=== PATIENT | female | born 1990 | race Caucasian/White ===

== ENCOUNTER 2019-01-20 08:59 | Emergency (ER) | payer BC, SELFPAY ==
[2019-01-20 09:00] VITALS: BP 143/84; PULSE 90; RESP 18; TEMP 37; O2SAT 96; BMI 44.9
--- NOTE | 2019-01-20 09:17 | ED.DCSUM_ITS ---
- ER Visit Summary Date of Service: 01/20/19 Chief Complaint: Viral respiratory symptoms that started 2 days ago History of Present Illness: The patient is a 28 F who presents with viral-like symptoms started 2 days ago. She reports subjective fever and sweats. She reports sore throat postnasal drainage. She has a cough which is nonproductive. She states she does not feel well. 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 Patient denies any medical problems. She does report mild head discomfort. She denies any ear pain or decreased hearing. Patient denies GI symptoms or urologic symptoms. Please read written note for complete detail Physical Examination: Vital signs are remarkable for blood pressure 143/84. She is afebrile. She is not tachycardic tachypnic. Furthermore, she is not hypoxic. BMI is 44.9. HEENT exam is marked for nasal congestion. Posterior pharynx unremarkable with no erythema, uvula is midline. There is no exudate. There is no dysphonia or dysphasia. Trach is midline. There is no stridor. Heart is regular without murmur, gallop or rub. S1 and S2 are normal. Lungs are clear to auscultation with good movement of air bilaterally. There is no skin lesions. Neuro exam is nonfocal. Test Results: None were obtained Emergency Department Course and Treatment: Patient was informed she has a viral infection. Since her symptoms started 2 days ago she was not tested for influenza. She was informed based on the CDC's recommendation [employer] infectious disease treatment is not indicated past 2 days. Furthermore patient has no congenital anomalies or significant medical problems. Patient was informed if this is influenza since she is exposed her illness will last another 4-7 days. If this is not influenza her illness will last an additional 7-10 days. Treatment Plan: Symptomatic. Patient appeared frustrated. She was asked if anything else can be done. Her comment was I feel bad. Patient was informed it is not uncommon with a viral upper restaurant infection to feel ill sore etc. I reiterated since this is a viral infection and antibiotics are not indicated. Disposition: Discharged home Impression: Acute viral upper respiratory infection This note was generated with Coreworx[employer] software. It may contain incorrect words, spelling, and punctuation that were not noted in review of the chart prior to signing ED Disposition - Plan for ED Patient: Disposition: Home or Assisted Living Instructions: ED Viral Syndrome Additional Instructions: You may feel ill for additional 7-10 days. If you develop a productive cough with blood streaks or is brown in color return to the emergency department; you may feel worse over the next 24-48 hours before you feel better.
== END 2019-01-20 09:36 | disposition home or self-care (01) ==
PROVIDERS: Emergency Provider Emergency Medicine
DX: J06.9 Acute upper respiratory infection, unspecified (principal); E66.9 Obesity, unspecified; Z68.41 Body mass index [BMI] 40.0-44.9, adult
CPT/HCPCS: 99282

== ENCOUNTER 2021-10-07 11:31 | Emergency (ER) | payer OTHER, SELFPAY ==
[2021-10-07 11:32] VITALS: BP 167/92; PULSE 104; RESP 18; TEMP 36.2; O2SAT 99; BMI 48.0
--- NOTE | 2021-10-07 12:45 | RAD_ITS ---
STUDY: X-RAY CHEST REASON FOR EXAM: Female, 31 years old. cough TECHNIQUE: Single frontal view of the chest. COMPARISON: None. FINDINGS: The lungs are clear and expanded. There is no demonstrated pleural abnormality. Normal size heart. Normal mediastinum and radha. Normal visualized pulmonary arteries. Normal visualized aortic arch and descending thoracic aorta. Normal visualized thoracic spine. Normal visualized ribs, clavicles, and shoulders. There is no demonstrated abnormality of the visualized soft tissue structures of the upper abdomen. RAD/Chest 1 View (Portable) IMPRESSION: Normal x-ray examination of the chest. Electronically Signed: Scotty Birmingham MD at 16:23 EST , Service support ,
--- NOTE | 2021-10-07 12:46 | EDS_ITS ---
HPI HPI - URI History of Present Illness Chief Complaint: Cough Narrative Narrative: Patient presents with URI type symptoms for the last 5 days. She states she went to the urgent care on Sunday and was tested for Covid and was negative. She complains of sore throat, cough, mild shortness of breath, and body aches. She states on Sunday she was told to take Claritin and this is most likely a common cold. Her throat hurts more when she swallows. She has had subj ective fever, stating that she usually runs 97 but was as high as 99 degrees previously. She returned to urgent care yesterday and was prescribed cough medication. She states that the worst symptoms are the sore throat and the cough. She denies any exacerbating or alleviating factors. Past medical history includes anxiety and PCOS for which she takes Metformin. ROS ROS ED ROS Narrative Constitutional: No fever, no chills. HEENT: Positive sore throat. No neck pain. No loss of vision. No rhinorrhea. Cardiovascular: No chest pain. No palpitations. No pedal edema. Respiratory: Positive cough, mild shortness of breath. Abdominal: No abdominal pain. No nausea. No vomiting. Genitourinary: No dysuria. No hematuria. Musculoskeletal: Diffuse myalgias. No arthralgias. Neurologic: No headaches. No dizziness. No lightheadedness. Skin: No rash. No change in color. Psychiatric: No depression. No anxiety. [facility] Medical History (Updated 10/07/21 @ 14:40 by Jose Armando Rascon MD) PCOS (polycystic ovarian syndrome) Home Medications albuterol sulfate [Ventolin HFA] 1 - 2 puff INHALATION Q4H PRN PRN #1 ea 10/07/21 [Rx Last Taken Unknown] fluoxetine 10 mg PO DAILY 10/07/21 [History Last Taken Unknown] metformin 500 mg PO DAILY 10/07/21 [History Last Taken Unknown] Allergy/AdvReac Type Severity Reaction Status Date / Time amoxicillin Allergy Hives Verified 10/07/21 11:32 Penicillins Allergy Hives Verified 10/07/21 11:32 Surgical History (Updated 10/07/21 @ 13:07 by Romain Correa) [place] teeth removed Social History Smoking Status: Never smoker EXAM Physical Exam Narrative Exam Narrative: Afebrile. Vital signs noted. HEENT: Normocephalic. Atraumatic. PERRL, EOMI. Neck soft and supple. No point tenderness or step off. Airway patent. No meningismus. Cardiovascular: Regular rate and rhythm with intermittent tachycardia. No mur murs, rubs, or gallops appreciated. Respiratory: No tachypnea. Lungs clear to auscultation bilaterally. Gastrointestinal: Abdomen soft, nontender, with normoactive bowel sounds. No rebound or guarding. Neurological: Awake. Alert. Nonfocal, nonlateralizing. Skin: No rash. Normal color. No pallor. Musculoskeletal: No pedal edema. Full range of motion extremities. Const Vital Signs: 10/07/21 11:32 10/07/21 13:06 Temperature 97.1 F L Temperature Source Temporal Pulse Rate 104 H Respiratory Rate 18 Respiratory Effort Normal Respiratory Depth Normal Respiratory Pattern Normal Blood Pressure 167/92 H Blood Pressure Mean 117 Pulse Ox 99 Oxygen Delivery Method Room Air Room Air MDM MDM MDM Narrative Medical decision making narrative: Patient will be swabbed for influenza and for strep throat, although she has no exudate. I will also obtain a chest x-ray. Her pulse ox is 99% on room air without evidence of hypoxia. Chest x-ray was read as negative. Her Covid swab, influenza swab, and strep swabs were all negative. At this point in time, she will be symptomatic. She will be given a prescription for an albuterol inhaler and a note to be off work for the next 2 days. She will continue her medications that she has already received and add other [id number] remedies. I feel she be discharged safely home with follow-up. Return instructions were reviewed. Disposition is discharged home in stable condition. Lab Data Attestation: I reviewed the patient's lab results. Radiography Diagnostic Testing: Clinical Impression(s) from Imaging Studies Chest X-Ray 10/07/21 12:45 IMPRESSION: Normal x-ray examination of the chest. Electronically Signed: Scotty Birmingham MD at 16:23 EST , Service support , Discharge Plan Triage Chief Complaint: Cough ED Provider: Jose Armando Rascon Dx/Rx/DC Orders Clinical Impression: URI (upper respiratory infection), Bronchitis Instructions: ED Bronchitis with Wheezing (Adult), ED URI, Viral, No Abx (Adult) Prescriptions: New albuterol sulfate [Ventolin HFA] 90 mcg/actuation HFA aerosol inhaler 1 - 2 puff inhalation Q4H PRN PRN (Reason: Wheezing) Qty: 1 RF: 0 No Action fluoxetine 10 mg capsule 10 mg PO DAILY RF: 0 metformin 500 mg tablet extended release 24 hr 500 mg PO DAILY RF: 0 Stand Alone Forms: ED Work / School Excuse Primary Care Provider: Edwin Adamson NP Referrals: Edwin Adamson NP, ANDROID PROGRAMMER-C [Primary Care Provider] - 10/11/21 Disposition Disposition: Home, Self Care Discharge Date/Time: 10/07/21 14:53
[2021-10-07 13:06] VITALS: O2SAT 97
== END 2021-10-07 14:53 | disposition home or self-care (01) ==
PROVIDERS: Emergency Provider Emergency Medicine; PCP Nurse Practitioner Primary Care
DX: J40 Bronchitis, not specified as acute or chronic (principal); E28.2 Polycystic ovarian syndrome; F41.9 Anxiety disorder, unspecified; Z79.84 Long term (current) use of oral hypoglycemic drugs; Z79.899 Other long term (current) drug therapy
CPT/HCPCS: 71045; 87426; 87804; 87880; 99282

== ENCOUNTER 2022-03-23 10:20 | Outpatient (RCR) | payer OTHER, SELFPAY | END 2022-04-04 23:59 | LOC: NS 10:20 | PROVIDERS: PCP Nurse Practitioner Primary Care; Referring Provider Nurse Practitioner; Visit Provider Nurse Practitioner | DX: Z71.3 Dietary counseling and surveillance (principal); E66.01 Morbid (severe) obesity due to excess calories; Z68.42 Body mass index [BMI] 45.0-49.9, adult | CPT/HCPCS: 97802 ==

== ENCOUNTER 2023-03-04 14:07 | Emergency (ER) | payer OTHER, SELFPAY ==
[2023-03-04 14:09] VITALS: BP 179/110; PULSE 92; RESP 22; TEMP 36.1; O2SAT 98; BMI 50.5
--- NOTE | 2023-03-04 14:21 | EX.ED.VIS.EY ---
HPI <QUAN Arias - Last Filed: 03/04/23 14:36> History of Present Illness Chief Complaint: Eye Problem Narrative Narrative: Patient is 32-year-old female with history of PCOS who presents to the emergency department for swelling to the left eye as well as redness. Patient states 3 days ago she noticed her left eye getting more red. The lower lid became more swollen, she woke up with crusty eyes. Patient states has tried warm compress, cold compress and still having pain. She did go to express care who referred her to the emergency department. Patient denies any vision change, patient denies any known injury. Patient does have some drainage from the eye. She denies any pain with movement of the eye. Patient does not wear contacts, she does wear glasses PFSH <QUAN Arias - Last Filed: 03/04/23 14:36> PFS Medical History (Updated 03/04/23 @ 14:39 by Rebecca Galvez) GERD (gastroesophageal reflux disease) PCOS (polycystic ovarian syndrome) Home Medications albuterol sulfate 90 mcg/actuation aerosol inhaler (Ventolin HFA) 1 - 2 puff inhalation Q4H PRN PRN Wheezing #1 ea 10/07/21 [Rx Last Taken Unknown] fluoxetine 10 mg capsule 10 mg PO DAILY 10/07/21 [History Last Taken Unknown] metformin 500 mg tablet,extended release 24 hr 500 mg PO DAILY 10/07/21 [History Last Taken Unknown] gentamicin 0.3 % eye drops 2 drp LEFT EYE Q4H #5 mL 03/04/23 [Rx Last Taken Unknown] Allergy/AdvReac Type Severity Reaction Status Date / Time amoxicillin Allergy Hives Verified 10/07/21 11:32 ceftriaxone [From Rocephin] Allergy Hives Verified 03/04/23 14:11 Penicillins Allergy Hives Verified 10/07/21 11:32 Family History Mother GERD (gastroesophageal reflux disease) Bernal esophagus Hypertension Blood clotting disorder Grandfather Diabetes Surgical History (Updated 03/04/23 @ 14:39 by Rebecca Galvez) H/O esophagogastroduodenoscopy [place] teeth removed Social History housing: house Smoking Status: Never smoker ROS <QUAN Arias - Last Filed: 03/04/23 14:36> ROS ED ROS Narrative Constitutional: Negative for fever, chills, weight loss, weakness Eyes: Negative for vision loss, vision change, double vision. Left eye redness, pain, swelling, drainage ENT: Negative for any sore throat, ear pain, congestion Cardiovascular: Negative for any chest pain, tightness, palpitations Respiratory: Negative for any cough, sputum production, hemoptysis, dyspnea, dyspnea on exertion, orthopnea Gastrointestinal: Negative for any abdominal pain, nausea, vomiting, diarrhea, constipation, blood in stool, blood in vomit : Negative for any urinary frequency, dysuria, retention, blood in urine Muscle skeletal: Negative for any muscle joint pain, stiffness, myalgias, arthralgias, neck pain, back pain Neurological: Negative for any headache, syncope, numbness or tingling, dizziness Skin: Negative for any rashes, lumps, itching, abrasions, lacerations Psychiatric: Negative for any depression, anxiety, stress, suicidal ideation, homicidal ideation Hematologic: Negative for any easy bruising, excessive bruising, easy bleeding Allergies: Negative for any eczema, hives, rash EXAM <QUAN Arias - Last Filed: 03/04/23 14:36> Physical Exam Narrative Exam Narrative: Vital signs reviewed. HEET: Head normocephalic atraumatic, TMs clear bilaterally. Posterior pharynx is clear, moist mucous membranes. Nares clear bilaterally. Pupils are equal round reactive to light. Patient does have some injection to the lower conjunctiva, small amount of drainage. Patient does have some subconjunctival hemorrhage to the left lateral eye. Negative for any vision loss. Negative for any pain with EOMs. Patient does have some edema, erythema to the left lower eyelid. Physical examination is consistent with conjunctivitis, possible stye. Neck: Supple with no lymphadenopathy or tenderness. No signs of meningismus, negative jolt sign. Cardiac: Regular rate and rhythm no murmurs gallops or rubs, equal peripheral pulses bilaterally. Respiratory: Lungs clear to auscultation bilaterally. No chest tenderness. Abdomen: Soft, nontender, nondistended. No abdominal bruit or pulsatile masses. No hepatosplenomegaly Extremities: No peripheral edema, no signs of gross trauma or deformity. Active full range of motion of all extremities. Neuro: Cranial nerves II through XII intact, no focal neurological deficits. Skin: Clean dry and intact with no rash, purpura, petechiae, vesicles or pustules. Backs/flank: No CVA tenderness, no midline spinal tenderness, no deformity. Psych: Normal mood and affect. No SI, HI or acute psychosis. Const Vital Signs: 03/04/23 14:09 Temperature 96.9 F L Temperature Source Temporal Pulse Rate 92 Respiratory Rate 22 H Blood Pressure 179/110 H Blood Pressure Mean 133 Pulse Ox 98 Oxygen Delivery Method Room Air [facility] <QUAN Arias - Last Filed: 03/04/23 14:36> [facility] Treatment and Re-Evaluation Narrative: Patient appears well, patient appears nontoxic, vital signs are stable. Patient presents to the emergency department with 3 days of left eye pain, redness, swelling. Patient's physical examination consistent with a conjunctivitis. Patient's differential includes viral conjunctivitis, early stye, early orbital cellulitis however patient has no surrounding cellulitis, no fever, chills. Patient is no pain with EOMs. Patient did see an urgent care who gave her clindamycin orally for cellulitis. Patient does have an appointment with an eye doctor tomorrow morning at 8:45 AM. I will add gentamicin eyedrops the patient will take 2 drops 4 times a day. Patient will continue her follow-up with ophthalmology. She is instructed to return for worsening pain, vision loss, fever chills nausea vomiting. All questions answered. Patient stable for discharge <Dr. Bryson Peterson MD - Last Filed: 03/04/23 14:41> [facility] Narrative Medical decision making narrative: I have personally performed a face to face assessment of the patient and have reviewed the DEEPA Note. I performed a substantive portion of the visit including all aspects of the following. My ding findings include: History is 32-year-old female wears glasses but no contacts or prior eye surgery. 3-day history of redness to the lateral aspect of her left eye with mild swelling to the left lower lid. No trauma. No injury. States she does have some discharge and crusting in the morning. No significant visual change. No prior history. No exposure to pinkeye. Exam is [well-appearing 32-year-old female. Vital signs stable afebrile. HEENT exam pupils round reactive light extra motions are intact. There is no proptosis. No pain with extraocular motions. Right eye is unremarkable. Left eye there is conjunctivitis. With redness in the lateral aspect of the left sclera. Able to open and close both upper and lower lids without difficulty. The left lower lid laterally is mildly swollen. There is no obvious stye at this time. The eye itself there is no abrasion or foreign body. There is no ulceration. Everting both the upper and lower lids there is mild swelling in the left lower lid. There is no periorbital cellulitis or preauricular lymphadenopathy. Posterior pharynx and left ear are unremarkable. Neck nontender. No lymphadenopathy. Lungs clear. Heart regular rhythm. Otherwise exam unremarkable.] Medical Decision Making [32-year-old female wears glasses but not contacts nor has she had any eye trauma or surgery. This is either a conjunctivitis which could be either viral or bacterial. It could be early stye formation or even soft tissue infection. She was seen in urgent care today. He started on clindamycin due to her allergies to both Keflex and penicillin. We will add eyedrops. And she has appointment to see a [facility] eye physician tomorrow morning.] Other additions or changes: [None] Discharge Plan Triage Chief Complaint: Eye Problem ED Midlevel Provider: Juan Alberto Colindres ED Provider: Bryson Peterson Dx/Rx/DC Orders Clinical Impression: Conjunctivitis Instructions: ED Conjunctivitis, Nonspecific Prescriptions: New gentamicin 0.3 % drops 2 drp LEFT EYE Q4H Qty: 5 0RF No Action fluoxetine 10 mg capsule 10 mg PO DAILY metformin 500 mg tablet extended release 24 hr 500 mg PO DAILY albuterol sulfate [Ventolin HFA] 90 mcg/actuation HFA aerosol inhaler 1 - 2 puff inhalation Q4H PRN PRN (Reason: Wheezing) Qty: 1 0RF Primary Care Provider: Edwin Adamson NP Referrals: Edwin Adamson NP, PUPPET MASTER-C [Primary Care Provider] - Activity Restrictions/Additional Instructions: Please follow-up with the mechanical field engineer tomorrow at 8:45 AM. Start eyedrops today, as well as the clindamycin Disposition Disposition: Home, Self Care
[2023-03-04 14:43] VITALS: RESP 16
== END 2023-03-04 14:44 | disposition home or self-care (01) ==
LOC: ED 14:41
PROVIDERS: Emergency Provider Emergency Medicine; PCP Nurse Practitioner; Visit Provider Emergency Medicine
DX: H10.9 Unspecified conjunctivitis (principal)
CPT/HCPCS: 99282

== ENCOUNTER 2024-11-17 15:06 | Emergency (ER) | payer OTHER, SELFPAY ==
[2024-11-17 15:07] VITALS: BP 116/89; PULSE 93; RESP 20; TEMP 36; O2SAT 97; BMI 47.3
[2024-11-17 15:47] LABS: Absolute Lymphocyte Count 2.95 X10^3/uL (0.83-4.51); Absolute Neutrophil Count 8.6 X10^3/uL (2.0-7.7); Basophil# 0.06 X10^3/uL; Basophil% 0.5 % (0-1); Eosinophil# 0.29 X10^3/uL; Eosinophils% 2.3 % (0-5); Hematocrit 44.9 % (37-47); Hemoglobin 14.9 g/dL (12.0-15.0); Lymphocyte # 2.95 X10^3/ul (0.83-4.51); Lymphocyte % 23.3 % (19-41); Mean Corp Hgb Conc 33.2 g/dL (32-36); Mean Corpuscular Hgb 30.3 pg (27.0-32.0); Mean Corpuscular Volume 91.4 fL (81-99); Mean Platelet Vol. 11.4 fl (6.2-12.0); Monocyte# 0.73 X10^3/uL; Monocyte% 5.8 % (0-10); NRBC Flagged by Analyzer 0 % (0-5); Neutrophil # 8.62 X10^3/uL (2.7-7.7); Neutrophil % 67.9 % (47-70); Platelet Count 326 K/mm3 (150-450); RBC Distribution Width CV 12.5 % (11.6-14.6); RBC Distribution Width SD 41.8 fl (35.1-43.9); Red Blood Count 4.91 M/mm3 (4.2-5.4); White Blood Count 12.7 K/mm3 (4.4-11.0)
[2024-11-17 16:09] LABS: ALB/GLOB Ratio 0.9 RATIO (0.9-2.4); AST(SGOT) 7 U/L (15-37); Alanine Aminotransfer ALT/SGPT 25 U/L (13-56); Albumin, Serum 3.6 g/dL (3.2-5.0); Alkaline Phosphatase 107 U/L (45-117); Anion Gap 5 (5-15); BUN 14 mg/dL (7-18); BUN/Creat Ratio 14.2 RATIO (10-20); Calcium,Total 9.2 mg/dL (8.5-10.1); Chloride 108 mmol/L (98-107); Creatinine, Serum 0.98 mg/dL (0.55-1.02); EST Glomerular Filtration Rate 69 mL/min (>60); Est Glom Filt Rate - Afr Amer 84 mL/min (>60); Estimated Creatinine Clearance 91.85 ml/min; Globulin 3.9 g/dL (2.2-4.2); Glucose 95 mg/dL (74-106); Potassium 4.3 mmol/L (3.5-5.1); Protein, Total 7.5 g/dL (6.4-8.2); Sodium Level 138 mmol/L (136-145)
[2024-11-17 16:11] LABS: Internal QC Validated? YES +Cl - CLEAR BKGD; Pregnancy, Serum, hCG Quali. NEGATIVE Negative
[2024-11-17] MEDS: Mag Hydrox/Al Hydrox/Simeth 30 ML UDC PO (16:22)
[2024-11-17] MEDS: Ondansetron 4 MG/2 ML Vial IV (16:22)
[2024-11-17] MEDS: Famotidine 200 MG/20 ML MDV 20 MG in 0.9% Normal Saline (Pres. free 8 ML 300 MG IV (16:22)
[2024-11-17] MEDS: Lidocaine 2% Viscous15 ML UDC 15 ML PO (16:22)
[2024-11-17 16:40] LABS: Mucous, Urine 0 SEEN /hpf (<or=2+)
[2024-11-17 16:48] LABS: Lipase 53 U/L (13-75)
[2024-11-17 17:06] LABS: Color, Urine Yellow (Yellow); Glucose, Dipstick Normal (Normal); Ketone-Dipstick Negative (Negative); Leukocyte Esterase-Dipstick Negative /ul (Negative); Nitrite-Dipstick Negative (Negative); Occult Blood-Urine 250 /ul (Negative); Protein-Dipstick 15 mg/dl (Negative); Specific Gravity, Urine 1.015 (1.002-1.030); Urine Bilirubin Dipstick Negative (Negative); Urine Clarity Clear (Clear); Urine Urobilinogen Normal (Normal)
[2024-11-17 17:07] VITALS: BP 123/95; PULSE 71; RESP 16; O2SAT 99
[2024-11-17 17:13] LABS: Squamous Epithelial Cells - UA 5-10 SEEN /hpf (5-10); White Blood Cells 0-5 SEEN /hpf (0-5)
[2024-11-17 17:14] LABS: Bacteria 2+ /hpf (None Seen); Red Blood Cells-Urine 0-5 SEEN /hpf (0-5)
[2024-11-17 17:17] VITALS: BP 123/95; PULSE 71; RESP 16; TEMP 36.9; O2SAT 99
--- NOTE | 2024-12-02 00:56 | EDS_ITS ---
HPI HPI - GI History of Present Illness Chief Complaint: Abd Pain Narrative Narrative: Delayed note patient seen on 11/17/2024. Epigastric abdominal pain after eating. Nausea without vomiting. No diarrhea. Denies any black or bloody stools. PFSH PFSH Medical History GERD (gastroesophageal reflux disease) PCOS (polycystic ovarian syndrome) Home Medications ?Medication ?Instructions ?Recorded ?Last Taken ?Type albuterol sulfate 90 mcg/actuation 1 - 2 puff inhalation Q4H PRN PRN 10/07/21 Unknown Rx aerosol inhaler (Ventolin HFA) Wheezing #1 ea fluoxetine 10 mg capsule 10 mg PO DAILY 10/07/21 Unknown History metformin 500 mg tablet,extended 500 mg PO DAILY 10/07/21 Unknown History release 24 hr gentamicin 0.3 % eye drops 2 drp LEFT EYE Q4H #5 mL 03/04/23 Unknown Rx ondansetron 4 mg disintegrating 4 mg PO Q8H PRN PRN Nausea #10 tabs 11/17/24 Unknown Rx tablet Allergy/AdvReac Type Severity Reaction Status Date / Time amoxicillin Allergy Hives Verified 11/17/24 15:08 ceftriaxone (From Rocephin) Allergy Hives Verified 11/17/24 15:08 Penicillins Allergy Hives Verified 11/17/24 15:08 Family History Mother GERD (gastroesophageal reflux disease) Bernal esophagus Hypertension Blood clotting disorder Grandfather Diabetes Surgical History H/O esophagogastroduodenoscopy [place] teeth removed Social History housing: house Smoking Status: Never smoker ROS ROS ED Constitutional Constitutional ED: Denies chills, fever(s) or sweats ENT ENT ED: Denies sore throat Cardiovascular Cardiovascular: Denies chest pain, leg edema, palpitations or racing heartbeat Respiratory/Chest Respiratory/Chest: Denies cough, dyspnea or dyspnea on exertion Gastrointestinal Gastrointestinal: Reports abdominal pain and nausea; Denies diarrhea or vomiting Genitourinary Genitourinary ED: Denies dysuria, hematuria or urinary frequency Musculoskeletal Musculoskeletal: Denies back pain, extremity pain or neck pain Integumentary Denies rash or wounds Neurologic Neurologic: Denies headache(s), paresthesias or weakness EXAM Physical Exam Const Positive well nourished and well developed General Appearance ED: well developed and NAD HEENT Reports moist mucous membranes normocephalic and atraumatic Eyes General Eye ED: Yes normal appearance of both eyes Neck full ROM Chest Wall Chest: Negative for tenderness Resp normal respiratory effort and normal air movement Effort and Inspection: symmetric chest movement; Negative for respiratory distress Cardio regular rate, regular rhythm and no murmurs Peripheral Pulses: pulses 2+ throughout GI normal to inspection, nondistended, normoactive bowel sounds GI Narrative: Mild epigastric tenderness. Negative Seals's or McBurney's tenderness. Palpation: Negative for guarding or rebound tenderness present Extremity normal to inspection General Extremety ED: Negative for edema or tenderness General Extremity: Negative for edema Neuro oriented x3 and no sensory deficits noted Sensorium / Orientation: awake and alert Skin no rashes or lesions noted and no wounds MDM MDM MDM Narrative Medical decision making narrative: Interventions / MDM: Differential diagnosis: Gastritis Diagnosis considered but do not suspect: No clinical cholecystitis My EKG interpretation: N/A Imaging independently reviewed and interpreted by myself: N/A External documents reviewed: N/A Test considered but not ordered:N/A ED course: Patient epigastric pain Hours prior to arrival after eating. Negative Seals sign. Abdominal labs ordered, Zofran, Pepcid and GI cocktail ordered. Reevaluation symptoms improving. Prescription for symptom control. Discussed monitoring for symptoms worsening with meals such as dairy foods, fatty food, greasy foods which could be signs of early gallbladder disease. Outpatient follow-up. All questions were answered. Re-evaluation: stable Disposition discussed with patient/family/significant other: Patient Case discussed with consulting clinician: N/A This note was generated with [employer] ([employer]) dictation software. It may contain incorrect words, spelling, and punctuation that were not noted in checking the note before signing. Discharge Plan Triage Chief Complaint: Abd Pain ED Provider: Yash Marquez Dx/Rx/DC Orders Clinical Impression: Gastritis, Nausea Instructions: ED Gastritis (Adult) Prescriptions: New ondansetron 4 mg tablet,disintegrating 4 mg PO Q8H PRN PRN (Reason: Nausea) Qty: 10 0RF No Action fluoxetine 10 mg capsule 10 mg PO DAILY metformin 500 mg tablet extended release 24 hr 500 mg PO DAILY albuterol sulfate [Ventolin HFA] 90 mcg/actuation HFA aerosol inhaler 1 - 2 puff inhalation Q4H PRN PRN (Reason: Wheezing) Qty: 1 0RF gentamicin 0.3 % drops 2 drp LEFT EYE Q4H Qty: 5 0RF Stand Alone Forms: ED Work / School Excuse Primary Care Provider: MICHELLE ARREOLA Referrals: MICHELLE ARREOLA, BREAK OUT WORKER-C [Primary Care Provider] - 1-2 Weeks Activity Restrictions/Additional Instructions: Abdominal labs are normal. Need to take her omeprazole daily. Use Zofran as needed. Monitor for any worsening symptoms specially with fatty foods greasy foods or dairy foods to let your doctor know about this. May need further wo rkup with your doctor. Print Language: Ukrainian Disposition Disposition: Home, Self Care Discharge Date/Time: 11/17/24 17:17
== END 2024-11-17 17:17 | disposition home or self-care (01) ==
PROVIDERS: Emergency Medicine; Emergency Provider Emergency Medicine; PCP Nurse Practitioner; Visit Provider Emergency Medicine
DX: K29.70 Gastritis, unspecified, without bleeding (principal)
CPT/HCPCS: 80053; 81001; 83690; 84703; 85025; 96374; 99282; A4216; J2405

== ENCOUNTER 2025-08-06 07:35 | Emergency (ER) | payer OTHER, SELFPAY ==
[2025-08-06 07:36] VITALS: BP 141/80; PULSE 77; RESP 14; TEMP 36.4; O2SAT 99; BMI 48.7
--- NOTE | 2025-08-06 07:53 | CT_ITS ---
PROCEDURE: ABDOMEN/PELVIS WITHOUT CONT 08/06/2025 REASON FOR EXAM: KIDNEY STONE TECHNIQUE: Procedure Code: CTABDPEL Modality: CT Procedure: ABDOMEN/PELVIS WITHOUT CONT Noncontrast technique limits evaluation of the abdominal and pelvic viscera. Coronal and Sagittal reconstruction series were provided. One or more dose reduction techniques were used (e.g., Automated exposure control, adjustment of the mA and/or kV according to patient size, use of iterative reconstruction technique). RADIATION DOSE SUMMARY: CTDlvol: 23.8 mGy DLP: 1200 mGycm COMPARISON: None FINDINGS: Lung bases: Clear Liver: Unremarkable. Gallbladder: Unremarkable. Spleen: Normal morphology and attenuation. Pancreas: Unremarkable. Adrenals: Unremarkable. Kidneys: There is a 4 mm nonobstructing renal stone in the inferior pole of the right kidney. There is a 2 mm nonobstructing renal stone in the inferior pole of the left kidney. No hydronephrosis or hydroureter demonstrated bilaterally. Bladder: Urinary bladder is partially filled unremarkable. Reproductive Organs: There is an anteverted uterus with IUD in place. Bilateral ovaries appears within normal limits. Bowel: Small and large bowels are within normal limits. Appendix: Visualized unremarkable. Lymph nodes: Few shotty retroperitoneal lymph nodes present. Vasculature: Unremarkable. Peritoneum / Retroperitoneum: Bones: Mild degenerative changes present. Otherwise no suspicious lesions identified. CT/Abdomen/Pelvis without Cont IMPRESSION: Bilateral nonobstructing renal stones as detailed above. No obstructive uropat hy. There is an IUD in place unremarkable. The appendix is visualized unremarkable. Reading Location: [place] [id number]
--- NOTE | 2025-08-06 07:54 | EX.ED.DYSGE1 ---
HPI History of Present Illness Chief Complaint: Flank Pain Informant: patient Onset/Context/Timing Onset: Today Narrative Narrative: Patient is a 34-year-old female with history of GERD and PCOS presenting with sudden onset of right lower back pain. She states it woke her from sleep around 7 AM. Denies any radiation. States it fluctuates in intensity. Has associated nausea and vomiting. Denies any recent urinary symptoms. Notes she just got off her menstrual cycle is not concern for . Denies any fevers. States this feels like her prior kidney stones. Denies associate abdominal pain. [place] any numbness or tingling of his legs. States she has had kidney stones in the past but she is passing on her own is never required any intervention. No other complaints or concerns reported at this time. Did not take anything prior to arrival secondary to her vomiting. Prior similar symptoms: Yes (With kidney stones) [facility] Medical History GERD (gastroesophageal reflux disease) PCOS (polycystic ovarian syndrome) Home Medications ?Medication ?Instructions ?Recorded ?Last Taken ?Type albuterol sulfate 90 mcg/actuation 1 - 2 puff inhalation Q4H PRN PRN 10/07/21 Unknown Rx aerosol inhaler (Ventolin HFA) Wheezing #1 ea fluoxetine 10 mg capsule 10 mg PO DAILY 10/07/21 Unknown History metformin 500 mg tablet,extended 500 mg PO DAILY 10/07/21 Unknown History release 24 hr gentamicin 0.3 % eye drops 2 drp LEFT EYE Q4H #5 mL 03/04/23 Unknown Rx ondansetron 4 mg disintegrating 4 mg PO Q8H PRN PRN Nausea #10 tabs 11/17/24 Unknown Rx tablet nitrofurantoin 100 mg PO Q12H 5 days #10 caps 08/06/25 Unknown Rx monohydrate/macrocrystals 100 mg capsule (Macrobid) Allergy/AdvReac Type Severity Reaction Status Date / Time amoxicillin Allergy Hives Verified 08/06/25 07:38 ceftriaxone (From Rocephin) Allergy Hives Verified 08/06/25 07:38 Penicillins Allergy Hives Verified 08/06/25 07:38 Family History Mother GERD (gastroesophageal reflux disease) Bernal esophagus Hypertension Blood clotting disorder Grandfather Diabetes Surgical History H/O esophagogastroduodenoscopy [place] teeth removed Social History housing: house Smoking Status: Never smoker ROS ROS ED Constitutional Constitutional ED: Denies chills or fever(s) Gastrointestinal Gastrointestinal: Reports nausea and vomiting; Denies abdominal pain, constipation or diarrhea Musculoskeletal Musculoskeletal: Reports back pain Integumentary Denies rash Neurologic Neurologic: Denies paresthesias or weakness Hematologic/Lymphatic Hematologic/Lymphatic: Denies easy bleeding or easy bruising EXAM Physical Exam Const Vital Signs: 08/06/25 07:36 08/06/25 09:39 08/06/25 09:39 Temperature 97.5 F L 98.1 F 98.1 F Temperature Source Temporal Oral Oral Pulse Rate 77 64 64 Respiratory Rate 14 14 14 Blood Pressure 141/80 H 126/89 H 126/89 H Blood Pressure Mean 100 101 101 Pulse Ox 99 99 99 Oxygen Delivery Method Room Air Room Air Room Air Positive well nourished and well developed General Appearance ED: well developed and NAD HEENT Reports moist mucous membranes Neck supple Chest Wall inspection of chest normal and palpation of chest normal Resp normal respiratory effort and clear to auscultation bilaterally Cardio regular rate and regular rhythm GI normal to inspection, nondistended, normoactive bowel sounds and non-tender Palpation: soft; Negative for guarding Back/Spine no CVA tenderness Back/Spine Narrative: Tenderness to the right lower lumbar back, not significantly reproducible with direct palpation. No associated spasm or skin changes appreciated. Thoracic Spine / Upper Back: Negative for thoracic spinal tenderness Lumbar Spine / Lower Back: Negative for lumbar spinal tenderness Neuro oriented x3 Sensorium / Orientation: alert Motor Exam: Negative for general weakness Psych mental status grossly normal Skin no rashes or lesions noted and no wounds MDM MDM MDM Narrative Medical decision making narrative: Patient evaluated sudden onset of right lower back pain. Differential includes is not limited to renal colic, urinary tract infection and muscular pain. Patient given IV Toradol, Zofran and fluids in the emergency room. Will obtain CBC, BMP, urinalysis, urine and CT abdomen pelvis for further evaluation. Patient feeling improved in the emergency room. Workup largely normal. She has normal CBC and unremarkable BMP. Bicarb is mildly low at 18.7 which could be suggestive of some dehydration. Was given IV fluids in the ER. Urinalysis shows 100 leukocyte esterase, 25-50 red blood cells with some contamination 2+ bacteria. Will send off for culture. States she finished her menstrual cycle a week ago so lower suspicion for menstrual contamination with the microscopic hematuria. CT does not show any acute process and specifically does not show any obstructive uropathy. She does have bilateral nonobstructing renal stones. Discussed with patient that either she already passed the kidney stone or this is possibly UTI versus muscle skeletal pain. Will start her on Macrobid empirically while culture is pending. She is comfortable with this. Discussed that she should continue to alternate ibuprofen and Tylenol for pain but return if she has worsening or progression of her symptoms. She verbalized agreement understand this. Encouraged follow-up with her family doctor. Discharged home in stable condition Lab Data Attestation: I reviewed the patient's lab results. Labs: Laboratory Results - last 24 hr 08/06/25 08/06/25 07:44 07:55 WBC 8.7 RBC 4.54 Hgb 13.6 Hct 41.1 MCV 90.5 MCH 30.0 MCHC 33.1 RDW Std Deviation 43.0 RDW Coeff of Jevon 13.1 Plt Count 261 MPV 12.3 H Immature Gran % (Auto) 0.300 Neut % (Auto) 66.5 Lymph % (Auto) 23.4 [place] % (Auto) 5.5 Eos % (Auto) 3.6 Baso % (Auto) 0.7 Absolute Neuts (auto) 5.8 Absolute Lymphs (auto) 2.04 Nucleated RBC % 0 Sodium 138 Potassium 3.8 Chloride 109 H Carbon Dioxide 18.7 L Anion Gap 11 BUN 15 Creatinine 0.88 Estim Creat Clear Calc 104.19 Est GFR (MDRD) Non-Af 89 BUN/Creatinine Ratio 16.5 Glucose 108 H Calcium 9.0 Urine Color Yellow Urine Clarity Sl. Cloudy Urine pH 5.0 Ur Specific [place] 1.025 Urine Protein 100 H Urine Glucose (UA) Normal Urine Ketones Negative Urine Occult Blood 250 H Urine Nitrite Negative Urine Bilirubin Negative Urine Urobilinogen Normal Ur Leukocyte Esterase 100 H Urine RBC 25-50 SEEN Urine WBC 0-5 SEEN Ur Squamous Epith Cells 5-10 SEEN Urine Bacteria 2+ Urine Mucus 0 SEEN Urine Test Negative Radiography Diagnostic Testing: Clinical Impression(s) from Imaging Studies Abdomen/Pelvis CT 08/06/25 07:53 IMPRESSION: Bilateral nonobstructing renal stones as detailed above. No obstructive uropathy. There is an IUD in place unremarkable. The appendix is visualized unremarkable. Reading Location: [place] [id number] Discharge Plan Triage Chief Complaint: Flank Pain ED Provider: Marina Coulter Dx/Rx/DC Orders Clinical Impression: Low back pain, Hematuria Instructions: ED Flank Pain with Uncertain Cause, ED Hematuria Prescriptions: New nitrofurantoin monohyd/m-cryst [Macrobid] 100 mg capsule 100 mg PO Q12H 5 Days Qty: 10 0RF Rx Instructions: must administer with a meal/food No Action fluoxetine 10 mg capsule 10 mg PO DAILY metformin 500 mg tablet extended release 24 hr 500 mg PO DAILY albuterol sulfate [Ventolin HFA] 90 mcg/actuation HFA aerosol inhaler 1 - 2 puff inhalation Q4H PRN PRN (Reason: Wheezing) Qty: 1 0RF gentamicin 0.3 % drops 2 drp LEFT EYE Q4H Qty: 5 0RF ondansetron 4 mg tablet,disintegrating 4 mg PO Q8H PRN PRN (Reason: Nausea) Qty: 10 0RF Primary Care Provider: MICHELLE ARREOLA Referrals: Ileana Nelson MD [Med Staff - Active Staff, Urology] MICHELLE ARREOLA NP-C [Primary Care Provider, Internal Medicine] Activity Restrictions/Additional Instructions: You have small kidney stones is both of the kidneys however they are not actively moving or showing signs of passing/causing pain. You do not have signs of any active kidney stone at this time. Your urine did show some blood and I am not sure if you recently passed a kidney stone or you could have a UTI. We will start you on antibiotics in case this is an early UTI. Please take the entire course. Urine culture was sent you will be contacted if you need different antibiotics. You have been given information to follow-up with urology given your history of kidney stones and CT findings today. Otherwise you may follow-up with your primary care provider. Continue to alternate ibuprofen and Tylenol as needed for pain Print Language: Croatian Disposition Disposition: Home, Self Care
[2025-08-06 08:04] LABS: Mucous, Urine 0 SEEN /hpf (<or=2+)
[2025-08-06] MEDS: 0.9% Normal Saline (1000mL) 1,000 ML 250 ML IV (08:07)
[2025-08-06 08:08] LABS: Hematocrit 41.1 % (37-47); Hemoglobin 13.6 g/dL (12.0-15.0); Immature Granulocytes Count 0.030 X10^3/uL (0.0-0.0); Mean Corp Hgb Conc 33.1 g/dL (32-36); Mean Corpuscular Volume 90.5 fL (81-99); Mean Platelet Vol. 12.3 fl (6.2-12.0); NRBC Flagged by Analyzer 0 % (0-5); Platelet Count 261 K/mm3 (150-450); RBC Distribution Width CV 13.1 % (11.6-14.6); RBC Distribution Width SD 43.0 fl (35.1-43.9); Red Blood Count 4.54 M/mm3 (4.2-5.4); White Blood Count 8.7 K/mm3 (4.4-11.0)
[2025-08-06 08:14] LABS: Color, Urine Yellow (Yellow); Glucose, Dipstick Normal (Normal); Ketone-Dipstick Negative (Negative); Leukocyte Esterase-Dipstick 100 /ul (Negative); Nitrite-Dipstick Negative (Negative); Occult Blood-Urine 250 /ul (Negative); Protein-Dipstick 100 mg/dl (Negative); Specific Gravity, Urine 1.025 (1.002-1.030); Urine Bilirubin Dipstick Negative (Negative)
[2025-08-06 08:22] LABS: Squamous Epithelial Cells - UA 5-10 SEEN /hpf (5-10)
[2025-08-06 08:25] LABS: Red Blood Cells-Urine 25-50 SEEN /hpf (0-5)
[2025-08-06 08:26] LABS: Internal QC Validated? YES +Cl - CLEAR BKGD; Pregnancy, Urine Negative Negative; Record Kit Lot#,Urine Preg 980607
[2025-08-06 08:27] LABS: Anion Gap 11 (5-15); BUN 15 mg/dL (4-19); BUN/Creat Ratio 16.5 RATIO (10-20); Calcium,Total 9.0 mg/dL (7.6-11.0); Carbon Dioxide 18.7 mmol/L (21.0-32.0); Chloride 109 mmol/L (98-108); Estimated Creatinine Clearance 104.19 ml/min (50-250); Glucose 108 mg/dL (70-99); Potassium 3.8 mmol/L (3.3-5.1)
[2025-08-06 09:39] VITALS: BP 126/89; PULSE 64; RESP 14; TEMP 36.7; O2SAT 99
[2025-08-06 10:00] VITALS: BP 120/77; PULSE 60; PULSE 64; RESP 14; TEMP 36.7; O2SAT 99
== END 2025-08-06 10:25 | disposition home or self-care (01) ==
PROVIDERS: Emergency Provider Emergency Medicine; PCP Nurse Practitioner; Visit Provider Emergency Medicine
DX: M54.50 Low back pain, unspecified (principal); R31.9 Hematuria, unspecified
CPT/HCPCS: 74176; 80048; 81001; 81025; 85025; 87086; 87088; 96361; 96374; 96375; 99284; A4216; J2405

== ENCOUNTER 2025-08-07 18:51 | Emergency (ER) | payer OTHER, SELFPAY ==
[2025-08-07 18:52] VITALS: BP 126/73; PULSE 57; RESP 18; TEMP 37; O2SAT 98; BMI 48.1
--- NOTE | 2025-08-07 20:51 | EDS_ITS ---
HPI HPI - GI History of Present Illness Chief Complaint: Flank Pain Informant: patient Abdominal Pain/Flank Pain Onset: Today and Yesterday Context: Gradual Onset Timing: Continuous Quality: Aching Location: Right Flank and - (Right lower lateral back. No radiation to the legs. No weakness or numbness.) Current Severity: Moderate Maximum Severity: Moderate Worsened by: Nothing Relieved by: Nothing Nausea/Vomiting/Emesis GI Symptom: Positive for Nausea and Vomiting Onset: Today Severity: Mild Diarrhea/Melena/Hematochezia GI Symptom: Negative for Diarrhea, Melena or Hematochezia Associated Symptoms Associated Symptoms: Negative for Dysuria, Frequency, Hematuria or Urgency Narrative Narrative: 34-year-old female history of kidney stones right flank pain since yesterday. Was seen emergency department yesterday the CAT scan that was unremarkable and urine it was questionable for UTI so was started on Macrobid. Today says she does have more pain in the lower EXTR now than by iliac crest. Denies abdominal pain. Denies fever or chills. Does not change with movement. No recent trauma. Prior similar symptoms: No Recent Illness/Hospitalization: No PFSH PFSH Medical History GERD (gastroesophageal reflux disease) PCOS (polycystic ovarian syndrome) Home Medications ?Medication ?Instructions ?Recorded ?Last Taken ?Type nitrofurantoin 100 mg PO Q12H 5 days #10 ca ps 08/06/25 Unknown Rx monohydrate/macrocrystals 100 mg capsule (Macrobid) aripiprazole 5 mg tablet 5 mg PO QHS 08/07/25 Unknown History fluoxetine 40 mg capsule 40 mg PO DAILY 08/07/25 Unkn own History hydrocodone-acetaminophen 5-325mg 1 tab PO Q4H PRN PRN Pain 3 days 08/07/25 Unknown Rx 5mg-325mg #8 tabs topiramate 100 mg tablet 100 mg PO BID 08/07/25 Unkno wn History Allergy/AdvReac Type Severity Reaction Status Date / Time amoxicillin Allergy Hives Verified 08/07/25 18:52 ceftriaxone (From Rocephin) Allergy Hives Verified 08/07/25 18:52 Penicillins Allergy Hives Verified 08/07/25 18:52 Family History Mother GERD (gastroesophageal reflux disease) Bernal esophagus Hypertension Blood clotting disorder Grandfather Diabetes Surgical History H/O esophagogastroduodenoscopy [place] teeth removed Social History housing: house Smoking Status: Never smoker ROS ROS ED ROS Narrative Flank pain. Nausea vomiting. Constitutional Constitutional ED: Denies chills or fever(s) ENT ENT ED: Denies ear pain Cardiovascular Cardiovascular: Denies chest pain Respiratory/Chest Respiratory/Chest: Denies cough or dyspnea Gastrointestinal Gastrointestinal: Reports nausea and vomiting; Denies abdominal pain, constipation, diarrhea or melena Genitourinary Genitourinary ED: Denies dysuria or hematuria Musculoskeletal Musculoskeletal: Reports back pain; Denies arthralgias Integumentary Denies abscess Neurologic Neurologic: Denies headache(s) Psychiatric Psychiatric: Denies anxiety Endocrine Endocrinology: Denies polydipsia Hematologic/Lymphatic Hematologic/Lymphatic: Denies easy bleeding, easy bruising or lymphadenopathy Allergic/Immunologic Allergic/Immunologic ED: Denies mouth swelling, tongue swelling or urticaria EXAM Physical Exam Narrative Exam Narrative: -year-old female sitting upright in bed vital signs stable afebrile. No acute distress. H EENT exam pupils round react light. Moist membranes. Neck nontender JVD. Back there is no reproducible pain on her right CVA or lower back currently she has a pain is more by her right iliac crest. There is no SI joint tenderness. There is negative straight leg raise. Left-sided back completely nontender. There is no bruising or ecchymosis no rash or shingles. No signs of trauma. Lungs clear. Heart regular rhythm no murmur. Abdomen soft nontender nondistended normal bowel sounds without peritoneal signs. Nontender. Moving all 4 extremities. Negative straight leg raise. Normal strength and sensation bilaterally. Normal range of motion. Nontender no edema. Neurologically she is awake alert. Answering questions following commands. Const Vital Signs: 08/07/25 18:52 Temperature 98.6 F Temperature Source Oral Pulse Rate 57 L Respiratory Rate 18 Blood Pressure 126/73 H Blood Pressure Mean 90 Pulse Ox 98 Oxygen Delivery Method Room Air Positive well nourished and well developed; Negative for cachectic, contractures or unkempt General Appearance ED: well developed; Negative for unkempt, cachectic, contractures or pallor Nutritional Appearance: Negative for cachectic HEENT Reports moist mucous membranes normocephalic and atraumatic Eyes PERRL and EOMs intact bilaterally Neck no lymphadenopathy, supple and no JVD Resp normal respiratory effort and clear to auscultation bilaterally Cardio regular rate, regular rhythm, S1 normal heart sound, S2 normal heart sound and no murmurs GI non-tender, non-distended and no masses Auscultation: normoactive bowel sounds Palpation: soft; Negative for tender, guarding, rigid, mass, pulsatile mass or rebound tenderness present Back/Spine no CVA tenderness General Back: Negative for CVA tenderness Cervical Spine: Negative for cervical spine tenderness Thoracic Spine / Upper Back: Negative for thoracic spinal tenderness Lumbar Spine / Lower Back: Negative for lumbar spinal tenderness Extremity full ROM General Extremety ED: Negative for edema or tenderness General Extremity: Negative for edema Neuro CN's II-XII intact bilaterally, moves all extremities and no sensory deficits noted Sensorium / Orientation: alert, oriented to person, oriented to place and oriented to time; Negative for orientation impaired or confused Motor Exam: strength 5/5 throughout Psych mental status grossly normal and thought process normal Appearance: Negative for unkempt Skin no wounds General Skin Exam: Negative for jaundice or pallor Lesions: no lesions Rashes: no rashes MDM MDM MDM Narrative Medical decision making narrative: 34-year-old female right flank pain. I did basically negative workup yesterday send for possible UTI. There is no signs of stone on CAT scan or other acute abnormality. She is already on Macrobid. I offered her to either repeat the workup and explained her I do not know if it would show any additional diagnostic value. She would prefer that I just give her some for the pain. In show follow-up if not improving or return if worse. Should be given IM injection of morphine and a prescription for 8 Macy at home. Otherwise Motrin and Tylenol. History & Record Review Discussion w/independent historian: Patient Additional record(s) reviewed:: Prior inpatient record, Prior outpatient record, Prior ED visit and Prior labs Discharge Plan Triage Chief Complaint: Flank Pain ED Provider: Bryson Peterson Dx/Rx/DC Orders Clinical Impression: Acute flank pain Instructions: ED Flank Pain with Uncertain Cause Prescriptions: New hydrocodone-acetaminophen 5-325 mg tablet 1 tab PO Q4H PRN PRN (Reason: Pain) 3 Days Qty: 8 0RF No Action nitrofurantoin monohyd/m-cryst [Macrobid] 100 mg capsule 100 mg PO Q12H 5 Days Qty: 10 0RF Rx Instructions: must administer with a meal/food fluoxetine 40 mg capsule 40 mg PO DAILY topiramate 100 mg tablet 100 mg PO BID aripiprazole 5 mg tablet 5 mg PO QHS Primary Care Provider: MICHELLE ARREOLA Referrals: MICHELLE ARREOLA [employer]PERATOR-C [Primary Care Provider, Internal Medicine] - 3-5 Days if not improving Activity Restrictions/Additional Instructions: Motrin and Tylenol for pain. Macy for more severe pain. Follow-up with your primary care provider if not improving. Return to emergency department feeling worse. Your CAT scan and labs yesterday were basically unremarkable other than possibly an early urinary tract infection that is why the other doctor put you on antibiotic. Print Language: Hebrew Disposition Disposition: Home, Self Care
[2025-08-07 20:52] VITALS: BP 133/77; PULSE 60; RESP 16; O2SAT 98
--- OUTSIDE RECORDS SUMMARY | 2025-08-07 21:03 | XMS RPT_ITS | CCD ---
Author Organization [facility] Care Team Providers Care Soft Sugar Cutter Name Role Phone Candelaria Morrison Unavailable Unavailable MARIA ELENA STILES Attending Unavailable MARIA ELENA STILES Attending Unavailable BOYD POTTER Attending Unavailable WILDER PROCTOR Admitting Unavailable WILDER PROCTOR Attending Unavailable WILDER PROCTOR Primary Care Unavailable EVGENY PROCTOR MD Consulting Unavailable EVGENY PROCTOR MD Referring Unavailable PROVIDER, UNKNOWN Consulting Unavailable PROVIDER, UNKNOWN Consulting Unavailable PROVIDER, UNKNOWN Consulting Unavailable Pascale Clark MD Primary Care Provider Pascale Clark MD Primary Care Provider Pascale Clark MD Primary Care Provider Older STAPLER MACHINE.TELEPHONE INFORMATION CLERK, Jenny Primary Care Provider OLDER, JENNY Referring Unavailable OLDER, JENNY Primary Care Unavailable Older STAPLER MACHINE.TELEPHONE INFORMATION CLERK, Jenny Primary Care Provider Pascale Clark MD Primary Care Provider OLDER, JENNY Primary Care Unavailable Katheryn An Attending Unavail able LeYash Attending Unavailable OLDER, JENNY Primary Care Unavailable DULCE BARNEY Attending Unavailable OLDER, JENNY Referring Unavailable OLDER, JENNY Primary Care Unavailable OLDER, JENNY Attending Unavailable SELF Referring Unavailable OLDER, JENNY Primary Care Unavailable DULCE BARNEY Referring Unavailable OLDER, JENNY Primary Care Unavailable FIDE VÁSQUEZ Attending Unavailable OLDER, JENNY Primary Care Unavailable NEYEROST POLLY KATHERYN Referring Unavail able OLDER, JENNY Primary Care Unavailable NEEMILIET POLLY KATHERYN Attending Unavail able OLDER, JENNY Primary Care Unavailable NEJENN MATIAS KATHERYN Attending Unavail able OLDER, JENNY Primary Care Unavailable LORENA SERRANO Attending Unavailable NEYCHARLES NELSONRE Referring Unavail able OLDER, JENNY Primary Care Unavailable OLDER, JENNY Attending Unavailable OLDER, JENNY Primary Care Unavailable OLDER, JENNY Referring Unavailable OLDER, JENNY Primary Care Unavailable OLDER, JENNY Attending Unavailable OLDER, JENNY Primary Care Unavailable OLDER, JENNY Referring Unavailable OLDER, JENNY Primary Care Unavailable Allergies Allergy Classification Reported Allergen(s) Allergy Type Date of Onset Reaction(s) Facility (3 sources) Amoxicillin; Translations: [AMOXICILLIN] Drug Allergy [address] [facility] Repository (1 source) Amoxicillin Drug Allergy [facility] Repository (1 source) Penicillin Drug Allergy [facility] Repository (20 sources) Amoxicillin Drug Allergy 6 [facility] (20 sources) cefTRIAXone; Translations: [CEFTRIAXONE] Drug Allergy 2 [facility] Work Phone: (8 sources) Penicillins; Translations: [PENICILLINS] Drug Allergy 9 [facility] Work Phone: (20 sources) Penicillins Drug Allergy 9 [facility] Work Phone: (1 source) Penicillins Allergy to substance 1 [facility] (1 source) Amoxicillin Drug Allergy 5 [facility] Repository (1 source) cefTRIAXone Drug Allergy 5 [facility] Repository (1 source) Penicillins Drug allergy (disorder) 5 [facility] Repository (13 sources) Penicillins Drug Allergy 9 [facility] Work Phone: Medications Current Medications Medication Drug Class(es) Dates Sig (Normalized) Sig (Original) ARIPiprazole 2 mg oral tablet (20 sources) Atypical Antipsychotic take 5 mg by mouth once daily ARIPiprazole (ABILIFY) 2 mg tablet Take 5 mg by mouth once daily. Prescribed by Dr. Wally Nayak psych Active take 1 tablet by mouth once ejwell y ARIPiprazole (ABILIFY) 2 mg tablet Take 2 mg by mouth once daily. Prescribed by Dr. Wally Nayak psych 0 Active Comment on above: Take 2 mg by mouth o nce daily. Prescribed by Dr. Wally Nayak psych doxycycline hyclate 100 mg oral tablet (1 source) Tetracycline-class Drug Start: 3 End: 3 take 1 tablet by mouth twice daily doxycycline (VIBRA-TABS) 100 mg tablet Take 1 tablet by mouth twice daily for 10 days. 20 tablet 0 12/28/2022 01/07/2023 Active Comment on above: [facility] 10 [facility]. FLUoxetine 40 mg oral capsule (20 sources) Serotonin Reuptake Inhibitor Start: 5 End: 5 take 1 capsule by mouth once daily FLUoxetine (PROZAC) 40 mg capsule Take 1 capsule by mouth once daily. 90 capsule 3 07/03/2025 Active Start: 04-17-2025 End: 05-29-2025 FLUoxetine (PROZAC) 20 mg ca psule Take 1 tablet daily for 2 weeks then 2 tablets daily for 2 weeks. 42 capsule 04/17/2025 05/29/2025 Discontinued Start: 03-20-2025 End: 04-17-2025 FLUoxetine (PROZAC) 10 mg ca psule Take 1 tablet daily for 2 weeks then 2 tablets daily for 2 weeks. 45 capsule 03/20/2025 04/17/2025 Discontinued Start: 02-22-2022 End: 03-20-2025 take 1 capsule by mouth once daily FLUoxetine (PROZAC) 40 mg capsule Take 1 capsule by mouth once daily. 90 capsule 1 06/25/2024 03/20/2025 Discontinued Start: 01-25-2022 End: 08-18-2022 take 1 capsule by mouth once daily FLUoxetine (PROZAC) 20 mg capsule Indications: Anxiety and depression Take 1 capsule by mouth once daily. 30 capsule 5 01/25/2022 08/18/2022 Discontinued Start: 05-23-2021 End: 01-25-2022 take 10 mg by mouth once daily Fluoxetine Active 10 MG PO DAILY October 07, 2021 1:00am Comment on above: Take 1 capsule by mo [facility] once daily. Take 1 capsule by mo [facility] once daily levonorgestrel 0.061138 mg/hr intrauterine system (20 sources) Progestin, Progestin-containing Intrauterine Device Start: 2020 End: 2026 levonorgestrel (MIRENA) 20 mcg/24 hours (6 yrs) 52 mg IUD 1 Each by INTRAUTERINE route as directed. 1 Each 04/25/2021 04/24/2027 Active Comment on above: 1 Each by INTRAUTERI NE route as directed. methylPREDNISolone (1 source) Corticosteroid Start: 2022 End: 2022 methylPREDNISolone (MEDROL, TRAVIS,) 4 mg Dose-Pack Follow dosing instructions, take with food. 21 tablet 0 06/26/2023 07/02/2023 Active Comment on above: Follow dosing instru ctions, take with food. phentermine hydrochloride 37.5 mg oral tablet (20 sources) Sympathomimetic Amine Anorectic Start: 2023 End: 2023 take 1 tablet by mouth once daily Phentermine HCl 37.5 mg tablet Indications: Class 3 severe obesity with body mass index (BMI) of 45.0 to 49.9 in adult, unspecified obesity type, unspecified whether serious comorbidity present (HCC) Take 1 tablet by mouth once daily for 30 days. Patient should start on August 24, 2024. 30 tablet 08/24/2024 07/25/2024 Discontinued Start: 2024 End: 11-18-2024 take 45-49.9 tablets by mouth once daily Phentermine HCl 37.5 mg tablet Indications: Class 3 severe obesity with body mass index (BMI) of 45.0 to 49.9 in adult, unspecified obesity type, unspecified whether serious comorbidity present (HCC) Take 1 tablet by mouth once daily for 90 days. 90 tablet 2024 09/30/2024 Discontinued Start: 08-08-2024 End: 07-25-2024 Phentermine HCl 37.5 mg tabl et Indications: Class 3 severe obesity with body mass index (BMI) of 45.0 to 49.9 in adult, unspecified obesity type, unspecified whether serious comorbidity present (HCC) Take 1 tablet by mouth once daily for 90 days. Patient should start on August 08, 2024. 90 tablet 08/08/2024 07/25/2024 Discontinued Start: 06-25-2024 End: 09-23-2024 take 45-49.9 tablets by mouth once daily Phentermine HCl 37.5 mg tablet Indications: Class 3 severe obesity with body mass index (BMI) of 45.0 to 49.9 in adult, unspecified obesity type, unspecified whether serious comorbidity present (HCC) Take 1 tablet by mouth once daily for 30 days. 30 tablet 07/09/2024 07/25/2024 Discontinued Start: 03-28-2024 End: 06-23-2024 take 1 tablet by mouth once daily Phentermine HCl 37.5 mg tablet Indications: Class 3 severe obesity with body mass index (BMI) of 45.0 to 49.9 in adult, unspecified obesity type, unspecified whether serious comorbidity present (HCC) Take 1 tablet by mouth once daily for 30 days. Do not start before May 24, 2024. 30 tablet 0 05/24/2024 06/13/2024 Discontinued SUMAtriptan 50 mg oral tablet (20 sources) Serotonin-1b and Serotonin-1d Receptor Agonist Start: 10-15-2023 End: 03-20-2025 SUMAtriptan (IMITREX) 50 mg tablet Take one tablet by mouth at the onset of the headache. If no improvement in 2 hours take one more tablet. No more than 2 tablets in 24 hours 6 tablet 1 03/20/2025 Active Start: 06-26-2023 SUMAtriptan (I MITREX) 50 mg tablet Take one tablet by mouth at the onset of the headache. If no improvement in 2 hours take one more tablet. No more than 2 tablets in 24 hours 6 tablet 0 06/26/2023 Active Comment on above: Take one tablet by m out at the onset of the headache. If no improvement in 2 hours take one more tablet. No more than 2 tablets in 24 hours topiramate 100 mg oral tablet (20 sources) Start: take 1 tablet by mouth twice daily topiramate (TOPAMAX) 100 mg tablet Indications: Migraine without aura and without status migrainosus, not intractable Take 1 tablet by mouth two times a day. 07/03/2025 Active Start: 06-10-2025 End: 07-03-2025 take 1 tablet by mouth twice daily topiramate (TOPAMAX) 25 mg tablet Take 1 tablet by mouth two times a day. 60 tablet 2 06/10/2025 07/03/2025 Discontinued Start: 04-17-2025 take 1 tablet by joaquina th twice daily topiramate (TOPAMAX) 25 mg tablet Take 1 tablet by mouth two times a day. 60 tablet 2 04/17/2025 Active Start: 03-20-2025 End: 06-18-2025 take 1 tablet by mouth once daily at bedtime topiramate (TOPAMAX) 25 mg tablet Take 1 tablet by mouth daily at bedtime. 30 tablet 03/20/2025 04/17/2025 Discontinued Start: 06-24-2024 End: 03-20-2025 take 1 tablet by mouth once daily at bedtime topiramate (TOPAMAX) 50 mg tablet Take 1 tablet by mouth daily at bedtime. 90 tablet 06/24/2024 03/20/2025 Discontinued Completed/Discontinued Medications Medication Drug Class(es) Dates Sig (Normalized) Sig (Original) [id number] 200 actuat albuterol 0.09 mg/actuat metered dose inhaler (8 sources) beta2-Adrenergic Agonist Start: 12-27-2022 End: 06-26-2023 take 2 puff(s) by inhalation every four hours as needed for wheezing albuterol HFA (VENTOLIN HFA) 90 mcg/actuation inhaler Indications: Shortness of breath on exertion , Feeling of chest tightness Inhale 2 Puffs as instructed every 4 hours as needed for wheezing/shortness of breath. 1 Each 12/27/2022 06/26/2023 Discontinued (Course of therapy completed) Start: 10-07-2021 take 1 puff(s) by in halation every four hours as needed Albuterol Sulfate (Ventolin Hfa) 90 mcg/actuation HFA aerosol inhaler Active 1 - 2 PUFF INHALATION EVERY 4 HOURS NEEDED October 07, 2021 1:00am Comment on above: Inhale 2 Puffs as in structed every 4 hours as needed for wheezing/shortness of breath. benzonatate 100 mg oral capsule (7 sources) Non-narcotic Antitussive Start: 023 End: 023 take 1 capsule by mouth every eight hours as needed benzonatate (TESSALON PERLES) 100 mg capsule Take 1 capsule by mouth three times daily as needed for cough. 15 capsule 12/27/2022 06/26/2023 Discontinued (Course of therapy completed) Comment on above: Take 1 capsule by mo uth three times daily as needed for cough. cholecalciferol 1.25 mg oral capsule (20 sources) Vitamin D Start: 024 End: 025 take 1 capsule by mouth every week cholecalciferol, Vitamin D3, (VITAMIN D3) 1,250 mcg (50,000 unit) cap capsule Take 1 capsule by mouth one time a week. 4 capsule 2 06/23/2024 03/20/2025 Discontinued Start: 02-22-2022 End: 11-17-2022 take 1 capsule by mouth once daily Cholecalciferol, Vitamin D3, 125 mcg (5,000 unit) cap Take 1 capsule by mouth once daily. 30 capsule 5 02/22/2022 11/17/2022 Discontinued Start: 04-28-2021 End: 03-14-2024 take 1 capsule by mouth every week cholecalciferol, Vitamin D3, (VITAMIN D3) 1,250 mcg (50,000 unit) cap capsule Indications: Vitamin D deficiency Take 1 capsule by mouth one time a week. 12 capsule 1 11/01/2022 03/08/2023 Discontinued (Course of therapy completed) Comment on above: Take 1 capsule by mo uth one time a week. Take 1 capsule by mo uth once daily. clindamycin 300 mg oral capsule (3 sources) Lincosamide Antibacterial Start: 03-04-20 23 End: 06-26-20 23 take 1 capsule by mouth four times daily clindamycin (CLEOCIN) 300 mg capsule Take 1 capsule by mouth four times daily. 40 capsule 0 03/04/2023 06/26/2023 Discontinued (Course of therapy completed) Comment on above: Take 1 capsule by mo uth four times daily. 0.5 ml dulaglutide 3 mg/ml auto-injector (10 sources) GLP-1 Receptor Agonist Start: 11-06-19 End: 03-20-20 dulaglutide (TRULICITY) 1.5 mg/0.5 mL pen injector Indications: Elevated fasting glucose , Insulin resistance , PCOS (polycystic ovarian syndrome) Inject 1.5 mg subcutaneously one time a week for 28 days. Patient should start on November 06, 2024. 2 mL 11/06/2024 03/20/2025 Discontinued Start: 10-09-2024 End: 03-20-2025 inject 0.75 mg by subcutaneous injection every week dulaglutide (TRULICITY) 0.75 mg/0.5 mL pen injector Indications: Elevated fasting glucose , Insulin resistance , PCOS (polycystic ovarian syndrome) Inject 0.75 mg subcutaneously one time a week. 2 mL 10/09/2024 03/20/2025 Discontinued famotidine 20 mg oral tablet (20 sources) Histamine-2 Receptor Antagonist Start: 11-03-2022 End: 03-20-2025 take 1 tablet by mouth every twenty-four hours as needed for gastroesophageal reflux disease and gastroesophageal reflux disease famotidine (PEPCID) 20 mg tablet Indications: Gastroesophageal reflux disease, unspecified whether esophagitis present take 1 tablet by mouth at bedtime as needed 30 tablet 07/30/2023 03/20/2025 Discontinued Comment on above: Take 1 tablet by mouth at bedtime as nee ded. take 1 tablet by joaquina th at bedtime as needed gentamicin 3 mg/ml ophthalmic solution (3 sources) Start: 03-04-2023 End: 06-26-2023 take 2 drop(s) into the eye(s) every four hours gentamicin (GENTAK) 0.3 % ophthalmic solution INSTILL 2 DROPS INTO LEFT EYE EVERY 4 HOURS 0 03/04/2023 06/26/2023 Discontinued (Course of therapy completed) Start: 03-04-2023 Gentamicin Act titus 2 DRP LEFT EYE Q4H 5 March 04, 2023 12:00am Comment on above: INSTILL 2 DROPS INTO LEFT EYE EVERY 4 HOURS hydrOXYzine hydrochloride 25 mg oral tablet (20 sources) Antihistamine Start: 03-22-2022 End: 06-26-2023 hydrOXYzine HCl (ATARAX) 25 mg tablet Take 1-2 tablets before bed for insomnia 30 tablet 1 03/22/2022 06/26/2023 Discontinued (Course of therapy completed) End: 03-20-2025 take 1 tablet by mouth every eight hours as needed hydrOXYzine HCl (ATARAX) 10 mg tablet Take 10 mg by mouth three times daily as needed for anxiety. Prescribed by Epialexandrea Nayak psych 03/20/2025 Discontinued Comment on above: Take 1-2 tablets bef ore bed for insomnia Take 10 mg by mouth three times daily as needed for anxiety. Prescribed by Epie Ajebe psych ketoconazole 20 mg/ml topical cream (20 sources) Azole Antifungal Start: 2 End: ketoconazole (NIZORAL) 2 % cream Indications: Tinea pedis of both feet Apply to affected area once daily. 60 g 2 03/08/2022 03/14/2024 Discontinued Comment on above: Apply to affected ar ea once daily. meclizine hydrochloride 12.5 mg oral tablet (20 sources) Antiemetic Start: 2 End: 4 take 1 tablet by mouth every six hours as needed meclizine (ANTIVERT) 12.5 mg tab Take 1 tablet by mouth every 6 hours as needed (dizziness). 30 tablet 08/18/2022 03/14/2024 Discontinued Comment on above: Take 1 tablet by joaquina th every 6 hours as needed (dizziness). 24 hr metFORMIN hydrochloride 500 mg extended release oral tablet (20 sources) Biguanide Start: 4 End: 5 take 2 tablets by mouth once daily at dinner metFORMIN ER (GLUCOPHAGE XR) 500 mg 24 hr tablet Indications: PCOS (polycystic ovarian syndrome) , Insulin resistance Take 2 tablets by mouth daily with dinner. 180 tablet 09/17/2024 03/20/2025 Discontinued Start: 04-28-2021 End: 03-28-2024 take 2 tablets by mouth once daily at dinner metFORMIN ER (GLUCOPHAGE XR) 500 mg 24 hr tablet Take 2 tablets by mouth daily with dinner. 60 tablet 5 11/01/2022 03/28/2024 Discontinued Comment on above: Take 1 tablet by joaquina th daily with breakfast. Take 1 tablet by joaquina th once daily with breakfast Take 2 tablets by mo ut daily with dinner. omeprazole 20 mg delayed release oral capsule (20 sources) Proton Pump Inhibitor Start: 022 End: 025 take 1 capsule by mouth once daily 30 minutes before breakfast omeprazole (PRILOSEC) 20 mg capsule TAKE 1 CAPSULE BY MOUTH ONCE DAILY 30 MIN BEFORE BREAKFAST 90 capsule 1 01/22/2024 03/20/2025 Discontinued Comment on above: Take 1 capsule by mo uth daily before breakfast. 1/2 hr before meal. TAKE 1 CAPSULE BY MO UTH ONCE DAILY 30 MIN BEFORE BREAKFAST spironolactone 50 mg oral tablet (20 sources) Aldosterone Antagonist Start: 024 End: 025 take 1 tablet by mouth once daily spironolactone (ALDACTONE) 50 mg tablet Take 1 tablet by mouth once daily. 90 tablet 3 03/14/2024 03/20/2025 Discontinued Start: 03-22-2022 End: 03-14-2024 take 1 tablet by mouth twice daily spironolactone (ALDACTONE) 25 mg tablet Take 1 tablet by mouth two times a day. 60 tablet 5 10/31/2023 03/14/2024 Discontinued Comment on above: Take 1 tablet by joaquina th twice daily. Take 1 tablet by joaquina th two times a day. tirzepatide (MOUNJARO) 2.5 mg/0.5 mL pen injector (5 sources) Start: 09-17-20 End: 09-30-20 inject 2.5 mg by subcutaneous injection every week tirzepatide (MOUNJARO) 2.5 mg/0.5 mL pen injector Indications: PCOS (polycystic ovarian syndrome) , Elevated fasting glucose , Insulin resistance Inject 2.5 mg subcutaneously one time a week. 2 mL 09/17/2024 09/30/2024 Discontinued Start: 09-17-2024 End: 10-17-2024 inject 2.5 mg by subcutaneous injection every week tirzepatide (MOUNJARO) 2.5 mg/0.5 mL pen injector Indications: PCOS (polycystic ovarian syndrome) , Elevated fasting glucose , Insulin resistance Inject 2.5 mg subcutaneously one time a week. 2 mL 09/17/2024 10/17/2024 Active tirzepatide, weight loss (ZEPBOUND) 2.5 mg/0.5 mL pen injector (6 sources) Start: 06-20-2024 End: 07-25-2024 tirzepatide, weight loss (ZEPBOUND) 2.5 mg/0.5 mL pen injector Indications: Class 3 severe obesity without serious comorbidity with body mass index (BMI) of 45.0 to 49.9 in adult, unspecified obesity type (HCC) Inject 2.5 mg subcutaneously one time a week. 2 mL 06/20/2024 07/25/2024 Discontinued Start: 06-20-2024 End: 07-20-2024 tirzepatide, weight loss (ZE PBOUND) 2.5 mg/0.5 mL pen injector Indications: Class 3 severe obesity without serious comorbidity with body mass index (BMI) of 45.0 to 49.9 in adult, unspecified obesity type (HCC) Inject 2.5 mg subcutaneously one time a week. 2 mL 06/20/2024 07/20/2024 Active Start: 06-20-2024 End: 07-20-2024 tirzepatide, weight loss (ZE PBOUND) 2.5 mg/0.5 mL pen injector Indications: Class 3 severe obesity without serious comorbidity with body mass index (BMI) of 45.0 to 49.9 in adult, unspecified obesity type (HCC) Inject 2.5 mg subcutaneously one time a week. 2 mL 0 06/20/2024 07/20/2024 Active Problems Active Problems Problem Classification Problem Date Documented Da te Episodic/Chronic Abdominal pain (2 sources) Tenderness of epigastrium; Translations: [Epigastric abdominal tenderness] Onset: 5 Episodic Anxiety disorders (20 sources) Mixed anxiety and depressive disorder; Translations: [Anxiety disorder, unspecified] Onset: 2 Chronic Cardiac dysrhythmias (1 source) Palpitations; Translations: [Palpitations] 08-02-2023 Episodic Chronic obstructive pulmonary disease and bronchiectasis (1 source) Bronchitis; Translations: [Bronchitis, not specified as acute or chronic] 10-15-2021 Episodic Conditions associated with dizziness or vertigo (2 sources) Dizziness; Translations: [Dizziness and giddiness] Episodic Disorders of lipid metabolism (20 sources) Hypercholesterolemia; Translations: [Pure hypercholesterolemia, unspecified] Onset: 4 06-20-2024 Chronic Esophageal disorders (6 sources) Gastroesophageal reflux disease without esophagitis; Translations: [Gastro-esophageal reflux disease without esophagitis] Chronic Fever of unknown origin (1 source) Fever; Translations: [Fever, unspecified] Episodic Headache; including migraine (5 sources) Menstrual migraine; Translations: [Menstrual migraine, not intractable, without status migrainosus] Onset: 5 06-24-2024 Chronic Headache; including migraine (2 sources) Headache; Translations: [Headaches] 06-26-2023 Episodic Inflammation; infection of eye (except that caused by tuberculosis or sexually transmitteddisease) (2 sources) Conjunctivitis; Translations: [Unspecified conjunctivitis] 03-04-2023 Episodic Malaise and fatigue (4 sources) Fatigue; Translations: [Other fatigue] Episodic Miscellaneous mental health disorders (1 source) Chronic insomnia; Translations: [Psychophysiologic insomnia] 09-30-2024 Chronic Mood disorders (1 source) Mood disorders; Translations: [Anxiety and depression] Onset: 2 Nonspecific chest pain (10 sources) Tight chest; Translations: [Other chest pain] Onset: 3 Episodic Nutritional deficiencies (6 sources) Vitamin D deficiency; Translations: [Vitamin D deficiency, unspecified] Onset: 4 Chronic Other circulatory disease (4 sources) Elevated blood-pressure reading without diagnosis of hypertension; Translations: [Elevated blood-pressure reading, without diagnosis of hypertension] 06-20-2024 Episodic Other endocrine disorders (20 sources) Polycystic ovary syndrome; Translations: [Polycystic ovarian syndrome] Onset: 2 Chronic Other endocrine disorders (20 sources) Hyperinsulinism; Translations: [Other hypoglycemia] Onset: 4 06-20-2024 Chronic Other endocrine disorders (1 source) Polycystic ovarian syndrome; Translations: [PCOS (polycystic ovarian syndrome)] Onset: 2 Chronic Other eye disorders (1 source) Red eye; Translations: [Other specified disorders of eye and adnexa] Episodic Other gastrointestinal disorders (1 source) Diarrhea; Translations: [Diarrhea, unspecified] Episodic Other gastrointestinal disorders (3 sources) Dysphagia; Translations: [Dysphagia, unspecified] Episodic Other hereditary and degenerative nervous system conditions (20 sources) Restless legs; Translations: [Restless legs syndrome] Onset: 4 09-30-2024 Chronic Other injuries and conditions due to external causes (1 source) Motion sickness; Translations: [Motion sickness, initial encounter] Episodic Other lower respiratory disease (7 sources) Dyspnea on exertion; Translations: [Shortness of breath] Episodic Other lower respiratory disease (1 source) Cough; Translations: [Acute cough] Episodic Other lower respiratory disease (2 sources) Other forms of dyspnea; Translations: [Dyspnea on exertion] Onset: 3 Episodic Other lower respiratory disease (1 source) Snoring; Translations: [Snoring] 09-30-2024 Episodic Other nutritional; endocrine; and metabolic disorders (2 sources) Body mass index 40+ - severely obese; Translations: [Morbid (severe) obesity due to excess calories] Chronic Other nutritional; endocrine; and metabolic disorders (20 sources) Severe obesity; Translations: [Morbid (severe) obesity due to excess calories] Onset: 2 01-02-2022 Chronic Other nutritional; endocrine; and metabolic disorders (20 sources) Insulin resistance; Translations: [Insulin resistance] Onset: 4 03-14-2024 Chronic Other nutritional; endocrine; and metabolic disorders (2 sources) Morbid (severe) obesity due to excess calories; Translations: [Morbid (severe) obesity due to excess calories] Onset: 2 Chronic Other nutritional; endocrine; and metabolic disorders (1 source) Morbid obesity; Translations: [Morbid (severe) obesity due to excess calories] 05-22-2025 Chronic Other nutritional; endocrine; and metabolic disorders (3 sources) Body mass index (BMI) 45.0-49.9, adult; Translations: [Class 3 severe obesity with body mass index (BMI) of 45.0 to 49.9 in adult, unspecified obesity type, unspecified whether serious comorbidity present (HCC)] Onset: 2 Chronic Other nutritional; endocrine; and metabolic disorders (1 source) H/O: hypothyroidism; Translations: [Personal history of other endocrine, nutritional and metabolic disease] 03-20-2025 Episodic Other screening for suspected conditions (not mental disorders or infectious disease) (9 sources) Increased testosterone level; Translations: [Other specified abnormal findings of blood chemistry] Episodic Other skin disorders (2 sources) Hirsutism; Translations: [Hirsutism] Episodic Other upper respiratory infections (1 source) Upper respiratory infection; Translations: [Acute upper respiratory infection, unspecified] 10-15-2021 Episodic Residual codes; unclassified (1 source) Unrefreshed by sleep; Translations: [Other sleep disorders] 09-30-2024 Chronic Residual codes; unclassified (1 source) Daytime somnolence; Translations: [Other hypersomnia] 09-30-2024 Chronic Residual codes; unclassified (1 source) Insomnia; Translations: [Insomnia, unspecified] Episodic Residual codes; unclassified (1 source) Family history of Benjamin esophagus; Translations: [Family history of other diseases of the digestive system] Episodic Residual codes; unclassified (1 source) Family history of celiac disease; Translations: [Family history of other diseases of the digestive system] Episodic Residual codes; unclassified (2 sources) FH: under 60 years; Translations: [Family history of sudden cardiac ] 08-02-2023 Episodic Residual codes; unclassified (2 sources) Family history of sudden cardiac ; Translations: [Family history of due to heart problem at 50 years of age or younger] Onset: Episodic Residual codes; unclassified (1 source) Frequent night waking; Translations: [Insomnia, unspecified] 09-30-2024 Episodic Residual codes; unclassified (2 sources) Family history of sudden cardiac ; Translations: [Family history of sudden cardiac ] 04-17-2025 Episodic Thyroid disorders (20 sources) Acquired hypothyroidism; Translations: [Hypothyroidism, unspecified] Onset: 6 01-02-2022 Chronic Unclassified (2 sources) Finding of region of thorax 04-17-2025 Unclassified (1 source) Class 3 severe obesity with body mass index (BMI) of 45.0 to 49.9 in adult, unspecified obesity type, unspecified whether serious comorbidity present (HCC); Translations: [Class 3 severe obesity with body mass index (BMI) of 45.0 to 49.9 in adult, unspecified obesity type, unspecified whether serious comorbidity present (HCC)] Onset: 5 Unclassified (1 source) Class 3 severe obesity with body mass index (BMI) of 45.0 to 49.9 in adult, unspecified obesity type, unspecified whether serious comorbidity present; Translations: [Class 3 severe obesity with body mass index (BMI) of 45.0 to 49.9 in adult, unspecified obesity type, unspecified whether serious comorbidity present] Onset: 5 Unclassified (1 source) Class 3 severe obesity without serious comorbidity with body mass index (BMI) of 45.0 to 49.9 in adult, unspecified obesity type (HCC); Translations: [Class 3 severe obesity without serious comorbidity with body mass index (BMI) of 45.0 to 49.9 in adult, unspecified obesity type (HCC)] Onset: 2 Unclassified (1 source) Insulin resistance; Translations: [Insulin resistance] Onset: 4 Past or Other Problems Problem Classification Problem Date Documented Date Episodic/Chronic Diabetes mellitus without complication (20 sources) Hyperglycemia; Translations: [Impaired fasting glucose] Onset: 06-20-2024 06-20-2024 Episodic Immunizations and screening for infectious disease (7 sources) Patient encounter status; Translations: [Encounter for screening for human papillomavirus (HPV)] Onset: 03-20-2025 Episodic Open wounds of extremities (20 sources) Cat bite - wound; Translations: [Open bite of unspecified finger without damage to nail, initial encounter] Onset: 01-02-2022 01-02-2022 Episodic Other circulatory disease (1 source) Elevated blood-pressure reading, without diagnosis of hypertension; Translations: [Elevated blood pressure reading without diagnosis of hypertension] Onset: 07-25-2024 Episodic Other nutritional; endocrine; and metabolic disorders (1 source) Personal history of other endocrine, nutritional and metabolic disease; Translations: [History of hypothyroidism] Onset: 03-20-2025 Episodic Skin and subcutaneous tissue infections (20 sources) Cellulitis of finger of left hand; Translations: [Cellulitis of left finger] Onset: 01-02-2022 01-02-2022 Episodic Results Test Name Value Interpretation Reference Range Facility [facility] 07-03-2025 CNOV Office Visit (INTMWS ) NICHOLE PITTMAN ([id number]) 1990 F Date Time Provider Department 07/03/25 10:40 AM JENNY CAN During your visit today, we recorded the following information about you: Pulse Respiration Blood pressure Weight 78/minute 16/minute 118/82 112.5 kg Jenny Can APRN.CNP 07/03/2025 12:47 PM Signed CC: Patient presents with: Recheck: 6 week follow up HPI Nichole Pittman is a 34 year old female who presents today for follow up. Recording using 1-800-DOCTORS software for draft documentation of the visit was discussed with the patient/authorized medical center representative; all questions welcomed and answered. Patient/authorized medical center representative agreed to proceed Anxiety and Depression: - Well-controlled on fluoxetine 40 mg daily. - No changes in Nichole's appetite or sleep. - Nichole denies suicidal or homicidal ideation. Migraines without aura: - Nichole is taking topiramate 25 mg BID; reports taking 50 mg QHS due to work schedule. - Migraines occur approximately once a month, often associated with menstruation. - Nichole occasionally misses work due to migraines. - Using sumatriptan, sometimes requires two doses for relief. - Associated symptoms include photophobia and nausea. - Nichole denies side effects from topiramate, such as confusion, weakness, numbness, word-finding difficulties, or extreme fatigue. - denies confusion, weakness, numbness, chest pressure, change in dyspnea on exertion she is seeing pulmonology and cardiology for, or edema. Obesity: - Previous use of phentermine with significant weight loss. - Current weight management includes topiramate. - No regular exercise currently. REVIEW OF SYSTEMS See HPI PAST MEDICAL HISTORY Diagnosis Date Anxiety and depression Anxiety state COVID-19 09/2020 Depression Hypothyroidism Resolved Insulin resistance 06/20/2024 Migraines PAST SURGICAL HISTORY Procedure Laterality Date EGD BIOPSY SING OR MULT 11/23/2022 variable ge jx; longitudinal furrows distal esophagus INSERTION OF IUD 04/25/2021 UNSPECIFIED ORAL SURGERY PROCEDURE, BY REPORT wisdom teeth ALLERGIES Penicillins, Amoxicillin, and Ceftriaxone MEDICATIONS FLUoxetine (PROZAC) 40 mg capsule Take 1 capsule by mouth once daily. topiramate (TOPAMAX) 100 mg tablet Take 1 tablet by mouth two times a day. SUMAtriptan (IMITREX) 50 mg tablet Take one tablet by mouth at the onset of the headache. If no improvement in 2 hours take one more tablet. No more than 2 tablets in 24 hours ARIPiprazole (ABILIFY) 2 mg tablet Take 5 mg by mouth once daily. Prescribed by Dr. Wally Nayak psych levonorgestrel (MIRENA) 20 mcg/24 hours (6 yrs) 52 mg IUD 1 Each by INTRAUTERINE route as directed. FAMILY HISTORY Problem Relation Age of Onset Barretts Esophagus Mother Hypertension Mother Fibromyalgia Mother other (Barrets Esphogus) Mother Clotting Disorder Mother other (diverticulitis) Mother Diabetes Mother Heart Father 45 of heart attack Hypertension Brother other (borderline diabetes) Brother Cataract Maternal Grandmother Celiac Disease Maternal Grandmother Glaucoma Maternal Grandfather Diabetes Maternal Grandfather other (Gout) Maternal Grandfather COPD Paternal Grandmother Heart disease Paternal Grandfather cardiac bypass Colon Polyps Paternal great-grandmother Glaucoma Maternal great-grandmother Colon Polyps Maternal great-grandmother Colon Cancer No Family History SOCIAL HISTORY[1] PHYSICAL EXAM BP 118/82 Pulse 78 Resp 16 Wt 112.5 kg (248 lb) LMP (LMP Unknown) SpO2 97% BMI 47.75 kg/m? General Appearance: well appearing, in no acute distress, alert Behavior: good eye contact Speech: normal and fluent and coherent Mood: happy Affect: appropriate Perceptions: none Thought process: goal directed Thought Content: normal Intelligence level: normal Insight: good Judgment: good Lungs: Lungs clear to auscultation. No wheezing, rhonchi, rales. Heart: RRR without murmur, gallop, or rubs. No ectopy Health maintenance reviewed with patient: HPV Vaccine(1 - 3-dose SCDM series) Never done Influenza Vaccine(1) due on 07/06/2025 Annual PCP Team Chronic Disease Visit due on 07/03/2026 Cervical Cancer Screening due on 08/18/2027 DTaP,Tdap,Td Vaccine(4 - Td or Tdap) due on 12/31/2031 Hepatitis B Vaccine Completed Hepatitis C Screening Discontinued HIV Screening Discontinued DATA REVIEWED: No new labs Assessment/Plan 1. Migraine without aura and without status migrainosus, not intractable (G43.009) - Migraines occurring approximately once per month, often associated with menstruation; symptoms include photophobia and nausea. - Migraines have improved in frequency and severity with current regimen. - Continue sumatriptan as needed. - Increase topiramate from 50 mg nightly (2 x 25 mg) to 75 mg nightly (3 x 25 mg) (more content not included)... Normal [facility] METHACHOLINE CHALLENGEon FEF25% POST (L/S) 6.48 L/S [facility] FEF25% PRE (L/S) 6.[facility] PUQ55-00% LLN (L/S) 2.00 L[facility]S [facility] WYN45-63% POST (L/S) 3.14 L[facility]S [facility] BTS52-13% PRE (L/S) 3.17 L/S [facility] HRZ88-88% PREDICTED (L/S) 3.16 L/S [facility] QUU27-33% SUPPLEMENTAL (L/S) 2.63 L/S [facility] FEF75% LLN (L/S) 0.64 L/S [facility] d [facility] FEF75% POST (L/S) 1.21 L/S [facility] FEF75% PRE (L/S0 1.22 L/S [facility] d [facility] FEF75% PREDICTED (L/S) 1.27 L/S [facility] FEF75% ULN (L/S) 2.28 L/S [facility] FET POST (S) 5.06 S [facility] FET PRE (S) 5.13 S [facility] FET SUPPLEMENTAL (S) 3.59 S [facility] FEV1 LLN (L) 1.98 L [facility] FEV1 PRE (L) 2.45 L [facility] FEV1 PREDICTED (L) 2.59 L [facility] FEV1 SUPPLEMENTAL (L) 2.32 L [facility] FEV1 ULN (L) 3.17 L [facility] FEV1/FVC LLN (%) 75 % [facility] FEV1/FVC POST (%) 85 % [facility] FEV1/FVC PRE (%) 86 % [facility] FEV1/FVC PREDICTED (%) 86 % [facility] FEV1/FVC SUPPLEMENTAL (%) 89 % [facility] FEV1_POST (L) 2.42 L [facility] FVC LLN (L) 2.33 L [facility] FVC POST (L) 2.83 L [facility] FVC PRE (L) 2.86 L [facility] FVC PREDICTED (L) 3.03 L [facility] FVC SUPPLEMENTAL (L) 2.62 L [facility] FVC ULN (L) 3.74 L [facility] PEF LLN (L/S) 4.95 L/S [facility] PEF POST (L/S) 6.65 L/S [facility] PEF PRE (L/S) 6.28 L/S [facility] PEF SUPPLEMENTAL (L/S) 6.45 L/S [facility] PEF ULN (L/S) 8.00 L/S [facility] [address] [place] [address] Test Date: 2025-07-03 Pat Name: NICHOLE PITTMAN Department: Room: 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 Pt withheld medications appropriately. Medications and Allergies were reviewed for possible drug interactions per policy. No contraindications or sensitivities were noted Pre-test blood pressure was 121/ 86. Spirometry during the challenge test met ATS/ERS acceptability and repeatability standards. Pt c/o the following respiratory symptoms of feeling chest tightness after 1mg methacholine was delivered. Pt observed to have increased chest tightness during testing. Any methacholine solutions that were not delivered in this challenge were discarded. 4 puffs albuterol (360 mcg) delivered by MDI via valved holding chamber, HRpre= 84/min, HRpost= 90/min. Methacholine challenge performed per 2017 ERS Technical Standards. RESULTS : [MO78_VVF2>16mg/mL]. //AND/ LC IMPRESSION: Spirometry is normal. Negative bronchodilator response. Electronically Signed On 07-03-2025 16:23:27 EDT by Samir Guzmán MD ID: [id number] Name: NICHOLE PITTMAN Race: White Ht: 60.43 in Wt: 251.40 lbs Age: 34 Gender: Female : 1990 Dx: Chest pain, other Smoking Hx: Non-smoker Doctor: DULCE BARNEY Test Date: 07/03/2025 Site: [facility] Anderson: Ericka Cortez PRE-BRONCH POST-BRONCH [place] LLN Pred ULN %Pred ZScore [place] %Pred %Chg ZScore SPIROMETRY FVC 2.86 2.33 3.03 3.74 94 -0.40 2.83 93 0 -0.46 FEV1 2.45 1.98 2.59 3.17 94 -0.40 2.42 93 0 -0.48 FEV1/FVC 0.86 0.75 0.86 0.94 100 0.01 0.85 99 0 -0.04 FEFMax 6.28 4.95 6.48 8.00 96 -0.21 6.65 102 17 0.18 FEF50 3.98 2.07 3.68 5.29 108 0.31 4.13 112 0 0.47 FIF50 3.64 3.41 0 FEF50/FIF50 1.09 90-100 1.21 1 FIVC 2.77 2.75 -1 FJR67-37 3.17 2.00 3.16 4.54 100 0.01 3.14 99 -3 -0.03 ExpiredTime 5.13 5.06 0 TimeToFEFMax 0.09 0.10 -1 TRISH 0.08 0.10 28 VolExtrap% 3 4 27 Comments: Methacholine challenge performed. Pt withheld medications appropriately. Medications and Allergies were reviewed for possible drug interactions per policy. No contraindications or sensitivities were noted Pre-test blood pressure was 121/ 86. Spirometry during the challenge test met ATS/ERS acceptability and repeatability standards. Pt c/o the following respiratory symptoms of feeling chest tightness after 1mg methacholine was delivered. Pt observed to have increased chest tightness during testing. Any methacholine solutions that were not delivered in this challenge were discarded. 4 puffs albuterol (360 mcg) delivered by MDI via valved holding chamber, HRpre= 84/min, HRpost= 90/min. Methacholine challenge performed per 2017 ERS Technical Standards. RESULTS : [GB51_MRJ9>16mg/mL]. 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 Pt withheld medications appropriately. Medications and Allergies were reviewed for possible drug interactions per policy. No contraindications or sensitivities were noted Pre-test blood pressure was 121/ 86. Spirometry during the challenge test met ATS/ERS acceptability and repeatability standards. Pt c/o the following respiratory symptoms of feeling chest tightness after 1mg methacholine was delivered. Pt observed to have increased chest tightness during testing. Any methacholine solutions that were not delivered in this challenge were discarded. 4 puffs albuterol (360 mcg) delivered by MDI via valved holding chamber, HRpre= 84/min, HRpost= 90/min. Methacholine challenge performed per 2017 ERS Technical Standards. RESULTS : [HK42_YSD0>16mg/mL]. //AND/ LC IMPRESSION: Site: WO ID: [id number] Name: NICHOLE PITTMAN Visit Date: 07/03/2025 Doctor: Renewable Energy Engineer: Ericka Cortez Age: 34 Date of : 1990 Gender: Female Race: White Height: 60.43 in Weight: 251.40 lbs BSA: 2.068 Diagnosis: Chest pain, other Dyspnea: Cough: Wheeze: Tobacco Use: None Medications: Comments: Methacholine challenge performed. Pt withheld medications appropriately. Medications and Allergies were reviewed for possible drug interactions per policy. No contraindications or sensitivities were noted Pre-test blood pressure was 121/ 86. Spirometry during the challenge test met ATS/ERS acceptability and repeatability standards. Pt c/o the following respiratory symptoms of feeling chest tightness after 1mg methacholine was delivered. Pt observed to have increased chest tightness during testing. Any methacholine solutions that were not delivered in this challenge were discarded. 4 puffs albuterol (360 mcg) delivered by MDI via valved holding chamber, HRpre= 84/min, HRpost= 90/min. Methacholine challenge performed per 2017 ERS Technical Standards. RESULTS : [CG25_GQS9>16mg/mL]. //AND/ LC Review Status: Not Reviewed Pre Challenge Post Pred LLN ULN Actual %Pred Actual %Chng Actual %Chng SPIROMETRY FVC (L) 3.03 2.33 3.74 2.86 94 2.62 -7 2.83 0 FEV1 (L) 2.59 1.98 3.17 2.45 94 2.32 -4 2.42 0 FEV1/FVC 0.86 0.75 0.94 0.86 100 0.89 2 0.85 0 FEF25 (L/sec) 6.16 6.38 15 6.48 17 FEF50 (L/sec) 3.68 2.07 5.29 3.98 108 3.29 -19 4.13 0 FEF75 (L/sec) 1.27 0.64 2.28 1.22 95 0.93 -29 1.21 -7 DPH79-08 (L/sec) 3.16 2.00 4.54 3.17 100 2.63 -19 3.14 -3 FEF Max (L/sec) 6.48 4.95 8.00 6.28 96 6.45 14 6.65 17 FIVC (L) 2.77 2.75 -1 FIF50 (L/sec) 3.64 3.41 0 FIF Max (L/sec) 4.23 3.43 0 Time (sec) 5.13 3.59 -29 5.06 0 TRISH (L) 0.08 0.09 12 0.10 28 Time To FEF Max (sec) 0.09 0.09 -8 0.10 -1 FVC_PRE (L) : 2.86 L FVC_POST (L) : 2.83 L FVC_PRED (L) : 3.03 L FVC_LLN (L) : 2.33 L FVC_ULN (L) : 3.74 L FEV1_PRE (L) : 2.45 L FEV1_POST (L) : 2.42 L FEV1_PRED (L) : 2.59 L FEV1_LLN (L) : 1.98 L FEV1_ULN (L) : 3.17 L FEV1/FVC_PRE (%) : 86 % FEV1/FVC_POST (%) : 85 % FEV1/FVC_PRED (%) : 86 % FEV1/FVC_LLN (%) : 75 % CEG09_EVS (L/S) : 6.16 L/S YRM53_DAZC (L/S) : 6.48 L/S TOI82_GWY (L/S) : 1.22 L/S KBW56_MITS (L/S) : 1.21 L/S YFV55_JMQC (L/S) : 1.27 L/S FCO06_TFB (L/S) : 0.64 L/S UKD53_GSR (L/S) : 2.28 L/S KEA54-14%_PRE (L/S) : 3.17 L/S QMN24-10%_POST (L/S) : 3.14 L/S ZFM78-91%_PRED (L/S) : 3.16 L/S FFD10-24%_LLN (L/S) : 2.00 L/S PEF_PRE (L/S) : 6.28 L/S PEF_POST (L/S) : 6.65 L/S PEFMAX_LLN (L/S) : 4.95 L/S PEFMAX_ULN (L/S) : 8.00 L/S FET_PRE (S) : 5.13 S FET_POST (S) : 5.06 S FVC_SUPPLEMENTAL (L) : 2.62 L FEV1_SUPPLEMENTAL (L) : 2.32 L FEV1/FVC_SUPPLEMENTAL (%) : 89 % YRW03-93%_SUPPLEMENTAL (L/S) : 2.63 L/S PEF_SUPPLEMENTAL (L/S) : 6.45 L/S FET_SUPPLEMENTAL (S) : 3.59 S Normal [facility] CNOVon 05-22-2025 CNOV Office Visit (PULMWS ) NICHOLE PITTMAN ([id number]) 1990 F Date Time Provider Department 05/22/25 11:00 AM DULCE BARNEY PULMSHAMIKA During your visit today, we recorded the following information about you: Pulse Respiration Blood pressure Weight 77/minute 16/minute 124/84 110.7 kg Height 1.535 m Dulce Barney MD 05/22/2025 12:39 PM [facility] . Respiratory [place] Note Patient name: Nichole Pittman PCP: Jenny Can APRN.TELEPHONE INFORMATION CLERK Referring Physician: Same Consultation requested by Jenny Can for an opinion regarding COOLEY. My final recommendations will be communicated back to the requesting physician by way of shared Medical record or letter to requesting physician via US mail. Recording using 1-800-DOCTORS software for draft documentation of the visit was discussed with the patient/authorized medical center representative; all questions welcomed and answered. Patient/authorized medical center representative agreed to proceed CC: Chest tightness/COOLEY HPI: Nichole Pittman 34 year old female never smoker with PMH significant for morbid obesity, history of COVID infection in 2019, hypothyroidism, anxiety and depression being seen for evaluation of dyspnea on exertion. Nichole reports experiencing chest tightness and dyspnea during exertion, specifically when walking uphill. The chest tightness is localized to the anterior chest and is described as severe, resembling the sensation of a myocardial infarction. These symptoms have occurred twice: once while hiking in [place] and once while walking uphill at a campsite. During both episodes, she had to stop due to the severity of the symptoms. The chest tightness was accompanied by tachycardia and resolved quickly with rest, but recurred with resumption of activity. She denies any wheezing or chest congestion during these episodes. She has had COOLEY for several years, in fact, she has had previous cardiac evaluation that was negative. Her current dyspnea is different than her baseline. She has noted occasional dyspnea when exposed to hay at work. She denies significant cough but states she produces a significant amount of mucus, particularly after eating, and experiences some allergy symptoms, mainily in the winter. She denies any known history of asthma. No GERD symptoms. DATA: PFT: Spirometry is normal Imaging / Diagnostic Studies: CXR 12/2022: Chest x-ray reviewed and is unremarkable Echo 2022: CONCLUSIONS: - Technically difficult exam due to body habitus. - Exam indication: Shortness of Breath - The left ventricle is normal in size. Left ventricular systolic function is normal. EF = 58 ? 5% (2D biplane) Normal left ventricular diastolic function. - The right ventricle is normal in size. Right ventricular systolic function is normal. - There are no significant valvular abnormalities. - The patient has not had a prior CC echocardiographic exam for comparison. Exercise stress ECG: Normal PAST MEDICAL HISTORY Diagnosis Date Anxiety and depression Anxiety state COVID-19 09/2020 Depression Hypothyroidism Resolved Insulin resistance 06/20/2024 Migraines ALLERGIES Allergen Reactions Penicillins Hives Amoxicillin Hives Ceftriaxone Hives topiramate (TOPAMAX) 25 mg tablet Take 1 tablet by mouth two times a day. FLUoxetine (PROZAC) 20 mg capsule Take 1 tablet daily for 2 weeks then 2 tablets daily for 2 weeks. SUMAtriptan (IMITREX) 50 mg tablet Take one tablet by mouth at the onset of the headache. If no improvement in 2 hours take one more tablet. No more than 2 tablets in 24 hours ARIPiprazole (ABILIFY) 2 mg tablet Take 5 mg by mouth once daily. Prescribed by Dr. Wally Nayak psych levonorgestrel (MIRENA) 20 mcg/24 hours (6 yrs) 52 mg IUD 1 Each by INTRAUTERINE route as directed. Social History Tobacco Use Smoking status: Never Smokeless tobacco: Never Tobacco comments: pt states that father smoked inside when he was living Vaping Use Vaping status: Never Used Substance Use Topics Alcohol use: Yes Comment: Occasionally Drug use: Never Pets: Dogs Chickens FAMILY HISTORY Problem Relation Age of Onset Barretts Esophagus Mother Hypertension Mother Fibromyalgia Mother other (Barrets Esphogus) Mother Clotting Disorder Mother other (diverticulitis) Mother Diabetes Mother Heart Father 45 of heart attack Hypertension Brother other (borderline diabetes) Brother Cataract Maternal Grandmother Celiac Disease Maternal Grandmother Glaucoma Maternal Grandfather Diabetes Maternal Grandfather other (Gout) Maternal Grandfather COPD Paternal Grandmother Heart disease Paternal Grandfather cardiac bypass Colon Polyps Paternal great-grandmother Glaucoma Maternal great-grandmother Colon Polyps Maternal great-grandmother Colon Cancer No F (more content not included)... Normal [facility] SPIROMETRY WITH DILATOR IF O BSTRUCTEDon 05-22-2025 FEF25% PRE (L/S) 6.13 L/S [facility] HIJ18-33% LLN (L/S) 2.01 L/S [facility] EUK95-66% PRE (L/S) 3.33 L/S [facility] GCC78-00% PREDICTED (L/S) 3.17 L/S [facility] FEF75% LLN (L/S) 0.64 L/S [facility] FEF75% PRE (L/S0 1.37 L/S [facility] FEF75% PREDICTED (L/S) 1.27 L/S [facility] FEF75% ULN (L/S) 2.28 L/S [facility] FET PRE (S) 5.81 S [facility] FEV1 LLN (L) 1.98 L [facility] FEV1 PRE (L) 2.53 L [facility] FEV1 PREDICTED (L) 2.59 L [facility] FEV1 ULN (L) 3.17 L [facility] FEV1/FVC LLN (%) 75 % [facility] FEV1/FVC PRE (%) 87 % [facility] FEV1/FVC PREDICTED (%) 86 % [facility] FVC LLN (L) 2.33 L [facility] FVC PRE (L) 2.92 L [facility] FVC PREDICTED (L) 3.03 L [facility] FVC ULN (L) 3.74 L [facility] PEF LLN (L/S) 4.95 L/S [facility] PEF PRE (L/S) 6.2 L/S [facility] PEF ULN (L/S) 8 L/S [facility] [address] [place] [address] Test Date: 2025-05-22 Pat Name: NICHOLE PITTMAN Department: Room: 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 No contraindications or sensitivities were noted. Meds taken: No inhaled respiratory medications taken before testing. Current ATS/ERS acceptability and repeatability standards for spirometry met. Start of test and EOFE criteria met. IMPRESSION: Spirometry is normal. Electronically Signed On 05-22-2025 13:26:35 EDT by Dulce Barney MD ID: [id number] Name: NICHOLE PITTMAN Race: White Ht: 60.43 in Wt: 244.00 lbs Age: 34 Gender: Female : 1990 Dx: Other forms of dyspnea Smoking Hx: Non-smoker Doctor: DULCE BARNEY Test Date: 05/22/2025 Site: Tech: Jeaneth Cates PRE-BRONCH POST-BRONCH [place] LLN Pred ULN %Pred ZScore [place] %Pred %Chg ZScore SPIROMETRY FVC 2.92 2.33 3.03 3.74 96 -0.25 FEV1 2.53 1.98 2.59 3.17 97 -0.18 FEV1/FVC 0.87 0.75 0.86 0.94 101 0.17 FEFMax 6.20 4.95 6.48 8.00 95 -0.30 FEF50 4.23 2.07 3.68 5.29 114 0.56 FIF50 3.60 FEF50/FIF50 1.18 90-100 FIVC 2.90 MFJ80-61 3.33 2.01 3.17 4.54 105 0.21 ExpiredTime 5.81 TimeToFEFMax 0.10 TRISH 0.10 VolExtrap% 3 Comments: Medications and Allergies were reviewed for possible drug interactions per policy. No contraindications or sensitivities were noted. Meds taken: No inhaled respiratory medications taken before testing. Current ATS/ERS acceptability and repeatability standards for spirometry met. Start of test and EOFE criteria met. 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 No contraindications or sensitivities were noted. Meds taken: No inhaled respiratory medications taken before testing. Current ATS/ERS acceptability and repeatability standards for spirometry met. Start of test and EOFE criteria met. IMPRESSION: Spirometry is normal. Electronically Signed On 05-22-2025 13:26:35 EDT by Dulce Barney MD ID: [id number] Name: NICHOLE PITTMAN Race: White Ht: 60.43 in Wt: 244.00 lbs Age: 34 Gender: Female : 1990 Dx: Other forms of dyspnea Smoking Hx: Non-smoker Doctor: DULCE BARNEY Test Date: 05/22/2025 Site: Tech: Jeaneth Cates PRE-BRONCH POST-BRONCH [place] LLN Pred ULN %Pred ZScore [place] %Pred %Chg ZScore SPIROMETRY FVC 2.92 2.33 3.03 3.74 96 -0.25 FEV1 2.53 1.98 2.59 3.17 97 -0.18 FEV1/FVC 0.87 0.75 0.86 0.94 101 0.17 FEFMax 6.20 4.95 6.48 8.00 95 -0.30 FEF50 4.23 2.07 3.68 5.29 114 0.56 FIF50 3.60 FEF50/FIF50 1.18 90-100 FIVC 2.90 PTH88-64 3.33 2.01 3.17 4.54 105 0.21 ExpiredTime 5.81 TimeToFEFMax 0.10 TRISH 0.10 VolExtrap% 3 Comments: Medications and Allergies were reviewed for possible drug interactions per policy. No contraindications or sensitivities were noted. Meds taken: No inhaled respiratory medications taken before testing. Current ATS/ERS acceptability and repeatability standards for spirometry met. Start of test and EOFE criteria met. FVC_PRE (L) : 2.92 L FVC_PRED (L) : 3.03 L FVC_LLN (L) : 2.33 L FVC_ULN (L) : 3.74 L FEV1_PRE (L) : 2.53 L FEV1_PRED (L) : 2.59 L FEV1_LLN (L) : 1.98 L FEV1_ULN (L) : 3.17 L FEV1/FVC_PRE (%) : 87 % FEV1/FVC_PRED (%) : 86 % FEV1/FVC_LLN (%) : 75 % MJH51_RAE (L/S) : 6.13 L/S IMR01_RAC (L/S) : 1.37 L/S BAH30_OEXR (L/S) : 1.27 L/S JCD35_KHG (L/S) : 0.64 L/S JWR56_RYO (L/S) : 2.28 L/S CEK27-24%_PRE (L/S) : 3.33 L/S UOA96-34%_PRED (L/S) : 3.17 L/S ONT28-03%_LLN (L/S) : 2.01 L/S PEF_PRE (L/S) : 6.20 L/S PEFMAX_LLN (L/S) : 4.95 L/S PEFMAX_ULN (L/S) : 8.00 L/S FET_PRE (S) : 5.81 S Normal [facility] CNOVon 04-17-2025 CNOV Office Visit (INTMWS ) NICHOLE PITTMAN ([id number]) 1990 F Date Time Provider Department 04/17/25 9:00 AM JENNY CAN During your visit today, we recorded the following information about you: Pulse Respiration Blood pressure Weight 86/minute 16/minute 120/72 111.6 kg Jenny Can APRN.[facility] 04/17/2025 10:46 AM Signed CC: Patient presents with: Recheck: 4 week follow up HPI Nichole Pittman is a 34 year old female who presents today for follow up on medications. Recording using 1-800-DOCTORS software for draft documentation of the visit was discussed with the patient/authorized medical center representative; all questions welcomed and answered. Patient/authorized medical center representative agreed to proceed Migraines: - Started Topiramate 4 weeks ago; taking once daily at 20:00. - Noted significant improvement; only one mild migraine since starting medication. - Required only one Imitrex for relief, compared to two previously. Did have to miss work for this as imitrex makes her very sleepy - Previously experienced migraines monthly, coinciding with menstruation. - Denies new side effects from Topiramate; has pre-existing carpal tunnel syndrome. Exertional Dyspnea and Chest Pain: - Recent episodes of chest pain and dyspnea during uphill walking. - Describes pain as chest squeezing with associated tachycardia and elevated blood pressure. - Symptoms resolve with rest; no issues with flat terrain walking - episode was so severe though she did not continue with the hike - Last stress test was 1.5 years ago, reported as normal. But did stop due to SOB - Denies cough, wheezing, or significant dyspnea during episodes. - History of asthma as a child. - Family history of cardiac issues; father of a myocardial infarction at age 45. Anxiety and Depression: - Currently taking Prozac 20 mg daily. - Reports improvement in anxiety and depression symptoms. - Sleeping well; denies alcohol or drug use. - No suicidal or homicidal ideations. Weight Loss: - Lost 6 lbs recently; attributes weight loss to drinking water and using sugar-free flavored water enhancers. - Denies intentional dietary restrictions; focuses on cooking at home and avoiding junk food. - Consumes a diet rich in vegetables, ground beef, and chicken; occasionally eats out. - Engages in outdoor activities; reports increased energy levels. REVIEW OF SYSTEMS See HPI PAST MEDICAL HISTORY Diagnosis Date Anxiety state COVID-19 09/2020 Depression Hypothyroidism Resolved Insulin resistance 06/20/2024 PAST SURGICAL HISTORY Procedure Laterality Date EGD BIOPSY SING OR MULT 11/23/2022 variable ge jx; longitudinal furrows distal esophagus INSERTION OF IUD 04/25/2021 UNSPECIFIED ORAL SURGERY PROCEDURE, BY REPORT wisdom teeth ALLERGIES Penicillins, Amoxicillin, and Ceftriaxone MEDICATIONS topiramate (TOPAMAX) 25 mg tablet Take 1 tablet by mouth two times a day. FLUoxetine (PROZAC) 20 mg capsule Take 1 tablet daily for 2 weeks then 2 tablets daily for 2 weeks. SUMAtriptan (IMITREX) 50 mg tablet Take one tablet by mouth at the onset of the headache. If no improvement in 2 hours take one more tablet. No more than 2 tablets in 24 hours ARIPiprazole (ABILIFY) 2 mg tablet Take 5 mg by mouth once daily. Prescribed by Dr. Wally Nayak psych levonorgestrel (MIRENA) 20 mcg/24 hours (6 yrs) 52 mg IUD 1 Each by INTRAUTERINE route as directed. FAMILY HISTORY Problem Relation Age of Onset Barretts Esophagus Mother Hypertension Mother Fibromyalgia Mother other (Barrets Esphogus) Mother Clotting Disorder Mother other (diverticulitis) Mother Diabetes Mother Heart Father 45 of heart attack Hypertension Brother other (borderline diabetes) Brother Cataract Maternal Grandmother Celiac Disease Maternal Grandmother Glaucoma Maternal Grandfather Diabetes Maternal Grandfather other (Gout) Maternal Grandfather COPD Paternal Grandmother Heart disease Paternal Grandfather cardiac bypass Colon Polyps Paternal great-grandmother Glaucoma Maternal great-grandmother Colon Polyps Maternal great-grandmother Colon Cancer No Family History Social History Tobacco Use Smoking status: Never Smokeless tobacco: Never Tobacco comments: pt states that father smoked inside when he was living Vaping Use Vaping status: Never Used Substance Use Topics Alcohol use: Yes Comment: Occasionally Drug use: Never PHYSICAL EXAM BP 120/72 Pulse 86 Resp 16 Wt 111.6 kg (246 lb) LMP (LMP Unknown) SpO2 98% BMI 48.04 kg/m? Appearance: well dressed well groomed, cooperative, and pleasant Behavior: good eye contact Speech: normal and fluent and coherent Mood: happy Affect: appropriate Perceptions: none Thought process: goal directed Thought Content: normal Intelligence level: normal Insight: good Judgment: good Lung (more content not included)... Normal [facility] ECG COMPLETEon 04-17-2025 ECG COMPLETE Ventricular Rate : 6 7 BPM Atrial Rate : 67 BPM P-R Interval : 130 ms QRS Duration : 92 ms Q-T Interval : 414 ms QTC Calculation(Bazett) : 437 ms Calculated P [place] : 14 degrees Calculated R [place] : 27 degrees Calculated T [place] : 28 degrees NORMAL SINUS RHYTHM WITH SINUS ARRHYTHMIA NONSPECIFIC T WAVE ABNORMALITY ABNORMAL ECG Confirmed by MD ROSAS QARAB ([id number]) on 04/20/2025 10:58:02 AM NAME : NICHOLE PITTMAN PID : [id number] : 1990 Gender : Female Race : ORD : [id number] Procedure Date : Apr 17 2025 09:36:30 Edit Date : Apr 20 2025 10:58:06 Diagnosis: NORMAL SINUS RHYTHM WITH SINUS ARRHYTHMIA NONSPECIFIC T WAVE ABNORMALITY ABNORMAL ECG Confirmed by MD ROSAS QARAB ([id number]) on 04/20/2025 10:58:02 AM Test Reason : R06.09 Dyspnea on exertion Location : 185 : [facility] Overread By : MD ROSAS QARAB Edited By : MD ROSAS QARAB Referred By : , Acquired by : [id number], Normal [facility] C. trachomatis+N. gonorrhoea e DNA AVRIL+probe Ql (Unsp spec)on 03-20-2025 C. trachomatis rRNA AVRIL+probe Ql (Unsp spec) Not detected Normal Not detected [facility] Comment on above: Order Comment: Speci men Type: SWABOrdering Facility: [facility] Address: [address] [place] [address] Performed By: #### T RVAMP, 30038-8 ####[facility] LABCLIA [id number] [address] [facility] N. gonorrhoeae rRNA AVRIL+probe Ql (Unsp spec) Not detected Normal Not detected [facility] Comment on above: Order Comment: Speci men Type: SWABOrdering Facility: [facility] Address: [address] [place] [address] Performed By: #### T RVAMP, 17735-7 ####[facility] LABCLIA [id number] [address] [place] CBC panel Auto (Bld)on 03-20 Erythrocyte distribution width (RBC) [Ratio] 12.9 % 11.5 - 15.0 % [facility] Hematocrit (Bld) [Volume fraction] 43.4 % 36.0 - 46.0 % [facility] Hemoglobin (Bld) [Mass/Vol] 14.3 g/dL 11.5 - 15.5 g/dL [facility] Interpretation and review of laboratory results Abnormal [facility] MCH (RBC) [Entitic mass] 30 pg 26.0 - 34.0 pg [facility] MCHC (RBC) [Mass/Vol] 32.9 g/dL 30.5 - 36.0 g/dL [facility] MCV (RBC) [Entitic vol] 91 fL 80.0 - 100.0 fL [facility] Nucleated RBC (Bld) [#/Vol] NINF [facility] Platelet mean volume (Bld) [Entitic vol] 12.4 fL 9.0 - 12.7 fL [facility] Platelets (Bld) [#/Vol] 303 10*3/uL [facility] RBC (Bld) [#/Vol] 4.77 10*6/uL 3.90 - 5.2 0 m/uL [facility] WBC (Bld) [#/Vol] 11.21 10*3/uL [facility] Erythrocyte distribution width (RBC) [Ratio] 12.9 % Normal 11.5-15.0 [facility] Comment on above: Order Comment: Speci men Type: BLOOD SPECIMENOrdering Facility: [facility] Address: [address] [place] [address] Performed By: #### 5 8410-2 ####[facility] LABIA [id number] [place] [address] [place] Hematocrit (Bld) [Volume fraction] 43.4 % Normal 36.0-46.0 [facility] Comment on above: Order Comment: Speci men Type: BLOOD SPECIMENOrdering Facility: [facility] Address: [address] [place] [address] Performed By: #### 5 8410-2 ####[facility] LABIA [id number] [place] [address] [place] Hemoglobin (Bld) [Mass/Vol] 14.3 g/dL Normal 11.5-15.5 [facility] Comment on above: Order Comment: Speci men Type: BLOOD SPECIMENOrdering Facility: [facility] Address: [address] [place] [address] Performed By: #### 5 8410-2 ####[facility] LABIA [id number] [place] [address] [place] MCH (RBC) [Entitic mass] 30.0 pg Normal 26.0-34.0 [facility] Comment on above: Order Comment: Speci men Type: BLOOD SPECIMENOrdering Facility: [facility] Address: [address] [place] [address] Performed By: #### 5 8410-2 ####[facility] LABIA [id number] [place] [address] [place] MCHC (RBC) [Mass/Vol] 32.9 g/dL Normal 30.5-36.0 [facility] Comment on above: Order Comment: Speci men Type: BLOOD SPECIMENOrdering Facility: [facility] Address: [address] [place] [address] Performed By: #### 5 8410-2 ####[facility] LABCLIA [id number] [place] [address] [place] MCV (RBC) [Entitic vol] 91.0 fL Normal 80.0-100.0 [facility] Comment on above: Order Comment: Speci men Type: BLOOD SPECIMENOrdering Facility: [facility] Address: [address] [place] [address] Performed By: #### 5 8410-2 ####[facility] LABIA [id number] [address] [place] Nucleated RBC (Bld) [#/Vol] 10*3/uL Normal <0.01 [facility] Comment on above: Order Comment: Speci men Type: BLOOD SPECIMENOrdering Facility: [facility] Address: [address] [place] [address] Performed By: #### 5 8410-2 ####[facility] LABIA [id number] [address] [place] Platelet mean volume (Bld) [Entitic vol] 12.4 fL Normal 9.0-12.7 [facility] Comment on above: Order Comment: Speci men Type: BLOOD SPECIMENOrdering Facility: [facility] Address: [address] [place] [address] Performed By: #### 5 8410-2 ####[facility] LABCLIA [id number] [place] [address] [place] Platelets (Bld) [#/Vol] 303 10*3/uL Normal 150-400 [facility] Comment on above: Order Comment: Speci men Type: BLOOD SPECIMENOrdering Facility: [facility] Address: [address] [place] [address] Performed By: #### 5 8410-2 ####[facility] LABIA [id number] [place] [address] [place] RBC (Bld) [#/Vol] 4.77 10*6/uL Normal 3.90-5.20 [facility] Comment on above: Order Comment: Speci men Type: BLOOD SPECIMENOrdering Facility: [facility] Address: [address] [place] [address] Performed By: #### 5 8410-2 ####[facility] LABIA [id number] [place] [address] [place] WBC (Bld) [#/Vol] 11.21 10*3/uL High 3.70-11.00 [facility] Comment on above: Order Comment: Speci men Type: BLOOD SPECIMENOrdering Facility: [facility] Address: [address] [place] [address] Performed By: #### 5 8410-2 ####[facility] LABIA [id number] [place] [address] [place] CNOVon 03-20-2025 CNOV Office Visit (OBGYWM ) NICHOLE PITTMAN ([id number]) 1990 F Date Time Provider Department 03/20/25 1:00 PM FIDE VÁSQUEZ OBRITAWBraydon During your visit today, we recorded the following information about you: Blood pressure Weight Height 128/86 114.3 kg 1.524 m Fide Vásquez APRN.TELEPHONE INFORMATION CLERK 03/20/2025 1:24 PM Signed Patient declined position clerk. Nichole is a 34 year old who presents for an annual gynecologic exam with complaints, spotting. . Would like to change the IUD out next yr, will need Ativan prior to the procedure Menses: spotting monthly for 3 days. Contraception: IUD Mirena exp 2028 HPV vaccine: No Last Pap: 08/24/2022 normal HPV: 08/23/2022 negative History of abnormal pap: No Last mammogram: never Sexually active: Yes Patient concerns for STD exposure: No. 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 Menstrual Tracking History Flowsheet Row Office Visit from 03/20/2025 in OB/Gynecology Period Cycle (Days) 30 Period Duration (Days) 3 Menstrual Flow Light PAST MEDICAL HISTORY Diagnosis Date Anxiety state COVID-19 09/2020 Depression Hypothyroidism Resolved Insulin resistance 06/20/2024 PAST SURGICAL HISTORY Procedure Laterality Date EGD BIOPSY SING OR MULT 11/23/2022 variable ge jx; longitudinal furrows distal esophagus INSERTION OF IUD 04/25/2021 UNSPECIFIED ORAL SURGERY PROCEDURE, BY REPORT wisdom teeth FAMILY HISTORY Problem Relation Age of Onset Barretts Esophagus Mother Hypertension Mother Fibromyalgia Mother other (Barrets Esphogus) Mother Clotting Disorder Mother other (diverticulitis) Mother Diabetes Mother Heart Father 45 of heart attack Hypertension Brother other (borderline diabetes) Brother Cataract Maternal Grandmother Celiac Disease Maternal Grandmother Glaucoma Maternal Grandfather Diabetes Maternal Grandfather other (Gout) Maternal Grandfather COPD Paternal Grandmother Heart disease Paternal Grandfather cardiac bypass Colon Polyps Paternal great-grandmother Glaucoma Maternal great-grandmother Colon Polyps Maternal great-grandmother Colon Cancer No Family History SOCIAL HISTORY Social History Tobacco Use Smoking status: Never Smokeless tobacco: Never Tobacco comments: pt states that father smoked inside when he was living Vaping Use Vaping status: Never Used Substance Use Topics Alcohol use: Yes Comment: Occasionally Drug use: Never REVIEW OF SYSTEMS Abdomen: No abdominal pain, nausea, vomiting, diarrhea, or constipation. No bloating, early satiety, indigestion, or increased flatulence. Bladder: No dysuria, gross hematuria, urinary frequency, urinary urgency, or incontinence. Breast: No breast lumps, nipple d/c, overlying skin changes, redness or skin retraction. Allergies and current medication updated:Yes SENSITIVE EXAM: The sensitive examination was discussed with the Patient or Patient's Authorized Chief Deputy. As applicable, any other physician, advance practice provider, medical student, or other health professional student that will be observing or involved in the sensitive examination for educational or training purposes was discussed with the Patient or Authorized Chief Deputy. The Patient or Authorized Chief Deputy has agreed to proceed with the sensitive examination. (Sensitive examination includes inspection and/or palpation of the breasts, pelvis, prostate and anorectal regions). EXAM: BP 128/86 Ht 5' 0 (1.52m) Wt 252 lb (114.3kg) BMI 49.22 kg/(m2). GENERAL: pleasant, female in no apparent distress HEENT: Normocephalic, atraumatic, mucus membranes moist, and no lesions DERMATOLOGY: Normal, without lesions, non-icteric, and non-hirsute BREAST: soft, non-tender, symmetric, no dominant mass, normal nipple-areolar complex, no lymphadenopathy, and no nipple discharge CHEST: Normal inspiratory effort ABDOMEN: soft, non-tender, and no masses PELVIC: external genitalia normal, normal Bartholin's glands, urethra, Long's glands, no vulvar lesions, no cervical lesions, good vaginal support, physiologic discharge present, normal appearing perineal body and perianal region, IUD strings NOT visible BIMANUAL: uterus normal size, shape and consistency, no adnexal masses, and non-tender RECTOVAGINAL: deferred. NEURO: alert and oriented x3,exam grossly non-focal EXTREMITIES: normal ASSESSMENT/PLAN: 1) Health maintenance: Pap/HPV up to date. Mammogram starting age 40. Nutrition, exercise and routine health maintenance exams reviewed. Calcium/Vitamin D supplementation information provided. Colon cancer screening: start at (more content not included)... Normal [facility] CNOV Office Visit (INTMWS ) NICHOLE PITTMAN ([id number]) 1990 F Date Time Provider Department 03/20/25 9:20 AM JENNY CAN During your visit today, we recorded the following information about you: Pulse Respiration Blood pressure Weight 84/minute 16/minute 134/92 113.4 kg Jenny Can APRN.[facility] 03/20/2025 12:37 PM Signed CC: Patient presents with: Recheck: Follow up medication HPI Nichole Pittman is a 34 year old female who presents today for follow up. Needs refills of her medications and wants to discuss weight management. Recording using 1-800-DOCTORS software for draft documentation of the visit was discussed with the patient/authorized medical center representative; all questions welcomed and answered. Patient/authorized medical center representative agreed to proceed Weight Management: - Previously on phentermine and topiramate as ordered by weight management but this was discontinued months ago due to not meeting 5% weight loss goal. - Lost weight from 265 lbs to 220 lbs while on phentermine; reports feeling good and having more energy. - Gained weight back after discontinuing phentermine. - Diet includes zero sugar due to partner's diabetes; avoids fast food and drinks flavored water. - Has a gym membership but rarely exercises due to work schedule. - History of borderline low thyroid function; last thyroid check a year ago was normal. Anxiety and Depression: - History of anxiety and depression, previously well-controlled with fluoxetine 40 mg daily. - Has not taken fluoxetine for a few months due to difficulty obtaining a refill. - Reports increased anxiety and depression, with work being really, really, really stressful. - Poor sleep, getting only 8 hours total over the past few days due to work demands. - Uses sleep and anxiety marijuana gummies occasionally. - Denies thoughts of self-harm or harm to others. - Has family and friends for support. - Currently taking Abilify 5 mg daily as ordered by psychiatry Migraines: - History of migraines, with increased frequency and severity recently. - Has not taken topiramate for a couple of weeks; reports fewer migraines when on topiramate. - Experiences migraines about once a month, often around menstrual cycle. - Symptoms include light sensitivity, sound sensitivity, nausea, and dizziness. - Uses Imitrex for migraine relief; sometimes requires a second dose. - Denies confusion, weakness, numbness, or visual changes before migraines. - Has Mirena IUD in place. REVIEW OF SYSTEMS General: no fevers, no chills, no night sweats, no recurrent infections, no change in appetite, no change in energy, and no significant changes in weight Respiratory: no cough, no wheezing, no shortness of breath, no hemoptysis Cardiovascular: no chest pain, no chest pressure, no palpitations, and no swelling GI: No nausea, vomiting, or diarrhea Endocrine: no polyuria, no polyphagia, and no polydipsia Neurologic: No weakness, numbness, memory loss, syncope. PAST MEDICAL HISTORY Diagnosis Date Anxiety state COVID-19 09/2020 Depression Hypothyroidism Resolved Insulin resistance 06/20/2024 PAST SURGICAL HISTORY Procedure Laterality Date EGD BIOPSY SING OR MULT 11/23/2022 variable ge jx; longitudinal furrows distal esophagus INSERTION OF IUD 04/25/2021 UNSPECIFIED ORAL SURGERY PROCEDURE, BY REPORT wisdom teeth ALLERGIES Penicillins, Amoxicillin, and Ceftriaxone MEDICATIONS FLUoxetine (PROZAC) 10 mg capsule Take 1 tablet daily for 2 weeks then 2 tablets daily for 2 weeks. topiramate (TOPAMAX) 25 mg tablet Take 1 tablet by mouth daily at bedtime. SUMAtriptan (IMITREX) 50 mg tablet Take one tablet by mouth at the onset of the headache. If no improvement in 2 hours take one more tablet. No more than 2 tablets in 24 hours ARIPiprazole (ABILIFY) 2 mg tablet Take 5 mg by mouth once daily. Prescribed by Dr. Wally Nayak psych levonorgestrel (MIRENA) 20 mcg/24 hours (6 yrs) 52 mg IUD 1 Each by INTRAUTERINE route as directed. FAMILY HISTORY Problem Relation Age of Onset Heart Father 45 of heart attack Barretts Esophagus Mother Hypertension Mother Fibromyalgia Mother other (Barrets Esphogus) Mother Clotting Disorder Mother other (diverticulitis) Mother Hypertension Brother other (borderline diabetes) Brother Cataract Maternal Grandmother Celiac Disease Maternal Grandmother Glaucoma Maternal Grandfather Diabetes Maternal Grandfather other (Gout) Maternal Grandfather COPD Paternal Grandmother Heart disease Paternal Grandfather cardiac bypass Colon Polyps Paternal great-grandmother Glaucoma Maternal great-grandmother Colon Polyps Maternal great-grandmother Colon Cancer No Family History Social History Tobacco Use Smoking status: Never Smokeless tobacco: Never Tobacco comments: pt states that father smoked inside when he was living (more content not included)... Normal [facility] Comprehensive metabolic 2000 panelon 03-20-2025 Albumin [Mass/Vol] 4.3 g/dL Normal 3.9-4.9 [facility] Comment on above: Order Comment: Speci men Type: BLOOD SPECIMENOrdering Facility: [facility] Address: [address] [place] [address] Performed By: #### 2 4331-1, 3015-3, 61788-8 ####[facility] LABCLIA [id number] [place] [address] [place] ALP [Catalytic activity/Vol] 93 U/L Normal 34-123 [facility] Comment on above: Order Comment: Speci men Type: BLOOD SPECIMENOrdering Facility: [facility] Address: [address] [place] [address] Performed By: #### 2 4331-1, 3015-3, 37200-5 ####[facility] LABCLIA [id number] [place] [address] [place] ALT [Catalytic activity/Vol] 21 U/L Normal 7-38 [facility] Comment on above: Order Comment: Speci men Type: BLOOD SPECIMENOrdering Facility: [facility] Address: [address] [place] [address] Performed By: #### 2 4331-1, 3015-3, 50050-8 ####[facility] LABCLIA [id number] [address] [address] [place] Anion gap [Moles/Vol] 11 mmol/L Normal 8-15 [facility] Comment on above: Order Comment: Speci men Type: BLOOD SPECIMENOrdering Facility: [facility] Address: [address] [place] [address] Performed By: #### 2 4331-1, 3015-3, 73122-5 ####[facility] LABCLIA [id number] [address] [place] [address] [place] AST [Catalytic activity/Vol] 22 U/L Normal 13-35 [facility] Comment on above: Order Comment: Speci men Type: BLOOD SPECIMENOrdering Facility: [facility] Address: [address] [place], [place] [address] Performed By: #### 2 4331-1, 3015-3, ####[facility] LABCLIA [id number] [address] [place] [address] [place] Bilirubin [Mass/Vol] 0.2 mg/dL Normal 0.2-1.3 [facility] Comment on above: Order Comment: Speci men Type: BLOOD SPECIMENOrdering Facility: [facility] Address: [address] [place] [address] Performed By: #### 2 4331-1, 3, ####[facility] LABIA [id number] [address] [place] [address] [place] Calcium [Mass/Vol] 9.5 mg/dL Normal 8.5-10.2 [facility] Comment on above: Order Comment: Speci men Type: BLOOD SPECIMENOrdering Facility: [facility] Address: [address] [place], [place] [address] Performed By: #### 2 4331-1, 3, ####[facility] LABCLIA [id number] [address] [place] [address] [place] Chloride [Moles/Vol] 105 mmol/L Normal 98-107 [facility] Comment on above: Order Comment: Speci men Type: BLOOD SPECIMENOrdering Facility: [facility] Address: [address] [place], [place] [address] Performed By: #### 2 4331-1, 3015-3, ####[facility] LABCLIA [id number] [address] [place] [address] [place] CO2 [Moles/Vol] 23 mmol/L Normal 22-30 [facility] Comment on above: Order Comment: Speci men Type: BLOOD SPECIMENOrdering Facility: [facility] Address: [address] [place] [address] Performed By: #### 2 4331-1, 6-3, ####[facility] LABCLIA [id number] [place] [address] [place] Creatinine [Mass/Vol] 0.82 mg/dL Normal 0.58-0.96 [facility] Comment on above: Order Comment: Speci men Type: BLOOD SPECIMENOrdering Facility: [facility] Address: [address] [place] [address] Performed By: #### 2 4331-1, 3015-3, ####[facility] LABIA [id number] [place] [address] [place] Creatinine and Glomerular filtration rate.predicted panel (S/P/Bld) 97 mL/min/1.73m??? Normal >=60 [facility] Comment on above: Order Comment: Emil lenz Type: BLOOD SPECIMENOrdering Facility: [facility] Address: [address] [place] [address] Result Comment: Radha mated Glomerular Filtration Rate (eGFR) is calculated using the 2020 CKD-EPI creatinine equation. This equation utilizes serum creatinine, sex, and age as parameters. The creatinine assay has traceable calibration to isotope dilution-mass spectrometry. Refer to KDIGO guidelines for clinical interpretation. In patients with unstable renal function, e.g. those with acute kidney injury, the eGFR may not accurately reflect actual GFR. Performed By: #### 2 4331-1, 3, ####[facility] LABCLIA [id number] [address] [address] [place] Glucose [Mass/Vol] 88 mg/dL Normal 74-99 [facility] Comment on above: Order Comment: Speci men Type: BLOOD SPECIMENOrdering Facility: [facility] Address: [address] [place], [place] [address] Result Comment: The [place] Diabetes Association (ADA) provides guidance for cutoff values for fasting glucose and random glucose. The ADA defines fasting as no caloric intake for at least 8 hours. Fasting plasma glucose results between 100 to 125 mg/dL indicate increased risk for diabetes (prediabetes). Fasting plasma glucose results greater than or equal to 126 mg/dL meet the criteria for diagnosis of diabetes. In the absence of unequivocal hyperglycemia, results should be confirmed by repeat testing. In a patient with classic symptoms of hyperglycemia or hyperglycemic crisis, random plasma glucose results greater than or equal to 200 mg/dL meet the criteria for diagnosis of diabetes. Reference: Standards of Medical Care in Diabetes 2016, [place] Diabetes Association. Diabetes Care. 2016.39(Suppl 1). Performed By: #### 2 4331-1, 3015-3, ####[facility] LABCLIA [id number] [address] [address] [place] Potassium [Moles/Vol] 4.3 mmol/L Normal 3.7-5.1 [facility] Comment on above: Order Comment: Speci men Type: BLOOD SPECIMENOrdering Facility: [facility] Address: [address] [place], [place] [address] Performed By: #### 2 4331-1, 3, ####[facility] LABIA [id number] [address] [address] [place] Protein [Mass/Vol] 6.9 g/dL Normal 6.3-8.0 [facility] Comment on above: Order Comment: Speci men Type: BLOOD SPECIMENOrdering Facility: [facility] Address: [address] [place], [place] [address] Performed By: #### 2 4331-1, 3, ####[facility] LABCLIA [id number] [address] [address] [place] Sodium [Moles/Vol] 139 mmol/L Normal 136-144 [facility] Comment on above: Order Comment: Speci men Type: BLOOD SPECIMENOrdering Facility: [facility] Address: [address] [place] [address] Performed By: #### 2 4331-1, 3, ####[facility] LABCLIA [id number] [address] [address] [place] Urea nitrogen [Mass/Vol] 11 mg/dL Normal 7-21 [facility] Comment on above: Order Comment: Speci men Type: BLOOD SPECIMENOrdering Facility: [facility] Address: [address] [place], [place] [address] Performed By: #### 2 4331-1, 3, ####[facility] LABCLIA [id number] [address] [address] [place] Lipid 1996 panelon 5 Cholesterol [Mass/Vol] 194 mg/dL Normal <200 [facility] Comment on above: Order Comment: Speci men Type: BLOOD SPECIMENOrdering Facility: [facility] Address: [address] [place], [place] [address] Result Comment: <200 mg/dL, Desirable 200-239 mg/dL, Borderline high >239 mg/dL, High Performed By: #### 2 4331-1, 3, ####[facility] LABCLIA [id number] [address] [address] [place] Cholesterol in HDL [Mass/Vol] 51 mg/dL Normal >39 [facility] Comment on above: Order Comment: Speci men Type: BLOOD SPECIMENOrdering Facility: [facility] Address: [address] [place] [id number] Result Comment: 40-5 9 mg/dL, Acceptable >59 mg/dL, High: Negative risk factor for coronary heart disease <40 mg/dL, Low: Positive risk factor for coronary heart disease Performed By: #### 2 4331-1, 3015-3, ####[facility] LABCLIA [id number] [address] [address] [place] Cholesterol in LDL [Mass/Vol] 117 mg/dL High <100 [facility] Comment on above: Order Comment: Speci men Type: BLOOD SPECIMENOrdering Facility: [facility] Address: [address] [place] [address] Result Comment: <100 mg/dL, Optimal 100-129 mg/dL, Near optimal/above optimal 130-159 mg/dL, Borderline high 160-189 mg/dL, High >189 mg/dL, Very high Secondary prevention optimal LDL Cholesterol levels are recommended to be <70 mg/dL LDL cholesterol is calculated using the Middleton-NIH equation. Performed By: #### 2 4331-1, 3015-3, 18217-6 ####[facility] [id number] [place] [address] [place] Cholesterol in LDL/Cholesterol in HDL [Mass ratio] 2.29 {ratio} Normal <2.54 [facility] Comment on above: Order Comment: Speci men Type: BLOOD SPECIMENOrdering Facility: [facility] Address: [address] [place] [address] Result Comment: [place] lantigua: 1. National Cholesterol Education Program ATP III Guideline At-A-Glance Quick Desk Reference: National Heart, Lung, and Blood [place]. National Institutes of Health. 2001: NIH Publication No. 01-3305. 2. An International Atherosclerosis Society position paper: global recommendations for the management of dyslipidemia: executive summary, Atherosclerosis. 2014: 232(2):410-413. Performed By: #### 2 4331-1, 3015-3, 30448-9 ####[facility] [id number] [place] [address] [place] Cholesterol in VLDL [Mass/Vol] 25 mg/dL Normal <30 [facility] Comment on above: Order Comment: Katiei men Type: BLOOD SPECIMENOrdering Facility: [facility] Address: [address] [place] [address] Performed By: #### 2 4331-1, 3016-01, ####[facility] LABCLIA [id number] [facility] [address] [place] [address] [place] Cholesterol non HDL [Mass/Vol] 143 mg/dL High <130 [facility] Comment on above: Order Comment: Speci men Type: BLOOD SPECIMENOrdering Facility: [facility] Address: [address] [place] [place] [phone] Result Comment: <130 mg/dL, Optimal 130-159 mg/dL, Near optimal/above optimal 160-189 mg/dL, Borderline high 190-219 mg/dL, High >219 mg/dL, Very high Secondary prevention optimal non HDL Cholesterol levels are recommended to be <100 mg/dL Performed By: #### 2 4331-1, 3016-01, ####[facility] LABCLIA [id number] [address] [address] [place] Cholesterol.total /Cholesterol in HDL [Mass ratio] 3.80 {ratio} Normal <5.10 [facility] Comment on above: Order Comment: Speci men Type: BLOOD SPECIMENOrdering Facility: [facility] Address: [address] [place] [id number] Performed By: #### 2 4331-1, 3016-01, ####[facility] LABCLIA [id number] [address] [address] [place] FASTING TIME 15 hrs Normal [facility] Comment on above: Order Comment: Speci men Type: BLOOD SPECIMENOrdering Facility: [facility] Address: [address] [place] [address] Performed By: #### 2 4331-1, 3016-01, ####[facility] LABCLIA [id number] [address] [address] [place] Triglyceride [Mass/Vol] 149 mg/dL Normal <150 [facility] Comment on above: Order Comment: Speci men Type: BLOOD SPECIMENOrdering Facility: [facility] Address: [address] [place] [address] Result Comment: <150 mg/dL, Normal 150-199 mg/dL, Borderline high 200-499 mg/dL, High >499 mg/dL, Very high Performed By: #### 2 4331-1, 3016-3, 78621-5 ####[facility] LABCLIA [id number] [place] [address] [place] TRICHOMONAS VAGINALIS NAATon 03-20-2025 T. vaginalis DNA AVRIL+probe Ql (Unsp spec) Not detected Normal Not detected [facility] Comment on above: Order Comment: Speci men Type: SWABOrdering Facility: [facility] Address: [address] [place] [address] Performed By: #### T RVAMP, 41591-6 ####[facility] LABCLIA [id number] [place] [address] [place] TSH SerPl-aCncon 03-20-2025 TSH Qn 2.320 m[IU]/L Normal 0.270-4.200 [facility] Comment on above: Order Comment: Speci men Type: BLOOD SPECIMENOrdering Facility: [facility] Address: [address] [place] [address] Result Comment: If t he patient is , TSH reference range varies by gestational period: First Trimester (weeks 9-12): 0.180-2.990 mIU/L Second Trimester: 0.110-3.980 mIU/L Third Trimester: 0.480-4.710 mIU/L Brent Strauss et al. A Practical Approach for the Verifications and Determination of Site- and Trimester-Specific Reference Intervals for Thyroid Function tests in . Thyroid, 2019:29:3:412-420. Israel E, et al. 2017 Guidelines of the [place] Thyroid Association for the Diagnosis and Management of Thyroid Disease during and the . Thyroid, 2017:27:3:315-389. Performed By: #### 2 4331-1, 6-3, 61835-0 ####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 Epigastric abdominal pain after eating. Nausea without vomiting. No diarrhea. Denies any black or bloody stools. PFSH PFSH Medical History GERD (gastroesophageal reflux disease) PCOS (polycystic ovarian syndrome) Home Medications ???Medication ???Instructions ???Recorded ???Last Taken ???Type albuterol sulfate 90 mcg/actuation 1 - 2 puff inhalation Q4H PRN PRN 10/07/21 Unknown Rx aerosol inhaler (Ventolin HFA) Wheezing #1 ea fluoxetine 10 mg capsule 10 mg PO DAILY 10/07/21 Unknown History metformin 500 mg tablet,extended 500 mg PO DAILY 10/07/21 Unknown History release 24 hr gentamicin 0.3 % eye drops 2 drp LEFT EYE Q4H #5 mL 03/04/23 Unknown Rx ondansetron 4 mg disintegrating 4 mg PO Q8H PRN PRN Nausea #10 tabs 11/17/24 Unknown Rx tablet Allergy/AdvReac Type Severity Reaction Status Date / Time amoxicillin Allergy Hives Verified 11/17/24 15:08 ceftriaxone (From Rocephin) Allergy Hives Verified 11/17/24 15:08 Penicillins Allergy Hives Verified 11/17/24 15:08 Family History Mother GERD (gastroesophageal reflux disease) Benjamin esophagus Hypertension Blood clotting disorder Grandfather Diabetes Surgical History H/O esophagogastroduodenoscopy [place] teeth removed Social History housing: house Smoking Status: Never smoker ROS ROS ED Constitutional Constitutional ED: Denies chills, fever(s) or sweats ENT ENT ED: Denies sore throat Cardiovascular Cardiovascular: Denies chest pain, leg edema, palpitations or racing heartbeat Respiratory/Chest Respiratory/Chest: Denies cough, dyspnea or dyspnea on exertion Gastrointestinal Gastrointestinal: Reports abdominal pain and nausea; Denies diarrhea or vomiting Genitourinary Genitourinary ED: Denies dysuria, hematuria or urinary frequency Musculoskeletal Musculoskeletal: Denies back pain, extremity pain or neck pain Integumentary Denies rash or wounds Neurologic Neurologic: Denies headache(s), paresthesias or weakness EXAM Physical Exam Const Positive well nourished and well developed General Appearance ED: well developed and NAD HEENT Reports moist mucous membranes normocephalic and atraumatic Eyes General Eye ED: Yes normal appearance of both eyes Neck full ROM Chest Wall Chest: Negative for tenderness Resp normal respiratory effort and normal air movement Effort and Inspection: symmetric chest movement; Negative for respiratory distress Cardio regular rate, regular rhythm and no murmurs Peripheral Pulses: pulses 2+ throughout GI normal to inspection, nondistended, normoactive bowel sounds GI Narrative: Mild epigastric tenderness. Negative Seals's or McBurney's tenderness. Palpation: Negative for guarding or rebound tenderness present Extremity normal to inspection General Extremety ED: Negative for edema or tenderness General Extremity: Negative for edema Neuro oriented x3 and no sensory deficits noted Sensorium / Orientation: awake and alert Skin no rashes or lesions noted and no wounds MDM MDM MDM Narrative Medical decision making narrative: Interventions / MDM: Differential diagnosis: Gastritis Diagnosis considered but do not suspect: No clinical cholecystitis My EKG interpretation: N/A Imaging independently reviewed and interpreted by myself: N/A External documents reviewed: N/A Test considered but not ordered:N/A ED course: Patient epigastric pain Hours prior to arrival after eating. Negative Seals sign. Abdominal labs ordered, Zofran, Pepcid and GI cocktail ordered. Reevaluation symptoms improving. Prescription for symptom control. Discussed monitoring for symptoms worsening with meals such as dairy foods, fatty food, greasy foods which could be signs of early gallbladder disease. Outpatient follow-up. All questions were answered. Re-evaluation: stable Disposition discussed with patient/family/significant other: Patient Case discussed with consulting clinician: N/A This note was generated with [employer] dictation software. It may contain incorrect words, spelling, and punctuation that were not noted in checking the note before signing. Discharge Plan Triage Chief Complaint: Abd Pain ED Provider: Rica (more content not included)... Normal [facility] CBC W/Diff, Automatedon 11-05 Absolute Lymph 2.95 X10 3/uL Normal 0.83-4.51 [facility] Comment on above: Performed By: #### L 500.4050, L100.0100, L700.6800 #### [facility] [address] [place], [address] Absolute Neut 8.6 X10 3/uL High 2.0-7.7 [facility] Comment on above: Performed By: #### L 500.4050, L100.0100, L700.6800 #### [facility] [address] [place], [address] Basophils/100 WBC (Bld) 0.5 % Normal 0-1 [facility] Comment on above: Performed By: #### L 500.4050, L100.0100, L700.6800 #### [facility] [address] [place], [address] Eosinophils/100 WBC (Bld) 2.3 % Normal 0-5 [facility] Comment on above: Performed By: #### L 500.4050, L100.0100, L700.6800 #### [facility] [address] [place], [address] Erythrocyte distribution width (RBC) [Ratio] 12.5 % Normal 11.6-14.6 [facility] Comment on above: Performed By: #### L 500.4050, L100.0100, L700.6800 #### [facility] [address] [place], [address] Hematocrit (Bld) [Volume fraction] 44.9 % Normal 37-47 [facility] Comment on above: Performed By: #### L 500.4050, L100.0100, L700.6800 #### [facility] [address] [place], [address] Hemoglobin (Bld) [Mass/Vol] 14.9 g/dL Normal 12.0-15.0 [facility] Comment on above: Performed By: #### L 500.4050, L100.0100, L700.6800 #### [facility] [address] [place], [address] IG% 0.200 Normal 0.0-0.9 [facility] Comment on above: Result Comment: IG% - Immature Granulocytes (promyelocytes, myelocytes and metamyelocytes) > 1% indicates that a LEFT SHIFT is Present. Performed By: #### L 500.4050, L100.0100, L700.6800 #### [facility] [address] [place], [address] Lymphocytes/100 WBC (Bld) 23.3 % Normal 19-41 [facility] Comment on above: Performed By: #### L 500.4050, L100.0100, L700.6800 #### [facility] [address] [place], [address] MCH (RBC) [Entitic mass] 30.3 pg Normal 27.0-32.0 [facility] Comment on above: Performed By: #### L 500.4050, L100.0100, L700.6800 #### [facility] [address] [place], [address] MCHC (RBC) [Mass/Vol] 33.2 g/dL Normal 32-36 [facility] Comment on above: Performed By: #### L 500.4050, L100.0100, L700.6800 #### [facility] [address] [place], [address] MCV (RBC) [Entitic vol] 91.4 fL Normal 81-99 [facility] Comment on above: Performed By: #### L 500.4050, L100.0100, L700.6800 #### [facility] [address] [place], [address] Monocytes/100 WBC (Bld) 5.8 % Normal 0-10 [facility] Comment on above: Performed By: #### L 500.4050, L100.0100, L700.6800 #### [facility] [address] [place], [address] Neutrophils/100 WBC (Bld) 67.9 % Normal 47-70 [facility] Comment on above: Performed By: #### L 500.4050, L100.0100, L700.6800 #### [facility] [address] [place], [address] Nucleated RBC (Bld) [#/Vol] 0 10*3/uL Normal 0-5 [facility] Comment on above: Performed By: #### L 500.4050, L100.0100, L700.6800 #### [facility] [address] [place], [address] Platelet mean volume (Bld) [Entitic vol] 11.4 fL Normal 6.2-12.0 [facility] Comment on above: Performed By: #### L 500.4050, L100.0100, L700.6800 #### [facility] [address] [place], [address] Platelets (Bld) [#/Vol] 326 10*3/uL Normal 150-450 [facility] Comment on above: Performed By: #### L 500.4050, L100.0100, L700.6800 #### [facility] [address] [place], [address] RBC (Bld) [#/Vol] 4.91 10*6/uL Normal 4.2-5.4 [facility] Comment on above: Performed By: #### L 500.4050, L100.0100, L700.6800 #### [facility] [address] [place], [address] RDW SD 41.8 fl Normal 35.1-43.9 [facility] Comment on above: Performed By: #### L 500.4050, L100.0100, L700.6800 #### [facility] [address] [place], [address] WBC (Bld) [#/Vol] 12.7 10*3/uL High 4.4-11.0 [facility] Comment on above: Performed By: #### L 500.4050, L100.0100, L700.6800 #### [facility] [address] [place], [address] Comprehensive Metabolic Prof paon 11-17-2024 Albumin [Mass/Vol] 3.6 g/dL Normal 3.2-5.0 [facility] Comment on above: Performed By: #### L 500.4050, L100.0100, L700.6800 #### [facility] [address] [place], [address] Albumin/Globulin [Mass ratio] 0.9 {ratio} Normal 0.9-2.4 [facility] Comment on above: Performed By: #### L 500.4050, L100.0100, L700.6800 #### [facility] [address] [place], [address] ALK P 107 U/L Normal 45-117 [facility] Comment on above: Performed By: #### L 500.4050, L100.0100, L700.6800 #### [facility] [address] [place], [address] ALT [Catalytic activity/Vol] 25 U/L Normal 13-56 [facility] Comment on above: Performed By: #### L 500.4050, L100.0100, L700.6800 #### [facility] [address] [place] [place], [address] AST [Catalytic activity/Vol] 7 U/L Low 15-37 [facility] Comment on above: Performed By: #### L 500.4050, L100.0100, L700.6800 #### [facility] [address] [place], [address] Bilirubin [Mass/Vol] 0.30 mg/dL Normal 0.20-1.00 [facility] Comment on above: Result Comment: For patients on eltrombopag therapy, use of Dimension [place] TBIL is not recommended. Performed By: #### L 500.4050, L100.0100, L700.6800 #### [facility] [address] [place], [address] BUN/CRE 14.2 RATIO Normal 10-20 [facility] Comment on above: Performed By: #### L 500.4050, L100.0100, L700.6800 #### [facility] [address] [place], [address] CA,Total 9.2 mg/dL Normal 8.5-10.1 [facility] Comment on above: Performed By: #### L 500.4050, L100.0100, L700.6800 #### [facility] [address] [place], [address] Chloride [Moles/Vol] 108 mmol/L High 98-107 [facility] Comment on above: Performed By: #### L 500.4050, L100.0100, L700.6800 #### [facility] [address] [place], [address] CO2 [Moles/Vol] 25.0 mmol/L Normal 21.0-32.0 [facility] Comment on above: Performed By: #### L 500.4050, L100.0100, L700.6800 #### [facility] [address] [place], [address] Creatinine [Mass/Vol] 0.98 mg/dL Normal 0.55-1.02 [facility] Comment on above: Result Comment: The validity of the calculated GFR GFRAA in patients over 70 years has not been determined. Clinical correlation is essential. Performed By: #### L 500.4050, L100.0100, L700.6800 #### [facility] [address] [place], [address] ECRCL 91.85 ml/min Normal [facility] Comment on above: Performed By: #### L 500.4050, L100.0100, L700.6800 #### [facility] [address] [place], [address] EST GFR - AA 84 mL/min Normal >60 [facility] Comment on above: Result Comment: Afri can [place] GFR Calc Performed By: #### L 500.4050, L100.0100, L700.6800 #### [facility] [address] [place], [address] GAP 5 Normal 5-15 [facility] Comment on above: Performed By: #### L 500.4050, L100.0100, L700.6800 #### [facility] [address] [place], [address] GFR/1.73 sq M.predicted among non-blacks MDRD (S/P/Bld) [Vol rate/Area] 69 mL/min/{1.73_m2} Normal >60 [facility] Comment on above: Result Comment: Non- GFR Calc Performed By: #### L 500.4050, L100.0100, L700.6800 #### [facility] [address] [place], [address] Globulin (S) [Mass/Vol] 3.9 g/dL Normal 2.2-4.2 [facility] Comment on above: Performed By: #### L 500.4050, L100.0100, L700.6800 #### [facility] [address] [place], [address] Glucose [Mass/Vol] 95 mg/dL Normal 74-106 [facility] Comment on above: Performed By: #### L 500.4050, L100.0100, L700.6800 #### [facility] [address] [place], [address] Potassium [Moles/Vol] 4.3 mmol/L Normal 3.5-5.1 [facility] Comment on above: Performed By: #### L 500.4050, L100.0100, L700.6800 #### [facility] [address] [place], [address] Sodium [Moles/Vol] 138 mmol/L Normal 136-145 [facility] Comment on above: Performed By: #### L 500.4050, L100.0100, L700.6800 #### [facility] [address] [place], [address] T PROT 7.5 g/dL Normal 6.4-8.2 [facility] Comment on above: Performed By: #### L 500.4050, L100.0100, L700.6800 #### [facility] [address] [place], [address] Urea nitrogen [Mass/Vol] 14 mg/dL Normal 7-18 [facility] Comment on above: Performed By: #### L 500.4050, L100.0100, L700.6800 #### [facility] [address] [place], [address] Lipaseon 11-17-2024 Lipase [Catalytic activity/Vol] 53 U/L Normal 13-75 [facility] Comment on above: Result Comment: Nohemi campbell note: LIPASE revised reference range effective 23. New Lipase methodology. Expected to produce lower values than the previous assay method. NEW Reference Range: 13 - 75 U/L Performed By: #### L 501.2450 #### [facility] [address] [place], [address] ,Serum,hCG Quali.on 11-17-2024 HCG, SERUM QUAL Negative Normal [facility] Comment on above: Performed By: #### L 500.4050, L100.0100, L700.6800 #### [facility] [address] [place], [address] Urinalysis, Completeon 11-17 BACTERIA 2+ /hpf Normal None Seen [facility] Comment on above: Order Comment: CLEAN CATCH Performed By: #### L 400.0001 #### [facility] [address] [place], [address] RBC 0-5 SEEN Normal 0-5 [facility] Comment on above: Order Comment: CLEAN CATCH Performed By: #### L 400.0001 #### [facility] [address] [place], [address] EPI,SQUAMOUS 5-10 SEEN Normal 5-10 [facility] Comment on above: Order Comment: CLEAN CATCH Performed By: #### L 400.0001 #### [facility] [address] [place], [address] WBC 0-5 SEEN Normal 0-5 [facility] Comment on above: Order Comment: CLEAN CATCH Performed By: #### L 400.0001 #### [facility] [address] [place], [address] Mucus Ql (Urine sed) 0 SEEN Normal [facility] Comment on above: Order Comment: CLEAN CATCH Performed By: #### L 400.0001 #### [facility] [address] [place], [address] CNPNon 09-19-2024 CNPN Telephone (OBGYWM) NICHOLE PITTMAN ([id number]) 1990 F Date Time Provider Department 09/19/24 KATHERYN YU OBGYWM During your visit today, we recorded the following information about you: Billy Butler MA 09/19/2024 11:35 AM Signed Received PA request for Zi. Submitted and will wait for further response from patients insurance. DEANNE Alfred Deidre, MD 09/19/2024 4:20 PM Signed noted Yesenia Baca LPN 09/26/2024 5:54 PM Signed Per cover my meds website prior authorization has to be submitted at [email or web address] Nurse attempted to submit a prior authorization and received message There may be a request on file for the drug you have submitted, please call customer service at for further instructions Billy Butler MA 10/03/2024 11:35 AM Signed PA has been faxed to the number provided on the PA form that was sent to us. Billy Butler MA Allergies As of Date: 09/19/2024 Noted Allergy Reaction PENICILLINS 07/04/2019 4 - Hives AMOXICILLIN 07/05/2016 4 - Hives CEFTRIAXONE 01/02/2022 4 - Hives Date Reviewed: 09/17/2024 Reviewed by: Lorna Meza MA - Fully Assessed Reason for Visit: Insurance Authorization [[id number]] Prescriptions as of 10/03/2024 - metFORMIN ER (GLUCOPHAGE XR) 500 mg 24 hr tablet Take 2 tablets by mouth daily with dinner. - FLUoxetine (PROZAC) 40 mg capsule Take 1 capsule by mouth once daily. - topiramate (TOPAMAX) 50 mg tablet Take 1 tablet by mouth daily at bedtime. - cholecalciferol, Vitamin D3, (VITAMIN D3) 1,250 mcg (50,000 unit) cap capsule Take 1 capsule by mouth one time a week. - spironolactone (ALDACTONE) 50 mg tablet Take 1 tablet by mouth once daily. - omeprazole (PRILOSEC) 20 mg capsule TAKE 1 CAPSULE BY MOUTH ONCE DAILY 30 MIN BEFORE BREAKFAST - SUMAtriptan (IMITREX) 50 mg tablet Take one tablet by mouth at the onset of the headache. If no improvement in 2 hours take one more tablet. No more than 2 tablets in 24 hours - ARIPiprazole (ABILIFY) 2 mg tablet Take 5 mg by mouth once daily. Prescribed by Dr. Wally Nayak psych - hydrOXYzine HCl (ATARAX) 10 mg tablet Take 10 mg by mouth three times daily as needed for anxiety. Prescribed by Wally Nayak psych - famotidine (PEPCID) 20 mg tablet take 1 tablet by mouth at bedtime as needed - levonorgestrel (MIRENA) 20 mcg/24 hours (6 yrs) 52 mg IUD 1 Each by INTRAUTERINE route as directed. Problem List As Of Date 09/19/2024 Noted Resolved Acquired hypothyroidism [E03.9] 07/05/2016 Anxiety and depression [F41.9, F32.A] 01/02/2022 Cat bite of finger [S61.259A, W55.01XA] 01/02/2022 Cellulitis of finger of left hand [L03.012] 01/02/2022 Class 3 severe obesity without serious comorbid*01/02/2022 PCOS (polycystic ovarian syndrome) [E28.2] 01/02/2022 Hyperinsulinemia [E16.1] 06/20/2024 Hypercholesteremia [E78.00] 06/20/2024 Elevated fasting glucose [R73.01] 06/20/2024 Insulin resistance [E88.819] 06/20/2024 Encounter Status:Closed by BILLY BUTLER on 10/03/24 [facility] 09-18-2024 CNPN Telephone (AGGENS4) NICHOLE PITTMAN ([id number]) 1990 F Date Time Provider Department 09/18/24 YODIT PUGH4 During your visit today, we recorded the following information about you: Maxwell Espinoza 09/18/2024 10:15 AM Signed LVM for pt to call back and schedule first [facility] appt with Dr. Pugh Sent [facility] seminar Allergies As of Date: 09/18/2024 Noted Allergy Reaction PENICILLINS 07/04/2019 4 - Hives AMOXICILLIN 07/05/2016 4 - Hives CEFTRIAXONE 01/02/2022 4 - Hives Date Reviewed: 09/17/2024 Reviewed by: Lorna Meza MA - Fully Assessed Reason for Visit: Appointment [[id number]] Cmt: New [facility] Prescriptions as of 09/18/2024 - tirzepatide (MOUNJARO) 2.5 mg/0.5 mL pen injector Inject 2.5 mg subcutaneously one time a week. - metFORMIN ER (GLUCOPHAGE XR) 500 mg 24 hr tablet Take 2 tablets by mouth daily with dinner. - Phentermine HCl 37.5 mg tablet Take 1 tablet by mouth once daily for 90 days. - FLUoxetine (PROZAC) 40 mg capsule Take 1 capsule by mouth once daily. - topiramate (TOPAMAX) 50 mg tablet Take 1 tablet by mouth daily at bedtime. - cholecalciferol, Vitamin D3, (VITAMIN D3) 1,250 mcg (50,000 unit) cap capsule Take 1 capsule by mouth one time a week. - spironolactone (ALDACTONE) 50 mg tablet Take 1 tablet by mouth once daily. - omeprazole (PRILOSEC) 20 mg capsule TAKE 1 CAPSULE BY MOUTH ONCE DAILY 30 MIN BEFORE BREAKFAST - SUMAtriptan (IMITREX) 50 mg tablet Take one tablet by mouth at the onset of the headache. If no improvement in 2 hours take one more tablet. No more than 2 tablets in 24 hours - ARIPiprazole (ABILIFY) 2 mg tablet Take 5 mg by mouth once daily. Prescribed by Dr. Wally Nayak psych - hydrOXYzine HCl (ATARAX) 10 mg tablet Take 10 mg by mouth three times daily as needed for anxiety. Prescribed by Wally Nayak psych - famotidine (PEPCID) 20 mg tablet take 1 tablet by mouth at bedtime as needed - levonorgestrel (MIRENA) 20 mcg/24 hours (6 yrs) 52 mg IUD 1 Each by INTRAUTERINE route as directed. Problem List As Of Date 09/18/2024 Noted Resolved Acquired hypothyroidism [E03.9] 07/05/2016 Anxiety and depression [F41.9, F32.A] 01/02/2022 Cat bite of finger [S61.259A, W55.01XA] 01/02/2022 Cellulitis of finger of left hand [L03.012] 01/02/2022 Class 3 severe obesity without serious comorbid*01/02/2022 PCOS (polycystic ovarian syndrome) [E28.2] 01/02/2022 Hyperinsulinemia [E16.1] 06/20/2024 Hypercholesteremia [E78.00] 06/20/2024 Elevated fasting glucose [R73.01] 06/20/2024 Insulin resistance [E88.819] 06/20/2024 Encounter Status:Closed by MAXWELL ESPINOZA on 09/18/24 [facility] 09-17-2024 CNOV Office Visit (OBGYWM ) NICHOLE [id number]) 1990 F Date Time Provider Department 09/17/24 2:00 PM KATHERYN YU During your visit today, we recorded the following information about you: Pulse Blood pressure Weight 97/minute 124/72 104.8 kg Katheryn Yu MD 09/17/2024 3:27 PM Signed Some documentation from previous visit of 07/25/2024 was copied and pasted, documentation has been reviewed and edited as necessary for today's visit. Patient Summary: Nichole is a 33 year old Female who presents for follow-up evaluation of obesity/weight management to treat and prevent related co-morbidities. In our previous visits we have discussed lifestyle intervention including a nutrition recommendations and physical activity optimization. Her last office visit was 2 months ago. Assessment/plan from last visit: -continue low carb, high protein, whole foods - follow up with sleep medicine as schedule, consult order placed- sleep study was completed and shows - continue Vit D supplement - discussed changing timing of pills- to 8am everyday for both- as it will impact her sleep. Discussed if not sleeping will want to change to diethylpropion and rationale for that (pt concerned to have to remember to take 3 pills per day) - continue metformin/topiramate and phentermine. - discussed how to titrate up metformin, reviewed SE of metformin can be reduced with better nutrition - importance of tracking reviewed Interval History PT specifies the following items as new or significant updates since the last appointment: - taking phentermine at 5 am now and topiramate 5 am - which helps her sleep better. Falling asleep faster. Has more energy during the day and at work. - struggling with nutrition. Not a lot of money to shop- makes eating healthy difficult. - eating pizza and eating out. Gets tired of chicken - feels that her mind is getting in the way of her succeeding. - feels the medication is working bc she doesn't eat as much. - still can only take one pill of metformin before she has diarrhea. - not able to get all protein in - can't drink shake in morning - it makes her sick. Weight loss since last vist: ++3 lb total weight lost 5 lb Adjusted ideal body weight: 70.1 kg (154 lb 9.4 oz) - Last Wt 09/17/2024: 231 lb 07/25/2024: 228 lb Starting weight 06/13/24 : 107.5 kg (237 lb) 5% weight loss = 225 lbs, 10% weight loss = 213 lbs Anti-obesity medications: Phentermine and Topiramate. 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- 1x2 week - then falls asleep until noon B - does not eat S - 10am 1/2 banana if she works out L - 2 sloppy Pleies (sugar free) , sometimes pineapple, grapes, apples, banana, berries S - D - PB and jelly wrap from pulp , pasta (portion is down since starting phentermine), chicken, beef tacos, corn , peas, carrots, green beans, cooked peppers and onions, cooked tomatoes S - sugar free ice cake and ice cream on occasion Before starting phentermine- snacking all the time - chips, pretzels, soda, pasta Fluids: at least one soda per day caffeine free diet soda, occasional regular soda- at peak was drinking 3-4 sodas per day. Currently getting 40oz water trying for 80oz. Juice- 1-2 per week one glass- 12 oz. , margaritas 1-2/mo, smoothie from pulp on occasion Bedtime - Quality of diet: 24hr recall suggests unhealthy diet. Characterization of diet:Unstructured, unhealthy snacking, excessive cravings, evening snacking, increased consumption of sugar sweetened beverages, and skip meals. 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 Normal [facility] CNPNon 08-12-2024 CNPN Telephone (OBGYWM) ZAINNICHOLE CAMARENA ([id number]) 1990 F Date Time Provider Department 08/12/24 KATHERYN YU During your visit today, we recorded the following information about you: Antonette Galindo RN 08/12/2024 10:57 AM Signed Received fax from [facility] Nutrition that patient was scheduled for 08/04/24 and no showed that appointment. They have not heard back from her to reschedule yet. She is scheduled with Kaci though here on 09/01/24. Next weight mgmt appointment is 09/17/24. Antonette Galindo RN Allergies As of Date: 08/12/2024 Noted Allergy Reaction PENICILLINS 07/04/2019 4 - Hives AMOXICILLIN 07/05/2016 4 - Hives CEFTRIAXONE 01/02/2022 4 - Hives Date Reviewed: 07/25/2024 Reviewed by: Lorna Meza MA - Fully Assessed Reason for Visit: Nutrition Appointment [Other] Prescriptions as of 08/12/2024 - FLUoxetine (PROZAC) 40 mg capsule Take 1 capsule by mouth once daily. - metFORMIN ER (GLUCOPHAGE XR) 500 mg 24 hr tablet Take 2 tablets by mouth daily with dinner. - topiramate (TOPAMAX) 50 mg tablet Take 1 tablet by mouth daily at bedtime. - cholecalciferol, Vitamin D3, (VITAMIN D3) 1,250 mcg (50,000 unit) cap capsule Take 1 capsule by mouth one time a week. - spironolactone (ALDACTONE) 50 mg tablet Take 1 tablet by mouth once daily. - omeprazole (PRILOSEC) 20 mg capsule TAKE 1 CAPSULE BY MOUTH ONCE DAILY 30 MIN BEFORE BREAKFAST - SUMAtriptan (IMITREX) 50 mg tablet Take one tablet by mouth at the onset of the headache. If no improvement in 2 hours take one more tablet. No more than 2 tablets in 24 hours - ARIPiprazole (ABILIFY) 2 mg tablet Take 5 mg by mouth once daily. Prescribed by Dr. Wally Nayak psych - hydrOXYzine HCl (ATARAX) 10 mg tablet Take 10 mg by mouth three times daily as needed for anxiety. Prescribed by Wally Nayak psych - famotidine (PEPCID) 20 mg tablet take 1 tablet by mouth at bedtime as needed - levonorgestrel (MIRENA) 20 mcg/24 hours (6 yrs) 52 mg IUD 1 Each by INTRAUTERINE route as directed. Problem List As Of Date 08/12/2024 Noted Resolved Acquired hypothyroidism [E03.9] 07/05/2016 Anxiety and depression [F41.9, F32.A] 01/02/2022 Cat bite of finger [S61.259A, W55.01XA] 01/02/2022 Cellulitis of finger of left hand [L03.012] 01/02/2022 Class 3 severe obesity without serious comorbid*01/02/2022 PCOS (polycystic ovarian syndrome) [E28.2] 01/02/2022 Hyperinsulinemia [E16.1] 06/20/2024 Hypercholesteremia [E78.00] 06/20/2024 Elevated fasting glucose [R73.01] 06/20/2024 Insulin resistance [E88.819] 06/20/2024 Encounter Status:Closed by ANTONETTE GALINDO on 08/12/24 [facility] CNOVon 07-25-2024 CNOV Office Visit (OBGYWM ) NICHOLE PITTMAN ([id number]) 1990 F Date Time Provider Department 07/25/24 2:00 PM KATHERYN YU OBGYWM During your visit today, we recorded the following information about you: Pulse Blood pressure Weight 66/minute 114/62 103.4 kg Katheryn Yu MD 07/25/2024 4:19 PM Addendum Nutrition Reminders: NO NAKED CARBS!! Protein >= Carbs for each meal (if you are going to eat 50g carbs for lunch you should eat 50g protein or more). If you do not eat your carbs for lunch you do not get to save them for dinner- you use them or lose them. Balance your Protein between meals. Unless told otherwise your Minimum protein each day is 30grams per meal but don?t be afraid to eat more. Focus on WHOLE FOODS if you can as your Gut Microbiome will benefit and you will feel more satisfied - the only caviot to this is protein shakes if needed. Water intake should be a minimum of 64oz per day- but more is better (to an extent) unless you have a medical condition that requires you to keep it to a minimum. Nothing is off limits- this is not about restricting yourself- this about learning what your body can have and still respond well to and learning how to balance food and still feel good. Track your food, weigh your food, measure your portion sizes as most people underestimate their food by approximately 40%. You should be tracking your Carbohydrates and Protein daily. It?s ok if you had a bad day- write it down and move on! Weigh yourself daily or at least 5 times per week, it will help to keep you accountable. If you are hungry- think about your stress level, your sleep (did you get 7.5-9hrs?) and your protein consumption- if you did not meet your goals then those could be contributing to your hunger. During weight loss phase it is ok to use two protein shakes per day and eating one meal along with it - studies have shown you will lose more weight and keep it off. Take a multivitamin daily Sit less Move more- Exercise including resistance training is very important for your health and if you are not getting routine exercise right now there will come a point when it will become an important piece of this process. High Protein Snack Ideas 1. Jerky 2. [place] mix without dried fruit 3. Blessing roll-ups 4. [place] yogurt 5. Veggies and yogurt dip 6. Tuna 7. Hard-boiled eggs 8. Peanut butter with celery 9. Cheese slices/ Cheese Stick 10. Handful of almonds, peanuts or walnuts 11. Cottage Cheese 12. Beef sticks 13. Protein bars 14. Canned [place] 15. Pumpkin seeds 16. Nut butter 17. Protein shakes 18. Avocado and chicken salad 19. Egg muffins 20. Leftover protein or lunch meat 21. 1/2 c blended cottage cheese with 1 Tbsp sugar-free dry cheesecake pudding mix 12g protein 10 carb 22. Pudding - 1 30 gm protein shake with 1/2 pkg sugar-free pudding 4 svgs - 7.8 gm protein, 5 carb each svg 23. SF Sunkist or Root Beer with 1-2 Tablespoons heavy whipping cream 24. Mini frozen dessert bites - layer protein yogurt, skinny syrup and crushed nuts and freeze Meal replacements: Meal Replacements Plant-based protein bars Meal replacements. One option that works for some people is to use meal replacements, as in the DiRECT and Look AHEAD trials.The available options in Look AHEAD included shakes, bars, and meals from a variety of companies ([employer], [employer], [employer], and [employer]). The calorie content was 150 to 220 calories, depending on the product. People who used meal replacements 12 times a week instead of preparing their own meals lost about 11% of their weight in the first year, whereas those who used just two per week lost about 6% of their weight. Keep in mind, though, that people in the trial who used meal replacements also tended to consume a healthier diet over all; they were more likely to have met their goals for dietary fat, fruits and vegetables, and dairy foods, and to have cut back on sweets, than those who didn?t use meal replacements. Similarly, in the DiRECT trial, participants consumed special nutritionally complete shakes and soups (the Counterweight-Plus program) for the first 12 weeks.If you opt for meal-replacement drinks, bars, or frozen entrees, here are some criteria to look for: calories, 150 to 300 fat, 3 to 10 grams protein, > 20 grams sugar < 5 g Meal replacements are typically fortified with vitamins and minerals and contain some fiber. Because they are calorie controlled, the amount of added sugars is usually minimal. If you want to try this approach to boost weight loss, ask your dietitian or another member of your health care team how to incorporate the replacements into your meal planning and discuss whether you might need to reduce your doses of diabetes medications to prevent hypoglycemia (low blood sugar) (more content not included)... Normal [facility] POLYSOMNOGRAM (PSG)/HOME SLE EP APNEA TEST (HSAT)on 07-14-2024 POLYSOMNOGRAM (PSG)/HOME SLEEP APNEA TEST (HSAT) [facility] at [address], [address], [place] [address] ; Home Sleep Apnea Test (HSAT) Study Report Name: NICHOLE PITTMAN Date of Study: 07/14/2024 [facility]#: [id number] Age: 33 (: 1990) ESS: N/A Neck Circ. (cm): N/A Height (cm): 152.4 Weight (kg): 107.0 BMI: 46.1 Referring Provider: KATHERYN MATIAS Mailcode: Sleep history: The patient is a 33 year old female with a history of daytime sleepiness and fatigue. The patient is here for assessment of obstructive sleep apnea. The patient does not endorse a habitual sleep position. Pertinent medical history: Anxiety, Class III obesity, Depression, Hypothyroidism Medications: Prozac, Atarax, Glucophage XR, Prilosec SG unattended Type III, minimum of 4 parameters (99470) Procedure: This study was performed using a Type III ambulatory PSG device and was unattended. The patient was instructed on proper use of the device by a registered soil technologist. The monitored parameters included heart rate, oxygen saturation, continuous airflow with thermistor and nasal pressure transducer, snoring via nasal pressure transducer, chest and abdominal effort, and body position. CHRIS definition: Respiratory event index (CHRIS), calculated as respiratory events x 60 / TRT (total recording time in minutes). Note: the apnea hypopnea index has been replaced by the respiratory event index for home sleep apnea test. Since the home sleep apnea test does not measure sleep, the CHRIS is most accurate index of respiratory events. The CHRIS is a surrogate of the AHI per the AASM Manual for Scoring of Sleep and Associated Events version 3. Apnea definition: The peak signal excursions drop by >90% of pre-event baseline using an oronasal thermal sensor (diagnostic study), PAP device flow (titration study) or an alternative apnea sensor (diagnostic study). The duration of the >90% drop in signal excursion is >=10 seconds. Hypopnea definition: The peak signal excursions drop by >= 30% of pre-event baseline using nasal pressure (diagnostic study), PAP device flow (titration study) or an alternative hypopnea sensor (diagnostic study). The duration of the >= 30% drop in signal excursion is >=10 seconds. There is a greater than or equal to 4% oxygen desaturation from pre-event baseline. RESPIRATORY DATA: The study started at 21:39:11 and ended at 05:08:14 and the total recording time was 449 minutes. By convention, sleep is assumed for the whole recording. Snoring was noted. There was a total of 9 respiratory events. Of these events, the total number of apneas was 0 (0 obstructive, 0 mixed, and 0 central (0.0%)) and 9 hypopneas. The central apnea index (TADEO) was 0.0. The respiratory event index (CHRIS) was 1.2 events per hour of study time. The mean oxygen saturation during the study was 96.0%, with a minimum oxygen saturation of 92.0%. Time CHRIS/AHI Supine 196.5 min 2.7 Off-Supine 252.5 min 0.0 Total 449.0 min 1.2 ECG DATA: The average heart rate was 85 bpm with a range of 69 bpm to 113 bpm. ICSD DIAGNOSIS: Primary Snoring [R06.83] Sleep Disorder, Unspecified [G47.9] IMPRESSION/RECOMMENDATIONS: 1. This study neither confirms nor refutes a diagnosis of obstructive sleep apnea as HSAT does not measure certain types of respiratory events that can only be measured on an in-laboratory polysomnogram 2. Recommend an in-laboratory polysomnogram if sleep apnea remains highly suspected. INTERPRETING PHYSICIAN: Sheila Patel MD. PHYSICIAN I attest that I have performed epoch by epoch review of the entire raw data and find this study to be technically adequate. Report Digitally Signed By: SHEILA PATEL MD (07/21/2024 8:12:16 AM) Normal [facility] 25-hydroxyvitamin D3 [Mass/V ol]on 03-14-2024 Interpretation and review of laboratory results Abnormal [facility] The reference range interval was based on an analysis of samples from healthy adults and may not pertain to children from 0-18 years old. [facility] CBC panel Auto (Bld)on 03-14 Erythrocyte distribution width (RBC) [Ratio] 12.8 % 11.5 - 15.0 % [facility] Hematocrit (Bld) [Volume fraction] 40.8 % 36.0 - 46.0 % [facility] Hemoglobin (Bld) [Mass/Vol] 13.8 g/dL 11.5 - 15.5 g/dL [facility] Interpretation and review of laboratory results Abnormal [facility] MCH (RBC) [Entitic mass] 29.9 pg 26.0 - 34.0 pg [facility] MCHC (RBC) [Mass/Vol] 33.8 g/dL 30.5 - 36.0 g/dL [facility] MCV (RBC) [Entitic vol] 88.5 fL 80.0 - 100.0 fL [facility] Nucleated RBC (Bld) [#/Vol] NINF [facility] Platelet mean volume (Bld) [Entitic vol] 11.6 fL 9.0 - 12.7 fL [facility] Platelets (Bld) [#/Vol] 299 10*3/uL [facility] RBC (Bld) [#/Vol] 4.61 10*6/uL 3.90 - 5.2 0 m/uL [facility] WBC (Bld) [#/Vol] 11.03 10*3/uL [facility] Comprehensive metabolic 2000 panelOrdered By: Louann Blakely on 03-14-2024 Albumin [Mass/Vol] 4.2 g/dL 3.9 - 4.9 g/dL [facility] ALP [Catalytic activity/Vol] 111 U/L 34 - 123 U/L [facility] ALT [Catalytic activity/Vol] 24 U/L 7 - 38 U/L [facility] Anion gap [Moles/Vol] 9 mmol/L 9 - 18 mmol/L [facility] AST [Catalytic activity/Vol] 18 U/L 13 - 35 U/L [facility] Bilirubin [Mass/Vol] 0.3 mg/dL 0.2 - 1.3 mg/dL [facility] Calcium [Mass/Vol] 9.7 mg/dL 8.5 - 10.2 mg/dL [facility] Chloride [Moles/Vol] 105 mmol/L 97 - 105 mmol/L [facility] CO2 [Moles/Vol] 26 mmol/L 22 - 30 mmol/L [facility] Creatinine [Mass/Vol] 0.80 mg/dL 0.58 - 0.96 mg/dL [facility] GFR/1.73 sq M.predicted among non-blacks MDRD (S/P/Bld) [Vol rate/Area] 101 mL/min/{1.73_m2} - PINF [facility] Comment on above: Estimated Glomerular Filtration Rate (eGFR) is calculated using the 2020 CKD-EPI creatinine equation. This equation utilizes serum creatinine, sex, and age as parameters. The creatinine assay has traceable calibration to isotope dilution-mass spectrometry. Refer to KDIGO guidelines for clinical interpretation. In patients with unstable renal function, e.g. those with acute kidney injury, the eGFR may not accurately reflect actual GFR. Glucose [Mass/Vol] 90 mg/dL 74 - 99 mg/dL [facility] Comment on above: The [place] Diabete s Association (ADA) provides guidance for cutoff values for fasting glucose and random glucose. The ADA defines fasting as no caloric intake for at least 8 hours. Fasting plasma glucose results between 100 to 125 mg/dL indicate increased risk for diabetes (prediabetes). Fasting plasma glucose results greater than or equal to 126 mg/dL meet the criteria for diagnosis of diabetes. In the absence of unequivocal hyperglycemia, results should be confirmed by repeat testing. In a patient with classic symptoms of hyperglycemia or hyperglycemic crisis, random plasma glucose results greater than or equal to 200 mg/dL meet the criteria for diagnosis of diabetes. Reference: Standards of Medical Care in Diabetes 2016, [place] Diabetes Association. Diabetes Care. 2016.39(Suppl 1). Interpretation and review of laboratory results Abnormal [facility] Potassium [Moles/Vol] 3.6 mmol/L Low 3.7 - 5.1 mmol/L [facility] Protein [Mass/Vol] 7.2 g/dL 6.3 - 8.0 g/dL [facility] Sodium [Moles/Vol] 140 mmol/L 136 - 144 mmol/L [facility] Urea nitrogen [Mass/Vol] 12 mg/dL 7 - 21 mg/dL [facility] HbA1c (Bld)on 03-14-2024 Average glucose Estimated from glycated hemoglobin (Bld) [Mass/Vol] 105 mg/dL [facility] Comment on above: eAG: (Estimated aver age glucose) is a calculated value from HgbA1c and is medical center representative of the average blood glucose level in the last 2-3 month period. HbA1c (Bld) [Mass fraction] 5.3 % 4.3 - 5.6 % [facility] Comment on above: [place] Diabetes As sociation guidelines indicate that patients with HgbA1c in the range 5.7-6.4% are at increased risk for development of diabetes, and intervention by lifestyle modification may be beneficial. HgbA1c greater or equal to 6.5% is considered diagnostic of diabetes. [facility] Lipid 1996 panelon 4 Cholesterol [Mass/Vol] 191 mg/dL NINF - 200 mg/dL [facility] Comment on above: <200 mg/dL, Desirabl e 200-239 mg/dL, Borderline high >239 mg/dL, High Cholesterol in HDL [Mass/Vol] 48 mg/dL 39 - PINF mg/dL [facility] Comment on above: 40-59 mg/dL, Accepta ble >59 mg/dL, High: Negative risk factor for coronary heart disease <40 mg/dL, Low: Positive risk factor for coronary heart disease Cholesterol in LDL [Mass/Vol] 121 mg/dL High NINF - 100 mg/dL [facility] Comment on above: <100 mg/dL, Optimal 100-129 mg/dL, Near optimal/above optimal 130-159 mg/dL, Borderline high 160-189 mg/dL, High >189 mg/dL, Very high Secondary prevention optimal LDL Cholesterol levels are recommended to be < 70 mg/dL Cholesterol in LDL/Cholesterol in HDL [Mass ratio] 2.52 {ratio} NINF - 2.54 [facility] Comment on above: Reference: 1. National Cholesterol Education Program ATP III Guideline At-A-Glance Quick Desk Reference: National Heart, Lung, and Blood [place]. National Institutes of Health. 2001: NIH Publication No. 01-3305. 2. An International Atherosclerosis Society position paper: global recommendations for the management of dyslipidemia: executive summary, Atherosclerosis. 2014: 232(2):410-413. Cholesterol in VLDL [Mass/Vol] 22 mg/dL NINF - 30 mg/dL [facility] Cholesterol non HDL [Mass/Vol] 143 mg/dL High NINF - 130 mg/dL [facility] Comment on above: <130 mg/dL, Optimal 130-159 mg/dL, Near optimal/above optimal 160-189 mg/dL, Borderline high 190-219 mg/dL, High >219 mg/dL, Very high Secondary prevention optimal non HDL Cholesterol levels are recommended to be <100 mg/dL Cholesterol.total /Cholesterol in HDL [Mass ratio] 3.98 {ratio} NINF - 5.10 [facility] Fasting Time 12 hrs [facility] Interpretation and review of laboratory results Abnormal [facility] Triglyceride [Mass/Vol] 109 mg/dL NINF - 150 mg/dL [facility] Comment on above: <150 mg/dL, Normal 150-199 mg/dL, Borderline high 200-499 mg/dL, High >499 mg/dL, Very high [facility] VITAMIN D 25 HYDROXYon 03-14 25-hydroxyvitamin D3 [Mass/Vol] 19.7 ng/mL Low 31.0 - 80.0 ng/mL [facility] Comment on above: Classification of 25 [place] Vitamin D status: Deficiency/Insufficiency: < or = 30 ng/ml. Sufficiency/Optimal Levels: 31-80 ng/mL Toxicity: > 100 ng/mL. Test performed by chemiluminescent immunoassay. EXERCISE STRESS ECG (WITHOUT IMAGING)on 08-29-2023 EXERCISE STRESS ECG (WITHOUT IMAGING) Stress Travel Journalist Report: Exercise Stress ECG (without Imaging) [facility] Date of service: 08/29/2023 1:28:00 PM Supervising physician: Jose D Schroeder MD PATIENT: Name: MS. NICHOLE PITTMAN Age: 33 years Gender: F The supervising physician was in the department and immediately available. Final Stress ECG Report: Exercise Stress ECG (without Imaging) [facility] Date of service: 08/29/2023 1:28:00 PM Ordering physician: JENNY Ambrizfield service specialist: Stefani Carson Lending Consultant: Didi Villafana Interpreting physician: Jose D Schroeder MD Patient name: MS. NICHOLE PITTMAN Age: 33 years Gender: F Indication: Dyspnea on exertion Stress ECG Conclusion: Conclusion: Normal Stress ECG Summary: The patient's resting heart rate was 75 bpm and blood pressure was 120/75 mmHg. The patient exercised according to the Reese protocol. The estimated end-exercise MET level achieved using the FRIEND equation was 6.5, which is within the 10th to 25th percentile for age and sex. The estimated end-exercise MET level achieved using the previous ACSM equation was 7.6. The test was terminated due to shortness of breath and the total exercise time was 6 minutes and 30 seconds. Other symptoms during the test included SOB and leg fatigue. The maximum heart rate was 169 bpm, which is 90% of the predicted heart rate for age. This is an adequate heart rate response. Peak blood pressure was 198/96 mmHg. The double product achieved was [address]. Medications: Last Used ATARAX PROZAC IMITREX METFORMIN ANTIVERT ALDACTONE Resting ECG: Normal Sinus Rhythm Symptoms at rest: No symptoms Exercise Protocol: Reese Stress Exercise Table: +-----+ +--------+- ---------+---+---+---+----+-- --+ Stage Speed (MPH) Grade(%) Time (min) HR SYS TAMMY RPE METS +-----+ +--------+- ---------+---+---+---+----+-- --+ 1 1.7 10.0 3.0 131 184 92 13.0 4.2 +-----+ +--------+- ---------+---+---+---+----+-- --+ 2 2.5 12.0 6.0 157 190 96 15.0 6.1 +-----+ +--------+- ---------+---+---+---+----+-- --+ +-----+ +---------+ +---+---+---+----+- ---+ Speed (MPH) Grade (%) Time (min) HR SYS TAMMY RPE METS +-----+ +---------+ +---+---+---+----+- ---+ Final 3.4 14.0 6.50 169 198 96 17.0 6.5 +-----+ +---------+ +---+---+---+----+- ---+ Recovery Table: +------+ +---+---+-- -+ Stage Time (min) HR SYS TAMMY +------+ +---+---+-- -+ 1 1.0 148 200 100 +------+ +---+---+-- -+ 2 2.0 126 178 90 +------+ +---+---+-- -+ 3 3.0 114 162 82 +------+ +---+---+-- -+ 4 5.0 108 128 78 +------+ +---+---+-- -+ Stress Observations: Resting HR: 75 bpm Peak HR: 169 bpm (90% MPHR) Resting BP: 120 / 75 mmHg Peak BP: 198 / 96 mmHg Total Exercise Time: 6 minutes 30 seconds METS achieved: 6.5 Chronotropic response index (CRI): 0.83 Heart rate recovery (HRR): 21 bpm Rate Pressure Product (RPP): 60895 Chris Treadmill Score: 6.5 Stress Exercise Observations: Reason for test termination: shortness of breath, Symptoms during test: Other symptoms during the test included SOB and leg fatigue, Heart rate response: Adequate heart rate response, Normal CRI (>0.8 Not on B Brannon) and Normal HRR (>12 or >[address]/EC), Blood pressure response: Normal BP response, ST segment and T wave changes: No ST changes, Chris Treadmill Score: Normal Chris Treadmill Score (>=5) and Arrhythmias: Unifocal PVCs and PACs IMPORTANT NOTE REGARDING ESTIMATED MET VALUES: Effective 08/22/2020, the reference equation for determining estimated MET values for [facility] stress tests changed. Comparison of test results before and after that date may show a change in estimated MET values for peak/max exercise despite a test duration that is similar in length. The validity of the new FRIEND equation for exercise METS is endorsed by the [place] Heart Association. Josue P, Chauncey LA, David R, Logan J, Hernandez J. New Generalized Equation for Predicting Maximal Oxygen Uptake (from the Fitness Registry and the Importance of Exercise National Database). The [place] Journal of Cardiology. 2017;120(4):688-692). Final CC [employer] Image : [id number] [email or web address] See Link below for Image Normal [facility] CNPN Telephone (CDLBME) NICHOLE PITTMAN ([id number]) 1990 F Date Time Provider Department 08/28/23 DIDI VILLAFANA CDLBME During your visit today, we recorded the following information about you: Didi Villafana RN 08/28/2023 2:42 PM Signed Left message regarding reminder for stress test tomorrow and given instructions. Allergies As of Date: 08/28/2023 Noted Allergy Reaction PENICILLINS 07/04/2019 4 - Hives AMOXICILLIN 07/05/2016 4 - Hives CEFTRIAXONE 01/02/2022 4 - Hives Date Reviewed: 08/02/2023 Reviewed by: Mariya Tavares - Fully Assessed Reason for Visit: Reminder Call [[id number]] Prescriptions as of 08/28/2023 - ARIPiprazole (ABILIFY) 2 mg tablet Take 2 mg by mouth once daily. Prescribed by Dr. Wally Nayak psych - hydrOXYzine HCl (ATARAX) 10 mg tablet Take 10 mg by mouth three times daily as needed for anxiety. Prescribed by Wally Nayak psych - FLUoxetine (PROZAC) 40 mg capsule Take 1 capsule by mouth once daily. - omeprazole (PRILOSEC) 20 mg capsule Take 1 capsule by mouth daily before breakfast. 1/2 hr before meal. - famotidine (PEPCID) 20 mg tablet take 1 tablet by mouth at bedtime as needed - SUMAtriptan (IMITREX) 50 mg tablet Take one tablet by mouth at the onset of the headache. If no improvement in 2 hours take one more tablet. No more than 2 tablets in 24 hours - metFORMIN ER (GLUCOPHAGE XR) 500 mg 24 hr tablet Take 2 tablets by mouth daily with dinner. - meclizine (ANTIVERT) 12.5 mg tab Take 1 tablet by mouth every 6 hours as needed (dizziness). - spironolactone (ALDACTONE) 25 mg tablet Take 1 tablet by mouth twice daily. - ketoconazole (NIZORAL) 2 % cream Apply to affected area once daily. - cholecalciferol, Vitamin D3, (VITAMIN D3) 1,250 mcg (50,000 unit) cap capsule Take 1 capsule by mouth one time a week. - levonorgestrel (MIRENA) 20 mcg/24 hours (6 yrs) 52 mg IUD 1 Each by INTRAUTERINE route as directed. Problem List As Of Date 08/28/2023 Noted Resolved Acquired hypothyroidism [E03.9] 07/05/2016 Anxiety and depression [F41.9, F32.A] 01/02/2022 Cat bite of finger [S61.259A, W55.01XA] 01/02/2022 Cellulitis of finger of left hand [L03.012] 01/02/2022 Class 3 severe obesity without serious comorbid*01/02/2022 PCOS (polycystic ovarian syndrome) [E28.2] 01/02/2022 Encounter Status:Closed by DIDI VILLAFANA on 08/28/23 [facility] 08-21-2023 [facility] Telephone (CDLBME) NICHOLE PITTMAN ([id number]) 1990 F Date Time Provider Department 08/21/23 TOMMYDIDI EDGEE During your visit today, we recorded the following information about you: Didi Villafana RN 08/21/2023 12:36 PM Signed Left message regarding reminder for stress test tomorrow and given instructions. Allergies As of Date: 08/21/2023 Noted Allergy Reaction PENICILLINS 07/04/2019 4 - Hives AMOXICILLIN 07/05/2016 4 - Hives CEFTRIAXONE 01/02/2022 4 - Hives Date Reviewed: 08/02/2023 Reviewed by: Mariya Tavares - Fully Assessed Reason for Visit: Reminder Call [[id number]] Prescriptions as of 08/21/2023 - ARIPiprazole (ABILIFY) 2 mg tablet Take 2 mg by mouth once daily. Prescribed by Dr. Wally Nayak psych - hydrOXYzine HCl (ATARAX) 10 mg tablet Take 10 mg by mouth three times daily as needed for anxiety. Prescribed by Wally Nayak psych - FLUoxetine (PROZAC) 40 mg capsule Take 1 capsule by mouth once daily. - omeprazole (PRILOSEC) 20 mg capsule Take 1 capsule by mouth daily before breakfast. 1/2 hr before meal. - famotidine (PEPCID) 20 mg tablet take 1 tablet by mouth at bedtime as needed - SUMAtriptan (IMITREX) 50 mg tablet Take one tablet by mouth at the onset of the headache. If no improvement in 2 hours take one more tablet. No more than 2 tablets in 24 hours - metFORMIN ER (GLUCOPHAGE XR) 500 mg 24 hr tablet Take 2 tablets by mouth daily with dinner. - meclizine (ANTIVERT) 12.5 mg tab Take 1 tablet by mouth every 6 hours as needed (dizziness). - spironolactone (ALDACTONE) 25 mg tablet Take 1 tablet by mouth twice daily. - ketoconazole (NIZORAL) 2 % cream Apply to affected area once daily. - cholecalciferol, Vitamin D3, (VITAMIN D3) 1,250 mcg (50,000 unit) cap capsule Take 1 capsule by mouth one time a week. - levonorgestrel (MIRENA) 20 mcg/24 hours (6 yrs) 52 mg IUD 1 Each by INTRAUTERINE route as directed. Problem List As Of Date 08/21/2023 Noted Resolved Acquired hypothyroidism [E03.9] 07/05/2016 Anxiety and depression [F41.9, F32.A] 01/02/2022 Cat bite of finger [S61.259A, W55.01XA] 01/02/2022 Cellulitis of finger of left hand [L03.012] 01/02/2022 Class 3 severe obesity without serious comorbid*01/02/2022 PCOS (polycystic ovarian syndrome) [E28.2] 01/02/2022 Encounter Status:Closed by DIDI VILLAFANA on 08/21/23 [facility] CBC W Auto Differential pane l (Bld)on 08-02-2023 Basophils (Bld) [#/Vol] 0.08 10*3/uL <0.11 k/uL [facility] Basophils/100 WBC (Bld) 0.7 % [facility] Differential cell count method Nom (Bld) Auto [facility] Eosinophils (Bld) [#/Vol] 0.13 10*3/uL <0.46 k/uL [facility] Eosinophils/100 WBC (Bld) 1.1 % [facility] Erythrocyte distribution width (RBC) [Ratio] 12.8 % 11.5 - 15.0 % [facility] Hematocrit (Bld) [Volume fraction] 48.6 % High 36.0 - 46.0 % [facility] Hemoglobin (Bld) [Mass/Vol] 15.4 g/dL 11.5 - 15.5 g/dL [facility] Immature granulocytes (Bld) [#/Vol] 0.05 10*3/uL <0.10 k/uL [facility] Immature granulocytes/100 WBC (Bld) 0.4 % [facility] Lymphocytes (Bld) [#/Vol] 3.03 10*3/uL 1.00 - 4.00 k/uL [facility] Lymphocytes/100 WBC (Bld) 25.9 % [facility] MCH (RBC) [Entitic mass] 29.6 pg 26.0 - 34.0 pg [facility] MCHC (RBC) [Mass/Vol] 31.7 g/dL 30.5 - 36.0 g/dL [facility] MCV (RBC) [Entitic vol] 93.5 fL 80.0 - 100.0 fL [facility] Monocytes (Bld) [#/Vol] 0.66 10*3/uL <0.87 k/uL [facility] Monocytes/100 WBC (Bld) 5.6 % [facility] Neutrophils (Bld) [#/Vol] 7.77 10*3/uL High 1.45 - 7.50 k/uL [facility] Neutrophils/100 WBC (Bld) 66.3 % [facility] Nucleated RBC (Bld) [#/Vol] <0.01 k/uL [facility] Nucleated RBC/100 WBC (Bld) [Ratio] 0.0 /100 WBC [facility] Platelet mean volume (Bld) [Entitic vol] 12.1 fL 9.0 - 12.7 fL [facility] Platelets (Bld) [#/Vol] 349 10*3/uL 150 - 400 k/uL [facility] RBC (Bld) [#/Vol] 5.20 10*6/uL 3.90 - 5.2 0 m/uL [facility] WBC (Bld) [#/Vol] 11.72 10*3/uL High 3.70 - 11 .00 k/uL [facility] XR CHEST 2V FRONTAL/LATon [facility] XR Chest PA and Lateralon IMPRESSION: No acute radiographic abnormality. [employer] Player: PSCB Transcribe Date/Time: Dec 27 2022 3:28P Dictated by : NORA ARZOLA MD This examination was interpreted and the report reviewed and electronically signed by: NORA ARZOLA MD on Dec 27 2022 3:28PM [facility] DIVISION OF RADIOLOGY * * *Final Report* * * DATE OF EXAM: Dec 27 2022 2:55PM WOX [id number] - XR CHEST 2V FRONTAL/LAT / PROCEDURE REASON: multiple diagnoses * * * * Physician Interpretation * * * * EXAMINATION: CHEST RADIOGRAPH (2 VIEW FRONTAL & LATERAL) CLINICAL HISTORY: Shortness of breath on exertion Other fatigue MQ: [id number] EXAM DATE/TIME: 12/27/2022 2:55 PM COMPARISON: No relevant prior studies available. RESULT: Lines, tubes, and devices: None. Lungs and pleura: Slightly small lung volume. No consolidation. No lung mass. No pleural effusion. No pneumothorax. Cardiomediastinal silhouette: Normal cardiomediastinal silhouette. Bones and soft tissues: Unremarkable. DIVISION OF RADIOLOGY Provider, [facility] - 12/27/2022 * * *Final Report* * * DATE OF EXAM: Dec 27 2022 2:55PM WOX [id number] - XR CHEST 2V FRONTAL/LAT / PROCEDURE REASON: multiple diagnoses * * * * Physician Interpretation * * * * EXAMINATION: CHEST RADIOGRAPH (2 VIEW FRONTAL & LATERAL) CLINICAL HISTORY: Shortness of breath on exertion Other fatigue MQ: [id number] EXAM DATE/TIME: 12/27/2022 2:55 PM COMPARISON: No relevant prior studies available. RESULT: Lines, tubes, and devices: None. Lungs and pleura: Slightly small lung volume. No consolidation. No lung mass. No pleural effusion. No pneumothorax. Cardiomediastinal silhouette: Normal cardiomediastinal silhouette. Bones and soft tissues: Unremarkable. IMPRESSION IMPRESSION: No acute radiographic abnormality. [employer] Player: PSCElizabeth Transcribe Date/Time: Dec 27 2022 3:28P Dictated by : NORA ARZOLA MD This examination was interpreted and the report reviewed and electronically signed by: NORA ARZOLA MD on Dec 27 2022 3:28PM EST [facility] Radiology Study observation (narrative) [facility] XR Chest PA and LateralOrder ed By: Ccf Provider on 12-27-2022 [facility] EGD DIAGNOSTICon 11-23-2022 [facility] CBC W Auto Differential pane l (Bld)on 11-03-2022 Basophils (Bld) [#/Vol] 0.06 10*3/uL <0.11 k/uL [facility] Basophils/100 WBC (Bld) 0.5 % [facility] Differential cell count method Nom (Bld) Auto [facility] Eosinophils (Bld) [#/Vol] 0.21 10*3/uL <0.46 k/uL [facility] Eosinophils/100 WBC (Bld) 1.9 % [facility] Erythrocyte distribution width (RBC) [Ratio] 12.8 % 11.5 - 15.0 % [facility] Hematocrit (Bld) [Volume fraction] 43.0 % 36.0 - 46.0 % [facility] Hemoglobin (Bld) [Mass/Vol] 14.2 g/dL 11.5 - 15.5 g/dL [facility] Immature granulocytes (Bld) [#/Vol] 0.04 10*3/uL <0.10 k/uL [facility] Immature granulocytes/100 WBC (Bld) 0.4 % [facility] Lymphocytes (Bld) [#/Vol] 2.74 10*3/uL 1.00 - 4.00 k/uL [facility] Lymphocytes/100 WBC (Bld) 24.9 % [facility] MCH (RBC) [Entitic mass] 29.3 pg 26.0 - 34.0 pg [facility] MCHC (RBC) [Mass/Vol] 33.0 g/dL 30.5 - 36.0 g/dL [facility] MCV (RBC) [Entitic vol] 88.7 fL 80.0 - 100.0 fL [facility] Monocytes (Bld) [#/Vol] 0.65 10*3/uL <0.87 k/uL [facility] Monocytes/100 WBC (Bld) 5.9 % [facility] Neutrophils (Bld) [#/Vol] 7.30 10*3/uL 1.45 - 7.50 k/uL [facility] Neutrophils/100 WBC (Bld) 66.4 % [facility] Nucleated RBC (Bld) [#/Vol] <0.01 k/uL [facility] Nucleated RBC/100 WBC (Bld) [Ratio] 0.0 /100 WBC [facility] Platelet mean volume (Bld) [Entitic vol] 11.8 fL 9.0 - 12.7 fL [facility] Platelets (Bld) [#/Vol] 331 10*3/uL 150 - 400 k/uL [facility] RBC (Bld) [#/Vol] 4.85 10*6/uL 3.90 - 5.2 0 m/uL [facility] WBC (Bld) [#/Vol] 11.00 10*3/uL 3.70 - 11 .00 k/uL [facility] Comprehensive metabolic 2000 panelon 11-03-2022 Albumin [Mass/Vol] 4.3 g/dL 3.9 - 4.9 g/dL [facility] ALP [Catalytic activity/Vol] 107 U/L 34 - 123 U/L [facility] ALT [Catalytic activity/Vol] 35 U/L 7 - 38 U/L [facility] Anion gap [Moles/Vol] 12 mmol/L 9 - 18 mmol/L [facility] AST [Catalytic activity/Vol] 26 U/L 13 - 35 U/L [facility] Bilirubin [Mass/Vol] 0.3 mg/dL 0.2 - 1.3 mg/dL [facility] Calcium [Mass/Vol] 9.7 mg/dL 8.5 - 10.2 mg/dL [facility] Chloride [Moles/Vol] 103 mmol/L 97 - 105 mmol/L [facility] CO2 [Moles/Vol] 21 mmol/L Low 22 - 30 mmol/L [facility] Creatinine [Mass/Vol] 0.77 mg/dL 0.58 - 0.96 mg/dL [facility] Estimated Glomerular Filtration Rate 106 mL/min/1.73m >=60 mL/min/1.73m [facility] Glucose [Mass/Vol] 82 mg/dL 74 - 99 mg/dL [facility] Potassium [Moles/Vol] 4.2 mmol/L 3.7 - 5.1 mmol/L [facility] Protein [Mass/Vol] 7.0 g/dL 6.3 - 8.0 g/dL [facility] Sodium [Moles/Vol] 136 mmol/L 136 - 144 mmol/L [facility] Urea nitrogen [Mass/Vol] 12 mg/dL 7 - 21 mg/dL [facility] HbA1c (Bld)on 11-03-2022 Average glucose Estimated from glycated hemoglobin (Bld) [Mass/Vol] 108 mg/dL [facility] HbA1c (Bld) [Mass fraction] 5.4 % 4.3 - 5.6 % [facility] INSULIN ASSAY BLOODon 2021 Insulin Qn 26.4 u[IU]/mL High 3.0 - 25.0 mU/L [facility] EMERGENCY REPORTon 9 EMERGENCY REPORT [facility] EMERGENCY ROOM REPORT NAME ACCOUNT SEX AGE ADMIT DISCHARGE PT MED. RECORD# NUMBER DATE DATE TYPE [place] [id number] F 28 02/25/19 02/25/19 3 [id number] ROOM: ER DATE OF : 1990 DICTATING PHYSICIAN: Wilder Proctor CHIEF COMPLAINT: Cough and shortness of breath. HISTORY OF PRESENT ILLNESS: The patient states that she began with a cough several days ago and has become increasingly short of breath particularly with activity. Cough is mostly nonproductive. She has not had any fever or chills No nausea or vomiting. PAST MEDICAL HISTORY: Past medical history is not significant for known asthma, though she has had inhalers that she has used in the past. PAST SURGICAL HISTORY: No previous surgeries. MEDICATIONS: She is on control pills. No other medications. ALLERGIES: She is allergic to penicillin. SOCIAL HISTORY: She lives at home. She does not smoke or drink alcohol. PHYSICAL EXAMINATION: This is a 28-year-old heavy built female alert, appropriate, does not appear toxic or in acute distress. Her skin is pink, warm, and dry. HEENT: All within normal limits. Neck is supple. She has diminished breath sounds bilaterally with some slight expiratory fine wheezes. No tachypnea. Cardiac exam is regular rhythm without any ectopy, murmurs, gallops, or rubs. Abdomen is soft and nontender. Good peripheral pulses. Brisk capillary refill. Vital signs: Temperature 98, pulse 100, respirations 16, blood pressure 137/93. DIAGNOSTIC DATA: She had an EKG on arrival, which showed sinus rhythm without any acute ST or T changes, basically normal EKG. EMERGENCY DEPARTMENT COURSE AND TREATMENT: She was given a DuoNeb aerosol, which did improve breath sounds somewhat. She continued to have some mild wheezes. Saturations remained 99 to 100. DIAGNOSIS: Reactive airway disease. PLAN/DISPOSITION: She was given a prescription for Zithromax, albuterol inhaler, and a several day course of prednisone. She is to follow up with her family physician in 2 to Page 1 of 2 [place] Emergency Room Report 4 days if no better. Dictated By: Wilder Proctor MD 02/25/19 11:26 JOB #: [id number] Transcribed By: gina 02/25/19 17:24 Electronically signed by: DAMIEN Proctor M.D. 03/06/19 05:41 Page 2 of 2 [place] Emergency Room Report Normal [facility] Vital Signs Date Time Vital Sign Value Performing Clinician Facility 07-03-2025 10:42-0400 Body mass index (BMI) [Ratio] 47.75 kg/m2 Jenny Can STAPLER MACHINE.AMBER Work Phone: [facility] 07-03-2025 10:42-0400 Body weight 112.49 kg Jenny Older STAPLER MACHINE.TELEPHONE INFORMATION CLERK Work Phone: [facility] 07-03-2025 10:42-0400 Diastolic blood pressure 82 mm[Hg] Jenny Older STAPLER MACHINE.TELEPHONE INFORMATION CLERK Work Phone: [facility] 07-03-2025 10:42-0400 Heart rate 78 /min Jenny Older STAPLER MACHINE.TELEPHONE INFORMATION CLERK Work Phone: [facility] 07-03-2025 10:42-0400 Respiratory rate 16 /min Jenny Older STAPLER MACHINE.TELEPHONE INFORMATION CLERK Work Phone: [facility] 07-03-2025 10:42-0400 SaO2% (BldA) [Mass fraction] 97 % Jenny Older STAPLER MACHINE.TELEPHONE INFORMATION CLERK Work Phone: [facility] 07-03-2025 10:42-0400 Systolic blood pressure 118 mm[Hg] Jenny Older STAPLER MACHINE.TELEPHONE INFORMATION CLERK Work Phone: [facility] 05-22-2025 10:12-0400 Body height 153.5 cm Dulce Barney MD Work Phone: [facility] 05-22-2025 10:12-0400 Body mass index (BMI) [Ratio] 46.98 kg/m2 Dulce Barney MD Work Phone: [facility] 05-22-2025 10:12-0400 Body weight 110.68 kg Dulce Barney MD Work Phone: [facility] 05-22-2025 10:12-0400 Diastolic blood pressure 84 mm[Hg] Dulce Barney MD Work Phone: [facility] 05-22-2025 10:12-0400 Heart rate 77 /min Dulce Barney MD Work Phone: [facility] 05-22-2025 10:12-0400 Respiratory rate 16 /min Dulce Barney MD Work Phone: [facility] 05-22-2025 10:12-0400 SaO2% (BldA) [Mass fraction] 99 % Dulce Barney MD Work Phone: [facility] 05-22-2025 10:12-0400 Systolic blood pressure 124 mm[Hg] Dulce Barney MD Work Phone: [facility] 05-22-2025 09:26-0400 Body height 153.5 cm Pulm Wstr Work Phone: [facility] 05-22-2025 09:26-0400 Body mass index (BMI) [Ratio] 46.97 kg/m2 Pulm Wstr Work Phone: [facility] 05-22-2025 09:26-0400 Body weight 110.68 kg Pulm Wstr Work Phone: [facility] 05-22-2025 09:26-0400 Heart rate 77 /min Pulm Wstr Work Phone: [facility] 05-22-2025 09:26-0400 Respiratory rate 16 /min Pulm Wstr Work Phone: [facility] 05-22-2025 09:26-0400 SaO2% (BldA) [Mass fraction] 99 % Pulm Wstr Work Phone: [facility] 04-17-2025 08:59-0400 Body mass index (BMI) [Ratio] 48.04 kg/m2 Jenny Older STAPLER MACHINE.TELEPHONE INFORMATION CLERK Work Phone: [facility] 04-17-2025 08:59-0400 Body weight 111.58 kg Jenny Older STAPLER MACHINE.TELEPHONE INFORMATION CLERK Work Phone: [facility] 04-17-2025 08:59-0400 Diastolic blood pressure 72 mm[Hg] Jenny Older STAPLER MACHINE.TELEPHONE INFORMATION CLERK Work Phone: [facility] 04-17-2025 08:59-0400 Heart rate 86 /min Jenny Older STAPLER MACHINE.TELEPHONE INFORMATION CLERK Work Phone: [facility] 04-17-2025 08:59-0400 Respiratory rate 16 /min Jenny Older STAPLER MACHINE.TELEPHONE INFORMATION CLERK Work Phone: [facility] 04-17-2025 08:59-0400 SaO2% (BldA) [Mass fraction] 98 % Jenny Older STAPLER MACHINE.TELEPHONE INFORMATION CLERK Work Phone: [facility] 04-17-2025 08:59-0400 Systolic blood pressure 120 mm[Hg] Jenny Older STAPLER MACHINE.TELEPHONE INFORMATION CLERK Work Phone: [facility] 03-20-2025 13:00-0400 Body height 152.4 cm Fide Mike STAPLER MACHINE.TELEPHONE INFORMATION CLERK Work Phone: [facility] 03-20-2025 13:00-0400 Body mass index (BMI) [Ratio] 49.22 kg/m2 [facility] STAPLER MACHINE.TELEPHONE INFORMATION CLERK Work Phone: [facility] 03-20-2025 13:00-0400 Body weight 114.31 kg [facility] STAPLER MACHINE.TELEPHONE INFORMATION CLERK Work Phone: [facility] 03-20-2025 13:00-0400 Diastolic blood pressure 86 mm[Hg] Fide Mike STAPLER MACHINE.TELEPHONE INFORMATION CLERK Work Phone: [facility] 03-20-2025 13:00-0400 Systolic blood pressure 128 mm[Hg] [facility] STAPLER MACHINE.TELEPHONE INFORMATION CLERK Work Phone: [facility] 03-20-2025 09:17-0400 Body mass index (BMI) [Ratio] 48.82 kg/m2 Jenny Older STAPLER MACHINE.TELEPHONE INFORMATION CLERK Work Phone: [facility] 03-20-2025 09:17-0400 Body weight 113.4 kg Jenny Older STAPLER MACHINE.TELEPHONE INFORMATION CLERK Work Phone: [facility] 03-20-2025 09:17-0400 Diastolic blood pressure 92 mm[Hg] Jenny Older STAPLER MACHINE.TELEPHONE INFORMATION CLERK Work Phone: [facility] 03-20-2025 09:17-0400 Heart rate 84 /min Jenny Older STAPLER MACHINE.TELEPHONE INFORMATION CLERK Work Phone: [facility] 03-20-2025 09:17-0400 Respiratory rate 16 /min Jenny Older STAPLER MACHINE.TELEPHONE INFORMATION CLERK Work Phone: [facility] 03-20-2025 09:17-0400 SaO2% (BldA) [Mass fraction] 98 % Jenny Older STAPLER MACHINE.TELEPHONE INFORMATION CLERK Work Phone: [facility] 03-20-2025 09:17-0400 Systolic blood pressure 134 mm[Hg] Jenny Older STAPLER MACHINE.TELEPHONE INFORMATION CLERK Work Phone: [facility] 09-17-2024 13:58-0500 Body mass index (BMI) [Ratio] 45.11 kg/m2 Katheryn Matias MD Work Phone: [facility] 09-17-2024 13:58-0500 Body weight 104.78 kg Katheryn Matias MD Work Phone: [facility] 09-17-2024 13:58-0500 Diastolic blood pressure 72 mm[Hg] Katheryn Matias MD Work Phone: [facility] 09-17-2024 13:58-0500 Heart rate 97 /min Katheryn Matias MD Work Phone: [facility] 09-17-2024 13:58-0500 SaO2% (BldA) [Mass fraction] 98 % Katheryncr Matias MD Work Phone: [facility] 09-17-2024 13:58-0500 Systolic blood pressure 124 mm[Hg] Katheryn Matias MD Work Phone: [facility] 07-25-2024 13:48-0400 Body mass index (BMI) [Ratio] 44.53 kg/m2 Katheryn Matias MD Work Phone: [facility] 07-25-2024 13:48-0400 Body weight 103.42 kg Katheryn Matias MD Work Phone: [facility] 07-25-2024 13:48-0400 Diastolic blood pressure 62 mm[Hg] Katheryn Matias MD Work Phone: [facility] 07-25-2024 13:48-0400 Heart rate 66 /min Katheryn Matias MD Work Phone: [facility] 07-25-2024 13:48-0400 SaO2% (BldA) [Mass fraction] 98 % Katheryn Matias MD Work Phone: [facility] 07-25-2024 13:48-0400 Systolic blood pressure 114 mm[Hg] Katheryn Matias MD Work Phone: [facility] 06-20-2024 10:06-0400 Body height 152.4 cm Katheryn Matias MD Work Phone: [facility] 06-20-2024 10:06-0400 Body mass index (BMI) [Ratio] 46.09 kg/m2 Katheryn Matias MD Work Phone: [facility] 06-20-2024 10:06-0400 Body weight 107.05 kg Katheryn Matias MD Work Phone: [facility] 06-20-2024 10:06-0400 Diastolic blood pressure 80 mm[Hg] Katheryn Matias MD Work Phone: [facility] 06-20-2024 10:06-0400 Heart rate 92 /min Katheryncr Matias MD Work Phone: [facility] 06-20-2024 10:06-0400 SaO2% (BldA) [Mass fraction] 98 % Katheryncr Matias MD Work Phone: [facility] 06-20-2024 10:06-0400 Systolic blood pressure 136 mm[Hg] Katheryn Matias MD Work Phone: [facility] 06-13-2024 12:50-0400 Body mass index (BMI) [Ratio] 46.29 kg/m2 Jenny Can APRN.CNP Work Phone: [facility] 06-13-2024 12:50-0400 Body weight 107.5 kg Jenny Older STAPLER MACHINE.TELEPHONE INFORMATION CLERK Work Phone: [facility] 06-13-2024 12:50-0400 Diastolic blood pressure 78 mm[Hg] Jenny Older STAPLER MACHINE.TELEPHONE INFORMATION CLERK Work Phone: [facility] 06-13-2024 12:50-0400 Heart rate 78 /min Jenny Older STAPLER MACHINE.TELEPHONE INFORMATION CLERK Work Phone: [facility] 06-13-2024 12:50-0400 Respiratory rate 16 /min Jenny Older STAPLER MACHINE.TELEPHONE INFORMATION CLERK Work Phone: [facility] 06-13-2024 12:50-0400 SaO2% (BldA) [Mass fraction] 97 % Jenny Older STAPLER MACHINE.TELEPHONE INFORMATION CLERK Work Phone: [facility] 06-13-2024 12:50-0400 Systolic blood pressure 112 mm[Hg] Jenny Older STAPLER MACHINE.TELEPHONE INFORMATION CLERK Work Phone: [facility] 05-22-2024 10:51-0400 Body mass index (BMI) [Ratio] 47.07 kg/m2 Jenny Older STAPLER MACHINE.TELEPHONE INFORMATION CLERK Work Phone: [facility] 05-22-2024 10:51-0400 Body weight 109.32 kg Jenny Older STAPLER MACHINE.TELEPHONE INFORMATION CLERK Work Phone: [facility] 05-22-2024 10:51-0400 Diastolic blood pressure 80 mm[Hg] Jenny Older STAPLER MACHINE.TELEPHONE INFORMATION CLERK Work Phone: [facility] 05-22-2024 10:51-0400 Heart rate 84 /min Jenny Older STAPLER MACHINE.TELEPHONE INFORMATION CLERK Work Phone: [facility] 05-22-2024 10:51-0400 Respiratory rate 16 /min Jenny Older STAPLER MACHINE.TELEPHONE INFORMATION CLERK Work Phone: [facility] 05-22-2024 10:51-0400 SaO2% (BldA) [Mass fraction] 97 % Jenny Older STAPLER MACHINE.TELEPHONE INFORMATION CLERK Work Phone: [facility] 05-22-2024 10:51-0400 Systolic blood pressure 128 mm[Hg] Jenny Older STAPLER MACHINE.TELEPHONE INFORMATION CLERK Work Phone: [facility] 04-25-2024 10:52-0400 Body mass index (BMI) [Ratio] 47.85 kg/m2 Jenny Older STAPLER MACHINE.TELEPHONE INFORMATION CLERK Work Phone: [facility] 04-25-2024 10:52-0400 Body weight 111.13 kg Jenny Older STAPLER MACHINE.TELEPHONE INFORMATION CLERK Work Phone: [facility] 04-25-2024 10:52-0400 Diastolic blood pressure 70 mm[Hg] Jenny Older STAPLER MACHINE.TELEPHONE INFORMATION CLERK Work Phone: [facility] 04-25-2024 10:52-0400 Heart rate 94 /min Jenny Older STAPLER MACHINE.TELEPHONE INFORMATION CLERK Work Phone: [facility] 04-25-2024 10:52-0400 Respiratory rate 16 /min Jenny Older STAPLER MACHINE.TELEPHONE INFORMATION CLERK Work Phone: [facility] 04-25-2024 10:52-0400 SaO2% (BldA) [Mass fraction] 100 % Jenny Older STAPLER MACHINE.TELEPHONE INFORMATION CLERK Work Phone: [facility] 04-25-2024 10:52-0400 Systolic blood pressure 128 mm[Hg] Jenny Older STAPLER MACHINE.TELEPHONE INFORMATION CLERK Work Phone: [facility] 03-28-2024 09:12-0400 Diastolic blood pressure 88 mm[Hg] Jenny Older STAPLER MACHINE.TELEPHONE INFORMATION CLERK Work Phone: [facility] Comment on above: BP [facility] 03-28-2024 09:12-0400 Systolic blood pressure 126 mm[Hg] Jenny Older STAPLER MACHINE.TELEPHONE INFORMATION CLERK Work Phone: [facility] Comment on above: BP [facility] 03-28-2024 08:35-0400 Body mass index (BMI) [Ratio] 48.82 kg/m2 Jenny Older STAPLER MACHINE.TELEPHONE INFORMATION CLERK Work Phone: [facility] 03-28-2024 08:35-0400 Body weight 113.4 kg Jenny Older STAPLER MACHINE.TELEPHONE INFORMATION CLERK Work Phone: [facility] 03-28-2024 08:35-0400 Heart rate 51 /min Jenny Older STAPLER MACHINE.TELEPHONE INFORMATION CLERK Work Phone: [facility] 03-28-2024 08:35-0400 SaO2% (BldA) [Mass fraction] 100 % Jenny Older STAPLER MACHINE.TELEPHONE INFORMATION CLERK Work Phone: [facility] 03-14-2024 11:05-0400 Body height 152.4 cm [facility] STAPLER MACHINE.TELEPHONE INFORMATION CLERK Work Phone: [facility] 03-14-2024 11:05-0400 Body mass index (BMI) [Ratio] 47.85 kg/m2 [facility] STAPLER MACHINE.TELEPHONE INFORMATION CLERK Work Phone: [facility] 03-14-2024 11:05-0400 Body weight 111.13 kg [facility] STAPLER MACHINE.TELEPHONE INFORMATION CLERK Work Phone: [facility] 03-14-2024 11:05-0400 Diastolic blood pressure 76 mm[Hg] [facility] STAPLER MACHINE.TELEPHONE INFORMATION CLERK Work Phone: [facility] 03-14-2024 11:05-0400 Systolic blood pressure 128 mm[Hg] [facility] STAPLER MACHINE.TELEPHONE INFORMATION CLERK Work Phone: [facility] 08-02-2023 14:24-0400 Body weight 117.21 kg Jenny Older STAPLER MACHINE.TELEPHONE INFORMATION CLERK Work Phone: [facility] 08-02-2023 14:24-0400 Diastolic blood pressure 86 mm[Hg] Jenny Older STAPLER MACHINE.TELEPHONE INFORMATION CLERK Work Phone: [facility] 08-02-2023 14:24-0400 Heart rate 107 /min Jenny Older STAPLER MACHINE.TELEPHONE INFORMATION CLERK Work Phone: [facility] 08-02-2023 14:24-0400 SaO2% (BldA) [Mass fraction] 98 % Jenny Older STAPLER MACHINE.TELEPHONE INFORMATION CLERK Work Phone: [facility] 08-02-2023 14:24-0400 Systolic blood pressure 134 mm[Hg] Jenny Older STAPLER MACHINE.TELEPHONE INFORMATION CLERK Work Phone: [facility] 06-26-2023 10:14-0400 Body weight 118.84 kg Darlene Older STAPLER MACHINE.TELEPHONE INFORMATION CLERK Work Phone: [facility] 06-26-2023 10:14-0400 Diastolic blood pressure 84 mm[Hg] Darlene Older STAPLER MACHINE.TELEPHONE INFORMATION CLERK Work Phone: [facility] 06-26-2023 10:14-0400 Heart rate 72 /min Darlene Older STAPLER MACHINE.TELEPHONE INFORMATION CLERK Work Phone: [facility] 06-26-2023 10:14-0400 Respiratory rate 16 /min Darlene Older STAPLER MACHINE.TELEPHONE INFORMATION CLERK Work Phone: [facility] 06-26-2023 10:14-0400 SaO2% (BldA) [Mass fraction] 100 % Darlene Older STAPLER MACHINE.TELEPHONE INFORMATION CLERK Work Phone: [facility] 06-26-2023 10:14-0400 Systolic blood pressure 126 mm[Hg] Darlene Older STAPLER MACHINE.TELEPHONE INFORMATION CLERK Work Phone: [facility] 03-04-2023 14:43-0400 Respiratory rate 16 /min [facility] 03-04-2023 14:09-0400 Body height 152.4 cm [facility] [place] 03-04-2023 14:09-0400 Body mass index (BMI) [Ratio] 50.5 kg/m2 [facility] 03-04-2023 14:09-0400 Body temperature 96.9 [degF] [facility] 03-04-2023 14:09-0400 Body weight 117.34 kg [facility] 03-04-2023 14:09-0400 Diastolic blood pressure 110 mm[Hg] [facility] 03-04-2023 14:09-0400 Heart rate 92 /min [facility] 03-04-2023 14:09-0400 SaO2% (BldA) [Mass fraction] 98 % [facility] 03-04-2023 14:09-0400 Systolic blood pressure 179 mm[Hg] [facility] 03-04-2023 13:36-0400 Body temperature 97.7 [degF] Danelle Xavier STAPLER MACHINE.TELEPHONE INFORMATION CLERK Work Phone: [facility] 03-04-2023 13:36-0400 Body weight 116.76 kg Danelle Callow STAPLER MACHINE.TELEPHONE INFORMATION CLERK Work Phone: [facility] 03-04-2023 13:36-0400 Diastolic blood pressure 82 mm[Hg] Danelle Callow STAPLER MACHINE.TELEPHONE INFORMATION CLERK Work Phone: [facility] 03-04-2023 13:36-0400 Heart rate 98 /min Danelle Callow STAPLER MACHINE.TELEPHONE INFORMATION CLERK Work Phone: [facility] 03-04-2023 13:36-0400 Respiratory rate 20 /min Danelle Callow STAPLER MACHINE.TELEPHONE INFORMATION CLERK Work Phone: [facility] 03-04-2023 13:36-0400 SaO2% (BldA) [Mass fraction] 98 % Danelle Callow STAPLER MACHINE.TELEPHONE INFORMATION CLERK Work Phone: [facility] 03-04-2023 13:36-0400 Systolic blood pressure 122 mm[Hg] Danelle Callow STAPLER MACHINE.TELEPHONE INFORMATION CLERK Work Phone: [facility] 11-23-2022 11:39-0500 Diastolic blood pressure 97 mm[Hg] Rui Driver MD Work Phone: [facility] 11-23-2022 11:39-0500 Heart rate 80 /min Rui Driver MD Work Phone: [facility] 11-23-2022 11:39-0500 Respiratory rate 17 /min Rui Driver MD Work Phone: [facility] 11-23-2022 11:39-0500 SaO2% (BldA) [Mass fraction] 96 % Rui Driver MD Work Phone: [facility] 11-23-2022 11:39-0500 Systolic blood pressure 151 mm[Hg] Rui Driver MD Work Phone: [facility] 11-23-2022 11:13-0500 Body temperature 97.9 [degF] Rui Driver MD Work Phone: [facility] 11-17-2022 15:31-0500 Body height 152.4 cm Timur Campos MD Work Phone: [facility] 11-17-2022 15:31-0500 Body weight 116.16 kg Timur Campos MD Work Phone: [facility] 11-17-2022 15:31-0500 Diastolic blood pressure 68 mm[Hg] Timur Campos MD Work Phone: [facility] 11-17-2022 15:31-0500 Heart rate 77 /min Timur Campos MD Work Phone: [facility] 11-17-2022 15:31-0500 Systolic blood pressure 110 mm[Hg] Timur Campos MD Work Phone: [facility] 11-03-2022 09:18-0500 Body weight 116.57 kg Jenny Older STAPLER MACHINE.TELEPHONE INFORMATION CLERK Work Phone: [facility] 11-03-2022 09:18-0500 Diastolic blood pressure 78 mm[Hg] Jenny Older STAPLER MACHINE.TELEPHONE INFORMATION CLERK Work Phone: [facility] 11-03-2022 09:18-0500 Heart rate 78 /min Jenny Older STAPLER MACHINE.TELEPHONE INFORMATION CLERK Work Phone: [facility] 11-03-2022 09:18-0500 Respiratory rate 16 /min Jenny Older STAPLER MACHINE.TELEPHONE INFORMATION CLERK Work Phone: [facility] 11-03-2022 09:18-0500 SaO2% (BldA) [Mass fraction] 98 % Jenny Older STAPLER MACHINE.TELEPHONE INFORMATION CLERK Work Phone: [facility] 11-03-2022 09:18-0500 Systolic blood pressure 122 mm[Hg] Jenny Older STAPLER MACHINE.TELEPHONE INFORMATION CLERK Work Phone: [facility] 11-01-2022 08:05-0500 Body weight 114.31 kg Manpreet Garsia DO Work Phone: [facility] 08-18-2022 10:54-0400 Body weight 115.67 kg Jenny Older STAPLER MACHINE.TELEPHONE INFORMATION CLERK Work Phone: [facility] 08-18-2022 10:54-0400 Diastolic blood pressure 76 mm[Hg] Jenny Older STAPLER MACHINE.TELEPHONE INFORMATION CLERK Work Phone: [facility] 08-18-2022 10:54-0400 Heart rate 70 /min Jenny Older STAPLER MACHINE.TELEPHONE INFORMATION CLERK Work Phone: [facility] 08-18-2022 10:54-0400 Respiratory rate 18 /min Jenny Older STAPLER MACHINE.TELEPHONE INFORMATION CLERK Work Phone: [facility] 08-18-2022 10:54-0400 Systolic blood pressure 120 mm[Hg] Jenny Older STAPLER MACHINE.TELEPHONE INFORMATION CLERK Work Phone: [facility] 08-18-2022 09:28-0400 Body height 154 cm [facility] STAPLER MACHINE.TELEPHONE INFORMATION CLERK Work Phone: [facility] 08-18-2022 09:28-0400 Body weight 115.21 kg [facility] STAPLER MACHINE.TELEPHONE INFORMATION CLERK Work Phone: [facility] 08-18-2022 09:28-0400 Diastolic blood pressure 80 mm[Hg] [facility] STAPLER MACHINE.TELEPHONE INFORMATION CLERK Work Phone: [facility] 08-18-2022 09:28-0400 Systolic blood pressure 118 mm[Hg] [facility] STAPLER MACHINE.TELEPHONE INFORMATION CLERK Work Phone: [facility] 03-22-2022 10:59-0400 Body weight 112.95 kg Jenny Older STAPLER MACHINE.TELEPHONE INFORMATION CLERK Work Phone: [facility] 03-22-2022 10:59-0400 Diastolic blood pressure 74 mm[Hg] Jenny Older STAPLER MACHINE.TELEPHONE INFORMATION CLERK Work Phone: [facility] 03-22-2022 10:59-0400 Heart rate 60 /min Jenny Older STAPLER MACHINE.TELEPHONE INFORMATION CLERK Work Phone: [facility] 03-22-2022 10:59-0400 Respiratory rate 16 /min Jenny Older STAPLER MACHINE.TELEPHONE INFORMATION CLERK Work Phone: [facility] 05-18-2022 10:59-0400 Systolic blood pressure 122 mm[Hg] Jenny Older STAPLER MACHINE.TELEPHONE INFORMATION CLERK Work Phone: [facility] 02-22-2022 10:04-0400 Body weight 113.85 kg Jenny Older STAPLER MACHINE.TELEPHONE INFORMATION CLERK Work Phone: [facility] 02-22-2022 10:04-0400 Diastolic blood pressure 82 mm[Hg] Jenny Older STAPLER MACHINE.TELEPHONE INFORMATION CLERK Work Phone: [facility] 02-22-2022 10:04-0400 Heart rate 68 /min Jenny Older STAPLER MACHINE.TELEPHONE INFORMATION CLERK Work Phone: [facility] 02-22-2022 10:04-0400 Respiratory rate 16 /min Jenny Older STAPLER MACHINE.TELEPHONE INFORMATION CLERK Work Phone: [facility] 02-22-2022 10:04-0400 Systolic blood pressure 118 mm[Hg] Jenny Older STAPLER MACHINE.TELEPHONE INFORMATION CLERK Work Phone: [facility] 01-25-2022 18:22-0400 Body weight 112.95 kg Jenny Older STAPLER MACHINE.TELEPHONE INFORMATION CLERK Work Phone: [facility] 01-25-2022 18:22-0400 Diastolic blood pressure 78 mm[Hg] Jenny Older STAPLER MACHINE.TELEPHONE INFORMATION CLERK Work Phone: [facility] 01-25-2022 18:22-0400 Heart rate 72 /min Jenny Older STAPLER MACHINE.TELEPHONE INFORMATION CLERK Work Phone: [facility] 01-25-2022 18:22-0400 Respiratory rate 16 /min Jenny Older STAPLER MACHINE.TELEPHONE INFORMATION CLERK Work Phone: [facility] 01-25-2022 18:22-0400 Systolic blood pressure 120 mm[Hg] Jenny Older STAPLER MACHINE.TELEPHONE INFORMATION CLERK Work Phone: [facility] Encounters Encounter Date Encounter Type Care Provider Facility Start: 07-03-2025 End: 07-03-2025 Patient encounter procedure [facility] Work Phone: [facility] Start: 07-03-2025 End: 07-03-2025 Office outpatient visit 25 minutes Jenny Older STAPLER MACHINE.TELEPHONE INFORMATION CLERK Work Phone: [facility] [place] Comment on above: Migraine without aur a and without status migrainosus, not intractable (Primary Dx); Anxiety and depression; Class 3 severe obesity with body mass index (BMI) of 45.0 to 49.9 in adult, unspecified obesity type, unspecified whether serious comorbidity present (HCC) Start: 07-03-2025 End: 07-03-2025 [facility] Work Phone: [facility] Comment on above: Spirometry Start: 07-01-2025 End: 07-01-2025 ambulatory Jeaneth Petush RPFT [facility] Comment on above: Methacholine test Start: 07-01-2025 End: 07-01-2025 E-mail encounter from caregiver Jeaneth Cates [facility] Start: 06-01-2025 End: 06-01-2025 ambulatory [facility] Work Phone: [facility] Comment on above: Methacholine [place] ge test Start: 06-01-2025 End: 06-01-2025 E-mail encounter from caregiver [facility] Work Phone[facility] Start: 06-01-2025 End: 06-01-2025 Patient encounter procedure Dulce Barney MD Work Phone: Pulmonary Medicine Comment on above: Challenge test appoi ntment Start: 05-29-2025 End: 06-04-2025 Refill Jenny Can APRN.CNP Work Phone: Internal Medicine [place] Comment on above: Refill Request Start: 05-22-2025 End: 05-22-2025 Patient encounter procedure [facility] Work Phone: [facility] Comment on above: Chest tightness (Leonarda danna Dx); Morbid obesity (HCC) Start: 05-22-2025 End: 05-22-2025 ambulatory [facility] Work Phone: [facility] Comment on above: Spirometry Start: 04-17-2025 End: 04-17-2025 Office outpatient visit 25 minutes Jenny Can APRN.CNP Work Phone: [facility] [place] Comment on above: Dyspnea on exertion (Primary Dx); Chest heaviness; Family history of sudden cardiac ; Migraine without aura and without status migrainosus, not intractable; Anxiety and depression; Class 3 severe obesity with body mass index (BMI) of 45.0 to 49.9 in adult, unspecified obesity type, unspecified whether serious comorbidity present (HCC) Start: 04-17-2025 End: 04-17-2025 ambulatory [facility] Facility:[facility] Start: 03-23-2025 End: 05-23-2025 Follow-up encounter Jenny Can APRN.CNP Work Phone: [facility] Start: 03-20-2025 End: 03-20-2025 Patient encounter status Fide Vásquez APRN.AMBER Work Phone: [facility] Start: 03-20-2025 End: 03-20-2025 ambulatory [facility] Facility:[facility] Start: 03-20-2025 Encounter for gynecological examination (general) (routine) without abnormal findings [facility] Start: 03-20-2025 End: 03-20-2025 ambulatory [facility] Facility:[facility] Start: 03-20-2025 End: 03-20-2025 Office outpatient visit 25 minutes Jenny Can APRN.CNP Work Phone: [facility] Comment on above: Anxiety and depressi on (Primary Dx); Class 3 severe obesity with body mass index (BMI) of 45.0 to 49.9 in adult, unspecified obesity type, unspecified whether serious comorbidity present; History of hypothyroidism; Migraine without aura and without status migrainosus, not intractable; Annual physical exam Start: 03-20-2025 End: 03-20-2025 [facility] Facility:[facility] Start: 03-20-2025 End: 03-20-2025 Patient encounter procedure Jenny Can STAPLER MACHINEREJI Work Phone: [facility] Comment on above: Encounter for gyneco logical examination (general) (routine) without abnormal findings (Primary Dx); Screen for STD (sexually transmitted disease) Start: 01-02-2025 End: 01-02-2025 Refill Katheryn Matias MD Work Phone: OB/Gynecology Comment on above: Refill Request Start: 12-18-2024 End: 12-18-2024 Refill Katheryn Matias MD Work Phone: OB/Gynecology Comment on above: Refill Request Start: 11-17-2024 End: 11-17-2024 Emergency department patient visit Yash Facility:[facility] Start: 11-01-2024 End: 11-03-2024 Refill Katheryn Matias MD Work Phone: OB/Gynecology Comment on above: Refill Request Start: 09-30-2024 End: 09-30-2024 ambulatory Lorena Serrano APRN.CNP Work Phone: Neurology Comment on above: Non-restorative slee p (Primary Dx); Snoring; RLS (restless legs syndrome); Chronic insomnia; Morning headache; Frequent nocturnal awakening; Class 3 severe obesity without serious comorbidity with body mass index (BMI) of 45.0 to 49.9 in adult, unspecified obesity type (HCC); Excessive daytime sleepiness Start: 09-30-2024 End: 09-30-2024 Telemedicine consultation with patient Lorena Zach ANNTELEPHONE INFORMATION CLERK Work Phone: Neurology Start: 09-26-2024 End: 10-09-2024 ambulatory Katheryn Matias MD Work Phone: OB/Gynecology Comment on above: Injectable medicatio n Start: 09-19-2024 End: 10-03-2024 Telephone encounter Katheryn Matias MD Work Phone: OB/Gynecology Comment on above: Insurance Authorizat ion Start: 09-18-2024 End: 09-18-2024 Telephone encounter Yodit Pugh MD Work Phone: [facility] Comment on above: Appointment (New bar i) Start: 09-17-2024 End: 09-17-2024 ambulatory KATHERYN MATIAS Facility:[facility] Start: 09-17-2024 End: 09-17-2024 Patient encounter procedure Katheryn Matias MD Work Phone: OB/Gynecology Comment on above: PCOS (polycystic ova андрей syndrome) (Primary Dx); Hypercholesteremia; Elevated fasting glucose; Elevated blood pressure reading without diagnosis of hypertension; Insulin resistance; Vitamin D deficiency; Class 3 severe obesity without serious comorbidity with body mass index (BMI) of 45.0 to 49.9 in adult, unspecified obesity type (HCC) Start: 08-19-2024 End: 2024 Get Medical Advice Katheryn Matias MD Work Phone: OB/Gynecology Comment on above: Medication refill Start: 08-12-2024 End: 08-12-2024 Telephone encounter Katheryn Matias MD Work Phone: OB/Gynecology Comment on above: Nutrition Appointmen t Start: 08-04-2024 ambulatory JENNY CAN Facility:[facility] Start: 07-25-2024 End: 07-25-2024 ambulatory KATHERYN MATIAS Facility:[facility] Start: 07-25-2024 End: 07-25-2024 Patient encounter procedure Katheryn Matias MD Work Phone: OB/Gynecology Comment on above: PCOS (polycystic ova андрей syndrome) (Primary Dx); Hypercholesteremia; Elevated fasting glucose; Elevated blood pressure reading without diagnosis of hypertension; Insulin resistance; Vitamin D deficiency; Class 3 severe obesity without serious comorbidity with body mass index (BMI) of 45.0 to 49.9 in adult, unspecified obesity type (HCC); Class 3 severe obesity with body mass index (BMI) of 45.0 to 49.9 in adult, unspecified obesity type, unspecified whether serious comorbidity present (HCC) Start: 07-11-2024 End: 07-11-2024 ambulatory KATHERYN MATIAS Facility:[facility] Start: 07-08-2024 End: 07-09-2024 Refill Jenny Older STAPLER MACHINE.TELEPHONE INFORMATION CLERK Work Phone: [facility] [place] Comment on above: Refill Request Start: 06-24-2024 End: 06-25-2024 Refill Jenny Older STAPLER MACHINE.TELEPHONE INFORMATION CLERK Work Phone: [facility] [place] Comment on above: Refill Request Insurance Authorizat ion Start: 06-20-2024 End: 06-23-2024 ambulatory Katheryn Matias MD Work Phone: OB/Gynecology Comment on above: appt Start: 06-20-2024 End: 06-23-2024 E-mail encounter from caregiver Katheryn Matias MD Work Phone: OB/Gynecology Start: 06-20-2024 End: 06-20-2024 Patient encounter procedure Katheryn Matias MD Work Phone: OB/Gynecology Comment on above: PCOS (polycystic ova андрей syndrome) (Primary Dx); Hypercholesteremia; Elevated fasting glucose; Elevated blood pressure reading without diagnosis of hypertension; Insulin resistance; Vitamin D deficiency; Class 3 severe obesity without serious comorbidity with body mass index (BMI) of 45.0 to 49.9 in adult, unspecified obesity type (HCC) Start: 06-13-2024 End: 06-13-2024 Patient encounter procedure Jenny Older STAPLER MACHINE.TELEPHONE INFORMATION CLERK Work Phone: [facility] [place] Comment on above: Class 3 severe obesi ty with body mass index (BMI) of 45.0 to 49.9 in adult, unspecified obesity type, unspecified whether serious comorbidity present (HCC) (Primary Dx); Weight loss counseling, encounter for Start: 05-22-2024 End: 05-22-2024 Patient encounter procedure Jenny Older STAPLER MACHINE.AMBER Work Phone: [facility] [place] Comment on above: Anxiety and depressi on (Primary Dx); Class 3 severe obesity with body mass index (BMI) of 45.0 to 49.9 in adult, unspecified obesity type, unspecified whether serious comorbidity present (HCC); Weight loss counseling, encounter for Start: 04-25-2024 End: 04-25-2024 Patient encounter procedure Jenny Can APRN.CNP Work Phone: [facility] [place] Comment on above: Class 3 severe obesi ty with body mass index (BMI) of 45.0 to 49.9 in adult, unspecified obesity type, unspecified whether serious comorbidity present (HCC) (Primary Dx); Weight loss counseling, encounter for; Anxiety and depression Start: 03-28-2024 End: 03-28-2024 Patient encounter procedure Jenny Can APRN.CNP Work Phone: [facility] [place] Comment on above: Anxiety and depressi on (Primary Dx); Gastroesophageal reflux disease without esophagitis; Class 3 severe obesity with body mass index (BMI) of 45.0 to 49.9 in adult, unspecified obesity type, unspecified whether serious comorbidity present (HCC); Weight loss counseling, encounter for Start: 03-14-2024 Telephone encounter Jenny Can APRN.CNP Work Phone: [facility] Medicine [place] Comment on above: Orders Start: 03-14-2024 End: 03-14-2024 Patient encounter procedure Fide Vásquez APRN.CNP Work Phone: OB/Gynecology Comment on above: Encounter for gyneco logical examination (general) (routine) without abnormal findings (Primary Dx); Screening cholesterol level; Screening for deficiency anemia; Screening for diabetes mellitus; Screening for metabolic disorder; Screening for thyroid disorder; Encounter for vitamin deficiency screening Start: 03-14-2024 End: 03-14-2024 Patient encounter status Fide Vásquez APRN.CNP Work Phone: [facility] Start: 01-20-2024 Refill Jenny Can APRN, .CNP Work Phone: [facility] [place] Comment on above: Refill Request Start: 08-29-2023 ambulatory JENNY CAN Facility:[facility] Start: 08-29-2023 End: 08-29-2023 Subsequent hospital visit by physician [facility] Work Phone: Cardiology Lab Comment on above: Sensation of chest p ressure [R07.89] Start: 08-28-2023 Telephone encounter Didi Bazan RN Cardiology Lab Comment on above: Reminder Call Start: 08-22-2023 End: 08-22-2023 Subsequent hospital visit by physician [facility] Work Phone: Cardiology Lab Start: 08-21-2023 Telephone encounter Didi Bazan RN Cardiology Lab Comment on above: Reminder Call Start: 08-02-2023 End: 08-02-2023 Patient encounter procedure Jenny Older STAPLER MACHINE.TELEPHONE INFORMATION CLERK Work Phone: Internal Medicine [place] Comment on above: Sensation of chest p ressure (Primary Dx); Dyspnea on exertion; Family history of due to heart problem at 50 years of age or younger; Palpitation; Other fatigue; Anxiety and depression; Gastroesophageal reflux disease without esophagitis Start: 08-02-2023 ambulatory Jenny Older STAPLER MACHINE .TELEPHONE INFORMATION CLERK Work Phone: Internal Medicine [place] Comment on above: Ada form Start: 07-30-2023 ambulatory Jenny Older STAPLER MACHINE .TELEPHONE INFORMATION CLERK Work Phone: Internal Medicine [place] Comment on above: Ada form for work Start: 07-30-2023 Refill Jenny Older STAPLER MACHINE .TELEPHONE INFORMATION CLERK Work Phone: Internal Medicine [place] Comment on above: Refill Request Start: 07-03-2023 ambulatory Pascale Locke Work Phone: Internal Medicine [facility] [place] Start: 06-26-2023 End: 06-26-2023 Patient encounter procedure Darlene Can STAPLER MACHINE.TELEPHONE INFORMATION CLERK Work Phone: Internal Medicine [place] Comment on above: Headaches (Primary D x); Vertigo Start: 03-08-2023 End: 03-08-2023 Patient encounter procedure Palak Falk OD Work Phone: Ophthalmology Comment on above: Preseptal cellulitis of left lower eyelid (Primary Dx); Squamous blepharitis of upper and lower eyelids of both eyes Start: 03-04-2023 End: 03-04-2023 Emergency department patient visit [facility] Start: 03-04-2023 End: 03-04-2023 Patient encounter procedure Danelle Xavier STAPLER MACHINE.TELEPHONE INFORMATION CLERK Work Phone: [facility] Comment on above: Eye redness (Primary Dx) Start: 01-16-2023 ambulatory Pascale Locke Work Phone: [facility] [place] Start: 12-28-2022 Telephone encounter Jenny Can APRN.TELEPHONE INFORMATION CLERK Work Phone: Internal Medicine [place] Comment on above: Results Start: 12-27-2022 End: 12-27-2022 Subsequent hospital visit by physician Xr [facility] [place] Work Phone: Radiology Comment on above: Shortness of breath on exertion [R06.02] Start: 12-27-2022 End: 12-27-2022 ambulatory Jenny Can APRN.TELEPHONE INFORMATION CLERK Work Phone: Internal Medicine [place] Comment on above: Shortness of breath on exertion (Primary Dx); Other fatigue; Acute cough; Feeling of chest tightness; Fever, unspecified fever cause Start: 12-27-2022 End: 12-27-2022 Telemedicine consultation with patient Jenny Can APRN.TELEPHONE INFORMATION CLERK Work Phone: [facility] Start: 11-30-2022 Orders Only Rui Driver MD Work Phone: [facility] Gastroenterology [facility] Comment on above: Family history of ce liac disease (Primary Dx) Start: 11-28-2022 Refill Jenny Can APRN .TELEPHONE INFORMATION CLERK Work Phone: Internal Medicine [place] Comment on above: Refill Request Start: 11-23-2022 End: 11-23-2022 Subsequent hospital visit by physician Rui Driver MD Work Phone: [facility] Comment on above: Dysphagia, unspecifi ed type [R13.10] Start: 11-17-2022 End: 11-17-2022 Patient encounter procedure Timur Campos MD Work Phone: Gastroenterology Comment on above: Family history of Ba rrett's esophagus (Primary Dx); Gastroesophageal reflux disease, unspecified whether esophagitis present; Dysphagia, unspecified type; Class 3 severe obesity due to excess calories with serious comorbidity and body mass index (BMI) of 50.0 to 59.9 in adult (HCC) Start: 11-17-2022 Telephone encounter Timur morton MD Work Phone: Gastroenterology Comment on above: Schedule EGD Start: 11-16-2022 ambulatory Jenny Can APRN .TELEPHONE INFORMATION CLERK Work Phone: [facility] [place] Comment on above: Medication side effe cts Start: 11-16-2022 Telephone encounter Timur morton MD Work Phone: Gastroenterology Comment on above: prescreening Start: 11-08-2022 ambulatory Manpreet Montiel n DO Work Phone: General Surgery Comment on above: Question regarding I NSULIN ASSAY BLOOD Start: 11-06-2022 ambulatory Jenny Can APRN .TELEPHONE INFORMATION CLERK Work Phone: [facility] [place] Comment on above: Bloodwork Results Start: 11-03-2022 End: 11-03-2022 Patient encounter procedure Jenny Can APRN.TELEPHONE INFORMATION CLERK Work Phone: Internal Medicine [place] Comment on above: Gastroesophageal ref lux disease, unspecified whether esophagitis present (Primary Dx); Dysphagia, unspecified type; Epigastric abdominal tenderness without rebound tenderness Start: 11-01-2022 End: 11-01-2022 ambulatory Manpreet Garsia DO Work Phone: General Surgery Comment on above: Class 3 severe obesi ty with body mass index (BMI) of 45.0 to 49.9 in adult, unspecified obesity type, unspecified whether serious comorbidity present (HCC) (Primary Dx); PCOS (polycystic ovarian syndrome); Vitamin D deficiency Start: 11-01-2022 End: 11-01-2022 Telemedicine consultation with patient Manpreet Garsia DO Work Phone: [facility] Start: 08-23-2022 Refill Jenny Can APRN .TELEPHONE INFORMATION CLERK Work Phone: Internal Medicine [place] Comment on above: Refill Request Start: 08-18-2022 End: 08-18-2022 Patient encounter procedure Fide Vásquez APRN.TELEPHONE INFORMATION CLERK Work Phone: OB/Gynecology Comment on above: Encounter for gyneco logical examination (general) (routine) without abnormal findings (Primary Dx); Screening for malignant neoplasm of cervix; Encounter for screening for human papillomavirus (HPV); Class 3 severe obesity with body mass index (BMI) of 45.0 to 49.9 in adult, unspecified obesity type, unspecified whether serious comorbidity present (HCC) Dizziness (Primary D x); Motion sickness, initial encounter Start: 08-18-2022 End: 08-18-2022 Patient encounter status Fide Vásquez STAPLER MACHINE.AMBER Work Phone: OB/Gynecology Start: 08-14-2022 Refill Jenny Can APRN .TELEPHONE INFORMATION CLERK Work Phone: Internal Medicine [place] Comment on above: Refill Request Start: 03-22-2022 End: 03-22-2022 Patient encounter procedure Jenny Can APRN.AMBER Work Phone: Internal Medicine [place] Comment on above: Anxiety and depressi on (Primary Dx); Insomnia, unspecified type; Gastroesophageal reflux disease without esophagitis; Hirsutism Start: 02-28-2022 Chart abstracting Robbin LIM Work Phone: Psychology Comment on above: Consult ([facility] Pt Out reach F/U) Start: 02-22-2022 End: 02-22-2022 Patient encounter procedure Jenny Can APRN.AMBER Work Phone: Internal Medicine [place] Comment on above: Anxiety and depressi on (Primary Dx); Morbid obesity with BMI of 45.0-49.9, adult ([facility]) Start: 01-27-2022 ambulatory Jenny Can APRN .TELEPHONE INFORMATION CLERK Work Phone: Internal Medicine [place] Comment on above: Question regarding V ITAMIN D 25 HYDROXY Start: 01-25-2022 End: 01-25-2022 Patient encounter procedure Jenny Can APRN.TELEPHONE INFORMATION CLERK Work Phone: Internal Medicine [place] Comment on above: Anxiety and depressi on (Primary Dx); Fatigue, unspecified type; Morbid obesity with BMI of 45.0-49.9, adult (HCC); PCOS (polycystic ovarian syndrome); Elevated testosterone level in female; Hirsutism; Diarrhea, unspecified type; Vitamin D deficiency; Lipid screening Start: 02-25-2019 End: 02-25-2019 Emergency department patient visit [facility] Start: 01-20-2019 Patient encounter procedure BOYD POTTER [facility] Start: 12-19-2018 End: 12-19-2018 Patient encounter procedure MARIA ELENA STILES [facility] Start: 09-23-2018 End: 09-23-2018 Patient encounter procedure MARIA ELENA STILES [facility] Start: 11-23-2010 Patient encounter procedure Candelaria Morrison Facility:[facility] Procedures Date Procedure Procedure Detail Performing Clinician Start: 07-03-2025 Inhlj brncl challenge tstg w/histam/methachol Dulce Barney MD Work Phone: Start: 05-22-2025 Brncdilat rspse spmtry pre&post-brncdilat admn Dulce Barney MD Work Phone: Start: 04-17-2025 Ecg routine ecg w/least 12 lds i&r only Jenny Older STAPLER MACHINE.TELEPHONE INFORMATION CLERK Work Phone: Start: 08-29-2023 Cv strs tst xers&/or rx cont ecg trcg only Jenny Older STAPLER MACHINE.TELEPHONE INFORMATION CLERK Work Phone: Start: 12-27-2022 Radiologic exam chest 2 views Jenny Older STAPLER MACHINE.TELEPHONE INFORMATION CLERK Work Phone: Start: 11-23-2022 Esophagogastroduodenoscopy transoral diagnostic Timur Campos MD Work Phone: Plan of Treatment Date Care Activity Detail Author Start: 12-31-2031 Urine microalbumin profile [facility] Start: 08-18-2027 HPV TESTING HPV TESTING [facility] Start: 08-18-2027 PAP TESTING PAP TESTING [facility] Start: 08-18-2027 Screening for malignant neoplasm of cervix [facility] Start: 07-03-2026 Annual PCP Team Chronic Disease Visit [facility] [place] Start: 04-17-2026 Annual PCP Team Chronic Disease Visit Annual PCP Team Chronic Disease Visit [facility] [place] Start: 03-23-2026 End: 03-23-2026 Patient encounter procedure 03/23/2026 1:30 PM EDT Office Visit OB/Gynecology [address] [place] [address] Fide Vásquez APRN.TELEPHONE INFORMATION CLERK [address] [facility] [place] [address] Annual OB/Gynecology Comment on above: Annual Start: 03-20-2026 Annual PCP Team Chronic Disease Visit Annual PCP Team Chronic Disease Visit [facility] [place] Start: 10-09-2025 End: 10-09-2025 Patient encounter procedure 10/09/2025 1:00 PM EST Office Visit [facility] [place] [address] [place] [address] Jenny Can APRN.TELEPHONE INFORMATION CLERK [address] [place] [address] 3 month follow up [facility] [place] Comment on above: 3 month follow up Start: 08-26-2025 End: 08-26-2025 Patient encounter procedure 08/26/2025 8:20 AM EDT Office Visit Cardiology [address] [place] [address] Patricio Qiu MD [address] [place], [place] [id number] Dyspnea on exertion [R06.09] Cardiology Comment on above: Dyspnea on exertion [R06.09] Start: 07-06-2025 Influenza vaccination [facility] Start: 07-03-2025 End: 07-03-2025 ambulatory 07/03/2025 1:00 PM EDT Procedure [facility] [address] [place] [address] [facility], Pulm Lab [facility] [address] [place] [address] Chest tightness [R07.89] [facility] Comment on above: Chest tightness [R07.89] Start: 07-03-2025 End: 07-03-2025 Patient encounter procedure 07/03/2025 10:40 AM EDT Office Visit Internal Medicine [place] [address] [facility] [address] Jenny Can APRN.TELEPHONE INFORMATION CLERK [address] [facility] [address] 6 wk follow up [facility] [place] Comment on above: 6 wk follow up Start: 06-13-2025 Annual PCP Team Chronic Disease Visit Annual PCP Team Chronic Disease Visit [facility] [place] Start: 06-12-2025 End: 06-12-2025 Patient encounter procedure 06/12/2025 9:40 AM EDT Office Visit Internal [facility] [place] [address] [facility] [address] Jenny Can APRN.TELEPHONE INFORMATION CLERK [address] [facility] [address] 6 wk follow up Internal Medicine [place] Comment on above: 6 wk follow up Start: 06-05-2025 End: 06-05-2025 ambulatory 06/05/2025 1:00 PM EDT Procedure [facility] [address] [facility] [address] [facility], Pulm Lab [facility] [address] [facility] [place] [address] Chest tightness [R07.89] [facility] Comment on above: Chest tightness [R07.89] Start: 05-29-2025 End: 05-29-2025 Patient encounter procedure 05/29/2025 9:20 AM EDT Office Visit Internal Medicine [place] [address] [facility] [address] Jenny Can APRN.TELEPHONE INFORMATION CLERK [address] [facility] [address] 6 wk follow up Internal [facility] [place] Comment on above: 6 wk follow up Start: 05-22-2025 Annual PCP Team Chronic Disease Visit Annual PCP Team Chronic Disease Visit [facility] [place] Start: 05-22-2025 End: 05-22-2025 Patient encounter procedure 05/22/2025 11:00 AM EDT Office Visit Pulmonary Medicine [address] [place] [address] Dulce Barney MD [address] [place] [address] Dyspnea on exertion [R06.09] Pulmonary Medicine Comment on above: Dyspnea on exertion [R06.09] Start: 05-22-2025 End: 05-22-2025 ambulatory 05/22/2025 9:30 AM EDT Procedure [facility] [address] [place] [address] W[facility], Pulm Lab [facility] [address] [place] [address] Dyspnea on exertion [R06.09] [facility] Comment on above: Dyspnea on exertion [R06.09] Start: 04-25-2025 Annual PCP Team Chronic Disease Visit Annual PCP Team Chronic Disease Visit [facility] [place] Start: 04-17-2025 End: 04-17-2025 Patient encounter procedure 04/17/2025 1:40 PM EDT Office Visit Internal Medicine [place] [address] [place] [address] Jenny Can APRN.TELEPHONE INFORMATION CLERK [address] [place] [address] 4 week follow up [facility] [place] Comment on above: 4 week follow up Start: 03-28-2025 Annual PCP Team Chronic Disease Visit Annual PCP Team Chronic Disease Visit [facility] [place] Start: 03-20-2025 End: 06-19-2025 Comprehensive metabolic 2000 panel - Serum or Plasma [facility] Work Phone: Comment on above: Expected: 03/20/2025, Expires: Start: 03-20-2025 End: 06-19-2025 Lipid 1996 panel - Serum or Plasma [facility] [place] Comment on above: Expected: 03/20/2025, Expires: Start: 03-20-2025 End: 08-15-2025 Thyrotropin [Units/volume] in Serum or Plasma [facility] [place] Comment on above: Expected: 03/20/2025, Expires: Start: 03-20-2025 End: 03-20-2025 Patient encounter procedure 03/20/2025 1:00 PM EDT Office Visit OB/Gynecology [address] [place] [address] Fide Vásquez APRN.TELEPHONE INFORMATION CLERK [address] [place] [address] annual OB/Gynecology Comment on above: annual Start: 01-07-2025 End: 01-07-2025 Patient encounter procedure 01/07/2025 3:30 PM EST Office Visit OB/Gynecology [address] [place] [address] Katheryn Yu MD [address] [place] [address] weight management follow up OB/Gynecology Comment on above: weight management follow up Start: 11-21-2024 End: 11-21-2024 Patient encounter procedure 11/21/2024 9:50 AM EST Office Visit OB/Gynecology [address] [place] [address] Katheryn Yu MD [address] [place] [address] (Fax) weight management follow up OB/Gynecology Comment on above: weight management follow up Start: 11-07-2024 Annual PCP Team Chronic Disease Visit Annual PCP Team Chronic Disease Visit [facility] [place] Start: 10-31-2024 Covid-19 Vaccine ( season) Covid-19 Vaccine ( season) [facility] [place] Comment on above: Postponed from 07/06/2023 (Declined at t his time) Start: 10-13-2024 End: 10-13-2024 Nutrition therapy 10/13/2024 1:00 PM EST Education Nutrition Therapy [address] [place] [address] [facility] [address] Eat better and find budget friendly diet Nutrition Therapy Comment on above: Eat better and find budget friendly diet Start: 09-30-2024 End: 12-30-2024 Ferritin [Mass/volume] in Serum or Plasma FERRITIN Lab Routine RLS (restless legs syndrome) Expected: 09/30/2024, Expires: 12/30/2024 [facility] Work Phone: Comment on above: Expected: 09/30/2024, Expires: Start: 09-30-2024 End: 12-30-2024 Iron and Iron binding capacity panel - Serum or Plasma IRON AND TIBC Lab Routine RLS (restless legs syndrome) Expected: 09/30/2024, Expires: 12/30/2024 [facility] [place] Comment on above: Expected: 09/30/2024, Expires: Start: 09-30-2024 End: 09-30-2024 ambulatory 09/30/2024 11:00 AM EST [facility] [address] [place] [address] Lorena Serrano APRN.TELEPHONE INFORMATION CLERK [address] [place] [address] Already had sleep study. Needs to reveiw results Neurology Comment on above: Already had sleep study. Needs to reveiw results Start: 09-19-2024 End: 09-19-2024 Patient encounter procedure 09/19/2024 1:20 PM EST Office Visit Internal Medicine [place] [address] [place] [address] Jenny Can APRN.TELEPHONE INFORMATION CLERK [address] [place] [address] 3 month follow up [facility] [place] Comment on above: 3 month follow up Start: 09-17-2024 End: 09-17-2024 Patient encounter procedure 09/17/2024 2:00 PM EST Office Visit OB/Gynecology [address] [place] [address] Katheryn Yu MD [address] [place] [address] weight management follow up OB/Gynecology Comment on above: weight management follow up Start: 09-12-2024 End: 09-12-2024 Patient encounter procedure 09/12/2024 11:40 AM EST Office Visit [facility] [place] [address] [facility] [place] [address] Jenny Can APRN.TELEPHONE INFORMATION CLERK [address] [place] [address] 3 month follow up Internal [facility] [place] Comment on above: 3 month follow up Start: 09-01-2024 End: 09-01-2024 Nutrition therapy 09/01/2024 12:15 PM EDT Education Nutrition Therapy [address] [place] [address] [place] [address] Weight loss and better nutrition therapy Nutrition Therapy Comment on above: Weight loss and better nutrition therapy Start: 08-02-2024 Annual PCP Team Chronic Disease Visit Annual PCP Team Chronic Disease Visit [facility] [place] Start: 07-25-2024 End: 07-25-2024 Patient encounter procedure 07/25/2024 2:00 PM EDT Office Visit OB/Gynecology [address] [place] [address] Katheryn Yu MD [address] [place] [address] weight managemetnt follow up OB/Gynecology Comment on above: weight managemetnt follow up Start: 07-11-2024 End: 07-11-2024 Patient encounter procedure 07/11/2024 10:00 AM EDT Office Visit Neurology [address] [place] [address] Elevated blood pressure reading without diagnosis of hypertension [R03.0] Neurology Comment on above: Elevated blood pressure reading without diagnosis of hypertension [R03.0] Start: 07-06-2024 Covid-19 Vaccine ( season) Covid-19 Vaccine () [facility] Start: 07-06-2024 Covid-19 Vaccine () Covid-19 Vaccine () [facility] Start: 07-06-2024 Influenza vaccination Influenza Vaccine (#1) [facility] Start: 07-04-2024 PAP TESTING PAP TESTING [facility] [place] Start: 06-26-2024 ANNUAL PCP TEAM CHRONIC DISEASE VISIT ANNUAL PCP TEAM CHRONIC DISEASE VISIT [facility] [place] Start: 06-20-2024 End: 09-19-2024 25-hydroxyvitamin D3 [Mass/volume] in Serum or Plasma [facility] Work Phone: Comment on above: Expected: 06/20/2024, Expires: Start: 06-20-2024 End: 06-20-2024 Patient encounter procedure 06/20/2024 11:40 AM EDT Office Visit Internal Medicine [place] [address] [place] [address] Jenny Can APRN.TELEPHONE INFORMATION CLERK [address] [place], [place] [address] [facility] [place] Comment on above: [facility] Start: 06-20-2024 End: 06-20-2024 Patient encounter procedure 06/20/2024 10:20 AM EDT Office Visit OB/Gynecology [address] [place] [address] Katheryn Yu MD [address] [place] [address] New wt mgnt OB/Gynecology Comment on above: New wt mgnt Start: 06-13-2024 End: 06-13-2024 Patient encounter procedure 06/13/2024 1:00 PM EDT Office Visit [facility] [place] [address] [place], [place] [address] Jenny Can APRN.TELEPHONE INFORMATION CLERK [address] [place] [address] 4 week [facility] [place] Comment on above: 4 week [facility] Start: 05-22-2024 End: 05-22-2024 Patient encounter procedure 05/22/2024 11:00 AM EDT Office Visit Internal Medicine [place] [address] [place] [address] Jenny Can, STAPLER MACHINE.TELEPHONE INFORMATION CLERK [address] [place] [address] [facility] [place] Comment on above: [facility] Start: 04-25-2024 End: 04-25-2024 Patient encounter procedure 04/25/2024 11:00 AM EDT Office Visit Internal Medicine [place] [address] [place] [address] Jenny Can, STAPLER MACHINE.TELEPHONE INFORMATION CLERK [address] [place] [address] [facility] follow up [facility] [place] Comment on above: [employer] follow up Start: 03-28-2024 End: 03-28-2024 Patient encounter procedure 03/28/2024 8:40 AM EDT Office Visit Internal Medicine [place] [address] [place] [address] Jenny Can, STAPLER MACHINE.TELEPHONE INFORMATION CLERK [address] [place] [address] 3 month follow up [facility] [place] Comment on above: 3 month follow up Start: 03-14-2024 End: 06-13-2024 Insulin [Units/volume] in Serum or Plasma [facility] Work Phone: Comment on above: Expected: 03/14/2024, Expires: Start: 03-14-2024 End: 06-13-2024 Thyrotropin [Units/volume] in Serum or Plasma [facility] [place] Comment on above: Expected: 03/14/2024, Expires: Start: 12-27-2023 ANNUAL PCP TEAM CHRONIC DISEASE VISIT ANNUAL PCP TEAM CHRONIC DISEASE VISIT [facility] [place] Start: 11-03-2023 ANNUAL PCP TEAM CHRONIC DISEASE VISIT ANNUAL PCP TEAM CHRONIC DISEASE VISIT [facility] [place] Start: 08-18-2023 ANNUAL PCP TEAM CHRONIC DISEASE VISIT ANNUAL PCP TEAM CHRONIC DISEASE VISIT [facility] [place] Start: 08-02-2023 End: 10-02-2023 Cobalamin (Vitamin B12) [Mass/volume] in Serum or Plasma [facility] Work Phone: Comment on above: Expected: 08/02/2023, Expires: 3 Start: 08-02-2023 End: 10-02-2023 Comprehensive metabolic 2000 panel - Serum or Plasma [facility] Work Phone: Comment on above: Expected: 08/02/2023, Expires: 3 Start: 08-02-2023 End: 10-02-2023 Hemoglobin A1c in Blood [facility] Work Phone: Comment on above: Expected: 08/02/2023, Expires: 3 Start: 08-02-2023 End: 10-02-2023 Lipid 1996 panel - Serum or Plasma [facility] Work Phone: Comment on above: Expected: 08/02/2023, Expires: 3 Start: 08-02-2023 End: 10-02-2023 Magnesium [Mass/volume] in Serum or Plasma [facility] Work Phone: Comment on above: Expected: 08/02/2023, Expires: 3 Start: 08-02-2023 End: 10-02-2023 Thyrotropin [Units/volume] in Serum or Plasma [facility] Work Phone: Comment on above: Expected: 08/02/2023, Expires: 3 Start: 08-02-2023 End: 10-02-2023 Thyroxine (T4) free [Mass/volume] in Serum or Plasma [facility] Work Phone: Comment on above: Expected: 08/02/2023, Expires: 3 Start: 07-06-2023 Covid-19 Vaccine () Covid-19 Vaccine () [facility] [place] Start: 07-06-2023 Influenza vaccination [facility] Start: 07-03-2023 End: 09-02-2023 Thyrotropin [Units/volume] in Serum or Plasma TSH BLD Lab Routine Acquired hypothyroidism Expected: 07/03/2023, Expires: 09/02/2023 [facility] Work Phone: Comment on above: Expected: 07/03/2023, Expires: Start: 05-04-2023 Influenza vaccination INFLUENZA (#1) [facility] Comment on above: Postponed from 07/06/2022 (Declined at t his time) Start: 03-22-2023 ANNUAL PCP TEAM CHRONIC DISEASE VISIT ANNUAL PCP TEAM CHRONIC DISEASE VISIT [facility] Start: 02-22-2023 ANNUAL PCP TEAM CHRONIC DISEASE VISIT ANNUAL PCP TEAM CHRONIC DISEASE VISIT [facility] [place] Start: 01-25-2023 ANNUAL PCP TEAM CHRONIC DISEASE VISIT ANNUAL PCP TEAM CHRONIC DISEASE VISIT [facility] [place] Start: 01-25-2023 COVID-19 VACCINE (3 - Booster for Pfizer series) COVID-19 VACCINE (3 - Booster for Pfizer series) [facility] Comment on above: Postponed from 12/03/2021 (Declined at t his time) Postponed from 08/28 (Declined at this time) Start: 01-25-2023 HPV TESTING HPV TESTING [facility] Comment on above: Postponed from 2021 (Declined at t his time) Start: 01-16-2023 End: 03-18-2023 SCHEDULE LAB TESTING SCHEDULE LAB TESTING Lab Routine Expected: 01/16/2023, Expires: 03/18/2023 [facility] Work Phone: Comment on above: Expected: 01/16/2023, Expires: 3 Start: 01-16-2023 End: 03-18-2023 Thyrotropin [Units/volume] in Serum or Plasma TSH BLD Lab Routine Acquired hypothyroidism Expected: 01/16/2023, Expires: 03/18/2023 [facility] Work Phone: Comment on above: Expected: 01/16/2023, Expires: 3 Start: 12-27-2022 End: 01-10-2023 Influenza virus A and B RNA and SARS-CoV-2 (COVID-19) N gene panel - Respiratory specimen by AVRIL with probe detection [facility] Work Phone: Comment on above: Expected: 12/27/2022, Expires: 3 Start: 11-30-2022 End: 01-30-2023 GLIADIN (DEAMINATED) ABS GLIADIN (DEAMINATED) ABS Lab Routine Family history of celiac disease Expected: 11/30/2022, Expires: 01/30/2023 [facility] Work Phone: Comment on above: Expected: 11/30/2022, Expires: 3 Start: 11-30-2022 End: 01-30-2023 IgA [Mass/volume] in Serum or Plasma IGA BLD Lab Routine Family history of celiac disease Expected: 11/30/2022, Expires: 01/30/2023 [facility] Work Phone: Comment on above: Expected: 11/30/2022, Expires: 3 Start: 11-30-2022 End: 01-30-2023 Tissue transglutaminase IgA Ab [Units/volume] in Serum TRANSGLUTAMINASE IGA Lab Routine Family history of celiac disease Expected: 11/30/2022, Expires: 01/30/2023 [facility] Work Phone: Comment on above: Expected: 11/30/2022, Expires: 3 Start: 11-30-2022 End: 01-30-2023 Tissue transglutaminase IgG Ab [Units/volume] in Serum TRANSGLUTAMINASE IGG Lab Routine Family history of celiac disease Expected: 11/30/2022, Expires: 01/30/2023 [facility] Work Phone: Comment on above: Expected: 11/30/2022, Expires: 3 Start: 07-06-2022 Influenza vaccination [facility] Start: 05-04-2022 Influenza vaccination INFLUENZA (#1) [facility] Comment on above: Postponed from 07/06/2021 (Declined at t his time) Start: 01-25-2022 End: 03-27-2022 LIPID PANEL BASIC LIPID PANEL BASIC Lab Routine Lipid screening Expected: 01/25/2022, Expires: 03/27/2022 [facility] Work Phone: Comment on above: Expected: 01/25/2022, Expires: 2 Start: 01-25-2022 End: 03-27-2022 Testosterone [Mass/volume] in Serum or Plasma TESTOSTERONE TOTAL Lab Routine PCOS (polycystic ovarian syndrome) Elevated testosterone level in female Expected: 01/25/2022, Expires: 03/27/2022 [facility] Work Phone: Comment on above: Expected: 01/25/2022, Expires: 2 Start: 01-25-2022 End: 03-27-2022 Thyrotropin [Units/volume] in Serum or Plasma TSH BLD Lab Routine Fatigue, unspecified type Expected: 01/25/2022, Expires: 03/27/2022 [facility] Work Phone: Comment on above: Expected: 01/25/2022, Expires: 2 Start: 01-25-2022 End: 03-27-2022 VITAMIN D 25 HYDROXY VITAMIN D 25 HYDROXY Lab Routine Vitamin D deficiency Expected: 01/25/2022, Expires: 03/27/2022 [facility] Work Phone: Comment on above: Expected: 01/25/2022, Expires: 2 Start: 08-28-2021 COVID-19 VACCINE (3 - Booster for Pfizer series) COVID-19 VACCINE (3 - Booster for Pfizer series) [facility] Start: 08-28-2021 COVID-19 VACCINE (3 - Pfizer series) COVID-19 VACCINE (3 - Pfizer series) [facility] Start: 2018 HPV Vaccine (1 - 3-dose SCDM series) HPV Vaccine (1 - 3-dose SCDM series) [facility] Start: 1991 HEPATITIS B (1 of 3 - 3-dose series) HEPATITIS B (1 of 3 - 3-dose series) [facility] Start: 1991 Hepatitis B Vaccine (1 of 3 - 3-dose series) Hepatitis B Vaccine (1 of 3 - 3-dose series) [facility] Chlamydia trachomatis+Neisseria gonorrhoeae DNA [Presence] in Unspecified specimen by AVRIL with probe detection GONORRHEA/CHLAMYDIA NAAT Lab Routine Screen for STD (sexually transmitted disease) 03/20/2025 1:31 PM EDT [facility] End: 08-02-2024 ECG COMPLETE ECG COMPLETE ECG Routine Sensation of chest pressure Dyspnea on exertion Family history of due to heart problem at 50 years of age or younger Palpitation 1 Occurrences starting 08/02/2023 until 08/02/2024 [facility] Work Phone: Comment on above: 1 Occurrences starting 08/02/2023 until 08/02/2024 ECG COMPLETE ECG COMPLETE ECG Routine Dyspnea on exertion Chest heaviness 04/17/2025 9:36 AM EDT [facility] Work Phone: End: 08-02-2024 Echocardiography ECHO Cardiology Routine Sensation of chest pressure Dyspnea on exertion Family history of due to heart problem at 50 years of age or younger Palpitation 1 Occurrences starting 08/02/2023 until 08/02/2024 [facility] Work Phone: Comment on above: 1 Occurrences starting 08/02/2023 until 08/02/2024 End: 11-17-2023 EGD DIAGNOSTIC EGD DIAGNOSTIC Endoscopy Routine Dysphagia, unspecified type 1 Occurrences starting 11/17/2022 until 11/17/2023 [facility] Work Phone: Comment on above: 1 Occurrences starting 11/17/2022 until 11/17/2023 End: 08-02-2024 EXERCISE STRESS ECG (WITHOUT IMAGING) EXERCISE STRESS ECG (WITHOUT IMAGING) Cardiology Routine Sensation of chest pressure Dyspnea on exertion Family history of due to heart problem at 50 years of age or younger 1 Occurrences starting 08/02/2023 until 08/02/2024 [facility] Work Phone: Comment on above: 1 Occurrences starting 08/02/2023 until 08/02/2024 End: 06-21-2026 METHACHOLINE CHALLENGE METHACHOLINE CHALLENGE PFT Routine Chest tightness 1 Occurrences starting 05/22/2025 until 06/21/2026 [facility] Work Phone: Comment on above: 1 Occurrences starting 05/22/2025 until 06/21/2026 PAP FLUID CERVICAL SCREENING PAP FLUID CERVICAL SCREENING Lab Routine Screening for malignant neoplasm of cervix Encounter for screening for human papillomavirus (HPV) Ordered: 08/18/2022 [facility] Work Phone: Comment on above: Ordered: 08/18/2022 Patient Education ED Conjunctivi tis, Nonspecific [facility] Work Phone: Patient referral [facility] Work Phone: End: 09-30-2025 Polysomnogram POLYSOMNOGRAM (PSG) Procedures Routine RLS (restless legs syndrome) Snoring Chronic insomnia Morning headache Non-restorative sleep Frequent nocturnal awakening 1 Occurrences starting 09/30/2024 until 09/30/2025 [facility] Comment on above: 1 Occurrences starting 09/30/2024 until 09/30/2025 SURGICAL PATHOLOGY [facility] Work Phone: Comment on above: Release Upon Ordering for 1 Occurrences starting 11/23/2022, 1 completed TRICHOMONAS VAGINALI S NAAT TRICHOMONAS VAGINALIS NAAT Lab Routine Screen for STD (sexually transmitted disease) 03/20/2025 1:31 PM EDT [facility] Work Phone: End: 12-03-2023 Us abdominal real time w/image limited US ABD RT UPPER QUADRANT Radiology Routine Epigastric abdominal tenderness without rebound tenderness 1 Occurrences starting 11/03/2022 until 12/03/2023 [facility] Work Phone: Comment on above: 1 Occurrences starting 11/03/2022 until 12/03/2023 [facility] Immunizations Immunization Date Immunization Notes Care Provider Catarino alicia 08-03-2023 Seasonal, quadrivale nt, recombinant, injectable influenza vaccine, preservative free Jenny Older STAPLER MACHINE.TELEPHONE INFORMATION CLERK Work Phone: [facility] 08-03-2023 influenza virus vaccine, unspecified formulation Jenny Older STAPLER MACHINE.TELEPHONE INFORMATION CLERK Work Phone: [facility] 12-31-2021 tetanus toxoid, redu lionel diphtheria toxoid, and acellular pertussis vaccine, adsorbed Jenny Older STAPLER MACHINE.TELEPHONE INFORMATION CLERK Work Phone: [facility] 06-12-2021 COVID-19 vaccine, ag e 12+ yr ([employer] - PURPLE TOP) Jenny Older STAPLER MACHINE.TELEPHONE INFORMATION CLERK Work Phone: [facility] 12-04-2018 influenza virus vaccine, unspecified formulation Jenny Older STAPLER MACHINE.TELEPHONE INFORMATION CLERK Work Phone: [facility] 10-06-2015 tetanus toxoid, redu lionel diphtheria toxoid, and acellular pertussis vaccine, adsorbed Jenny Older STAPLER MACHINE.TELEPHONE INFORMATION CLERK Work Phone: [facility] Work Phone: 05-19-2010 tetanus toxoid, redu lionel diphtheria toxoid, and acellular pertussis vaccine, adsorbed Jenny Older STAPLER MACHINE.TELEPHONE INFORMATION CLERK Work Phone: [facility] 06-11-2008 hepatitis B vaccine, pediatric or pediatric/adolescent dosage Jenny Older STAPLER MACHINE.TELEPHONE INFORMATION CLERK Work Phone: [facility] 01-16-2002 varicella virus vaccine Jenny Older STAPLER MACHINE.TELEPHONE INFORMATION CLERK Work Phone: [facility] 07-31-2000 hepatitis B vaccine, pediatric or pediatric/adolescent dosage Jenny Older STAPLER MACHINE.TELEPHONE INFORMATION CLERK Work Phone: [facility] 06-14-1999 hepatitis B vaccine, pediatric or pediatric/adolescent dosage Jenny Older STAPLER MACHINE.TELEPHONE INFORMATION CLERK Work Phone: [facility] Payers Date Payer Category Payer Self-pay [id number] 2023 Private Health Insurance [id number] 2023 Private Health Insurance [id number] 2023 Unknown [id number] 2021 Government (not [facility] care or Medicaid) [facility] [place] Address: [address] [place] [address] [id number] 12-31-[address] [facility] [place] [facility] [id number] 12/31/2021-Present [phone] [address] [place] [address] [facility] [id number] 08-23-2021 Unknown [employer] [id number] 08/23/2021-Present [phone] [address] [place] [address] [facility] [id number] 08-23-2021 Unknown [id number] 1991 Unknown [id number] 1991 Unknown [id number] 1991 Unknown [id number] 297 1991 Unknown [id number] Unknown [id number] Unknown [id number] Unknown [id number] Unknown [id number] Unknown [facility] [id number] Unknown [id number] 462 Unknown [id number] 462 Social History Date Type Detail Facility Start: 07-05-2016 End: 08-18-2022 Tobacco smoking status NHIS Never smoked tobacco [facility] Start: 07-05-2016 End: 08-18-2022 Tobacco use and exposure Smokeless tobacco non-user [facility] Start: 01-25-2022 End: 07-03-2025 Alcohol intake Current drinker of alcohol (finding) [facility] Start: 05-21-2021 End: 11-02-2022 History SDOH Alcohol Frequency 3 [facility] Start: 05-21-2021 End: 11-02-2022 History SDOH Alcohol Std Drinks 1 [facility] Start: 07-04-2019 History SDOH Alcohol Comment Occasionally [facility] Start: 05-21-2021 End: 11-02-2022 History SDOH Social Connections Phone 4 [facility] Start: 05-21-2021 End: 11-02-2022 History SDOH Social Connections Get Together 2 [facility] Start: 05-21-2021 End: 11-02-2022 History SDOH Social Connections Living 8 [facility] Start: 05-20-2021 Education 15 [facility] Start: 07-05-2016 End: 08-18-2022 Tobacco Comment pt states that father smoked inside when he was living [facility] Start: 1990 Sex Assigned At Female C [facility] Start: 01-15-2022 End: 03-22-2022 Exposure to SARS-CoV-2 (event) Unable to assess [facility] Start: 02-12-2022 End: 08-18-2022 Exposure to SARS-CoV-2 (event) Not sure [facility] Start: 03-04-2023 Tobacco smoking stat us NHIS Unknown if ever smoked [facility] Start: 11-01-2022 End: 07-11-2024 History of Social function [facility] Start: 11-01-2022 End: 07-11-2024 Social connection and isolation panel [facility] Do you belong to any clubs or organizations such as mandaeism groups, unions, fraternal or athletic groups, or school groups? No [facility] Are you now , , , , never or living with a partner? Living with partner [facility] How often to you hav e a drink containing alcohol? Monthly or less [facility] How many standard drinks containing alcohol do you have on a typical day? 1 or 2 [facility] How often do you hav e 6 or more drinks on 1 occasion? Less than monthly [facility] How hard is it for y ou to pay for the very basics like food, housing, medical care, and heating Hard [facility] Start: 07-03-2016 Adult Depression Screening Assessment 2 [facility] Do you feel stress - tense, restless, nervous, or anxious, or unable to sleep at night because your mind is troubled all the time - these days [OSQ] To some extent [facility] (I/We) worried wheth er (my/our) food would run out before (I/we) got money to buy more. Often true [facility] The food that (I/we) bought just didn't last, and (I/we) didn't have money to get more. Sometimes true [facility] Start: 02-02-2020 Gender identity Identifies as female gender (finding) [facility] Start: 02-02-2020 Sexual orientation Heterosexual (marcello núñez) [facility] Do you feel stress - tense, restless, nervous, or anxious, or unable to sleep at night because your mind is troubled all the time - these days [OSQ] Very much [facility] How often do you hav e 6 or more drinks on 1 occasion? Never [facility] NEGATED: Highlighted row [facility] Functional Status Date Assessment Result Facility 01-02-2022 Are you deaf, or do you have serious difficulty hearing No 01/02/2022 2:06 PM Booker Maza, [place] No [facility] 01-02-2022 Are you blind, or do you have serious difficulty seeing, even when wearing glasses No 01/02/2022 2:06 PM Booker Maza, [place] No [facility] 01-02-2022 Do you have serious difficulty walking or climbing stairs No 01/02/2022 2:06 PM Booker Maza, EL[place] No [facility] 01-02-2022 Do you have difficul ty dressing or bathing No 01/02/2022 2:06 PM Booker Maza, ELOD[place] No [facility] 01-02-2022 Because of a physica l, mental, or emotional condition, do you have difficulty doing errands alone such as visiting a physician's office or shopping No 01/02/2022 2:06 PM Booker Maza, ELOD[place] No [facility] Mental Status Date Assessment Result Facility 01-02-2022 Because of a physica l, mental, or emotional condition, do you have serious difficulty concentrating, remembering, or making decisions No 01/02/2022 2:06 PM Booker Maza, ELODIA No [facility] Clinical Notes 01-25-2022 to 07-03-2025 Patient InstructionsJenny Can APRN.[facility] - 07/03/2025 10:58 AM EDTTelephone Encounter - Jeaneth Cates RPFT - 07/01/2025 7:08 AM Dulce Buck MD - 05/22/2025 11:00 AM EDT Note Date & Type Note Facility 07-03-2025 Jenny Hopkins APRN.[facility] - 07/03/2025 11:10 AM EDT - Continue fluoxetine 40 mg once daily; prescription has been corrected and sent to your pharmacy. - Continue Abilify as prescribed by your psychiatrist. - Adjust topiramate for migraine prevention: - Tonight, take three 25 mg tablets (75 mg total) at bedtime for the next few nights. - If you tolerate that dose, increase to four 25 mg tablets (100 mg total) at bedtime. - Once you re tolerating the 100 mg dose,call or send a my chart message and I will send a 3-month prescription for 100 mg tablets. - Continue sumatriptan as needed for acute migraine relief; no refill is needed now. - Use [employer] to let me know how you re tolerating the topiramate in about one week (no later than two weeks). - Attend your methacholine challenge with pulmonology today at 1:00 PM as scheduled. - Begin light physical activity--aim for 5-10 minutes of walking, wall sits, countertop push-ups, or dancing a few times each day. - Monitor your eating with portion control: focus on moderate carbohydrates, higher protein, and low-fat choices. - Schedule a follow-up visit in 3 months to review your lung and heart results and discuss weight-loss options; if you finish your cardiology evaluation sooner and want to see me earlier, request an appointment via [employer]. documented in this encounter [facility] 07-03-2025 Note HNO ID: [id number] Author: JENNY CAN APRN.AMBER Service: ? Author Type: Nurse Practitioner Type: Progress Notes Filed: 07/03/2025 12:47 Note Text: CC: Patient presents with: Recheck: 6 week follow up HPI Nichole Pittman is a 34 year old female who presents today for follow up. Recording using 1-800-DOCTORS software for draft documentation of the visit was discussed with the patient/authorized medical center representative; all questions welcomed and answered. Patient/authorized medical center representative agreed to proceed Anxiety and Depression: - Well-controlled on fluoxetine 40 mg daily. - No changes in Nichole's appetite or sleep. - Nichole denies suicidal or homicidal ideation. Migraines without aura: - Nichole is taking topiramate 25 mg BID; reports taking 50 mg QHS due to work schedule. - Migraines occur approximately once a month, often associated with menstruation. - Nichole occasionally misses work due to migraines. - Using sumatriptan, sometimes requires two doses for relief. - Associated symptoms include photophobia and nausea. - Nichole denies side effects from topiramate, such as confusion, weakness, numbness, word-finding difficulties, or extreme fatigue. - denies confusion, weakness, numbness, chest pressure, change in dyspnea on exertion she is seeing pulmonology and cardiology for, or edema. Obesity: - Previous use of phentermine with significant weight loss. - Current weight management includes topiramate. - No regular exercise currently. REVIEW OF SYSTEMS See HPI PAST MEDICAL HISTORY Diagnosis Date Anxiety and depression Anxiety state COVID-19 09/2020 Depression Hypothyroidism Resolved Insulin resistance 06/20/2024 Migraines PAST SURGICAL HISTORY Procedure Laterality Date EGD BIOPSY SING OR MULT 11/23/2022 variable ge jx; longitudinal furrows distal esophagus INSERTION OF IUD 04/25/2021 UNSPECIFIED ORAL SURGERY PROCEDURE, BY REPORT wisdom teeth ALLERGIES Penicillins, Amoxicillin, and Ceftriaxone MEDICATIONS FLUoxetine (PROZAC) 40 mg capsule Take 1 capsule by mouth once daily. topiramate (TOPAMAX) 100 mg tablet Take 1 tablet by mouth two times a day. SUMAtriptan (IMITREX) 50 mg tablet Take one tablet by mouth at the onset of the headache. If no improvement in 2 hours take one more tablet. No more than 2 tablets in 24 hours ARIPiprazole (ABILIFY) 2 mg tablet Take 5 mg by mouth once daily. Prescribed by Dr. Wally Nayak psych levonorgestrel (MIRENA) 20 mcg/24 hours (6 yrs) 52 mg IUD 1 Each by INTRAUTERINE route as directed. FAMILY HISTORY Problem Relation Age of Onset Barretts Esophagus Mother Hypertension Mother Fibromyalgia Mother other (Barrets Esphogus) Mother Clotting Disorder Mother other (diverticulitis) Mother Diabetes Mother Heart Father 45 of heart attack Hypertension Brother other (borderline diabetes) Brother Cataract Maternal Grandmother Celiac Disease Maternal Grandmother Glaucoma Maternal Grandfather Diabetes Maternal Grandfather other (Gout) Maternal Grandfather COPD Paternal Grandmother Heart disease Paternal Grandfather cardiac bypass Colon Polyps Paternal great-grandmother Glaucoma Maternal great-grandmother Colon Polyps Maternal great-grandmother Colon Cancer No Family History SOCIAL HISTORY[1] PHYSICAL EXAM BP 118/82 Pulse 78 Resp 16 Wt 112.5 kg (248 lb) LMP (LMP Unknown) SpO2 97% BMI 47.75 kg/m? General Appearance: well appearing, in no acute distress, alert Behavior: good eye contact Speech: normal and fluent and coherent Mood: happy Affect: appropriate Perceptions: none Thought process: goal directed Thought Content: normal Intelligence level: normal Insight: good Judgment: good Lungs: Lungs clear to auscultation. No wheezing, rhonchi, rales. Heart: RRR without murmur, gallop, or rubs. No ectopy Health maintenance reviewed with patient: HPV Vaccine(1 - 3-dose SCDM series) Never done Influenza Vaccine(1) due on 07/06/2025 Annual PCP Team Chronic Disease Visit due on 07/03/2026 Cervical Cancer Screening due on 08/18/2027 DTaP,Tdap,Td Vaccine(4 - Td or Tdap) due on 12/31/2031 Hepatitis B Vaccine Completed Hepatitis C Screening Discontinued HIV Screening Discontinued DATA REVIEWED: No new labs Assessment/Plan 1. Migraine without aura and without status migrainosus, not intractable (G43.009) - Migraines occurring approximately once per month, often associated with menstruation; symptoms include photophobia and nausea. - Migraines have improved in frequency and severity with current regimen. - Continue sumatriptan as needed. - Increase topiramate from 50 mg nightly (2 x 25 mg) to 75 mg nightly (3 x 25 mg) for a few days, then to 100 mg nightly (4 x 25 mg) as tolerated; will provide 100 mg tablets for 90-day supply once tolerability confirmed. - Advised patient to report any side effects or intolerance promptly via frintithart. 2. Anxiety and depression ( (more content not included)... [facility] 07-03-2025 History of Present illness Narrative CC: Patient presents with: Recheck: 6 week follow up HPI Nichole Pittman is a 34 year old female who presents today for follow up. Recording using 1-800-DOCTORS software for draft documentation of the visit was discussed with the patient/authorized medical center representative; all questions welcomed and answered. Patient/authorized medical center representative agreed to proceed Anxiety and Depression: - Well-controlled on fluoxetine 40 mg daily. - No changes in Nichole's appetite or sleep. - Nichole denies suicidal or homicidal ideation. Migraines without aura: - Nichole is taking topiramate 25 mg BID; reports taking 50 mg QHS due to work schedule. - Migraines occur approximately once a month, often associated with menstruation. - Nichole occasionally misses work due to migraines. - Using sumatriptan, sometimes requires two doses for relief. - Associated symptoms include photophobia and nausea. - Nichole denies side effects from topiramate, such as confusion, weakness, numbness, word-finding difficulties, or extreme fatigue. - denies confusion, weakness, numbness, chest pressure, change in dyspnea on exertion she is seeing pulmonology and cardiology for, or edema. Obesity: - Previous use of phentermine with significant weight loss. - Current weight management includes topiramate. - No regular exercise currently. REVIEW OF SYSTEMS See HPI PAST MEDICAL HISTORY Diagnosis Date Anxiety and depression Anxiety state COVID-19 09/2020 Depression Hypothyroidism Resolved Insulin resistance 06/20/2024 Migraines PAST SURGICAL HISTORY Procedure Laterality Date EGD BIOPSY SING OR MULT 11/23/2022 variable ge jx; longitudinal furrows distal esophagus INSERTION OF IUD 04/25/2021 UNSPECIFIED ORAL SURGERY PROCEDURE, BY REPORT wisdom teeth ALLERGIES Penicillins, Amoxicillin, and Ceftriaxone MEDICATIONS FLUoxetine (PROZAC) 40 mg capsule Take 1 capsule by mouth once daily. topiramate (TOPAMAX) 100 mg tablet Take 1 tablet by mouth two times a day. SUMAtriptan (IMITREX) 50 mg tablet Take one tablet by mouth at the onset of the headache. If no improvement in 2 hours take one more tablet. No more than 2 tablets in 24 hours ARIPiprazole (ABILIFY) 2 mg tablet Take 5 mg by mouth once daily. Prescribed by Dr. Wally Nayak psych levonorgestrel (MIRENA) 20 mcg/24 hours (6 yrs) 52 mg IUD 1 Each by INTRAUTERINE route as directed. FAMILY HISTORY Problem Relation Age of Onset Barretts Esophagus Mother Hypertension Mother Fibromyalgia Mother other (Barrets Esphogus) Mother Clotting Disorder Mother other (diverticulitis) Mother Diabetes Mother Heart Father 45 of heart attack Hypertension Brother other (borderline diabetes) Brother Cataract Maternal Grandmother Celiac Disease Maternal Grandmother Glaucoma Maternal Grandfather Diabetes Maternal Grandfather other (Gout) Maternal Grandfather COPD Paternal Grandmother Heart disease Paternal Grandfather cardiac bypass Colon Polyps Paternal great-grandmother Glaucoma Maternal great-grandmother Colon Polyps Maternal great-grandmother Colon Cancer No Family History SOCIAL HISTORY[1] PHYSICAL EXAM BP 118/82 Pulse 78 Resp 16 Wt 112.5 kg (248 lb) LMP (LMP Unknown) SpO2 97% BMI 47.75 kg/m General Appearance: well appearing, in no acute distress, alert Behavior: good eye contact Speech: normal and fluent and coherent Mood: happy Affect: appropriate Perceptions: none Thought process: goal directed Thought Content: normal Intelligence level: normal Insight: good Judgment: good Lungs: Lungs clear to auscultation. No wheezing, rhonchi, rales. Heart: RRR without murmur, gallop, or rubs. No ectopy Health maintenance reviewed with patient: HPV Vaccine(1 - 3-dose SCDM series) Never done Influenza Vaccine(1) due on 07/06/2025 Annual PCP Team Chronic Disease Visit due on 07/03/2026 Cervical Cancer Screening due on 08/18/2027 DTaP,Tdap,Td Vaccine(4 - Td or Tdap) due on 12/31/2031 Hepatitis B Vaccine Completed Hepatitis C Screening Discontinued HIV Screening Discontinued DATA REVIEWED: No new labs Assessment/Plan 1. Migraine without aura and without status migrainosus, not intractable (G43.009) - Migraines occurring approximately once per month, often associated with menstruation; symptoms include photophobia and nausea. - Migraines have improved in frequency and severity with current regimen. - Continue sumatriptan as needed. - Increase topiramate from 50 mg nightly (2 x 25 mg) to 75 mg nightly (3 x 25 mg) for a few days, then to 100 mg nightly (4 x 25 mg) as tolerated; will provide 100 mg tablets for 90-day supply once tolerability confirmed. - Advised patient to report any side effects or intolerance promptly via frintithart. 2. Anxiety and depression (F41.9) - Well controlled on fluoxetine 40 mg daily; no suicidal or homicidal ideation. - Clarified prescription instructions to ensure patient continues 40 mg daily dosing. - Continue fluoxetine 40 mg daily. - Reviewed concept of neurochemical imbalance wth depression/anxiety, treatment options and benefits of counseling in combination with medication. Also reviewed benefits of sleep hygeine, diet and exercise - Instructed patient to contact office or [id number] after-hours promptly should condition worsen or any new symptoms appear. - Counseling Center [facility] and after hours crisis line 3. Class 3 severe obesity with body mass index (BMI) of 45.0 to 49.9 in adult, unspecified obesity type, unspecified whether serious comorbidity present (HCC) (E66.343) - History of significant weight loss with prior phentermine use; currently on topiramate with some additional weight loss. - Advised patient to begin light physical activity (e.g., walking, wall sits, countertop push-ups, or dancing) for 5-10 minutes a few times daily. - Recommended dietary modifications focusing on portion control, carbohydrate restriction, high protein, and low fat intake. - Discussed potential for resuming phentermine after cardiology evaluation in August due to family history of early cardiac and her Shortness of Breath on exertion. - Follow-up in 3 months to reassess weight management and consider addition of phentermine pending cardiology evaluation. Prescription instructions reviewed with patient as applicable. Potential red flag symptoms discussed with the patient. Reviewed appropriate action plan to take if red flag symptoms occur. Patient agreeable to treatment plan. Jenny Can APRN.CNP [1] Social History Tobacco Use Smoking status: Never Smokeless tobacco: Never Tobacco comments: pt states that father smoked inside when he was living Vaping Use Vaping status: Never Used Substance Use Topics Alcohol use: Yes Comment: Occasionally Drug use: Never documented in this encounter [facility] 07-01-2025 Telephone encounter Note July 01, 2025 Dear Nichole Pittman, This is to remind you of your upcoming pulmonary function challenge procedure. You have been scheduled for the following: Test: Date: 07/03/25 Time: 01:00PM Location: Pulmonology 2nd floor [facility] For all pulmonary function challenge procedures (methacholine), the following medications should be withheld prior to your appointment. There are different periods of time you will need to withhold medication depending on the type. Please call [phone] (Scheduling) if these appointments are not convenient or you are unable to make this appointment. For the Methacholine Challenge procedure, the following medications should be withheld prior to appointment: Short-acting bronchodilator: 6 hours (albuterol, ProAir, Proventil, Ventolin, Xopenex, Combivent, DuoNeb) Long-acting bronchodilator: 36 hours (1.5 days) (Serevent, Advair, AirDuo, Dulera, Symbicort, Wixela) Ultra-long -acting bronchodilator: 48 hours (2 days) (Arcapta, Striverdi, Breo, Perforomist, Brovana) Ipratropium: 12 hours (Atrovent) Long- acting muscarinics (anticholenergic): at least 7 days (Incruse, Spiriva, Tudorza, Lonhala Magnair, Yupelri, Trelegy, Anoro, Bevespi, Duaklir, Stiolto, Breztri) Oral theophylline: 24 hours Thank you for choosing [facility] for your healthcare. Sincerely, Your Care Team [facility] 07-01-2025 Miscellaneous Notes July 01, 2025 Dear Nichole iPttman, This is to remind you of your upcoming pulmonary function challenge procedure. You have been scheduled for the following: Test: Date: 07/03/25 Time: 01:00PM Location: Pulmonology 2nd floor [facility] For all pulmonary function challenge procedures (methacholine), the following medications should be withheld prior to your appointment. There are different periods of time you will need to withhold medication depending on the type. Please call [phone] (Scheduling) if these appointments are not convenient or you are unable to make this appointment. For the Methacholine Challenge procedure, the following medications should be withheld prior to appointment: Short-acting bronchodilator: 6 hours (albuterol, ProAir, Proventil, Ventolin, Xopenex, Combivent, DuoNeb) Long-acting bronchodilator: 36 hours (1.5 days) (Serevent, Advair, AirDuo, Dulera, Symbicort, Wixela) Ultra-long -acting bronchodilator: 48 hours (2 days) (Arcapta, Striverdi, Breo, Perforomist, Brovana) Ipratropium: 12 hours (Atrovent) Long- acting muscarinics (anticholenergic): at least 7 days (Incruse, Spiriva, Tudorza, Lonhala Magnair, Yupelri, Trelegy, Anoro, Bevespi, Duaklir, Stiolto, Breztri) Oral theophylline: 24 hours Thank you for choosing [facility] for your healthcare. Sincerely, Your Care Team documented in this encounter [facility] 06-02-2025 Telephone encounter Note Patient has been identified by name and date of : Yes Patient phones for refill(s): Requested Prescriptions Pending Prescriptions Disp Refills FLUoxetine (PROZAC) 20 mg capsule 42 capsule 0 Sig: Take 1 tablet daily for 2 weeks then 2 tablets daily for 2 weeks. Date of last office visit in primary care: 04/17/2025 Date of next office visit in primary care: 06/12/2025 Please advise. Thank you. Jovita Vitale LPN. [facility] 06-02-2025 Miscellaneous Notes Patient has been identified by name and date of : Yes Patient phones for refill(s): Requested Prescriptions Pending Prescriptions Disp Refills FLUoxetine (PROZAC) 20 mg capsule 42 capsule 0 Sig: Take 1 tablet daily for 2 weeks then 2 tablets daily for 2 weeks. Date of last office visit in primary care: 04/17/2025 Date of next office visit in primary care: 06/12/2025 Please advise. Thank you. Jovita Vitale LPN. documented in this encounter [facility] 05-22-2025 History of Present illness Narrative Images from the original note were not included. . Respiratory [place] Note Patient name: Nichole Pittman PCP: Jenny Can APRN.TELEPHONE INFORMATION CLERK Referring Physician: Same Consultation requested by Jenny Can for an opinion regarding COOLEY. My final recommendations will be communicated back to the requesting physician by way of shared Medical record or letter to requesting physician via US mail. Recording using 1-800-DOCTORS software for draft documentation of the visit was discussed with the patient/authorized medical center representative; all questions welcomed and answered. Patient/authorized medical center representative agreed to proceed CC: Chest tightness/COOLEY HPI: Nichole Pittman 34 year old female never smoker with PMH significant for morbid obesity, history of COVID infection in 2019, hypothyroidism, anxiety and depression being seen for evaluation of dyspnea on exertion. Nichole reports experiencing chest tightness and dyspnea during exertion, specifically when walking uphill. The chest tightness is localized to the anterior chest and is described as severe, resembling the sensation of a myocardial infarction. These symptoms have occurred twice: once while hiking in [place] and once while walking uphill at a campsite. During both episodes, she had to stop due to the severity of the symptoms. The chest tightness was accompanied by tachycardia and resolved quickly with rest, but recurred with resumption of activity. She denies any wheezing or chest congestion during these episodes. She has had COOLEY for several years, in fact, she has had previous cardiac evaluation that was negative. Her current dyspnea is different than her baseline. She has noted occasional dyspnea when exposed to hay at work. She denies significant cough but states she produces a significant amount of mucus, particularly after eating, and experiences some allergy symptoms, mainily in the winter. She denies any known history of asthma. No GERD symptoms. DATA: PFT: Spirometry is normal Imaging / Diagnostic Studies: CXR 12/2022: Chest x-ray reviewed and is unremarkable Echo 2022: CONCLUSIONS: - Technically difficult exam due to body habitus. - Exam indication: Shortness of Breath - The left ventricle is normal in size. Left ventricular systolic function is normal. EF = 58 5% (2D biplane) Normal left ventricular diastolic function. - The right ventricle is normal in size. Right ventricular systolic function is normal. - There are no significant valvular abnormalities. - The patient has not had a prior CC echocardiographic exam for comparison. Exercise stress ECG: Normal PAST MEDICAL HISTORY Diagnosis Date Anxiety and depression Anxiety state COVID-19 09/2020 Depression Hypothyroidism Resolved Insulin resistance 06/20/2024 Migraines ALLERGIES Allergen Reactions Penicillins Hives Amoxicillin Hives Ceftriaxone Hives topiramate (TOPAMAX) 25 mg tablet Take 1 tablet by mouth two times a day. FLUoxetine (PROZAC) 20 mg capsule Take 1 tablet daily for 2 weeks then 2 tablets daily for 2 weeks. SUMAtriptan (IMITREX) 50 mg tablet Take one tablet by mouth at the onset of the headache. If no improvement in 2 hours take one more tablet. No more than 2 tablets in 24 hours ARIPiprazole (ABILIFY) 2 mg tablet Take 5 mg by mouth once daily. Prescribed by Dr. Wally Nayak psych levonorgestrel (MIRENA) 20 mcg/24 hours (6 yrs) 52 mg IUD 1 Each by INTRAUTERINE route as directed. Social History Tobacco Use Smoking status: Never Smokeless tobacco: Never Tobacco comments: pt states that father smoked inside when he was living Vaping Use Vaping status: Never Used Substance Use Topics Alcohol use: Yes Comment: Occasionally Drug use: Never Pets: Dogs Chickens FAMILY HISTORY Problem Relation Age of Onset Barretts Esophagus Mother Hypertension Mother Fibromyalgia Mother other (Barrets Esphogus) Mother Clotting Disorder Mother other (diverticulitis) Mother Diabetes Mother Heart Father 45 of heart attack Hypertension Brother other (borderline diabetes) Brother Cataract Maternal Grandmother Celiac Disease Maternal Grandmother Glaucoma Maternal Grandfather Diabetes Maternal Grandfather other (Gout) Maternal Grandfather COPD Paternal Grandmother Heart disease Paternal Grandfather cardiac bypass Colon Polyps Paternal great-grandmother Glaucoma Maternal great-grandmother Colon Polyps Maternal great-grandmother Colon Cancer No Family History PAST SURGICAL HISTORY Procedure Laterality Date EGD BIOPSY SING OR MULT 11/23/2022 variable ge jx; longitudinal furrows distal esophagus INSERTION OF IUD 04/25/2021 UNSPECIFIED ORAL SURGERY PROCEDURE, BY REPORT wisdom teeth PMH, Social history, family history and surgical history reviewed and updated in EMR REVIEW OF SYSTEMS: CONSTITUTIONAL: No fevers, chills, nightsweats, unintended weight loss HEENT: Some allergy symptoms, mainly in the winter EYES: No diplopia or blurry vision. CARDIOVASCULAR: No palpitations, orthopnea, significant edema. PULM: See HPI GI: No dysphagia/odynophagia, problematic reflux NEURO: No balance problems, peripheral weakness/paresthesias or numbness of concern. MUSC-SKEL: No joint pain, swelling, or erythema. PSY: Anxiety INTEGUMENTARY: Skin sensitivity PHYSICAL EXAMINATION: BP 124/84 Pulse 77 Resp 16 Ht 5' .43 (1.54m) Wt 244 lb (110.7kg) SpO2 99% BMI 46.97 kg/(m^2). General Appearance: Morbidly obese female, NAD. Skin: Skin color, texture, turgor normal, no suspicious rashes or lesions. Tattoos Head: Normocephalic, no masses, lesions, tenderness or abnormalities. Oropharynx: No oral lesions, Mallampati 3. Neck: No masses or adenopathy. Lungs: Not labored, normal to percussion, no wheezes or crackles. Heart: Regular rate and rhythm, no murmurs. Extremities: No edema or clubbing. Assessment/Plan: 1. Chest tightness - The major contributing factor to her dyspnea is likely related to her obesity but the chest tightness that she experienced is concerning for possible bronchial hyperreactivity. Pulmonary function testing was normal today -Methacholine challenge testing 2. Morbid obesity - BMI 46 -Aggressive weight loss advised Dulce Barney MD [facility] [place] documented in this encounter [facility] 05-22-2025 Note HNO ID: [id number] Author: DULCE BARNEY MD Service: ? Author Type: Physician Type: Progress Notes Filed: 05/22/2025 12:39 Note Text: . [facility] [place] Note Patient name: Nichole Pittman PCP: Jenny Can APRN.CNP Referring Physician: Same Consultation requested by Jenny Can for an opinion regarding COOLEY. My final recommendations will be communicated back to the requesting physician by way of shared Medical record or letter to requesting physician via US mail. Recording using 1-800-DOCTORS software for draft documentation of the visit was discussed with the patient/authorized medical center representative; all questions welcomed and answered. Patient/authorized medical center representative agreed to proceed CC: Chest tightness/COOLEY HPI: Nichole Pittman 34 year old female never smoker with PMH significant for morbid obesity, history of COVID infection in 2019, hypothyroidism, anxiety and depression being seen for evaluation of dyspnea on exertion. Nichole reports experiencing chest tightness and dyspnea during exertion, specifically when walking uphill. The chest tightness is localized to the anterior chest and is described as severe, resembling the sensation of a myocardial infarction. These symptoms have occurred twice: once while hiking in [place] and once while walking uphill at a campsite. During both episodes, she had to stop due to the severity of the symptoms. The chest tightness was accompanied by tachycardia and resolved quickly with rest, but recurred with resumption of activity. She denies any wheezing or chest congestion during these episodes. She has had COOLEY for several years, in fact, she has had previous cardiac evaluation that was negative. Her current dyspnea is different than her baseline. She has noted occasional dyspnea when exposed to hay at work. She denies significant cough but states she produces a significant amount of mucus, particularly after eating, and experiences some allergy symptoms, mainily in the winter. She denies any known history of asthma. No GERD symptoms. DATA: PFT: Spirometry is normal Imaging / Diagnostic Studies: CXR 12/2022: Chest x-ray reviewed and is unremarkable Echo 2022: CONCLUSIONS: - Technically difficult exam due to body habitus. - Exam indication: Shortness of Breath - The left ventricle is normal in size. Left ventricular systolic function is normal. EF = 58 ? 5% (2D biplane) Normal left ventricular diastolic function. - The right ventricle is normal in size. Right ventricular systolic function is normal. - There are no significant valvular abnormalities. - The patient has not had a prior CC echocardiographic exam for comparison. Exercise stress ECG: Normal PAST MEDICAL HISTORY Diagnosis Date Anxiety and depression Anxiety state COVID-19 09/2020 Depression Hypothyroidism Resolved Insulin resistance 06/20/2024 Migraines ALLERGIES Allergen Reactions Penicillins Hives Amoxicillin Hives Ceftriaxone Hives topiramate (TOPAMAX) 25 mg tablet Take 1 tablet by mouth two times a day. FLUoxetine (PROZAC) 20 mg capsule Take 1 tablet daily for 2 weeks then 2 tablets daily for 2 weeks. SUMAtriptan (IMITREX) 50 mg tablet Take one tablet by mouth at the onset of the headache. If no improvement in 2 hours take one more tablet. No more than 2 tablets in 24 hours ARIPiprazole (ABILIFY) 2 mg tablet Take 5 mg by mouth once daily. Prescribed by Dr. Epie Ajebe psych levonorgestrel (MIRENA) 20 mcg/24 hours (6 yrs) 52 mg IUD 1 Each by INTRAUTERINE route as directed. Social History Tobacco Use Smoking status: Never Smokeless tobacco: Never Tobacco comments: pt states that father smoked inside when he was living Vaping Use Vaping status: Never Used Substance Use Topics Alcohol use: Yes Comment: Occasionally Drug use: Never Pets: Dogs Chickens FAMILY HISTORY Problem Relation Age of Onset Barretts Esophagus Mother Hypertension Mother Fibromyalgia Mother other (Barrets Esphogus) Mother Clotting Disorder Mother other (diverticulitis) Mother Diabetes Mother Heart Father 45 of heart attack Hypertension Brother other (borderline diabetes) Brother Cataract Maternal Grandmother Celiac Disease Maternal Grandmother Glaucoma Maternal Grandfather Diabetes Maternal Grandfather other (Gout) Maternal Grandfather COPD Paternal Grandmother Heart disease Paternal Grandfather cardiac bypass Colon Polyps Paternal great-grandmother Glaucoma Maternal great-grandmother Colon Polyps Maternal great-grandmother Colon Cancer No Family History PAST SURGICAL HISTORY Procedure Laterality Date EGD BIOPSY SING OR MULT 11/23/2022 variable ge jx; longitudinal furrows distal esophagus INSERTION OF IUD 04/25/2021 UNSPECIFIED ORAL SURGERY PROCEDURE, BY REPORT wisdom teeth PMH, Social history, family history and surgi (more content not included)... [facility] 04-17-2025 Note Addended by: JO ESPINOZA on: 04/17/2025 12:47 PM Modules accepted: Orders [facility] 04-17-2025 Miscellaneous Notes Addended by: JO GRANT on: 04/17/2025 12:47 PM Modules accepted: Orders documented in this encounter [facility] 04-17-2025 Note HNO ID: [id number] Author: JENNY CAN APRN.TELEPHONE INFORMATION CLERK Service: ? Author Type: Nurse Practitioner Type: Progress Notes Filed: 04/17/2025 10:46 Note Text: CC: Patient presents with: Recheck: 4 week follow up MARIANN Pittman is a 34 year old female who presents today for follow up on medications. Recording using 1-800-DOCTORS software for draft documentation of the visit was discussed with the patient/authorized medical center representative; all questions welcomed and answered. Patient/authorized medical center representative agreed to proceed Migraines: - Started Topiramate 4 weeks ago; taking once daily at 20:00. - Noted significant improvement; only one mild migraine since starting medication. - Required only one Imitrex for relief, compared to two previously. Did have to miss work for this as imitrex makes her very sleepy - Previously experienced migraines monthly, coinciding with menstruation. - Denies new side effects from Topiramate; has pre-existing carpal tunnel syndrome. Exertional Dyspnea and Chest Pain: - Recent episodes of chest pain and dyspnea during uphill walking. - Describes pain as chest squeezing with associated tachycardia and elevated blood pressure. - Symptoms resolve with rest; no issues with flat terrain walking - episode was so severe though she did not continue with the hike - Last stress test was 1.5 years ago, reported as normal. But did stop due to SOB - Denies cough, wheezing, or significant dyspnea during episodes. - History of asthma as a child. - Family history of cardiac issues; father of a myocardial infarction at age 45. Anxiety and Depression: - Currently taking Prozac 20 mg daily. - Reports improvement in anxiety and depression symptoms. - Sleeping well; denies alcohol or drug use. - No suicidal or homicidal ideations. Weight Loss: - Lost 6 lbs recently; attributes weight loss to drinking water and using sugar-free flavored water enhancers. - Denies intentional dietary restrictions; focuses on cooking at home and avoiding junk food. - Consumes a diet rich in vegetables, ground beef, and chicken; occasionally eats out. - Engages in outdoor activities; reports increased energy levels. REVIEW OF SYSTEMS See HPI PAST MEDICAL HISTORY Diagnosis Date Anxiety state COVID-19 09/2020 Depression Hypothyroidism Resolved Insulin resistance 06/20/2024 PAST SURGICAL HISTORY Procedure Laterality Date EGD BIOPSY SING OR MULT 11/23/2022 variable ge jx; longitudinal furrows distal esophagus INSERTION OF IUD 04/25/2021 UNSPECIFIED ORAL SURGERY PROCEDURE, BY REPORT wisdom teeth ALLERGIES Penicillins, Amoxicillin, and Ceftriaxone MEDICATIONS topiramate (TOPAMAX) 25 mg tablet Take 1 tablet by mouth two times a day. FLUoxetine (PROZAC) 20 mg capsule Take 1 tablet daily for 2 weeks then 2 tablets daily for 2 weeks. SUMAtriptan (IMITREX) 50 mg tablet Take one tablet by mouth at the onset of the headache. If no improvement in 2 hours take one more tablet. No more than 2 tablets in 24 hours ARIPiprazole (ABILIFY) 2 mg tablet Take 5 mg by mouth once daily. Prescribed by Dr. Wally Nayak psych levonorgestrel (MIRENA) 20 mcg/24 hours (6 yrs) 52 mg IUD 1 Each by INTRAUTERINE route as directed. FAMILY HISTORY Problem Relation Age of Onset Barretts Esophagus Mother Hypertension Mother Fibromyalgia Mother other (Barrets Esphogus) Mother Clotting Disorder Mother other (diverticulitis) Mother Diabetes Mother Heart Father 45 of heart attack Hypertension Brother other (borderline diabetes) Brother Cataract Maternal Grandmother Celiac Disease Maternal Grandmother Glaucoma Maternal Grandfather Diabetes Maternal Grandfather other (Gout) Maternal Grandfather COPD Paternal Grandmother Heart disease Paternal Grandfather cardiac bypass Colon Polyps Paternal great-grandmother Glaucoma Maternal great-grandmother Colon Polyps Maternal great-grandmother Colon Cancer No Family History Social History Tobacco Use Smoking status: Never Smokeless tobacco: Never Tobacco comments: pt states that father smoked inside when he was living Vaping Use Vaping status: Never Used Substance Use Topics Alcohol use: Yes Comment: Occasionally Drug use: Never PHYSICAL EXAM BP 120/72 Pulse 86 Resp 16 Wt 111.6 kg (246 lb) LMP (LMP Unknown) SpO2 98% BMI 48.04 kg/m? Appearance: well dressed well groomed, cooperative, and pleasant Behavior: good eye contact Speech: normal and fluent and coherent Mood: happy Affect: appropriate Perceptions: none Thought process: goal directed Thought Content: normal Intelligence level: normal Insight: good Judgment: good Lungs: Lungs clear to auscultation. No wheezing, rhonchi, rales. Heart: RRR without murmur, gallop, or rubs. No ectopy Health maintenance reviewed with patient: Covid-19 Vaccine( season) due on 07/06/2024 Influenza Vaccine(Season Ended) due (more content not included)... [facility] 04-17-2025 History of Present illness Narrative CC: Patient presents with: Recheck: 4 week follow up HPI Nichole Pittman is a 34 year old female who presents today for follow up on medications. Recording using 1-800-DOCTORS software for draft documentation of the visit was discussed with the patient/authorized medical center representative; all questions welcomed and answered. Patient/authorized medical center representative agreed to proceed Migraines: - Started Topiramate 4 weeks ago; taking once daily at 20:00. - Noted significant improvement; only one mild migraine since starting medication. - Required only one Imitrex for relief, compared to two previously. Did have to miss work for this as imitrex makes her very sleepy - Previously experienced migraines monthly, coinciding with menstruation. - Denies new side effects from Topiramate; has pre-existing carpal tunnel syndrome. Exertional Dyspnea and Chest Pain: - Recent episodes of chest pain and dyspnea during uphill walking. - Describes pain as chest squeezing with associated tachycardia and elevated blood pressure. - Symptoms resolve with rest; no issues with flat terrain walking - episode was so severe though she did not continue with the hike - Last stress test was 1.5 years ago, reported as normal. But did stop due to SOB - Denies cough, wheezing, or significant dyspnea during episodes. - History of asthma as a child. - Family history of cardiac issues; father of a myocardial infarction at age 45. Anxiety and Depression: - Currently taking Prozac 20 mg daily. - Reports improvement in anxiety and depression symptoms. - Sleeping well; denies alcohol or drug use. - No suicidal or homicidal ideations. Weight Loss: - Lost 6 lbs recently; attributes weight loss to drinking water and using sugar-free flavored water enhancers. - Denies intentional dietary restrictions; focuses on cooking at home and avoiding junk food. - Consumes a diet rich in vegetables, ground beef, and chicken; occasionally eats out. - Engages in outdoor activities; reports increased energy levels. REVIEW OF SYSTEMS See HPI PAST MEDICAL HISTORY Diagnosis Date Anxiety state COVID-19 09/2020 Depression Hypothyroidism Resolved Insulin resistance 06/20/2024 PAST SURGICAL HISTORY Procedure Laterality Date EGD BIOPSY SING OR MULT 11/23/2022 variable ge jx; longitudinal furrows distal esophagus INSERTION OF IUD 04/25/2021 UNSPECIFIED ORAL SURGERY PROCEDURE, BY REPORT wisdom teeth ALLERGIES Penicillins, Amoxicillin, and Ceftriaxone MEDICATIONS topiramate (TOPAMAX) 25 mg tablet Take 1 tablet by mouth two times a day. FLUoxetine (PROZAC) 20 mg capsule Take 1 tablet daily for 2 weeks then 2 tablets daily for 2 weeks. SUMAtriptan (IMITREX) 50 mg tablet Take one tablet by mouth at the onset of the headache. If no improvement in 2 hours take one more tablet. No more than 2 tablets in 24 hours ARIPiprazole (ABILIFY) 2 mg tablet Take 5 mg by mouth once daily. Prescribed by Dr. Wally Nayak psych levonorgestrel (MIRENA) 20 mcg/24 hours (6 yrs) 52 mg IUD 1 Each by INTRAUTERINE route as directed. FAMILY HISTORY Problem Relation Age of Onset Barretts Esophagus Mother Hypertension Mother Fibromyalgia Mother other (Barrets Esphogus) Mother Clotting Disorder Mother other (diverticulitis) Mother Diabetes Mother Heart Father 45 of heart attack Hypertension Brother other (borderline diabetes) Brother Cataract Maternal Grandmother Celiac Disease Maternal Grandmother Glaucoma Maternal Grandfather Diabetes Maternal Grandfather other (Gout) Maternal Grandfather COPD Paternal Grandmother Heart disease Paternal Grandfather cardiac bypass Colon Polyps Paternal great-grandmother Glaucoma Maternal great-grandmother Colon Polyps Maternal great-grandmother Colon Cancer No Family History Social History Tobacco Use Smoking status: Never Smokeless tobacco: Never Tobacco comments: pt states that father smoked inside when he was living Vaping Use Vaping status: Never Used Substance Use Topics Alcohol use: Yes Comment: Occasionally Drug use: Never PHYSICAL EXAM BP 120/72 Pulse 86 Resp 16 Wt 111.6 kg (246 lb) LMP (LMP Unknown) SpO2 98% BMI 48.04 kg/m Appearance: well dressed well groomed, cooperative, and pleasant Behavior: good eye contact Speech: normal and fluent and coherent Mood: happy Affect: appropriate Perceptions: none Thought process: goal directed Thought Content: normal Intelligence level: normal Insight: good Judgment: good Lungs: Lungs clear to auscultation. No wheezing, rhonchi, rales. Heart: RRR without murmur, gallop, or rubs. No ectopy Health maintenance reviewed with patient: Covid-19 Vaccine( season) due on 07/06/2024 Influenza Vaccine(Season Ended) due on 07/06/2025 Annual PCP Team Chronic Disease Visit due on 04/17/2026 Cervical Cancer Screening due on 08/18/2027 DTaP,Tdap,Td Vaccine(4 - Td or Tdap) due on 12/31/2031 Hepatitis B Vaccine Completed Hepatitis C Screening Discontinued HIV Screening Discontinued DATA REVIEWED: Most recent labs Assessment/Plan 1. Dyspnea on exertion (R06.09) 2. Chest heaviness (R07.89) - Symptoms of dyspnea and chest heaviness during exertion, particularly when walking uphill; no associated cough or wheezing. - Previous stress test approximately 1.5 years ago was normal, but patient experienced shortness of breath during the test. - Ordered EKG to assess for any cardiac changes or concerns. - Referred to pulmonology for further evaluation of possible asthma. 3. Family history of sudden cardiac (Z82.41) - Father of a heart attack at age 45; mother has a history of heart problems. With the family history of sudden cardiac , will send for cardiology evaluation. - go to ER for any further chest pressure, SOB, or other urgent concern - Discussed increased risk for cardiac issues due to family history. - EKG without change from previous outside of some present 4. Migraine without aura and without status migrainosus, not intractable (G43.009) - Significant improvement in migraine frequency and severity since initiating topiramate 25 mg QHS four weeks ago; only one mild migraine episode requiring a single dose of Imitrex. - No side effects from topiramate; well-tolerated. - Increased topiramate to 25 mg BID since she did require missing work for her migraine, hopefully this will further decrease severity 5. Anxiety and depression (F41.9) - Symptoms improved on fluoxetine 20 mg daily; patient reports good sleep and no thoughts of self-harm or harm to others. - Refilled fluoxetine 20 mg. - Reviewed concept of neurochemical imbalance [facility] depression/anxiety, treatment options and benefits of counseling in combination with medication. Also reviewed benefits of sleep hygeine, diet and exercise - Instructed patient to contact office or [id number] after-hours promptly should condition worsen or any new symptoms appear. - [facility] and after hours crisis line 6. Class 3 severe obesity with body mass index (BMI) of 45.0 to 49.9 in adult, unspecified obesity type, unspecified whether serious comorbidity present (HCC) (E66.813) - Weight loss of 6 lbs since starting topiramate. - Discussed dietary habits; patient is cooking at home and avoiding junk food. - Advised to continue current dietary practices and increase physical activity with stretching or bodyweight exercises. Prescription instructions reviewed with patient as applicable. Potential red flag symptoms discussed with the patient. Reviewed appropriate action plan to take if red flag symptoms occur. Patient agreeable to treatment plan. Jenny Can APRN.CNP documented in this encounter [facility] 03-20-2025 Note HNO ID: [id number] Author: FIDE VÁSQUEZ APRN.CNP Service: ? 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 Nichole is a 34 year old who presents for an annual gynecologic exam with complaints, spotting. . Would like to change the IUD out next yr, will need Ativan prior to the procedure Menses: spotting monthly for 3 days. Contraception: IUD Mirena exp 2028 HPV vaccine: No Last Pap: 08/24/2022 normal HPV: 08/23/2022 negative History of abnormal pap: No Last mammogram: never Sexually active: Yes Patient concerns for STD exposure: No. 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 Menstrual Tracking History Flowsheet Row Office Visit from 03/20/2025 in OB/Gynecology Period Cycle (Days) 30 Period Duration (Days) 3 Menstrual Flow Light PAST MEDICAL HISTORY Diagnosis Date Anxiety state COVID-19 09/2020 Depression Hypothyroidism Resolved Insulin resistance 06/20/2024 PAST SURGICAL HISTORY Procedure Laterality Date EGD BIOPSY SING OR MULT 11/23/2022 variable ge jx; longitudinal furrows distal esophagus INSERTION OF IUD 04/25/2021 UNSPECIFIED ORAL SURGERY PROCEDURE, BY REPORT wisdom teeth FAMILY HISTORY Problem Relation Age of Onset Barretts Esophagus Mother Hypertension Mother Fibromyalgia Mother other (Barrets Esphogus) Mother Clotting Disorder Mother other (diverticulitis) Mother Diabetes Mother Heart Father 45 of heart attack Hypertension Brother other (borderline diabetes) Brother Cataract Maternal Grandmother Celiac Disease Maternal Grandmother Glaucoma Maternal Grandfather Diabetes Maternal Grandfather other (Gout) Maternal Grandfather COPD Paternal Grandmother Heart disease Paternal Grandfather cardiac bypass Colon Polyps Paternal great-grandmother Glaucoma Maternal great-grandmother Colon Polyps Maternal great-grandmother Colon Cancer No Family History SOCIAL HISTORY Social History Tobacco Use Smoking status: Never Smokeless tobacco: Never Tobacco comments: pt states that father smoked inside when he was living Vaping Use Vaping status: Never Used Substance Use Topics Alcohol use: Yes Comment: Occasionally Drug use: Never REVIEW OF SYSTEMS Abdomen: No abdominal pain, nausea, vomiting, diarrhea, or constipation. No bloating, early satiety, indigestion, or increased flatulence. Bladder: No dysuria, gross hematuria, urinary frequency, urinary urgency, or incontinence. Breast: No breast lumps, nipple d/c, overlying skin changes, redness or skin retraction. Allergies and current medication updated:Yes SENSITIVE EXAM: The sensitive examination was discussed with the Patient or Patient's Authorized Chief Deputy. As applicable, any other physician, advance practice provider, medical student, or other health professional student that will be observing or involved in the sensitive examination for educational or training purposes was discussed with the Patient or Authorized Chief Deputy. The Patient or Authorized Chief Deputy has agreed to proceed with the sensitive examination. (Sensitive examination includes inspection and/or palpation of the breasts, pelvis, prostate and anorectal regions). EXAM: BP 128/86 Ht 5' 0 (1.52m) Wt 252 lb (114.3kg) BMI 49.22 kg/(m2). GENERAL: pleasant, female in no apparent distress HEENT: Normocephalic, atraumatic, mucus membranes moist, and no lesions DERMATOLOGY: Normal, without lesions, non-icteric, and non-hirsute BREAST: soft, non-tender, symmetric, no dominant mass, normal nipple-areolar complex, no lymphadenopathy, and no nipple discharge CHEST: Normal inspiratory effort ABDOMEN: soft, non-tender, and no masses PELVIC: external genitalia normal, normal Bartholin's glands, urethra, Long's glands, no vulvar lesions, no cervical lesions, good vaginal support, physiologic discharge present, normal appearing perineal body and perianal region, IUD strings NOT visible BIMANUAL: uterus normal size, shape and consistency, no adnexal masses, and non-tender RECTOVAGINAL: deferred. NEURO: alert and oriented x3,exam grossly non-focal EXTREMITIES: normal ASSESSMENT/PLAN: 1) Health maintenance: Pap/HPV up to date. Mammogram starting age 40. Nutrition, exercise and routine health maintenance exams reviewed. Calcium/Vitamin D supplementation information provided. Colon cancer screening: start at age 45 2) Contraception: IUD. Contraceptive options reviewed and information provided. 3) STD screening: Accepted STD check for Gonorrhea and Chlamydia. 4) Follow up one year or sooner as needed Fide Vásquez APRN.AMBER 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 Nichole is a 34 year old who presents for an annual gynecologic exam with complaints, spotting. . Would like to change the IUD out next yr, will need Ativan prior to the procedure Menses: spotting monthly for 3 days. Contraception: IUD Mirena exp 2028 HPV vaccine: No Last Pap: 08/24/2022 normal HPV: 08/23/2022 negative History of abnormal pap: No Last mammogram: never Sexually active: Yes Patient concerns for STD exposure: No. 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 Menstrual Tracking History Flowsheet Row Office Visit from 03/20/2025 in OB/Gynecology Period Cycle (Days) 30 Period Duration (Days) 3 Menstrual Flow Light PAST MEDICAL HISTORY Diagnosis Date Anxiety state COVID-19 09/2020 Depression Hypothyroidism Resolved Insulin resistance 06/20/2024 PAST SURGICAL HISTORY Procedure Laterality Date EGD BIOPSY SING OR MULT 11/23/2022 variable ge jx; longitudinal furrows distal esophagus INSERTION OF IUD 04/25/2021 UNSPECIFIED ORAL SURGERY PROCEDURE, BY REPORT wisdom teeth FAMILY HISTORY Problem Relation Age of Onset Barretts Esophagus Mother Hypertension Mother Fibromyalgia Mother other (Barrets Esphogus) Mother Clotting Disorder Mother other (diverticulitis) Mother Diabetes Mother Heart Father 45 of heart attack Hypertension Brother other (borderline diabetes) Brother Cataract Maternal Grandmother Celiac Disease Maternal Grandmother Glaucoma Maternal Grandfather Diabetes Maternal Grandfather other (Gout) Maternal Grandfather COPD Paternal Grandmother Heart disease Paternal Grandfather cardiac bypass Colon Polyps Paternal great-grandmother Glaucoma Maternal great-grandmother Colon Polyps Maternal great-grandmother Colon Cancer No Family History SOCIAL HISTORY Social History Tobacco Use Smoking status: Never Smokeless tobacco: Never Tobacco comments: pt states that father smoked inside when he was living Vaping Use Vaping status: Never Used Substance Use Topics Alcohol use: Yes Comment: Occasionally Drug use: Never REVIEW OF SYSTEMS Abdomen: No abdominal pain, nausea, vomiting, diarrhea, or constipation. No bloating, early satiety, indigestion, or increased flatulence. Bladder: No dysuria, gross hematuria, urinary frequency, urinary urgency, or incontinence. Breast: No breast lumps, nipple d/c, overlying skin changes, redness or skin retraction. Allergies and current medication updated:Yes SENSITIVE EXAM: The sensitive examination was discussed with the Patient or Patient's Authorized Chief Deputy. As applicable, any other physician, advance practice provider, medical student, or other health professional student that will be observing or involved in the sensitive examination for educational or training purposes was discussed with the Patient or Authorized Chief Deputy. The Patient or Authorized Chief Deputy has agreed to proceed with the sensitive examination. (Sensitive examination includes inspection and/or palpation of the breasts, pelvis, prostate and anorectal regions). EXAM: BP 128/86 Ht 5' 0 (1.52m) Wt 252 lb (114.3kg) BMI 49.22 kg/(m^2). GENERAL: pleasant, female in no apparent distress HEENT: Normocephalic, atraumatic, mucus membranes moist, and no lesions DERMATOLOGY: Normal, without lesions, non-icteric, and non-hirsute BREAST: soft, non-tender, symmetric, no dominant mass, normal nipple-areolar complex, no lymphadenopathy, and no nipple discharge CHEST: Normal inspiratory effort ABDOMEN: soft, non-tender, and no masses PELVIC: external genitalia normal, normal Bartholin's glands, urethra, Long's glands, no vulvar lesions, no cervical lesions, good vaginal support, physiologic discharge present, normal appearing perineal body and perianal region, IUD strings NOT visible BIMANUAL: uterus normal size, shape and consistency, no adnexal masses, and non-tender RECTOVAGINAL: deferred. NEURO: alert and oriented x3,exam grossly non-focal EXTREMITIES: normal ASSESSMENT/PLAN: 1) Health maintenance: Pap/HPV up to date. Mammogram starting age 40. Nutrition, exercise and routine health maintenance exams reviewed. Calcium/Vitamin D supplementation information provided. Colon cancer screening: start at age 45 2) Contraception: IUD. Contraceptive options reviewed and information provided. 3) STD screening: Accepted STD check for Gonorrhea and Chlamydia. 4) Follow up one year or sooner as needed Fide Vásquez APRN.AMBER documented in this encounter [facility] 03-20-2025 Instructions Jenny Can APRN.CNP - 03/20/2025 9:53 AM EDT Restart your fluoxetine at a lower dose since you have not taken it for a couple of months. Begin with a lower dose (approximately 10 mg daily) for the next two weeks, then we will adjust the dose up to 20 mg daily. Your new prescription has been sent. Refill your topiramate with a starting dose of 25 mg. This dose will be increased to 50 mg as we monitor your migraine symptoms. A refill for Imitrex has been provided for your migraine relief; please take it as you have been instructed when needed. Continue taking your daily Abilify 5 mg as usual. Complete your annual blood work. This fasting blood test will check your thyroid, A1c, potassium, vitamin D, cholesterol, and blood counts. Your next appointment is scheduled for 4 weeks from now. We will review your response to the adjusted medications and discuss when to safely restart phentermine as part of your weight management plan. documented in this encounter [facility] 03-20-2025 Note HNO ID: [id number] Author: JENNY CAN APRN.CNP Service: ? Author Type: Nurse Practitioner Type: Progress Notes Filed: 03/20/2025 12:37 Note Text: CC: Patient presents with: Recheck: Follow up medication HPI Nichole Pittman is a 34 year old female who presents today for follow up. Needs refills of her medications and wants to discuss weight management. Recording using 1-800-[employer] software for draft documentation of the visit was discussed with the patient/authorized medical center representative; all questions welcomed and answered. Patient/authorized medical center representative agreed to proceed Weight Management: - Previously on phentermine and topiramate as ordered by weight management but this was discontinued months ago due to not meeting 5% weight loss goal. - Lost weight from 265 lbs to 220 lbs while on phentermine; reports feeling good and having more energy. - Gained weight back after discontinuing phentermine. - Diet includes zero sugar due to partner's diabetes; avoids fast food and drinks flavored water. - Has a gym membership but rarely exercises due to work schedule. - History of borderline low thyroid function; last thyroid check a year ago was normal. Anxiety and Depression: - History of anxiety and depression, previously well-controlled with fluoxetine 40 mg daily. - Has not taken fluoxetine for a few months due to difficulty obtaining a refill. - Reports increased anxiety and depression, with work being really, really, really stressful. - Poor sleep, getting only 8 hours total over the past few days due to work demands. - Uses sleep and anxiety marijuana gummies occasionally. - Denies thoughts of self-harm or harm to others. - Has family and friends for support. - Currently taking Abilify 5 mg daily as ordered by psychiatry Migraines: - History of migraines, with increased frequency and severity recently. - Has not taken topiramate for a couple of weeks; reports fewer migraines when on topiramate. - Experiences migraines about once a month, often around menstrual cycle. - Symptoms include light sensitivity, sound sensitivity, nausea, and dizziness. - Uses Imitrex for migraine relief; sometimes requires a second dose. - Denies confusion, weakness, numbness, or visual changes before migraines. - Has Mirena IUD in place. REVIEW OF SYSTEMS General: no fevers, no chills, no night sweats, no recurrent infections, no change in appetite, no change in energy, and no significant changes in weight Respiratory: no cough, no wheezing, no shortness of breath, no hemoptysis Cardiovascular: no chest pain, no chest pressure, no palpitations, and no swelling GI: No nausea, vomiting, or diarrhea Endocrine: no polyuria, no polyphagia, and no polydipsia Neurologic: No weakness, numbness, memory loss, syncope. PAST MEDICAL HISTORY Diagnosis Date Anxiety state COVID-19 09/2020 Depression Hypothyroidism Resolved Insulin resistance 06/20/2024 PAST SURGICAL HISTORY Procedure Laterality Date EGD BIOPSY SING OR MULT 11/23/2022 variable ge jx; longitudinal furrows distal esophagus INSERTION OF IUD 04/25/2021 UNSPECIFIED ORAL SURGERY PROCEDURE, BY REPORT wisdom teeth ALLERGIES Penicillins, Amoxicillin, and Ceftriaxone MEDICATIONS FLUoxetine (PROZAC) 10 mg capsule Take 1 tablet daily for 2 weeks then 2 tablets daily for 2 weeks. topiramate (TOPAMAX) 25 mg tablet Take 1 tablet by mouth daily at bedtime. SUMAtriptan (IMITREX) 50 mg tablet Take one tablet by mouth at the onset of the headache. If no improvement in 2 hours take one more tablet. No more than 2 tablets in 24 hours ARIPiprazole (ABILIFY) 2 mg tablet Take 5 mg by mouth once daily. Prescribed by Dr. Wally Nayak psych levonorgestrel (MIRENA) 20 mcg/24 hours (6 yrs) 52 mg IUD 1 Each by INTRAUTERINE route as directed. FAMILY HISTORY Problem Relation Age of Onset Heart Father 45 of heart attack Barretts Esophagus Mother Hypertension Mother Fibromyalgia Mother other (Barrets Esphogus) Mother Clotting Disorder Mother other (diverticulitis) Mother Hypertension Brother other (borderline diabetes) Brother Cataract Maternal Grandmother Celiac Disease Maternal Grandmother Glaucoma Maternal Grandfather Diabetes Maternal Grandfather other (Gout) Maternal Grandfather COPD Paternal Grandmother Heart disease Paternal Grandfather cardiac bypass Colon Polyps Paternal great-grandmother Glaucoma Maternal great-grandmother Colon Polyps Maternal great-grandmother Colon Cancer No Family History Social History Tobacco Use Smoking status: Never Smokeless tobacco: Never Tobacco comments: pt states that father smoked inside when he was living Vaping Use Vaping status: Never Used Substance Use Topics Alcohol use: Yes Comment: Occasionally Drug use: Never PHYSICAL EXAM BP 134/92 Pulse 84 Resp 16 Wt 113.4 kg (250 lb) LMP 03/16/2025 SpO2 98% BMI 48.82 kg/m? General (more content not included)... [facility] 03-20-2025 History of Present illness Narrative CC: Patient presents with: Recheck: Follow up medication HPI Nichole Pittman is a 34 year old female who presents today for follow up. Needs refills of her medications and wants to discuss weight management. Recording using 1-800-DOCTORS software for draft documentation of the visit was discussed with the patient/authorized medical center representative; all questions welcomed and answered. Patient/authorized medical center representative agreed to proceed Weight Management: - Previously on phentermine and topiramate as ordered by weight management but this was discontinued months ago due to not meeting 5% weight loss goal. - Lost weight from 265 lbs to 220 lbs while on phentermine; reports feeling good and having more energy. - Gained weight back after discontinuing phentermine. - Diet includes zero sugar due to partner's diabetes; avoids fast food and drinks flavored water. - Has a gym membership but rarely exercises due to work schedule. - History of borderline low thyroid function; last thyroid check a year ago was normal. Anxiety and Depression: - History of anxiety and depression, previously well-controlled with fluoxetine 40 mg daily. - Has not taken fluoxetine for a few months due to difficulty obtaining a refill. - Reports increased anxiety and depression, with work being really, really, really stressful. - Poor sleep, getting only 8 hours total over the past few days due to work demands. - Uses sleep and anxiety marijuana gummies occasionally. - Denies thoughts of self-harm or harm to others. - Has family and friends for support. - Currently taking Abilify 5 mg daily as ordered by psychiatry Migraines: - History of migraines, with increased frequency and severity recently. - Has not taken topiramate for a couple of weeks; reports fewer migraines when on topiramate. - Experiences migraines about once a month, often around menstrual cycle. - Symptoms include light sensitivity, sound sensitivity, nausea, and dizziness. - Uses Imitrex for migraine relief; sometimes requires a second dose. - Denies confusion, weakness, numbness, or visual changes before migraines. - Has Mirena IUD in place. REVIEW OF SYSTEMS General: no fevers, no chills, no night sweats, no recurrent infections, no change in appetite, no change in energy, and no significant changes in weight Respiratory: no cough, no wheezing, no shortness of breath, no hemoptysis Cardiovascular: no chest pain, no chest pressure, no palpitations, and no swelling GI: No nausea, vomiting, or diarrhea Endocrine: no polyuria, no polyphagia, and no polydipsia Neurologic: No weakness, numbness, memory loss, syncope. PAST MEDICAL HISTORY Diagnosis Date Anxiety state COVID-19 09/2020 Depression Hypothyroidism Resolved Insulin resistance 06/20/2024 PAST SURGICAL HISTORY Procedure Laterality Date EGD BIOPSY SING OR MULT 11/23/2022 variable ge jx; longitudinal furrows distal esophagus INSERTION OF IUD 04/25/2021 UNSPECIFIED ORAL SURGERY PROCEDURE, BY REPORT wisdom teeth ALLERGIES Penicillins, Amoxicillin, and Ceftriaxone MEDICATIONS FLUoxetine (PROZAC) 10 mg capsule Take 1 tablet daily for 2 weeks then 2 tablets daily for 2 weeks. topiramate (TOPAMAX) 25 mg tablet Take 1 tablet by mouth daily at bedtime. SUMAtriptan (IMITREX) 50 mg tablet Take one tablet by mouth at the onset of the headache. If no improvement in 2 hours take one more tablet. No more than 2 tablets in 24 hours ARIPiprazole (ABILIFY) 2 mg tablet Take 5 mg by mouth once daily. Prescribed by Dr. Wally Nayak psych levonorgestrel (MIRENA) 20 mcg/24 hours (6 yrs) 52 mg IUD 1 Each by INTRAUTERINE route as directed. FAMILY HISTORY Problem Relation Age of Onset Heart Father 45 of heart attack Barretts Esophagus Mother Hypertension Mother Fibromyalgia Mother other (Barrets Esphogus) Mother Clotting Disorder Mother other (diverticulitis) Mother Hypertension Brother other (borderline diabetes) Brother Cataract Maternal Grandmother Celiac Disease Maternal Grandmother Glaucoma Maternal Grandfather Diabetes Maternal Grandfather other (Gout) Maternal Grandfather COPD Paternal Grandmother Heart disease Paternal Grandfather cardiac bypass Colon Polyps Paternal great-grandmother Glaucoma Maternal great-grandmother Colon Polyps Maternal great-grandmother Colon Cancer No Family History Social History Tobacco Use Smoking status: Never Smokeless tobacco: Never Tobacco comments: pt states that father smoked inside when he was living Vaping Use Vaping status: Never Used Substance Use Topics Alcohol use: Yes Comment: Occasionally Drug use: Never PHYSICAL EXAM BP 134/92 Pulse 84 Resp 16 Wt 113.4 kg (250 lb) LMP 03/16/2025 SpO2 98% BMI 48.82 kg/m General Appearance: well appearing, in no acute distress, alert Pysch: mood and affect broad and appropriate Eyes: conjunctiva pink and moist, no icterus, sclera white, non-injected Neck: Thyroid normal size and symmetric without palpable nodules, Neck supple, No adenopathy Lymph nodes: No cervical lymphadenopathy and No supraclavicular lymphadenopathy Lungs: Lungs clear to auscultation. No wheezing, rhonchi, rales. Heart: RRR without murmur, gallop, or rubs. No ectopy Health maintenance reviewed with patient: Covid-19 Vaccine( season) due on 07/06/2024 Influenza Vaccine(Season Ended) due on 07/06/2025 Annual PCP Team Chronic Disease Visit due on 03/20/2026 Cervical Cancer Screening due on 08/18/2027 DTaP,Tdap,Td Vaccine(4 - Td or Tdap) due on 12/31/2031 Hepatitis B Vaccine Completed Hepatitis C Screening Discontinued HIV Screening Discontinued DATA REVIEWED: No new labs Assessment/Plan 1. Anxiety and depression (F41.9) - Anxiety and depression exacerbated by recent work stress and lack of sleep; patient has not taken fluoxetine for several months. - Initiated fluoxetine 10 mg PO daily for 2 weeks, then increase to 20 mg PO daily. - Refill sent to [facility] pharmacy. - Continue Abilify 5 mg PO daily. - Follow-up in 4 weeks to reassess symptoms and medication efficacy. - Reviewed concept of neurochemical imbalance wth depression/anxiety, treatment options and benefits of counseling in combination with medication. Also reviewed benefits of sleep hygeine, diet and exercise - Instructed patient to contact office or [id number] after-hours promptly should condition worsen or any new symptoms appear. - [facility] and after hours crisis line 2. Class 3 severe obesity with body mass index (BMI) of 45.0 to 49.9 in adult, unspecified obesity type, unspecified whether serious comorbidity present (E66.813) - Discussed previous weight loss success with phentermine and topiramate; patient has regained weight after discontinuation. - Deferred restarting phentermine until anxiety, depression, and migraines are better controlled. - Reinitiated topiramate 25 mg PO daily, will titrate to 50 mg PO daily. - Encouraged dietary modifications and exercise as tolerated. - Ordered comprehensive lab work including lipid panel, vitamin D, and potassium levels; patient to present fasting. - Next visit will include a more in-depth annual physical exam. 3. History of hypothyroidism (Z86.39) - Previous thyroid function tests within normal limits; last checked less than a year ago. - Will monitor thyroid function as part of routine follow-up. 4. Migraine without aura and without status migrainosus, not intractable (G43.009) - Migraines occurring approximately once a month, often associated with menstrual cycle; recent severe episode with photophobia and nausea. - Reinitiated topiramate 25 mg PO daily, will titrate to 50 mg PO daily. - Refill for Imitrex sent to [facility]. - Advised to monitor for any changes in frequency or severity of migraines. 5. Annual physical exam (Z00.00) - Scheduled for next visit to include comprehensive evaluation and review of lab results. Prescription instructions reviewed with patient as applicable. Potential red flag symptoms discussed with the patient. Reviewed appropriate action plan to take if red flag symptoms occur. Patient agreeable to treatment plan. Jenny Can APRN.TELEPHONE INFORMATION CLERK documented in this encounter [facility] 10-09-2024 Note Addended by: KATHERYN NARVAEZ on: 10/09/2024 03:57 PM Modules accepted: Orders [facility] 10-09-2024 Miscellaneous Notes Addended by: KATHERYN MATIAS on: 10/09/2024 03:57 PM Modules accepted: Orders Will send in for Trulicity. Patient notified that Mounjaro was denied. Informed of savings card. Billy Butler MA PA submitted on 10/03 along with last 3 months of office notes as plan requested. Received response on 10/06 that PA was denied due to patient not having Type 2 DM as a diagnosis. I did include her diagnoses of PCOS, elevated fasting glucose, and insulin resistance. Would you like to send an appeal? Billy Butler MA signed PA completed and on providers desk for signature. Billy Butler MA Per insurance prior authorization needs to be submitted through [email or web address] documented in this encounter [facility] 10-09-2024 Telephone encounter Note Will send in for Trulicity. [facility] 10-09-2024 Telephone encounter Note Patient notified that Mounjaro was denied. Informed of savings card. Billy Butler MA [facility] 10-07-2024 Telephone encounter Note PA submitted on 10/03 along with last 3 months of office notes as plan requested. Received response on 10/06 that PA was denied due to patient not having Type 2 DM as a diagnosis. I did include her diagnoses of PCOS, elevated fasting glucose, and insulin resistance. Would you like to send an appeal? Billy Butler MA [facility] 10-03-2024 Telephone encounter Note PA has been faxed to the number provided on the PA form that was sent to us. Billy Butler MA [facility] 10-03-2024 Miscellaneous Notes PA has been faxed to the number provided on the PA form that was sent to us. Billy Butler MA Per cover my meds website prior authorization has to be submitted at [employer] Nurse attempted to submit a prior authorization and received message There may be a request on file for the drug you have submitted, please call customer service at for further instructions noted Received PA request for Mobellaro. Submitted and will wait for further response from patients insurance. Billy Butler MA documented in this encounter [facility] 10-01-2024 Telephone encounter Note signed [facility] 09-30-2024 Instructions Lorena Serrano APRN.CNP - 09/30/2024 11:25 AM EST In-lab sleep study (PSG) is ordered. I'll see you for a follow up appointment about 3 wks later. documented in this encounter [facility] 09-30-2024 History of Present illness Narrative Images from the original note were not included. [facility] New Patient Evaluation PATIENT NAME: Nichole Pittman DATE OF SERVICE: September 30, 2024 I have communicated my name and active licensure. The patient's identity and physical location were verified at the time of this visit. Either the patient or their legal medical center representative has been informed of the risks and benefits of -- and alternatives to -- treatment through a remote evaluation and consents to proceed with the evaluation remotely. CONSULTING PROVIDER: Katheryn An [address] [facility] [address] REASON FOR CONSULT: Katheryn Matias sends the patient for an opinion about obesity, HSAT result. My findings and recommendations will be transmitted electronically via shared medical record to the consulting provider. HPI: Nichole Pittman is a 34 year old female. Sleep-related history: Never feels refreshed when she wakes up. Long hx of difficulty falling asleep, reads in bed which helps to allay anxiety. HSAT didn't confirm TERENCE. She is working on weigh loss with Dr Matias. 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 She has a hard time falling asleep. Time to fall asleep: >1 hr brain doesn't shut off Wake time: 10 AM to 1230 PM After falling asleep: she wakes up at least time(s) per night, and does not know the reason for waking up. Tends to toss and turn, can't get comfortable. Average total sleep time (in a 24 hour period): 5 hours. SLEEP-RELATED DETAILS Preferred sleep position: side, back, or prone Breathing disturbances and other behaviors during sleep: some snoring, moving around a lot, and frequent leg movements. Bruxism: Yes GERD or aspiration: Yes Waking up with heart pounding or racing: No Anxiety or rumination: Yes She reports having an urge to move the legs. The urge to move the legs only occurs in the evening or nighttime. The urge to move the legs begins or worsens during periods of rest or inactivity (e.g. lying or sitting). The urge to move the legs is partially or totally relieved by movements such as walking or stretching, at least as long as the activity continues. The urge to move the legs occurs 2-3 nights per week and began several years ago. Can prevent her from falling asleep. There is no history of iron deficiency or anemia. She has been told that she has leg kicking during sleep. On vit D supplement. The patient reports having had the following: Acting out dreams. Not recently. 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 Punched a couple of times. Excessive daytime sleepiness / fatigue is a problem. Excessive Daytime sleepiness/fatigue has been a problem for many years. There is no history of a viral illness or significant head injury prior to the start of daytime sleepiness. 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 She does have difficulty with memory or concentration. She denies falling asleep or dozing off when driving. She does take naps if she hasn't slept well She does drink 1+ caffeinated beverages per day. She has lost 32 pounds since 11 months. Patient Questionnaires Sleep Scores 09/29/2024 Sleep Questions Reason for visit: Difficulty falling or staying asleep or poor sleep quality On average, hours of sleep in 24 hours: 5 Accidents or near accidents due to drowsy drivin 09/29/2024 [place] Sleepiness Scale Score 8 (No clinically significant daytime sleepiness) 09/29/2024 PROMIS CAT Sleep Disturbance PROMIS Sleep Disturbance T-Score 63 (moderate) PROMIS Sleep Disturbance Percentile 10 09/29/2024 Insomnia Severity Index Score 17 09/29/2024 Restless Leg Syndrome Score 24 (Severe symptoms) 09/29/2024 PHQ-9 Score 13 09/29/2024 PROMIS Global Health - (T-Scores - the mean of general population = 50. Five points is a clinically meaningful difference.) Physical T-Score 39.8 Mental T-Score 36.3 PAST TREATMENTS: None PRIOR SLEEP STUDIES: A Home Sleep Test (HST) performed on 07/14/24 revealed an AHI of 1.2; supine index of 2.7; and a minimum oxygen saturation of 92%. OTHER RELEVANT LABS AND STUDIES: Latest Reference Range & Units 03/14/24 11:47 Hemoglobin 11.5 - 15.5 g/dL 13.8 Latest Reference Range & Units 06/20/24 12:14 Vitamin D 25 Hydroxy 31.0 - 80.0 ng/mL 23.9 (L) (L): Data is abnormally low PAST MEDICAL HISTORY Diagnosis Date Anxiety state COVID-19 09/2020 Depression Hypothyroidism Resolved Insulin resistance 06/20/2024 PAST SURGICAL HISTORY Procedure Laterality Date EGD BIOPSY SING OR MULT 11/23/2022 variable ge jx; longitudinal furrows distal esophagus INSERTION OF IUD 04/25/2021 UNSPECIFIED ORAL SURGERY PROCEDURE, BY REPORT wisdom teeth ACTIVE PROBLEM LIST Acquired Hypothyroidism Anxiety and Depression Cat Bite of Finger Cellulitis of Finger of Left Hand Class 3 Severe Obesity Without Serious Comorbidity With Body Mass Index (Bmi) of 45.0 to 49.9 in Adult (Hcc) Pcos (Polycystic Ovarian Syndrome) Hyperinsulinemia Hypercholesteremia Elevated Fasting Glucose Insulin Resistance Rls (Restless Legs Syndrome) Allergies As of Date: 09/30/2024 Allergen Noted Reaction PENICILLINS 07/04/2019 Hives AMOXICILLIN 07/05/2016 Hives CEFTRIAXONE 01/02/2022 Hives Fully Assessed 09/30/2024 CURRENT MEDICATIONS: metFORMIN ER (GLUCOPHAGE XR) 500 mg 24 hr tablet Take 2 tablets by mouth daily with dinner. FLUoxetine (PROZAC) 40 mg capsule Take 1 capsule by mouth once daily. topiramate (TOPAMAX) 50 mg tablet Take 1 tablet by mouth daily at bedtime. cholecalciferol, Vitamin D3, (VITAMIN D3) 1,250 mcg (50,000 unit) cap capsule Take 1 capsule by mouth one time a week. spironolactone (ALDACTONE) 50 mg tablet Take 1 tablet by mouth once daily. omeprazole (PRILOSEC) 20 mg capsule TAKE 1 CAPSULE BY MOUTH ONCE DAILY 30 MIN BEFORE BREAKFAST SUMAtriptan (IMITREX) 50 mg tablet Take one tablet by mouth at the onset of the headache. If no improvement in 2 hours take one more tablet. No more than 2 tablets in 24 hours ARIPiprazole (ABILIFY) 2 mg tablet Take 5 mg by mouth once daily. Prescribed by Dr. Wally Nayak psych hydrOXYzine HCl (ATARAX) 10 mg tablet Take 10 mg by mouth three times daily as needed for anxiety. Prescribed by Wally salazar famotidine (PEPCID) 20 mg tablet take 1 tablet by mouth at bedtime as needed levonorgestrel (MIRENA) 20 mcg/24 hours (6 yrs) 52 mg IUD 1 Each by INTRAUTERINE route as directed. Review of Systems Constitutional: Positive for fatigue. Negative for recent unintentional weight change. HENT: Positive for congestion (intermittent). Cardiovascular: Negative for palpitations. Gastrointestinal: Positive for heartburn. Genitourinary: Negative for nocturia. Neurological: Positive for headaches (migraines, some morning headaches). SOCIAL HISTORY: Social History Tobacco Use Smoking status: Never Smokeless tobacco: Never Tobacco comments: pt states that father smoked inside when he was living Vaping Use Vaping status: Never Used Substance Use Topics Alcohol use: Yes Comment: Occasionally Drug use: Never FAMILY HISTORY: FAMILY HISTORY Problem Relation Age of Onset Heart Father 45 of heart attack Barretts Esophagus Mother Hypertension Mother Fibromyalgia Mother other (Barrets Esphogus) Mother Clotting Disorder Mother other (diverticulitis) Mother Hypertension Brother other (borderline diabetes) Brother Cataract Maternal Grandmother Celiac Disease Maternal Grandmother Glaucoma Maternal Grandfather Diabetes Maternal Grandfather other (Gout) Maternal Grandfather COPD Paternal Grandmother Heart disease Paternal Grandfather cardiac bypass Colon Polyps Paternal great-grandmother Glaucoma Maternal great-grandmother Colon Polyps Maternal great-grandmother Colon Cancer No Family History There is no family history of TERENCE. +RLS hx in mother and father. PHYSICAL EXAMINATION: Vital Signs: Deferred due to virtual visit via Zoom. General appearance: NAD Mental status: awake and alert Constitutional: Well groomed Skin: Dry and intact Neuro: Speech fluent ENT : Posterior airspace: Redman tongue position 3, retrognathia present. Overbite absent. High arched palate present. Tongue scalloping/ridging present. IMPRESSION/PLAN: G47.8 Non-restorative sleep (primary encounter diagnosis) R06.83 Snoring G25.81 RLS (restless legs syndrome) F51.04 Chronic insomnia R51.9 Morning headache G47.00 Frequent nocturnal awakening E66.813, E66.01, Z68.42 Class 3 severe obesity without serious comorbidity with body mass index (BMI) of 45.0 to 49.9 in adult, unspecified obesity type (HCC) G47.19 Excessive daytime sleepiness Nichole Pittman is a 34 year old female with non-restorative sleep, chronic sleep onset insomnia, frequent awakening, snoring, morning headache, excessive daytime sleepiness, obesity, RLS, hypercholesterolemia, hypothyroidism, insulin resistance, PCOS, anxiety, depression, vit D deficiency Nichole reports a long hx of poor sleep; she attributes sleep onset insomnia to anxiety. 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 We reviewed her HSAT which didn't confirm or refute TERENCE; discussed the need to proceed with an in-lab PSG to truly determine if she has TERENCE which could be contributing to frequent awakenings, morning headaches, non-restorative sleep, excessive daytime sleepiness, RLS. FH RLS in both mother and father. Ongoing weight loss can only help. We only briefly discussed PAP therapy. - Polysomnogram (PSG) to evaluate for obstructive sleep apnea. - Discussed with the patient the possible diagnosis, causes, and conditions associated with obstructive sleep apnea. - Avoid driving when drowsy. Recommend that if you are dozing off while driving, that you do not drive until your sleepiness is appropriately treated. -Encouraged healthy lifestyle with adequate sleep ( 7-9 hours per night), diet and exercise. - Results are usually available within 7-10 business days. If you do not hear from us within 1-2 weeks after testing, please contact us directly. - Follow up visit 3 wks after PSG to discuss results and next step RLS Labs to check for low iron stores Continue treatment for low vit D Lorena Serrano APRN.CNP I spent a total of 52 minutes on the date of the service which included preparing to see the patient, [id number] patient care, completing clinical documentation, performing a medically appropriate examination, counseling and educating the patient/family/caregiver, and ordering medications, tests, or procedures. documented in this encounter [facility] 09-30-2024 Note HNO ID: [id number] Author: LORENA SERRANO APRN.CNP Service: ? Author Type: Nurse Practitioner Type: Progress Notes Filed: 09/30/2024 11:41 Note Text: [facility] New Patient Evaluation PATIENT NAME: Nichole Pittman DATE OF SERVICE: September 30, 2024 I have communicated my name and active licensure. The patient's identity and physical location were verified at the time of this visit. Either the patient or their legal medical center representative has been informed of the risks and benefits of -- and alternatives to -- treatment through a remote evaluation and consents to proceed with the evaluation remotely. CONSULTING PROVIDER: Katheryn [address] [facility] [address] REASON FOR CONSULT: Katheryn Matias sends the patient for an opinion about obesity, HSAT result. My findings and recommendations will be transmitted electronically via shared medical record to the consulting provider. HPI: Nichole Pittman is a 34 year old female. Sleep-related history: Never feels refreshed when she wakes up. Long hx of difficulty falling asleep, reads in bed which helps to allay anxiety. HSAT didn't confirm TERENCE. She is working on weigh loss with Dr Matias. 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 She has a hard time falling asleep. Time to fall asleep: >1 hr brain doesn't shut off Wake time: 10 AM to 1230 PM After falling asleep: she wakes up at least time(s) per night, and does not know the reason for waking up. Tends to toss and turn, can't get comfortable. Average total sleep time (in a 24 hour period): 5 hours. SLEEP-RELATED DETAILS Preferred sleep position: side, back, or prone Breathing disturbances and other behaviors during sleep: some snoring, moving around a lot, and frequent leg movements. Bruxism: Yes GERD or aspiration: Yes Waking up with heart pounding or racing: No Anxiety or rumination: Yes She reports having an urge to move the legs. The urge to move the legs only occurs in the evening or nighttime. The urge to move the legs begins or worsens during periods of rest or inactivity (e.g. lying or sitting). The urge to move the legs is partially or totally relieved by movements such as walking or stretching, at least as long as the activity continues. The urge to move the legs occurs 2-3 nights per week and began several years ago. Can prevent her from falling asleep. There is no history of iron deficiency or anemia. She has been told that she has leg kicking during sleep. On vit D supplement. The patient reports having had the following: Acting out dreams. Not recently. 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 Punched a couple of times. Excessive daytime sleepiness / fatigue is a problem. Excessive Daytime sleepiness/fatigue has been a problem for many years. There is no history of a viral illness or significant head injury prior to the start of daytime sleepiness. 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 She does have difficulty with memory or concentration. She denies falling asleep or dozing off when driving. She does take naps if she hasn't slept well She does drink 1+ caffeinated beverages per day. She has lost 32 pounds since 11 months. Patient Questionnaires Sleep Scores 09/29/2024 Sleep Questions Reason for visit: Difficulty falling or staying asleep or poor sleep quality On average, hours of sleep in 24 hours: 5 Accidents or near accidents due to drowsy drivin 09/29/2024 [place] Sleepiness Scale Score 8 (No clinically significant daytime sleepiness) 09/29/2024 PROMIS CAT Sleep Disturbance PROMIS Sleep Disturbance T-Score 63 (moderate) PROMIS Sleep Disturbance Percentile 10 09/29/2024 Insomnia Severity Index Score 17 09/29/2024 Restless Leg Syndrome Score 24 (Severe symptoms) 09/29/2024 PHQ-9 Score 13 09/29/2024 PROMIS Global Health - (T-Scores - the mean of general population = 50. Five points is a clinically meaningful difference.) Physical T-Score 39.8 Mental T-Score 36.3 PAST TREATMENTS: None PRIOR SLEEP STUDIES: A Home Sleep Test (HST) performed on 07/14/24 revealed an AHI of 1.2; supine index of 2.7; and a minimum oxygen saturation of 92%. OTHER RELEVANT LABS AND STUDIES: Latest Reference Range AND Units 03/14/24 11:47 Hemoglobin 11.5 - 15.5 g/dL 13.8 Latest Reference Range AND Units 06/20/24 12:14 Vitamin D 25 Hydroxy 31.0 - 80.0 ng/mL 23.9 (L) (L): Data is abnormally low PAST MEDICAL HISTORY Diagnosis Date Anxiety state COVID-19 09/2020 Depression Hypothyroidism Resolved Insulin resistance 06/20/2024 PAST SURGICAL HISTORY Procedure Laterality Date EGD BIOPSY SING OR MULT 11/23/2022 variable ge j (more content not included)... [facility] 09-30-2024 Telephone encounter Note PA completed and on providers desk for signature. Billy Butler MA [facility] 09-26-2024 Telephone encounter Note Per cover my meds website prior authorization has to be submitted at [employer] Nurse attempted to submit a prior authorization and received message There may be a request on file for the drug you have submitted, please call customer service at for further instructions [facility] 09-26-2024 Telephone encounter Note Per insurance prior authorization needs to be submitted through [employer] [facility] 09-19-2024 Telephone encounter Note noted [facility] 09-19-2024 Telephone encounter Note Received PA request for Mounmairaro. Submitted and will wait for further response from patients insurance. Billy Butler MA [facility] 09-18-2024 Telephone encounter Note LVM for pt to call back and schedule first tod appt with Dr. Pugh Sent tod seminar [facility] 09-18-2024 Miscellaneous Notes LVM for pt to call back and schedule first tod appt with Dr. Pugh Sent tod seminar documented in this encounter [facility] 09-17-2024 Instructions Katheryn Yu MD - 09/17/2024 3:16 PM EST Images from the original note were not included. TIRZEPATIDE (MOUNJARO) Tirzepatide (Mounjaro) is a new combination drug (mimics 2 gut hormones, GLP1 and GIP) which has demonstrated superior weight loss >20% body wt loss after 72 week randomized controlled study. It's only approved for diabetes currently, but likely will have approval for weight/obesity next year. Below is more information on it as we discussed. Tirzepatide delays gastric emptying and has the potential to alter absorption of oral medications. This is important in patients taking narrow therapeutic index drugs or drugs that need a minimum blood level for efficacy. If you are taking oral contraceptives switch to a non-oral contraceptive method or add a barrier contraceptive method for 4 weeks after initiation of tirzepatide and for 4 weeks after each dose escalation. Video Instructions for Injecting Mounjaro: https://www.youtube.com/watch?v=n xnhBdyTSZ0 Savings Card: https://www.[employer]/savings- resources Link to Training And Development Head Website 9SLIDES Medication Guide: https://pi.delbert.com/us/mounjaro- us-mg.pdf?s=mg Written pen instructions: https://uspl.delbert.com/mounjaro/m ounjamireya.html#ug0 Tirzepatide: Patient drug information What is Mounjaro? Mounjaro is an injectable prescription medicine that is used along with diet and exercise to improve blood sugar (glucose) in adults with type 2 diabetes mellitus. It is not known if Mounjaro can be used in people who have had inflammation of the pancreas (pancreatitis). Mounjaro is not for use in people with type 1 diabetes. It is not known if Mounjaro is safe and effective for use in children under 18 years of age. It works in multiple ways. It helps: - THE BODY RELEASE INSULIN WHEN BLOOD SUGAR IS HIGH - THE BODY REMOVE EXCESS SUGAR FROM THE BLOOD - STOP THE LIVER FROM MAKING AND RELEASING TOO MUCH SUGAR - REDUCE HOW MUCH FOOD IS EATEN - SLOW DOWN HOW QUICKLY FOOD LEAVES THE STOMACH. THIS LESSENS OVER TIME. You can learn about possible side effects of Mounjaro here. Select Safety Information Changes in vision. Tell your healthcare provider if you have changes in vision during treatment with Mounjaro PURPOSE AND SAFETY SUMMARY WITH WARNINGS Important Facts About Mounjaro ([id number]). It is also known as tirzepatide. Mounjaro is an injectable prescription medicine for adults with type 2 diabetes used along with diet and exercise to improve blood sugar (glucose). It is not known if Mounjaro can be used in people who have had inflammation of the pancreas (pancreatitis). Mounjaro is not for use in people with type 1 diabetes. It is not known if Mounjaro is safe and effective for use in children under 18 years of age. Warnings Mounjaro may cause tumors in the thyroid, including thyroid cancer. Watch for possible symptoms, such as a lump or swelling in the neck, hoarseness, trouble swallowing, or shortness of breath. If you have a symptom, tell your healthcare provider. Do not use Mounjaro if you or any of your family have ever had a type of thyroid cancer called medullary thyroid carcinoma (MTC). Do not use Mounjaro if you have Multiple Endocrine Neoplasia syndrome type 2 (MEN 2). Do not use Mounjaro if you are allergic to tirzepatide or any of the ingredients in Mounjaro. Mounjaro may cause serious side effects, including: Inflammation of the pancreas (pancreatitis). Stop using Mounjaro and call your healthcare provider right away if you have severe pain in your stomach area (abdomen) that will not go away, with or without vomiting. You may feel the pain from your abdomen to your back. Low blood sugar (hypoglycemia). Your risk for getting low blood sugar may be higher if you use Mounjaro with another medicine that can cause low blood sugar, such as a sulfonylurea or insulin. Signs and symptoms of low blood sugar may include dizziness or light-headedness, sweating, confusion or drowsiness, headache, blurred vision, slurred speech, shakiness, fast heartbeat, anxiety, irritability, or mood changes, hunger, weakness and feeling jittery. Serious allergic reactions. Stop using Mounjaro and get medical help right away if you have any symptoms of a serious allergic reaction, including swelling of your face, lips, tongue or throat, problems breathing or swallowing, severe rash or itching, fainting or feeling dizzy, and very rapid heartbeat. Kidney problems (kidney failure). In people who have kidney problems, diarrhea, nausea, and vomiting may cause a loss of fluids (dehydration), which may cause kidney problems to get worse. It is important for you to drink fluids to help reduce your chance of dehydration. Severe stomach problems. Stomach problems, sometimes severe, have been reported in people who use Mounjaro. Tell your healthcare provider if you have stomach problems that are severe or will not go away. Changes in vision. Tell your healthcare provider if you have changes in vision during treatment with Mounjaro. Gallbladder problems. Gallbladder problems have happened in some people who use Mounjaro. Tell your healthcare provider right away if you get symptoms of gallbladder problems, which may include pain in your upper stomach (abdomen), fever, yellowing of skin or eyes (jaundice), and ray-colored stools. Common side effects The most common side effects of Mounjaro include nausea, diarrhea, decreased appetite, vomiting, constipation, indigestion, and stomach (abdominal) pain. These are not all the possible side effects of Mounjaro. Talk to your healthcare provider about any side effect that bothers you or doesn't go away. Tell your healthcare provider if you have any side effects. You can report side effects at 2-437-AKC-8763 or www.fda.gov/medwatch. Before using Your healthcare provider should show you how to use Mounjaro before you use it for the first time. Before you use Mounjaro, talk to your healthcare provider about low blood sugar and how to manage it. Review these questions with your healthcare provider: Do you have other medical conditions, including problems with your pancreas or kidneys, or severe problems with your stomach, such as slowed emptying of your stomach (gastroparesis) or problems digesting food? Do you take other diabetes medicines, such as insulin or sulfonylureas? Do you have a history of diabetic retinopathy? Are you or plan to become or or plan to breastfeed? It is not known if Mounjaro will harm your unborn baby. Do you take control pills by mouth? These may not work as well while using Mounjaro. Your healthcare provider may recommend another type of control when you start Mounjaro or when you increase your dose. Do you take any other prescription medicines or [id number] drugs, vitamins, or herbal supplements? How to take Read the Instructions for Use that come with Mounjaro. Use Mounjaro exactly as your healthcare provider says. Mounjaro is injected under the skin (subcutaneously) of your stomach (abdomen), thigh, or upper arm. Use Mounjaro 1 time each week, at any time of the day. Do not mix insulin and Mounjaro together in the same injection. If you take too much Mounjaro, call your healthcare provider or seek medical advice promptly. Learn more For more information, call 6-130-UaxjqFf ( ) or go to www.[employer]. This information does not take the place of talking with your healthcare provider. Be sure to talk to your healthcare provider about Mounjaro and how to take it. Your healthcare provider is the best person to help you decide if Mounjaro is right for you. Mounjaro and its delivery device base are trademarks owned or licensed by [employer], its subsidiaries, or affiliates. [employer] [id number] [employer] for additional drug information, tools, and databases. Copyright 7504-5131 [employer]. All rights reserved. Contributor Disclosures (For additional information see Tirzepatide: Drug information) You must carefully read the Consumer Information Use and Disclaimer below in order to understand and correctly use this information. Brand Names: [place] Mounjaro Warning This drug has been shown to cause thyroid cancer in some animals. It is not known if this happens in humans. If thyroid cancer happens, it may be deadly if not found and treated early. Call your doctor right away if you have a neck mass, trouble breathing, trouble swallowing, or have hoarseness that will not go away. Do not use this drug if you have a health problem called Multiple Endocrine Neoplasia syndrome type 2 (MEN 2), or if you or a family member have had thyroid cancer. Have your blood work checked and thyroid ultrasounds as you have been told by your doctor. What is this drug used for? It is used to lower blood sugar in patients with high blood sugar (diabetes). What do I need to tell my doctor BEFORE I take this drug? If you are allergic to this drug; any part of this drug; or any other drugs, foods, or substances. Tell your doctor about the allergy and what signs you had. If you have type 1 diabetes. Do not use this drug to treat type 1 diabetes. If you have ever had pancreatitis. If you have stomach or bowel problems. This is not a list of all drugs or health problems that interact with this drug. Tell your doctor and pharmacist about all of your drugs (prescription or OTC, natural products, vitamins) and health problems. You must check to make sure that it is safe for you to take this drug with all of your drugs and health problems. Do not start, stop, or change the dose of any drug without checking with your doctor. What are some things I need to know or do while I take this drug? Tell all of your health care providers that you take this drug. This includes your doctors, nurses, pharmacists, and dentists. Wear disease medical alert ID (identification). Follow the diet and workout plan that your doctor told you about. Check your blood sugar as you have been told by your doctor. Do not drive if your blood sugar has been low. There is a greater chance of you having a crash. control pills may not work as well to prevent . If you take control pills, you may need to switch to another type of hormone-based control like a vaginal ring if your doctor tells you to. If another type of hormone-based control is not an option, use some other kind of control also, like a condom. Do this for 4 weeks after starting this drug and for 4 weeks each time the dose is raised. This drug may prevent other drugs taken by mouth from getting into the body. If you take other drugs by mouth, you may need to take them at some other time than this drug. Talk with your doctor. It may be harder to control blood sugar during times of stress such as fever, infection, injury, or surgery. A change in physical activity, exercise, or diet may also affect blood sugar. Talk with your doctor before you drink alcohol. Do not share with another person even if the needle has been changed. Sharing your tray or pen may pass infections from one person to another. This includes infections you may not know you have. If you cannot drink liquids by mouth or if you have upset stomach, throwing up, or diarrhea that does not go away; you need to avoid getting dehydrated. Contact your doctor to find out what to do. Dehydration may lead to new or worse kidney problems. A severe and sometimes deadly pancreas problem (pancreatitis) has happened with other drugs like this one. Tell your doctor if you are , plan on getting , or are breast-feeding. You will need to talk about the benefits and risks to you and the baby. What are some side effects that I need to call my doctor about right away? WARNING/CAUTION: Even though it may be rare, some people may have very bad and sometimes deadly side effects when taking a drug. Tell your doctor or get medical help right away if you have any of the following signs or symptoms that may be related to a very bad side effect: Signs of an allergic reaction, like rash; hives; itching; red, swollen, blistered, or peeling skin with or without fever; wheezing; tightness in the chest or throat; trouble breathing, swallowing, or talking; unusual hoarseness; or swelling of the mouth, face, lips, tongue, or throat. Signs of kidney problems like unable to pass urine, change in how much urine is passed, blood in the urine, or a big weight gain. Signs of gallbladder problems like pain in the upper right belly area, right shoulder area, or between the shoulder blades; yellow skin or eyes; fever with chills; bloating; or very upset stomach or throwing up. Signs of a pancreas problem (pancreatitis) like very bad stomach pain, very bad back pain, or very bad upset stomach or throwing up. Dizziness or passing out. A fast heartbeat. Change in eyesight. Low blood sugar can happen. The chance may be raised when this drug is used with other drugs for diabetes. Signs may be dizziness, headache, feeling sleepy or weak, shaking, fast heartbeat, confusion, hunger, or sweating. Call your doctor right away if you have any of these signs. Follow what you have been told to do for low blood sugar. This may include taking glucose tablets, liquid glucose, or some fruit juices. What are some other side effects of this drug? All drugs may cause side effects. However, many people have no side effects or only have minor side effects. Call your doctor or get medical help if any of these side effects or any other side effects bother you or do not go away: Constipation, diarrhea, stomach pain, upset stomach, throwing up, or feeling less hungry. Heartburn. These are not all of the side effects that may occur. If you have questions about side effects, call your doctor. Call your doctor for medical advice about side effects. You may report side effects to your national health agency. How is this drug best taken? Use this drug as ordered by your doctor. Read all information given to you. Follow all instructions closely. It is given as a shot into the fatty part of the skin on the top of the thigh, belly area, or upper arm. If you will be giving yourself the shot, your doctor or nurse will teach you how to give the shot. Keep taking this drug as you have been told by your doctor or other health care provider, even if you feel well. Take the same day each week. Move site where you give the shot each time. Take with or without food. Wash your hands before and after use. Do not use if the solution is leaking or has particles. This drug is colorless to a faint yellow. Do not use if the solution changes color. If you are also using insulin, you may inject this drug and the insulin in the same area of the body but not right next to each other. Do not mix this drug in the same syringe with insulin. Do not move this drug from the pen to a syringe. Each pen is for one use only. Throw away any part of the used pen after the dose is given. Throw away needles in a needle/sharp disposal box. Do not reuse needles or other items. When the box is full, follow all local rules for getting rid of it. Talk with a doctor or pharmacist if you have any questions. What do I do if I miss a dose? If it is within 4 days after the missed dose, take the missed dose and go back to your normal day. If it has been more than 4 days since the missed dose, skip the missed dose and go back to your normal day. Do not take 2 doses at the same time or extra doses. How do I store and/or throw out this drug? Store in a refrigerator. Do not freeze. Do not use if it has been frozen. If needed, each pen may be stored at room temperature for up to 21 days. If you store at room temperature, throw away any part not used after 21 days. Protect from heat. Store in the original container to protect from light. Keep all drugs in a safe place. Keep all drugs out of the reach of children and pets. Throw away unused or drugs. Do not flush down a toilet or pour down a drain unless you are told to do so. Check with your pharmacist if you have questions about the best way to throw out drugs. There may be drug take-back programs in your area. General drug facts If your symptoms or health problems do not get better or if they become worse, call your doctor. Do not share your drugs with others and do not take anyone else's drugs. Some drugs may have another patient information leaflet. If you have any questions about this drug, please talk with your doctor, nurse, pharmacist, or other health care provider. If you think there has been an overdose, call your poison control center or get medical care right away. Be ready to tell or show what was taken, how much, and when it happened. Last Reviewed [id number] Consumer Information Use and Disclaimer This generalized information is a limited summary of diagnosis, treatment, and/or medication information. It is not meant to be comprehensive and should be used as a tool to help the user understand and/or assess potential diagnostic and treatment options. It does NOT include all information about conditions, treatments, medications, side effects, or risks that may apply to a specific patient. It is not intended to be medical advice or a substitute for the medical advice, diagnosis, or treatment of a health care provider based on the health care provider's examination and assessment of a patient's specific and unique circumstances. Patients must speak with a health care provider for complete information about their health, medical questions, and treatment options, including any risks or benefits regarding use of medications. This information does not endorse any treatments or medications as safe, effective, or approved for treating a specific patient. [employer] and its affiliates disclaim any warranty or liability relating to this information or the use thereof. The use of this information is governed by the Terms of Use, available at [email or web address] [email or web address]-iiyrh . 14 Ways to Lower Your Insulin Levels Insulin is an extremely important hormone that s produced by your pancreas. It has many functions, such as allowing your cells to take in sugar from your blood for energy. However, living with chronically high levels of insulin, also known as hyperinsulinemia, can lead to excessive weight gain and serious health problems like heart disease and cancer (1, 2, 3). High blood insulin levels can also cause your cells to become resistant to the hormone s effects. This condition, known as insulin resistance, leads your pancreas to produce even more insulin, creating a precarious cycle (4). If your doctor has advised you to lower your insulin levels, here are 14 things you can do. 1. Follow a lower-carb eating plan Of the three macronutrients -- carbohydrates, protein, and fat -- carbs raise blood sugar and insulin levels the most. Even though carbs are an essential part of most balanced, nutritious diets, lower-carb diets can be very effective for losing weight and managing diabetes (5, 6). Many studies have confirmed the effectiveness of lower-carb eating plans for lowering insulin levels and increasing insulin sensitivity, especially when compared with other diets. People living with health conditions characterized by insulin resistance, such as metabolic syndrome and polycystic ovary syndrome (PCOS), may experience a dramatic lowering of insulin with carb restriction (6, 7, 8). In a smaller study from 2008, people with metabolic syndrome were randomized to receive either a low fat or low carb diet containing 1,500 calories (9). Insulin levels dropped by an average of 50% in the low carb group, compared with 19% in the low fat group. Those on the low carb diet also lost more weight (9). In another small study from 2012, when people with PCOS ate a lower-carb diet containing enough calories to maintain their weight, they experienced greater reductions in insulin levels than when they ate a higher-carb diet (10). Summary While carbohydrates are typically an important part of a balanced diet, lower-carb diets have been shown to increase insulin sensitivity and reduce insulin levels in people living with obesity, diabetes, metabolic syndrome, and PCOS. 2. Consider supplementing with apple cider vinegar Apple cider vinegar (ACV) may help prevent insulin and blood sugar spikes after eating, particularly when consumed with high carbohydrate foods (11). One review found that consuming 2-6 tablespoons of vinegar daily appears to improve glycemic response to carbohydrate-rich meals. It s important to note, however, that this review incorporated studies that used other forms of vinegar in addition to ACV (12). Another review of studies found that consuming vinegar with meals affects both blood glucose and insulin levels. Individuals consuming vinegar with meals had lower blood sugar and insulin levels than those who didn t consume it. But again, this review did not specify ACV (13). A third review of studies from 2020 specifically targeted ACV analyzed its effect on glycemic control in adults (14). The researchers found that consuming ACV significantly decreased fasting blood sugar and HbA1C (a measure of blood sugar over time). However, ACV did not seem to affect fasting insulin levels or insulin resistance (14). Summary Vinegar may help ease high blood sugar and insulin levels after meals, particularly when those meals are high in carbs. However, results are mixed and more research is needed -- especially around apple cider vinegar in particular. 3. Keep an eye on portion sizes Your pancreas releases different amounts of insulin depending on the type of food you eat, but eating a large amount of foods that cause your body to produce extra insulin can eventually lead to hyperinsulinemia. This is of particular concern for people who are already living with obesity and insulin resistance (15). In one small 2017 study, otherwise healthy people classified as having either a normal BMI or a higher BMI each ate meals with different glycemic loads for a few days. Researchers found that while the meals with a higher glycemic load (those with more sugar and carbs) spiked everyone s blood sugar, the blood sugar of individuals with BMIs in the obese category stayed elevated longer (16). Consuming fewer calories has consistently been shown to increase insulin sensitivity and decrease insulin levels in people living with excess weight and obesity, regardless of the type of diet they consume (17, 18, 19, 20). One small study from 2012 analyzed different weight loss methods in 157 people living with metabolic syndrome, which is a group of conditions that include a larger waist circumference and high blood sugar (19). The researchers found that fasting insulin levels decreased by 16% in the group that practiced calorie restriction and 12% in the group that practiced portion control (19, 21). Even though calorie restriction has been shown to ease excess insulin levels, It s a good idea to seek the help of a [employer] identity management consultant or doctor before making any dietary changes to be sure you aren t missing out on any important macro or micronutrients. Summary Reducing calorie intake can help lower insulin levels in people living with excess weight or obesity who have type 2 diabetes or metabolic syndrome. 4. Lower your intake of all forms of sugar Sugar may very well be the most important ingredient to keep an eye on if you re trying to lower your insulin levels. Diets high in added sugar are associated with insulin resistance and may promote the development of metabolic disease (22). In a small study from 2008, otherwise healthy people were tasked with eating an increased amount of either candy (sugar) or peanuts (fat). The candy group experienced a 31% increase in fasting insulin levels, while the peanut group had a 12% increase (23). In another small study from 2013, otherwise healthy adults consumed jams containing varying amounts of sugar. The adults who consumed high sugar jams saw their insulin levels rise significantly as compared with those who ate the lower-sugar jams (24). Fructose is a type of natural sugar found in table sugar, honey, fruit, corn syrup, agave, and syrup. While some studies have singled out fructose as particularly harmful for blood sugar control and insulin resistance, there isn t enough evidence to suggest fructose is more harmful than other types of sugars when consumed in moderate amounts (25). Indeed, one study found that replacing glucose or sucrose with fructose actually lowered peak post-meal blood sugar and insulin levels, especially in people with prediabetes or type 1 or type 2 diabetes (26). Summary A high intake of sugar in any form has been shown to increase insulin levels and promote insulin resistance if consumed for a length of time. 5. Prioritize physical activity Engaging in regular physical activity can have powerful insulin-lowering effects. Aerobic exercise appears to be very effective at increasing insulin sensitivity in people living with obesity or type 2 diabetes (27, 28, 29). One study looked at the effect of sustained aerobic exercise versus high intensity interval training on metabolic fitness in men with obesity (29). Although both groups experienced improvements in fitness, only the group that performed sustained aerobic activity experienced significantly lower insulin levels (29). There s also research showing that resistance training can help decrease insulin levels in older adults and people who are more sedentary (30, 31). And lastly, combining aerobic and resistance exercise may be the best choice when it comes to positively affecting insulin sensitivity and levels (32, 33). Summary Aerobic exercise, strength training, or a combination of both may help lower insulin levels and increase insulin sensitivity. 6. Try adding cinnamon to foods and beverages Cinnamon is a delicious spice loaded with health-promoting antioxidants. Recent studies suggest that both individuals living with insulin resistance and those with relatively normal insulin levels who supplement with cinnamon may experience enhanced insulin sensitivity and decreased insulin levels (34, 35, 36). In one small, well-designed study, women with PCOS who took 1.5 grams of cinnamon powder daily for 12 weeks had significantly lower fasting insulin and insulin resistance than women who took a placebo (35). In another small, well-designed study, individuals living with type 2 diabetes who took 500 mg of cinnamon powder twice daily for 3 months had lower fasting insulin and insulin resistance than those who took a placebo (34). Improvements in insulin and insulin sensitivity were most pronounced for individuals with higher BMIs (34). It s important to note that there is no recommended dose of cinnamon that has been tested across the board, and not all studies have found that cinnamon helps lower insulin levels or increases insulin sensitivity. Cinnamon s effects may vary from person to person (37, 38). Summary Some studies have found that adding cinnamon to foods or beverages lowers insulin levels and increases insulin sensitivity, but results are mixed. 7. When eating carbs, choose complex carbs While complex carbs are an important part of a nutritious diet, refined or simple carbs don t usually contain a lot of fiber or micronutrients and are digested very quickly. Refined carbs include simple sugars as well as grains that have had the fibrous parts removed. Some examples are cereal with added sugar, highly processed fast foods, foods made with refined flour like certain breads and pastries, and white rice (39). Regularly consuming refined carbs can lead to several health problems, including high insulin levels and weight gain (40, 41). Furthermore, refined carbs have a high glycemic index (GI). The GI is a scale that measures a specific food s capacity to raise blood sugar. Glycemic load takes into account a food s glycemic index and the amount of digestible carbs contained in a serving (42). Some studies comparing foods with different glycemic loads have found that eating a ully-hgqpsygt-jpwv food raises insulin levels more than eating the same portion of a pqh-jkcbpqkj-cham food, even if the carb contents of the two foods are similar (43, 44). However, other studies comparing nyrt-upxjiftl-wcik and hfba-osnffoqb-dbufv diets with jqv-cvpmbuvw-hijl and saz-ahjphwot-zinhe diets have found no difference in their effects on insulin levels or insulin sensitivity (45, 46). Summary Replacing refined carbs, which are digested quickly and can sharply raise blood sugar, with slower-digesting complex carbs and whole grains may help lower insulin levels. 8. Increase your overall activity level Living an active lifestyle can help reduce insulin levels. A 2005 study of more than 1,600 people found that the most sedentary people (who didn t spend free time engaged in moderate or vigorous activity) were nearly twice as likely to have metabolic syndrome as those who did at least 150 minutes of moderate activity per week (47). Other studies have shown that getting up and walking around, rather than sitting for prolonged periods, can help keep insulin levels from spiking after a meal (48). One study looked at the effect of physical activity on insulin levels in men with extra weight who were at risk for type 2 diabetes. Those who took the most steps per day had the greatest reduction in insulin levels and belly fat compared with those who took the fewest steps (49). Summary Avoiding sitting for prolonged periods and increasing the amount of time you spend walking or doing other moderate activities may help reduce insulin levels. 9. Consider intermittent fasting Intermittent fasting (an eating plan where you have set hours for eating and set hours for fasting during a 24-hour period) has been popping up in headlines recently, specifically around its possible weight loss benefits. Research also suggests intermittent fasting may help reduce insulin levels as effectively as or more effectively than daily calorie restriction (50, 51). A 2019 study compared alternate-day fasting with calorie restriction in adults with extra weight or obesity and insulin resistance (52). Those using alternate-day fasting for 12 months had greater reductions in fasting insulin and insulin resistance than those who restricted their calorie intake, as well as those in the control group (52). Although many people find intermittent fasting beneficial and enjoyable, it doesn t work for everyone and may cause problems in some people. A doctor or [employer] identity management consultant can help you figure out whether intermittent fasting is right for you and how to do it safely. Summary Intermittent fasting may help reduce insulin levels. However, more research needs to be done, and this way of eating may not suit everyone. 10. Increase soluble fiber intake Soluble fiber provides a number of health benefits, including aiding in weight loss and reducing blood sugar levels. After you eat, the soluble fiber in food absorbs water and forms a gel, which slows down the movement of food through your digestive tract. This promotes feelings of fullness and keeps your blood sugar and insulin from rising too quickly after a meal (53, 54). One observational study from 2013 found that individuals assigned female at who ate the most soluble fiber were half as likely to be insulin-resistant as individuals assigned female who ate the least soluble fiber (55). Soluble fiber also helps feed the friendly bacteria that live in your colon, which may improve gut health and reduce insulin resistance. In a 6-week controlled study of older women with obesity, those who took flaxseed (which contains soluble fiber) experienced greater increases in insulin sensitivity and lower insulin levels than women who took a probiotic or placebo (56). Overall, fiber from whole foods appears to be more effective at reducing insulin than fiber in supplement form, although results are mixed. One study found that insulin decreased when people consumed black beans but not when they took a fiber supplement (57). Summary Soluble fiber, especially from whole foods, has been shown to increase insulin sensitivity and lower insulin levels, particularly in people living with obesity or type 2 diabetes. 11. Concentrate on weight loss, if advised The distribution of fat throughout your body is determined by age, sex hormones, and genetic variation (58). An overabundance of belly fat -- also known as visceral or abdominal fat -- in particular is linked to many health issues. Visceral fat can promote inflammation and insulin resistance, which drives hyperinsulinemia (59, 60, 61). A small study from 2013 suggests that losing visceral fat can lead to increased insulin sensitivity and lower insulin levels (62). Interestingly, another small study from 2013 found that people who lost abdominal fat retained the benefits for insulin sensitivity even after regaining a portion of the belly fat (63). There is no way to specifically target visceral fat when losing weight. However, visceral fat loss is linked to subcutaneous fat loss, so when you lose weight in general, you ll likely also lose visceral fat. Furthermore, studies show that when you lose weight, you lose a higher percentage of visceral fat than fat throughout the rest of your body (64). If your doctor has advised you to lose weight, talk with them about the best weight loss program for you. Summary If your doctor advises you to do so, losing visceral fat can increase insulin sensitivity and help reduce your insulin levels. While you can t target visceral fat specifically, when you lose weight overall, you lose visceral fat as well. 12. Incorporate green tea into your diet Green tea contains high amounts of an antioxidant known as epigallocatechin gallate (EGCG), which may help fight insulin resistance (65, 66, 67). In a 2016 study, postmenopausal individuals living with obesity and high insulin levels who took green tea extract experienced a small decrease in insulin over 12 months, while those who took a placebo had increased insulin levels following the intervention (66). In a 2013 review, researchers reported that green tea appeared to significantly lower fasting insulin levels in high quality studies (67). However, there are other high quality studies on green tea supplementation that have not shown a reduction in insulin levels or increased insulin sensitivity (68). Summary Several studies have found that green tea may increase insulin sensitivity and decrease insulin levels, but results are mixed. 13. Eat more fatty fish There are many reasons to consume fatty fish like salmon, sardines, mackerel, mccormack, and anchovies. They provide high quality protein and are some of the best sources of long-chain omega-3 fats, which offer many health benefits (69). Studies have shown that the omega-3s in fatty fish may also help reduce insulin resistance in people living with obesity, gestational diabetes, and PCOS (70, 71, 72). According to the U.S. Department of Health and Human Service s Dietary Guidelines for Americans, adults can safely consume at least 8 ounces of seafood per week (based on a 2,000-calorie diet). Young children should eat less. People who are or should eat 8-12 ounces of a variety of seafood per week, choosing options that are lower in mercury (73). While eating fish is typically recommended over taking supplements for a variety of reasons (more omega-3s aren t always better, and fish has additional nutrients and vitamins), fish oil supplements are sold widely in stores and are often used in studies. These supplements contain the same long-chain omega-3 fats as the fish itself, but the effective dosage has not yet been determined (74). Despite the need for more research, fish oil has been shown to support healthy blood sugar. One small 2011 study in individuals with PCOS found a significant 8.4% decrease in insulin levels in a group who took fish oil, compared with a group who took a placebo (71). Another study from 2012 found that children and adolescents with obesity who took fish oil supplements significantly reduced their insulin resistance and triglyceride levels (72). Finally, a review of 17 studies found that taking fish oil supplements is associated with increased insulin sensitivity in people living with metabolic disorders (75). Summary The long-chain omega-3s in fatty fish may help reduce insulin resistance and insulin levels, especially in those with metabolic disorders. While fish oil supplements are sold widely and often used in studies, the effective dosing has not yet been determined. 14. Get the right amount and type of protein Consuming adequate protein at meals can be beneficial for controlling your weight and insulin levels. In a small study from 2014, premenopausal individuals living with obesity had lower insulin levels after consuming a high protein breakfast compared with a low protein breakfast. They also felt yang and ate fewer calories at lunch (76). However, protein stimulates insulin production so that your muscles can take up amino acids. Therefore, eating very high amounts over a prolonged period may lead to higher insulin levels in otherwise healthy individuals (77). A larger study from 2018 sheds some light on these diverging results: When it comes to protein, dietary patterns are important. For instance, researchers found that individuals who ate a majority of plant proteins were less likely to develop type 2 diabetes, while individuals who ate a lot of protein in the form of red meat had a greater likelihood of living with or developing type 2 diabetes (78). So while protein is important, eating a variety of protein that isn t overly processed and is nutrient-dense is even more important. https://[email or web address].com/nutrit ion/35-sezi-ht-lower-insulin A Short Walk After Meals Is All It Takes to Lower Blood Sugar Researchers studying older adults with pre-diabetes found that 15 minutes of zycj-ba-bfypqlex exercise after every meal curbed risky blood sugar spikes all day. Seniors are more prone to developing diabetes, but a little exercise could make a big difference. A study published today in Diabetes Care found that three short walks each day after meals were as effective at reducing blood sugar over 24 hours as a single 45-minute walk at the same moderate pace. Even better, taking an evening constitutional was found to be much more effective at lowering blood sugar following supper. The evening meal, often the largest of the day, can significantly raise 24-hour glucose levels. The innovative exercise science study was conducted at the Clinical Exercise Physiology Laboratory at the [facility] ([facility]) using whole room calorimeters. Ambreen Cuevas, Ph.D., chair of the [facility] Department of Exercise Science, led the study. These findings are good news for people in their 70s and 80s who may feel more capable of engaging in intermittent physical activity on a daily basis, Faith said in a press release. Putting Humans in a Box to Measure Their Energy Use The whole room calorimeter (WRM), which looks like a very small hotel room, is a controlled-air environment for human study that allows scientists to calculate a person s energy expenditure by testing samples of air. The balance of oxygen consumed and carbon dioxide produced varies according to the activity level of the person in the room. The WRM also measures the body s use of different food fuels, such as carbohydrates, proteins, and fats. The 10 study participants spent three 48-hour periods in the small calorimeter rooms. Each room was equipped with a bed, toilet, sink, treadmill, television, and computer, leaving little room to move around. Participants ate standardized meals, and their blood sugar levels were monitored continuously using blood tests. The first day in the WRM served as a control period, with no exercise. On the second day, participants either walked at a moderate pace on the treadmill for 15 minutes after each meal, or for 45 minutes in either the late morning or before supper. The researchers observed that the evening post-meal walk was the most effective in lowering blood sugar levels for a full 24 hours. The typical exaggerated rise in blood sugar after supper--which often lasts well into the night and supervisor policy change clerks--was curbed significantly as soon as the participants started to walk on the treadmill, the study authors said. How Age Affects Insulin Resistance An estimated 79 million Americans have pre-diabetes, according to the National Diabetes Education Program run by the National Institutes of Health. But many people have no idea they are at risk. According to Faith, older people may be particularly susceptible to poor blood sugar control after meals because inactive muscles contribute to insulin resistance. The problem is compounded by slow or low insulin secretion by the pancreas, which often occurs as the body ages. Post-meal high blood sugar is a ding risk factor in the progression from impaired glucose tolerance (pre-diabetes) to type 2 diabetes and cardiovascular disease, Faith explained. Other studies have suggested that weight loss and exercise can prevent type 2 diabetes. The authors say theirs is the first study to examine short bouts of physical activity timed around the risky period following meals--a time when blood sugar can rise rapidly and potentially cause damage to internal organs and blood vessels. The muscle contractions connected with short walks were immediately effective in blunting the potentially damaging elevations in post-meal blood sugar commonly observed in older people, Faith said. If the findings of this small study hold up to further testing, it could lead to an inexpensive prevention strategy for pre-diabetes, which can develop over time into type 2 diabetes. Back in the day, it was de rigueur to take a morning, noon, and evening walk. The time has come to get up from the table, tie on those walking shoes, and take a little stroll around the block. [email or web address] -[email or web address]-fbvyswx-xkvyj-meals-t d-wwvgouh-dasvg-evwkc-[email or web address] 13 Why Is Protein So Important for Weight loss? consuming more protein not only reduces body weight but enhances body composition by decreasing fat mass while preserving fat-free mass During weight loss phase protein consumption (with normal kidney function) should be 1-1.6g protein per Kilogram of body weight (1kg=2.2lbs) On average Women need to Aim for a minimum 90g protein per day Consuming higher protein can also prevent weight regain after weight loss Protein consumption increases hormones responsible for satiety (feeling full)- these include Gut hormones like Glucagon-like peptide-1 (GLP-1), Cholecystokinin (CCK), Peptide Tyrosine-Tyrosine (PYY) and decreasing the Gut hormone responsible for causing hunger Ghrelin Protein has an increased thermogenesis effect of food- which means it take more calories to break down protein when consumed compared to carbohydrates or fats Protein also prevents a losing lean mass during weight loss (lose more fat and preserve fat free mass) which helps to increase resting energy expenditure (resting metabolic rate) Every pound of muscle morris ~ 6 kcal per pound/day vs fat morris ~ 2kcal per pound/day Carbohydrates - Why do You Crave Them? Eating too many refined carbohyrdates (sugar beverages, pastries, bread, pizza) which raises your blood glucose levels and therefore releasing insulin which in turn causes increase in hunger Carbohydrates suppress Ghrelin quickly but does not maintain the suppression for very long therefore hunger returns more quickly Consuming carbohydrates leads to a release of Dopamine feel good hormone in our brain So how do you Curb these cravings? Eating Whole Foods with more fiber - High fiber carbs are absorbed and digested slowly so it does not impact blood sugar levels as much and will help in making you feel yang for longer; fiber also is healthy for your gut bacteria and can help with constipation. Remember- carbohydrates are not the enemy but know what a proper serving size is, choose nutritious carbohydrates and space them out between meals. Always- eat your protein first followed by your non starchy vegetables followed by your carbohydrates- it will help your body with your glucose and insulin regulation Processed Foods vs Whole Foods- Impact on Weight: People who eat Ultra Processed food tend to consume about 500 calories more per day Ultra Processed foods are considered Calorie Dense so when a person feels full they have typically already over eaten and consumed more calories Whole Foods (unprocessed foods) tend to be more more filling and more Nutrient Dense Unprocessed foods can be more expensive and not realistic for everyone however when you have the choice to consume unprocessed vs Ultra processed foods always pick unprocessed. Why can't people stop eating Ultra Processed foods? They are economical and optimized for taste by [employer] - they are designed to make you want to keep eating them- they feed common cravings and bypass the mechanisms that tell your brain you are full Benefits of eating Whole Foods and cutting out Ultra Processed Foods Increased concentration and focus (decreased brain fog), improved mood, better sleep, Decrease in fatigue, improvement in gut health, decreased inflammation, Likely WEIGHT LOSS Coping with Shift Work Overcoming sleep problems caused by a non-traditional work schedule Not everyone has a work schedule that resembles the traditional davj-wx-oyna day. In fact, more than 22 million Americans work evening, rotating, or on-call shifts. You face many challenges when working non-traditional hours. It can be hard to keep up with family and friends. You may feel disconnected from the people you care about the most. You may have trouble organizing your time and activities. You may be frustrated to realize that most things are planned around the schedule of the typical conditioning room worker. It may seem like no one has your needs in mind. Your physical health may also suffer from shift work. It can be very hard to get the sleep you need to stay well rested. This can make you more likely to get sick. It also makes it hard for you to stay alert on the job. While this can hurt your performance, it can also put you in danger. Being tired increases the chance that you could suffer a work-related injury. Even driving home from work is a risk when you are sleepy. Studies show that sleepiness can have a negative effect on any of the following: Attention Concentration Reaction time Memory Mood The following are all examples of major accidents involving human errors that were blamed at least in part on sleepiness: [employer] [place] [employer] [place] accident in [place] in [place] nuclear power plant disaster in the [facility] in 1985 [employer] oil spill off the [facility] in 1988 The sleep problems that result from shift work can put a strain on every area of your life. But there are steps you can take to improve your sleep. Following them can help shift your sleep in the right direction. Sleeping Against The Clock A main challenge of shift work is that it forces you to sleep against the clock. You have an internal body clock in your brain that produces circadian rhythms. The word circadian means to occur in a cycle of about 24 hours. These rhythms act like messages that regulate various body functions. They influence such things as the following: Body temperature Alertness Sleepiness Hunger Hormone Levels Your body clock uses these rhythms to signal to you when it is time to go to sleep or to wake up. This tends to occur at regular times every day. Among other factors, your clock is set by your exposure to sunlight. This keeps the clock's timing close to the night/day cycle. In most adults, circadian rhythms cause your level of sleepiness to peak from aboutmidnight to 7 am. They can also make you mildly sleepy in the mid-afternoon between 1 pm and 4 pm. If you work at night, you must fight your body's natural rhythms to try and stay awake. Then you have to try to sleep during the day when your body expects to be alert. Overall, shift workers tend to be continually sleep-deprived. It is very hard for operations supervisor 2nd shift workers to get enough sleep during the day. They get a daily average of two to four hours less sleep than normal. It is hard for them to get their bodies to fall asleep during the day. Over time, this can develop into a case of insomnia. They are also much more likely to be awakened by noises or people. As a result, their sleep is very light. They are less likely to feel well rested when they wake up. Other factors can add to the problem of having an unusual sleep schedule. People who work extremely long shifts can have even more severe sleep loss. This includes such people as doctors, nurses, soldiers, firefighters and police officers. You may also have a schedule that does not allow you to get enough sleep each day. Perhaps you work two jobs, one during the day and one at night. Maybe you go to school during the day and work at night. In either case, it can be hard to find the time to sleep. A sleep disorder can also make your sleep problems worse. Two examples are sleep apnea and narcolepsy. They can keep you from sleeping well and feeling alert. You should see a sleep specialist if you think that you may have a sleep disorder. Some researchers think that it may take as long as three years to adjust to a shift work schedule. Others believe that you will never fully adjust to an unusual sleep/wake pattern. Even if this is the case, you can make the best of a bad situation to sleep better. Strategies For Sleeping Better There are a variety of ways to cope with the sleep problems caused by rotating work shifts and ongoing night work. The approach that will help you the most depends on the following three factors: Your individual needs The requirements of your job Your environment at home Some methods will apply to your situation more than others. 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 Also, some people respond to shift work better than others. In general, older people find it harder to work nights or to rotate shifts. Your personality may also suit you better for one kind of shift. Some people are evening types. They like to go to bed late and sleep late in the morning. They feel most alert and energetic in the evening. They may adjust to the operations supervisor 2nd shift better than morning types. Morning types wake up early and work best in the morning. They get tired and go to bed early in the evening. From the options below, find what will work best for you in your situation. The most important thing you can do at first is to make sleep a high priority in your life. Work schedules Employers can plan rotating shifts in ways that will help their workers. A schedule that rotates clockwise can be adjusted to more easily. This is a more natural change for your body. This schedule keeps to the following kind of pattern: Day shift? Evening shift? shift commander? Morning shift? Day shift A schedule that is much harder to adjust to rotates in a counterclockwise direction. This is a difficult change for your body to make. This schedule stays on the following kind of pattern: Day shift? Morning shift? shift commander? Evening shift? Day shift Shifts that rotate in a random pattern are also very hard on your body. Rotating shifts every two or three days is also better than changing every five to seven days. Studies show that workers are more satisfied when shifts are rotated in the proper ways. They are also more productive and have fewer accidents. Talk to your clinical engineering manager about how the right kind of schedule is better for everyone involved. Napping It is a good idea to take a nap just before reporting for a operations supervisor 2nd shift. This makes you more alert on the job. A nap of about 90 minutes seems to be best. Naps during work hours may also help you stay awake and alert. You may also want to take a nap during the operations supervisor 2nd shift lunch hour. This can make you more productive and more satisfied. But this is not a good idea for all types of jobs. This may not work well on a high-pressure job that demands instant reactions. You will need a little bit of time to shake the sleepy feeling that you may have right after a nap. About 15 to 20 minutes should be enough time for you to be fully alert again. See if your employer will allow you to take nap breaks during a operations supervisor 2nd shift. This can make you more alert and improve your job performance. Driving home from a operations supervisor 2nd shift can be dangerous. It can be very hard to stay alert on the road. Drowsy driving is a cause of at least 100,000 auto crashes each year. You may want to take a 20-45 minute nap before starting out. This will make you much more alert for the drive home. You also may want to begin a car pool with other workers. The most alert worker at the end of the shift can be the one to drive most of the distance. Eating well Stomach problems are common in shift workers. Many shift workers eat poorly and at odd times. Try to eat three regular meals spaced evenly over the course of the day. Regular meal times are important for your body. They serve as time cues for your body clock. These cues help your body know when to make you sleepy. You may want to have a hot meal while on the job. Do not eat your largest meal of the day within three hours of bedtime. You should also avoid drinking any alcohol within three hours of bedtime. At first, alcohol may help you fall asleep quicker. But over time, it can make your sleep worse. It causes you to wake up more often during your sleep period. Avoid eating a lot of snacks and fast foods. Eat a balanced, low-fat diet with plenty of fruits, vegetables, and cereals. This helps to prevent stomach problems in shift workers. Sleep schedules shift commander workers should try to stay on the same sleep schedule every day of the week. This means that you don't change your sleep time on days off. Keeping a regular schedule will help align your body clock with your sleep pattern. This will increase the quality of your sleep. Sleeping at night during days off disrupts your body clock. This will make it harder to sleep during the day when you return to work. Rotating shift workers are unable to keep a regular sleep schedule. Instead, they should begin to adjust their sleep time before a schedule change. For example, you may be working an evening shift. Soon you are going to rotate to a operations supervisor 2nd shift. On the last few days of the evening shift, delay the times you go to bed and wake up by one to two hours each day. Then when you begin the operations supervisor 2nd shift, your body will already be getting ready for the new schedule. See the chart below for an example. This kind of gradual plan gives your body more time to adjust. You avoid the harsh disruption of a sudden schedule change. This will allow you to sleep better through the change. 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 Normal sleep time for shift:?Sleep time - Night 1 of Transition:?Sleep time - Night 2 of Transition:?Sleep time - Night 3 of Transition:?Slepe time - Night 1 of New Shift Evening Shift (5 pm - 1 am) 3 am - 11am 5 am - 1 pm 7 am - 3pm 8 am - 4 pm Smoke Room Operator (11 pm - 7 am) 9 am - 5 pm 9 am - 5 pm Sleep aides Shift workers often rely on sleeping pills to help them fall asleep during the day. These pills are also known as hypnotics or sedatives. These drugs can be useful in helping some people sleep better. But pills should not be seen as a long-term solution for better sleep. Doctors rarely prescribe them for more than three to four weeks. They become less effective when used for a long period of time. There can also be negative side effects involved. You don't want to become dependent on a drug to be able to sleep. They will also give you only a small boost in alertness and performance on the job. Sleeping pills may offer temporary relief. But they do not address the root cause of your sleep problems; sleeping pills cannot reset your body clock. Talk to your doctor if you think a sleeping pill might help you once in a while. Store shelves are stocked with items that claim to help you sleep better. Antihistamines are the most common ingredient in these sleep aids. They may help you sleep better. But the side effect of drowsiness can be very severe. They may cause you to be sleepy while working or driving. These items should be used with extreme caution. There is very little evidence to show that using other herbs or vitamins will help you sleep better. Stimulants Studies show that using a stimulant may reduce sleepiness and increase alertness on a operations supervisor 2nd shift. The most common stimulant used is caffeine. But you should avoid caffeine within four hours of your desired bedtime. Otherwise, it may keep you from being able to fall asleep after you get home. Melatonin Melatonin is a hormone that is released by the brain at night. It appears to have a strong link to the sleep/wake cycle. Its release is regulated by an area of the brain that serves as your body clock. Taking melatonin has been found to be most effective in helping people with jet lag. For other people, it may have a mild effect, if any at all. Studies have found melatonin to be fairly safe in healthy adults. There do not seem to be any serious side effects, but more tests need to be done. The fact that it is widely available in stores does not guarantee its safety. The long-term effects of taking it remain unknown. Light therapy Studies show that timed exposure to bright light can be used to adjust your body's sleep cycle. Artificial bright light can affect the body clock in the same way that sunlight does. Light therapy is used to expose your eyes to intense but safe amounts of light. This is done for a specific and regular length of time. In general, using light treatment in the evening should help someone who regularly works nights. In this case, you would also want to avoid daylight when you come off work and go to bed. Dark sunglasses or special goggles can help. Light boxes can be purchased in a variety of makes and models. The box houses several tubes that produce extremely bright light. It sits on top of a table or desk and plugs into the wall. Sessions may take as little as 15 to 30 minutes. More than one session may be needed each day. It depends upon your body, your need, and the strength of light being used. The ding is to use the light at the right time of day and for the right amount of time. A sleep specialist can help you develop a light therapy plan that will be both helpful and safe. Workplace conditions Your employer should strive to create a work environment that will promote safety. This is even more important for those working the operations supervisor 2nd shift. The workplace should be bright and cool. This will help workers to be more alert on the job. Discuss with your employer any changes that need to be made in your workspace. Safety can be increased without losing any productivity. The home front Your family and living companions have a vital role in helping you to sleep better. They need to understand both your unique schedule and your sleep need. Post a shift work calendar to help them keep track of your schedule. Include your work hours and your sleep times. Educate them about the body clock and its effect on sleep. Get them to reduce the levels of noise and light in the home during your sleep hours. Darken and sound proof your room as best you can. Use white noise (static on the radio or TV) to help cover up disturbing sounds. Ask others to help with daytime childcare and household tasks. Schedule home repairs and deliveries outside of your scheduled sleep hours. Sleep hygiene You can often sleep better by simply following the practices of good sleep hygiene. Sleep hygiene consists of basic habits and tips that help you develop a pattern of healthy sleep. Following these tips will give you a head start down the path to better sleep. documented in this encounter [facility] 09-17-2024 History of Present illness Narrative Images from the original note were not included. Some documentation from previous visit of 07/25/2024 was copied and pasted, documentation has been reviewed and edited as necessary for today's visit. Patient Summary: Nichole is a 33 year old Female who presents for follow-up evaluation of obesity/weight management to treat and prevent related co-morbidities. In our previous visits we have discussed lifestyle intervention including a nutrition recommendations and physical activity optimization. Her last office visit was 2 months ago. Assessment/plan from last visit: -continue low carb, high protein, whole foods - follow up with sleep medicine as schedule, consult order placed- sleep study was completed and shows - continue Vit D supplement - discussed changing timing of pills- to 8am everyday for both- as it will impact her sleep. Discussed if not sleeping will want to change to diethylpropion and rationale for that (pt concerned to have to remember to take 3 pills per day) - continue metformin/topiramate and phentermine. - discussed how to titrate up metformin, reviewed SE of metformin can be reduced with better nutrition - importance of tracking reviewed Interval History PT specifies the following items as new or significant updates since the last appointment: - taking phentermine at 5 am now and topiramate 5 am - which helps her sleep better. Falling asleep faster. Has more energy during the day and at work. - struggling with nutrition. Not a lot of money to shop- makes eating healthy difficult. - eating pizza and eating out. Gets tired of chicken - feels that her mind is getting in the way of her succeeding. - feels the medication is working bc she doesn't eat as much. - still can only take one pill of metformin before she has diarrhea. - not able to get all protein in - can't drink shake in morning - it makes her sick. Weight loss since last vist: ++3 lb total weight lost 5 lb Adjusted ideal body weight: 70.1 kg (154 lb 9.4 oz) - Last Wt 09/17/2024: 231 lb 07/25/2024: 228 lb Starting weight 06/13/24 : 107.5 kg (237 lb) 5% weight loss = 225 lbs, 10% weight loss = 213 lbs Anti-obesity medications: Phentermine and Topiramate. 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- 1x2 week - then falls asleep until noon B - does not eat S - 10am 1/2 banana if she works out L - 2 sloppy joes (sugar free) , sometimes pineapple, grapes, apples, banana, berries S - D - PB and jelly wrap from pulp , pasta (portion is down since starting phentermine), chicken, beef tacos, corn , peas, carrots, green beans, cooked peppers and onions, cooked tomatoes S - sugar free ice cake and ice cream on occasion Before starting phentermine- snacking all the time - chips, pretzels, soda, pasta Fluids: at least one soda per day caffeine free diet soda, occasional regular soda- at peak was drinking 3-4 sodas per day. Currently getting 40oz water trying for 80oz. Juice- 1-2 per week one glass- 12 oz. , margaritas 1-2/mo, smoothie from pulp on occasion Bedtime - Quality of diet: 24hr recall suggests unhealthy diet. Characterization of diet:Unstructured, unhealthy snacking, excessive cravings, evening snacking, increased consumption of sugar sweetened beverages, and skip meals. Treater Helper of impaired eating habits:excessive hunger, lack of satiety, mindlessness , boredom, emotion, and stress Eating Disorder binge eating- undiagnosed Cravings: salty and carbs Dietary changes: (did not discuss much today)- More pizza and eating out B - Shake (premier) 11am S - L - S - D - meat- pork loin, hamburger w/bun, little smokey dogs, peas, broccoli, green beans, cabbage, applebees- wings- sweet chili 10, S - Fluids - water, OJ , caffeine free Diet Pepsi (tastes terrible) Reducing soda Controlling portions Seeing casserole preparer Increasing protein Reducing sugar-sweetened beverages Reducing carbohydrates Eating less take out/fast food Current Barriers: eating high-calorie foods, grazing/irregular meal patterns, poor sleep hygiene, inadequate sleep duration, and reduced physical activity Exercise: 2 x week 30min with bands stable Stress: yes work and financial stable Sleep: 5-6 hrs diff falling asleep increased Sleeping better 7 hrs CrCl cannot be calculated (Patient's most recent lab result is older than the maximum 180 days allowed.). PAST MEDICAL HISTORY Diagnosis Date Anxiety state COVID-19 09/2020 Depression Hypothyroidism Resolved Insulin resistance 06/20/2024 Current Outpatient Medications Medication Sig Dispense Refill Phentermine HCl 37.5 mg tablet Take 1 tablet by mouth once daily for 90 days. 90 tablet 0 FLUoxetine (PROZAC) 40 mg capsule Take 1 capsule by mouth once daily. 90 capsule 1 metFORMIN ER (GLUCOPHAGE XR) 500 mg 24 hr tablet Take 2 tablets by mouth daily with dinner. 180 tablet 0 topiramate (TOPAMAX) 50 mg tablet Take 1 tablet by mouth daily at bedtime. 90 tablet 0 cholecalciferol, Vitamin D3, (VITAMIN D3) 1,250 mcg (50,000 unit) cap capsule Take 1 capsule by mouth one time a week. 4 capsule 2 spironolactone (ALDACTONE) 50 mg tablet Take 1 tablet by mouth once daily. 90 tablet 3 omeprazole (PRILOSEC) 20 mg capsule TAKE 1 CAPSULE BY MOUTH ONCE DAILY 30 MIN BEFORE BREAKFAST 90 capsule 1 SUMAtriptan (IMITREX) 50 mg tablet Take one tablet by mouth at the onset of the headache. If no improvement in 2 hours take one more tablet. No more than 2 tablets in 24 hours 6 tablet 0 ARIPiprazole (ABILIFY) 2 mg tablet Take 5 mg by mouth once daily. Prescribed by Dr. Wally Nayak psych hydrOXYzine HCl (ATARAX) 10 mg tablet Take 10 mg by mouth three times daily as needed for anxiety. Prescribed by Wally Nayak psych famotidine (PEPCID) 20 mg tablet take 1 tablet by mouth at bedtime as needed 30 tablet 0 levonorgestrel (MIRENA) 20 mcg/24 hours (6 yrs) 52 mg IUD 1 Each by INTRAUTERINE route as directed. 1 Each 0 No current facility-administered medications for this visit. ROS denies CP, palpitations, sometimes has tingling in feet but intermittent. Has some diarrhea but improving ROS/Fam Hx pertaining to AOMs: GEN: Fatigue:yes (anxiety and depression) - occasional panic attacks CV: h/o palpitations/cardiac arrhythmia, Chest pain: no HTN: no PULM: Asthma:no GI: GERD:yes ; Gallstones:no ; Fatty liver disease:no Pancreatitis: no MSK: Joint Pain:yes : Nephrolithiasis: yes- 22 or 23 yo dehydrated. 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 Latest Ref Rng & Units 03/14/2024 CMP Sodium 136 - 144 mmol/L 140 Potassium 3.7 - 5.1 mmol/L 3.6 Chloride 97 - 105 mmol/L 105 CO2 22 - 30 mmol/L 26 Glucose 74 - 99 mg/dL 90 BUN 7 - 21 mg/dL 12 Creatinine 0.58 - 0.96 mg/dL 0.80 EGFR >=60 mL/min/1.73m 101 Protein, Total 6.3 - 8.0 g/dL 7.2 Albumin 3.9 - 4.9 g/dL 4.2 Calcium 8.5 - 10.2 mg/dL 9.7 Bilirubin, Total 0.2 - 1.3 mg/dL 0.3 AST 13 - 35 U/L 18 ALT 7 - 38 U/L 24 Alkaline Phosphatase 34 - 123 U/L 111 Cholesterol, Total (mg/dL) Date Value 03/14/2024 191 HDL Cholesterol (mg/dL) Date Value 03/14/2024 48 LDL Cholesterol (mg/dL) Date Value 03/14/2024 121 Triglyceride (mg/dL) Date Value 03/14/2024 109 Latest Ref Rng & Units 03/14/2024 CBC WBC 3.70 - 11.00 k/uL 11.03 RBC 3.90 - 5.20 m/uL 4.61 Hemoglobin 11.5 - 15.5 g/dL 13.8 Hematocrit 36.0 - 46.0 % 40.8 MCV 80.0 - 100.0 fL 88.5 MCH 26.0 - 34.0 pg 29.9 MCHC 30.5 - 36.0 g/dL 33.8 RDW-CV 11.5 - 15.0 % 12.8 Platelet Count 150 - 400 k/uL 299 MPV 9.0 - 12.7 fL 11.6 Vitamin D 25 Hydroxy Date Value Ref Range Status 06/20/2024 23.9 (L) 31.0 - 80.0 ng/mL Final Comment: Classification of 25 [place] Vitamin D status: Deficiency/Insufficiency: < or = 30 ng/ml. Sufficiency/Optimal Levels: 31-80 ng/mL Toxicity: > 100 ng/mL. Test performed by chemiluminescent immunoassay. 03/14/2024 19.7 (L) 31.0 - 80.0 ng/mL Final Comment: Classification of 25 OH Vitamin D status: Deficiency/Insufficiency: < or = 30 ng/ml. Sufficiency/Optimal Levels: 31-80 ng/mL Toxicity: > 100 ng/mL. Test performed by chemiluminescent immunoassay. TSH Date Value 03/14/2024 3.870 mIU/L 08/02/2023 2.490 mIU/L 04/25/2021 1.670 uU/mL 02/14/2019 2.480 uU/mL ) Hemoglobin A1C (%) Date Value 03/14/2024 5.3 08/02/2023 5.2 11/03/2022 5.4 Insulin Date Value Ref Range Status 03/14/2024 24.7 3.0 - 25.0 mU/L Final Assessment/Plan: Nichole Pittman is a 33 year old yo with Class III obesity who presented today for follow up for supervised weight loss to treat and prevent related co-morbidities. (E28.2) PCOS (polycystic ovarian syndrome) (primary encounter diagnosis) (E78.00) Hypercholesteremia (R73.01) Elevated fasting glucose (R03.0) Elevated blood pressure reading without diagnosis of hypertension (E88.819) Insulin resistance (E55.9) Vitamin D deficiency (E66.813, E66.01, Z68.42) Class 3 severe obesity without serious comorbidity with body mass index (BMI) of 45.0 to 49.9 in adult, unspecified obesity type (HCC) -reviewed back to basics- more whole foods, more protein, less processed foods - discussed [facility] - [place] - consult placed - Continue Vit D - stop Phentermine- has not met criteria to stay on it - Can continue topiramate- works well for migraines - follow up with sleep medicine as schedule, consult order placed- sleep study was completed and shows - Has follow up 09/30/24 - discussed how to titrate up metformin, reviewed SE of metformin can be reduced with better nutrition - Reviewed will try to order Mounjaro with Dx below- if not approved consider trulicity and then naltrexone/wellbutrin. But I discussed with patient I feel surgery is in her best interest especially with co-morbidities. Discussed still needs to work on creating better habits and work with nutrition. Pt will contact me on to let me know if it is approved or not. - discussed ways to eat healthier foods on a budget- frozen vegetables/fruits/meats. - An overall goal of 150-200 minutes per week of exercise has been effective in weight loss and maintenance. Prescription instructions reviewed with patient as applicable. Potential red flag symptoms discussed with the patient. Reviewed appropriate action plan to take if red flag symptoms occur. Patient agreeable to treatment plan. Follow up scheduled in November, I spent a total of 42 minutes on the date of the service which included preparing to see the patient, [id number] patient care, completing clinical documentation, obtaining and/or reviewing separately obtained history, performing a medically appropriate examination, counseling and educating the patient/family/caregiver, and ordering medications, tests, or procedures. Katheryn An MD, FACOGZAHRA documented in this encounter [facility] 09-17-2024 Note HNO ID: [id number] Author: KATHERYN YU MD Service: ? Author Type: Physician Type: Progress Notes Filed: 09/17/2024 15:27 Note Text: Some documentation from previous visit of 07/25/2024 was copied and pasted, documentation has been reviewed and edited as necessary for today's visit. Patient Summary: Nichole is a 33 year old Female who presents for follow-up evaluation of obesity/weight management to treat and prevent related co-morbidities. In our previous visits we have discussed lifestyle intervention including a nutrition recommendations and physical activity optimization. Her last office visit was 2 months ago. Assessment/plan from last visit: -continue low carb, high protein, whole foods - follow up with sleep medicine as schedule, consult order placed- sleep study was completed and shows - continue Vit D supplement - discussed changing timing of pills- to 8am everyday for both- as it will impact her sleep. Discussed if not sleeping will want to change to diethylpropion and rationale for that (pt concerned to have to remember to take 3 pills per day) - continue metformin/topiramate and phentermine. - discussed how to titrate up metformin, reviewed SE of metformin can be reduced with better nutrition - importance of tracking reviewed Interval History PT specifies the following items as new or significant updates since the last appointment: - taking phentermine at 5 am now and topiramate 5 am - which helps her sleep better. Falling asleep faster. Has more energy during the day and at work. - struggling with nutrition. Not a lot of money to shop- makes eating healthy difficult. - eating pizza and eating out. Gets tired of chicken - feels that her mind is getting in the way of her succeeding. - feels the medication is working bc she doesn't eat as much. - still can only take one pill of metformin before she has diarrhea. - not able to get all protein in - can't drink shake in morning - it makes her sick. Weight loss since last vist: ++3 lb total weight lost 5 lb Adjusted ideal body weight: 70.1 kg (154 lb 9.4 oz) - Last Wt 09/17/2024: 231 lb 07/25/2024: 228 lb Starting weight 06/13/24 : 107.5 kg (237 lb) 5% weight loss = 225 lbs, 10% weight loss = 213 lbs Anti-obesity medications: Phentermine and Topiramate. 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 - then falls asleep until noon B - does not eat S - 10am 1/2 banana if she works out L - 2 sloBioPharmX (sugar free) , sometimes pineapple, grapes, apples, banana, berries S - D - PB and jelly wrap from pulp , pasta (portion is down since starting phentermine), chicken, beef tacos, corn , peas, carrots, green beans, cooked peppers and onions, cooked tomatoes S - sugar free ice cake and ice cream on occasion Before starting phentermine- snacking all the time - chips, pretzels, soda, pasta Fluids: at least one soda per day caffeine free diet soda, occasional regular soda- at peak was drinking 3-4 sodas per day. Currently getting 40oz water trying for 80oz. Juice- 1-2 per week one glass- 12 oz. , margaritas 1-2/mo, smoothie from pulp on occasion Bedtime - Quality of diet: 24hr recall suggests unhealthy diet. Characterization of diet:Unstructured, unhealthy snacking, excessive cravings, evening snacking, increased consumption of sugar sweetened beverages, and skip meals. Treater Helper of impaired eating habits:excessive hunger, lack of satiety, mindlessness , boredom, emotion, and stress Eating Disorder binge eating- undiagnosed Cravings: salty and carbs Dietary changes: (did not discuss much today)- More pizza and eating out B - Shake (premier) 11am S - L - S - D - meat- pork loin, hamburger w/bun, little smokey dogs, peas, broccoli, green beans, cabbage, applebees- wings- sweet chili 10, S - Fluids - water, OJ , caffeine free Diet Pepsi (tastes terrible) Reducing soda Controlling portions Seeing casserole preparer Increasing protein Reducing sugar-sweetened beverages Reducing carbohydrates Eating less take out/fast food Current Barriers: eating high-calorie foods, grazing/irregular meal patterns, poor sleep hygiene, inadequate sleep duration, and reduced physical activity Exercise: 2 x week 30min with bands stable Stress: yes work and financial stable Sleep: 5-6 hrs diff falling asleep increased Sleeping better 7 hrs CrCl cannot be calculated (Patient's most recent lab result is older than the maximum 180 days allowed.). PAST MEDICAL HISTORY Diagnosis Date Anxiety state COVID-19 09/2020 Depression Hypothyroidism Resolved Insulin resistance 06/20/2024 (more content not included)... [facility] 2024 Telephone encounter Note ordered [facility] 2024 Miscellaneous Notes ordered Patient has weight mgmt appt with Dr Matias 09/17/2024 documented in this encounter [facility] 2024 Telephone encounter Note Patient has weight mgmt appt with Dr Matias 09/17/2024 [facility] 08-12-2024 Telephone encounter Note Received fax from [facility] Nutrition that patient was scheduled for 08/04/24 and no showed that appointment. They have not heard back from her to reschedule yet. She is scheduled with Kaci though here on 09/01/24. Next weight mgmt appointment is 09/17/24. Antonette Galindo RN [facility] 08-12-2024 Miscellaneous Notes Received fax from [facility] Nutrition that patient was scheduled for 08/04/24 and no showed that appointment. They have not heard back from her to reschedule yet. She is scheduled with Kaci though here on 09/01/24. Next weight mgmt appointment is 09/17/24. Antonette Galindo RN documented in this encounter [facility] 07-25-2024 History of Present illness Narrative Images from the original note were not included. Some documentation from previous visit of 06/20/2024 was copied and pasted, documentation has been reviewed and edited as necessary for today's visit. Patient Summary: Nichole is a 33 year old Female who presents for follow-up evaluation of obesity/weight management to treat and prevent related co-morbidities. In our previous visits we have discussed lifestyle intervention including a nutrition recommendations and physical activity optimization. Her last office visit was 5 weeks ago. Assessment/plan from last visit: -VIT D level reordered to check level after starting supplement - LABS REVIEWED with patient- discussed insulin level - ZEPBOUND ORDERED- if not covered or too expensive will do topiramate and metformin. Dicussed all risks/benefits of each medication. Pt knows to check AVS. - Nutrition reviewed , nutrition consult to [facility] placed - Sleep study ordered by Jenny Can- Never received it - message sent to July Serrano for follow up - follow up jul 25 and sep 17 Interval History PT specifies the following items as new or significant updates since the last appointment: - zepbound was not covered- was placed on phentermine by PCP we added Topiramate and Metformin - Diarrhea on Metformin - only taking one pill right now will try to bump up to 2 - taking topiramate at night- does not make her tired (3pm), takes phentermine at 3pm- some nights due to work goes to bed 2am (4days a week) other times 11pm - but has hard time falling asleep - 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) - Not able to get meals in due to sleep schedule, sometimes still eating late at night but is trying not to - did sleep study- does not have follow up- inconclusive test - Has nutrition appt scheduled - was doing well with tracking then got busy and last 1-2 weeks not going so well- when was tracking was only getting about 57 g protein Weight loss since last vist: 8 lb total weight lost 8 lb Adjusted ideal body weight: 70.1 kg (154 lb 9.4 oz) - Last Wt 07/25/2024: 228 lb Starting weight 06/13/24 : 107.5 kg (237 lb) 5% weight loss = 225 lbs, 10% weight loss = 213 lbs Anti-obesity medications: Phentermine and Topiramate. 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 - then falls asleep until noon B - does not eat S - 10am 1/2 banana if she works out L - 2 sloppy joes (sugar free) , sometimes pineapple, grapes, apples, banana, berries S - D - PB and jelly wrap from pulp , pasta (portion is down since starting phentermine), chicken, beef tacos, corn , peas, carrots, green beans, cooked peppers and onions, cooked tomatoes S - sugar free ice cake and ice cream on occasion Before starting phentermine- snacking all the time - chips, pretzels, soda, pasta Fluids: at least one soda per day caffeine free diet soda, occasional regular soda- at peak was drinking 3-4 sodas per day. Currently getting 40oz water trying for 80oz. Juice- 1-2 per week one glass- 12 oz. , margaritas 1-2/mo, smoothie from pulp on occasion Bedtime - Quality of diet: 24hr recall suggests unhealthy diet. Characterization of diet:Unstructured, unhealthy snacking, excessive cravings, evening snacking, increased consumption of sugar sweetened beverages, and skip meals. Treater Helper of impaired eating habits:excessive hunger, lack of satiety, mindlessness , boredom, emotion, and stress Eating Disorder binge eating- undiagnosed Cravings: salty and carbs Dietary changes: B - Shake (premier) 11am S - L - S - D - meat- pork loin, hamburger w/bun, little smokey dogs, peas, broccoli, green beans, cabbage, applebees- wings- sweet chili 10, S - Fluids - water, OJ , caffeine free Diet Pepsi (tastes terrible) Reducing soda Controlling portions Seeing casserole preparer Increasing protein Reducing sugar-sweetened beverages Reducing carbohydrates Eating less take out/fast food Current Barriers: eating high-calorie foods, grazing/irregular meal patterns, poor sleep hygiene, inadequate sleep duration, and reduced physical activity Exercise: 2 x week 30min with bands stable Stress: yes work and financial stable Sleep: 5-6 hrs diff falling asleep stable Estimated Creatinine Clearance: 111.7 mL/min (based on SCr of 0.8 mg/dL). PAST MEDICAL HISTORY Diagnosis Date Anxiety state COVID-19 09/2020 Depression Hypothyroidism Resolved Insulin resistance 06/20/2024 Current Outpatient Medications Medication Sig Dispense Refill Phentermine HCl 37.5 mg tablet Take 1 tablet by mouth once daily for 30 days. 30 tablet 0 FLUoxetine (PROZAC) 40 mg capsule Take 1 capsule by mouth once daily. 90 capsule 1 metFORMIN ER (GLUCOPHAGE XR) 500 mg 24 hr tablet Take 2 tablets by mouth daily with dinner. 180 tablet 0 topiramate (TOPAMAX) 50 mg tablet Take 1 tablet by mouth daily at bedtime. 90 tablet 0 cholecalciferol, Vitamin D3, (VITAMIN D3) 1,250 mcg (50,000 unit) cap capsule Take 1 capsule by mouth one time a week. 4 capsule 2 tirzepatide, weight loss (ZEPBOUND) 2.5 mg/0.5 mL pen injector Inject 2.5 mg subcutaneously one time a week. 2 mL 0 [START ON 07/25/2024] Phentermine HCl 37.5 mg tablet Take 1 tablet by mouth once daily for 30 days. Patient should start on July 25, 2024. 30 tablet 0 [START ON 08/24/2024] Phentermine HCl 37.5 mg tablet Take 1 tablet by mouth once daily for 30 days. Patient should start on August 24, 2024. 30 tablet 0 spironolactone (ALDACTONE) 50 mg tablet Take 1 tablet by mouth once daily. 90 tablet 3 omeprazole (PRILOSEC) 20 mg capsule TAKE 1 CAPSULE BY MOUTH ONCE DAILY 30 MIN BEFORE BREAKFAST 90 capsule 1 SUMAtriptan (IMITREX) 50 mg tablet Take one tablet by mouth at the onset of the headache. If no improvement in 2 hours take one more tablet. No more than 2 tablets in 24 hours 6 tablet 0 ARIPiprazole (ABILIFY) 2 mg tablet Take 5 mg by mouth once daily. Prescribed by Dr. Wally Nayak psych hydrOXYzine HCl (ATARAX) 10 mg tablet Take 10 mg by mouth three times daily as needed for anxiety. Prescribed by Wally Nayak psych famotidine (PEPCID) 20 mg tablet take 1 tablet by mouth at bedtime as needed 30 tablet 0 levonorgestrel (MIRENA) 20 mcg/24 hours (6 yrs) 52 mg IUD 1 Each by INTRAUTERINE route as directed. 1 Each 0 No current facility-administered medications for this visit. ROS denies CP, palpitations, sometimes has tingling in feet but intermittent. Has some diarrhea but improving ROS/Fam Hx pertaining to AOMs: GEN: Fatigue:yes (anxiety and depression) - occasional panic attacks CV: h/o palpitations/cardiac arrhythmia, Chest pain: no HTN: no PULM: Asthma:no GI: GERD:yes ; Gallstones:no ; Fatty liver disease:no Pancreatitis: no MSK: Joint Pain:yes : Nephrolithiasis: yes- 22 or 23 yo dehydrated. 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 Latest Ref Rng & Units 03/14/2024 CMP Sodium 136 - 144 mmol/L 140 Potassium 3.7 - 5.1 mmol/L 3.6 Chloride 97 - 105 mmol/L 105 CO2 22 - 30 mmol/L 26 Glucose 74 - 99 mg/dL 90 BUN 7 - 21 mg/dL 12 Creatinine 0.58 - 0.96 mg/dL 0.80 EGFR >=60 mL/min/1.73m 101 Protein, Total 6.3 - 8.0 g/dL 7.2 Albumin 3.9 - 4.9 g/dL 4.2 Calcium 8.5 - 10.2 mg/dL 9.7 Bilirubin, Total 0.2 - 1.3 mg/dL 0.3 AST 13 - 35 U/L 18 ALT 7 - 38 U/L 24 Alkaline Phosphatase 34 - 123 U/L 111 Cholesterol, Total (mg/dL) Date Value 03/14/2024 191 HDL Cholesterol (mg/dL) Date Value 03/14/2024 48 LDL Cholesterol (mg/dL) Date Value 03/14/2024 121 Triglyceride (mg/dL) Date Value 03/14/2024 109 Latest Ref Rng & Units 03/14/2024 CBC WBC 3.70 - 11.00 k/uL 11.03 RBC 3.90 - 5.20 m/uL 4.61 Hemoglobin 11.5 - 15.5 g/dL 13.8 Hematocrit 36.0 - 46.0 % 40.8 MCV 80.0 - 100.0 fL 88.5 MCH 26.0 - 34.0 pg 29.9 MCHC 30.5 - 36.0 g/dL 33.8 RDW-CV 11.5 - 15.0 % 12.8 Platelet Count 150 - 400 k/uL 299 MPV 9.0 - 12.7 fL 11.6 Vitamin D 25 Hydroxy Date Value Ref Range Status 06/20/2024 23.9 (L) 31.0 - 80.0 ng/mL Final Comment: Classification of 25 [place] Vitamin D status: Deficiency/Insufficiency: < or = 30 ng/ml. Sufficiency/Optimal Levels: 31-80 ng/mL Toxicity: > 100 ng/mL. Test performed by chemiluminescent immunoassay. 03/14/2024 19.7 (L) 31.0 - 80.0 ng/mL Final Comment: Classification of 25 OH Vitamin D status: Deficiency/Insufficiency: < or = 30 ng/ml. Sufficiency/Optimal Levels: 31-80 ng/mL Toxicity: > 100 ng/mL. Test performed by chemiluminescent immunoassay. TSH Date Value 03/14/2024 3.870 mIU/L 08/02/2023 2.490 mIU/L 04/25/2021 1.670 uU/mL 02/14/2019 2.480 uU/mL ) Hemoglobin A1C (%) Date Value 03/14/2024 5.3 08/02/2023 5.2 11/03/2022 5.4 Insulin Date Value Ref Range Status 03/14/2024 24.7 3.0 - 25.0 mU/L Final Assessment/Plan: Nichole Pittman is a 33 year old yo with Class III obesity who presented today for follow up for supervised weight loss to treat and prevent related co-morbidities. (E28.2) PCOS (polycystic ovarian syndrome) (primary encounter diagnosis) (E78.00) Hypercholesteremia (R73.01) Elevated fasting glucose (R03.0) Elevated blood pressure reading without diagnosis of hypertension (E88.819) Insulin resistance (E55.9) Vitamin D deficiency (E66.01, Z68.42) Class 3 severe obesity without serious comorbidity with body mass index (BMI) of 45.0 to 49.9 in adult, unspecified obesity type (HCC) -continue low carb, high protein, whole foods - follow up with sleep medicine as schedule, consult order placed- sleep study was completed and shows - continue Vit D supplement - discussed changing timing of pills- to 8am everyday for both- as it will impact her sleep. Discussed if not sleeping will want to change to diethylpropion and rationale for that (pt concerned to have to remember to take 3 pills per day) - continue metformin/topiramate and phentermine. - discussed how to titrate up metformin, reviewed SE of metformin can be reduced with better nutrition - importance of tracking reviewed - An overall goal of 150-200 minutes per week of exercise has been effective in weight loss and maintenance. Prescription instructions reviewed with patient as applicable. Potential red flag symptoms discussed with the patient. Reviewed appropriate action plan to take if red flag symptoms occur. Patient agreeable to treatment plan. Follow up Sep 17 scheduled- will schedule Oct and Dec. I spent a total of 36 minutes on the date of the service which included preparing to see the patient, [id number] patient care, completing clinical documentation, obtaining and/or reviewing separately obtained history, performing a medically appropriate examination, counseling and educating the patient/family/caregiver, and ordering medications, tests, or procedures. Katheryn An MD, FACOG, DABOM documented in this encounter [facility] 07-25-2024 Note HNO ID: [id number] Author: KATHERYN YU MD Service: ? Author Type: Physician Type: Progress Notes Filed: 07/25/2024 16:19 Note Text: Some documentation from previous visit of 06/20/2024 was copied and pasted, documentation has been reviewed and edited as necessary for today's visit. Patient Summary: Nichole is a 33 year old Female who presents for follow-up evaluation of obesity/weight management to treat and prevent related co-morbidities. In our previous visits we have discussed lifestyle intervention including a nutrition recommendations and physical activity optimization. Her last office visit was 5 weeks ago. Assessment/plan from last visit: -VIT D level reordered to check level after starting supplement - LABS REVIEWED with patient- discussed insulin level - ZEPBOUND ORDERED- if not covered or too expensive will do topiramate and metformin. Dicussed all risks/benefits of each medication. Pt knows to check AVS. - Nutrition reviewed , nutrition consult to [facility] placed - Sleep study ordered by Jenny Can- Never received it - message sent to July Serrano for follow up - follow up jul 25 and sep 17 Interval History PT specifies the following items as new or significant updates since the last appointment: - zepbound was not covered- was placed on phentermine by PCP we added Topiramate and Metformin - Diarrhea on Metformin - only taking one pill right now will try to bump up to 2 - taking topiramate at night- does not make her tired (3pm), takes phentermine at 3pm- some nights due to work goes to bed 2am (4days a week) other times 11pm - but has hard time falling asleep - 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) - Not able to get meals in due to sleep schedule, sometimes still eating late at night but is trying not to - did sleep study- does not have follow up- inconclusive test - Has nutrition appt scheduled - was doing well with tracking then got busy and last 1-2 weeks not going so well- when was tracking was only getting about 57 g protein Weight loss since last vist: 8 lb total weight lost 8 lb Adjusted ideal body weight: 70.1 kg (154 lb 9.4 oz) - Last Wt 07/25/2024: 228 lb Starting weight 06/13/24 : 107.5 kg (237 lb) 5% weight loss = 225 lbs, 10% weight loss = 213 lbs Anti-obesity medications: Phentermine and Topiramate. 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 - then falls asleep until noon B - does not eat S - 10am 1/2 banana if she works out L - 2 sloppy joes (sugar free) , sometimes pineapple, grapes, apples, banana, berries S - D - PB and jelly wrap from pulp , pasta (portion is down since starting phentermine), chicken, beef tacos, corn , peas, carrots, green beans, cooked peppers and onions, cooked tomatoes S - sugar free ice cake and ice cream on occasion Before starting phentermine- snacking all the time - chips, pretzels, soda, pasta Fluids: at least one soda per day caffeine free diet soda, occasional regular soda- at peak was drinking 3-4 sodas per day. Currently getting 40oz water trying for 80oz. Juice- 1-2 per week one glass- 12 oz. , margaritas 1-2/mo, smoothie from pulp on occasion Bedtime - Quality of diet: 24hr recall suggests unhealthy diet. Characterization of diet:Unstructured, unhealthy snacking, excessive cravings, evening snacking, increased consumption of sugar sweetened beverages, and skip meals. Treater Helper of impaired eating habits:excessive hunger, lack of satiety, mindlessness , boredom, emotion, and stress Eating Disorder binge eating- undiagnosed Cravings: salty and carbs Dietary changes: B - Shake (premier) 11am S - L - S - D - meat- pork loin, hamburger w/bun, little smokey dogs, peas, broccoli, green beans, cabbage, applebees- wings- sweet chili 10, S - Fluids - water, OJ , caffeine free Diet Pepsi (tastes terrible) Reducing soda Controlling portions Seeing casserole preparer Increasing protein Reducing sugar-sweetened beverages Reducing carbohydrates Eating less take out/fast food Current Barriers: eating high-calorie foods, grazing/irregular meal patterns, poor sleep hygiene, inadequate sleep duration, and reduced physical activity Exercise: 2 x week 30min with bands stable Stress: yes work and financial stable Sleep: 5-6 hrs diff falling asleep stable Estimated Creatinine Clearance: 111.7 mL/min (based on SCr of 0.8 mg/dL). PAST MEDICAL HISTORY Diagnosis Date Anxiety state COVID-19 09/2020 Depression Hypothyroidism Resolved Insulin resistance 06/20/2024 Current Outpatient Medications Medication Sig Dispense Refill Phentermine HCl 37.5 mg tablet Take 1 tablet by mouth (more content not included)... [facility] 07-25-2024 Instructions Katheryn Yu MD - 07/25/2024 12:26 PM EDT Images from the original note were not included. Nutrition Reminders: NO NAKED CARBS!! Protein >= Carbs for each meal (if you are going to eat 50g carbs for lunch you should eat 50g protein or more). If you do not eat your carbs for lunch you do not get to save them for dinner- you use them or lose them. Balance your Protein between meals. Unless told otherwise your Minimum protein each day is 30grams per meal but don t be afraid to eat more. Focus on WHOLE FOODS if you can as your Gut Microbiome will benefit and you will feel more satisfied - the only caviot to this is protein shakes if needed. Water intake should be a minimum of 64oz per day- but more is better (to an extent) unless you have a medical condition that requires you to keep it to a minimum. Nothing is off limits- this is not about restricting yourself- this about learning what your body can have and still respond well to and learning how to balance food and still feel good. Track your food, weigh your food, measure your portion sizes as most people underestimate their food by approximately 40%. You should be tracking your Carbohydrates and Protein daily. It s ok if you had a bad day- write it down and move on! Weigh yourself daily or at least 5 times per week, it will help to keep you accountable. If you are hungry- think about your stress level, your sleep (did you get 7.5-9hrs?) and your protein consumption- if you did not meet your goals then those could be contributing to your hunger. During weight loss phase it is ok to use two protein shakes per day and eating one meal along with it - studies have shown you will lose more weight and keep it off. Take a multivitamin daily Sit less Move more- Exercise including resistance training is very important for your health and if you are not getting routine exercise right now there will come a point when it will become an important piece of this process. High Protein Snack Ideas 1. Jerky 2. [place] mix without dried fruit 3. Blessing roll-ups 4. Mosotho yogurt 5. Veggies and yogurt dip 6. Tuna 7. Hard-boiled eggs 8. Peanut butter with celery 9. Cheese slices/ Cheese Stick 10. Handful of almonds, peanuts or walnuts 11. Cottage Cheese 12. Beef sticks 13. Protein bars 14. Canned [place] 15. Pumpkin seeds 16. Nut butter 17. Protein shakes 18. Avocado and chicken salad 19. Egg muffins 20. Leftover protein or lunch meat 21. 1/2 c blended cottage cheese with 1 Tbsp sugar-free dry cheesecake pudding mix 12g protein 10 carb 22. Pudding - 1 30 gm protein shake with 1/2 pkg sugar-free pudding 4 svgs - 7.8 gm protein, 5 carb each svg 23. SF Sunkist or Root Beer with 1-2 Tablespoons heavy whipping cream 24. Mini frozen dessert bites - layer protein yogurt, skinny syrup and crushed nuts and freeze Meal replacements: Meal Replacements Plant-based protein bars Meal replacements. One option that works for some people is to use meal replacements, as in the DiRECT and Look AHEAD trials.The available options in Look AHEAD included shakes, bars, and meals from a variety of companies ([employer], [employer], [employer], and [employer]). The calorie content was 150 to 220 calories, depending on the product. People who used meal replacements 12 times a week instead of preparing their own meals lost about 11% of their weight in the first year, whereas those who used just two per week lost about 6% of their weight. Keep in mind, though, that people in the trial who used meal replacements also tended to consume a healthier diet over all; they were more likely to have met their goals for dietary fat, fruits and vegetables, and dairy foods, and to have cut back on sweets, than those who didn t use meal replacements. Similarly, in the DiRECT trial, participants consumed special nutritionally complete shakes and soups (the Counterweight-Plus program) for the first 12 weeks.If you opt for meal-replacement drinks, bars, or frozen entrees, here are some criteria to look for: calories, 150 to 300 fat, 3 to 10 grams protein, > 20 grams sugar < 5 g Meal replacements are typically fortified with vitamins and minerals and contain some fiber. Because they are calorie controlled, the amount of added sugars is usually minimal. If you want to try this approach to boost weight loss, ask your dietitian or another member of your health care team how to incorporate the replacements into your meal planning and discuss whether you might need to reduce your doses of diabetes medications to prevent hypoglycemia (low blood sugar) as you cut calories and lose weight. It is important to find a meal-replacement product that suits your taste. If you prefer not to consume processed foods, you can make your own portion-controlled versions. Note that meal replacements don t work for everyone. While some people like meal-replacement shakes, bars, and soups and find them to be a convenient way to sustain a reduced calorie intake over time, others don t feel satisfied drinking them and often end up simply adding them to what they d normally eat--which could lead to weight gain. What s more, some people have a hard time readjusting to eating real food after they stop using meal replacements. Protein - no carbs Egg 1 large - 6g Egg white 1 large 3.6g 3 oz is approximately the size of a deck of cards and equals 21 g protein so 4 oz is 28 gm protein Beef, Chicken, Blessing, Pork, Hernandez 1 oz 7g Fish, Tuna Fish 1 oz 7g (Starkist tuna packet 2.6 oz 17 gm protein) Seafood (Crabmeat, Shrimp, Lobster) 1 oz 6g Protein shakes (read labels) Premier Protein or generic [employer] Equate, [employer] High Performance- 30g protein & 1g carb - meal replacement Premier Protein powder or generic- 30 gm protein, 1g carb Premier Protein plant protein powder - 25 gm protein, 0 suger/2 carb Vanilla and chocolate (not a meal replacement) Fairlife 30 gram protein - 30g protein & 3g carb BOOST Glucose Control Max 30g Protein Nutritional Drink - 30g protein & 1 carb - meal replacement Slimfast High Protein - 20g protein & 1g carb Ensure Max Protein Nutrition Shake 30g protein & 2 carb Protein AND carbs Beef/Blessing Jerky 1 oz dried 10-15g protein - check carb count, can be high if sugar added Slim Jerzy - 6 gm protein and 4 net carb Great Value original turkey sausage sticks - 7 gm protein and 2 gm carb Vahe & Carlos (at [employer]) Original smoked sausage sticks - 8 gm protein and 0 carb Imitation Crab Meat 1 oz - 2g protein & 4g carb Milk, skim 2% or 1% 8 oz - 8g protein & 12g carb Mosotho yogurt Full Fat Mosotho Yogurt 1 cup - 20.4g protein & 9.1g carb 2% Mosotho Yogurt 1 cup - 22.7g protein & 9.1g carb 0% (fat-free) Mosotho Yogurt - 1 cup 24g protein & 9.3g carb Aldi Protein Mosotho yogurt single svg - 15g protein & 7g carb Chobani Zero Sugar single svg: - 11g protein & 5g carb Dannon Light + Fit 1 single svg - 12g protein & 9g carb Oikos Pro single svg - 20g protein & 8g carb Oikos Triple Zero Mosotho Nonfat Yogurt 1 single svg - 15g protein & 7g carb :ratio, KETO Friendly Dairy Snack 1 single svg - 15g protein & 2g carb :ratio Protein 1 single svg - 25g protein & 8g carb Two Good Lowfat Mosotho Yogurt, [place], Lower Sugar - 12g protein & 2g carb Yoplait Protein 1 single svg 15gm protein & 5gm carb Dairy Free - [place] 15 gm protein & 4 gm carb Cheese each oz Brie 5.9g protein & 0.1g carb Cheddar Cheese 7g protein & 0.4g carb Mozzarella Cheese 6.3g protein & 0.6g carb Devonte Cheese 6.7g protein & 0.7g carb Parmesan Cheese 10g protein & 0.9g carb Cream Cheese 1.7g protein & 1.2g carb Feta 4g protein & 1.2g carb [place] Cheese 7.6g protein & 1.5g carb Aguilera s Low Fat Cottage Cheese 1/2cup 12g protein & 4g carb Legumes Lentils cup 9g protein & 20g carb Baumann beans cup 7g protein & 20g carb Kidney, Black, Kamaili, Cannellini beans cup 8g protein & 20g carb Soybeans 1/2 c 14g complete protein & 8.5g carb [place] milk, unsweetened 8 oz 1g protein & 2g carb Soy milk 8 oz 3.5g protein & 1.6g carb Tofu 1/2 cup 10g protein & 2.3g carb Peanut butter, natural 2 Tbsp 7-8g protein & 4g net carbs, 190 calories PB2 powder 2 Tbsp 6g protein & 5g carb Nuts and Seeds per oz Almonds - 5.9g protein & 6.1g carb [place] Nuts - 4.0g protein & 3.4g carb Cashews - 5.1g protein & 9.2g carb Hazelnuts - 4.2g protein & 4.7g carb Hemp seeds 3 T/30 gms - 9.5 gm complete protein and 2.5 gm carb Peanuts - 7g protein & 4.6g carb Pecans - 2.6g protein & 3.9g carb Pistachios - 5.8g protein & 7.8g carb Pumpkin Seeds - 6.9g protein & 5g carb [place] Seeds - 5.8g protein & 5.6g carb Walnuts - 4.3g protein & 3.8g carb <15 gram carb fruit options Berries have the lowest sugar content 1/2 medium apple - 12.5 carbs 1/2 medium avocado - 6.5 gm carbs 1/2 medium banana - 15 carbs 1/2 cup blueberries - 11 carbs - may actually help you lose weight 1/2 cup fresh cherries -11 carbs 1 medium Marissa -9 carbs 1/2 cup fresh cranberries - 6.5 carbs 1/2 c grapes - 15 carbs 1/2 medium grapefruit - 10.5 carbs 1/2 cup diced honeydew melon - 8 carbs 1 medium kiwi without skin - 11 carbs 1/2 cup sliced lamont -14 carbs 1 medium nectarine - 15 carbs 1 medium orange -15.5 carbs 1 medium peach -14.5 carbs 1/2 cup fresh pineapple -11 carbs 1 medium plum -7.5 carbs 1 prune - 6 carbs 1/4 c raisins - 31.25 carbs 1/2 cup raspberries -7.5 carbs 1/2 c strawberries - 12.7 carbs 1 medium tangerine -12 carbs 1/2 cup diced watermelon - 6 carbs 5 (FIVE) gram carb vegetable options 1 cup raw OR cup cooked: Asparagus Vega sprouts Beets Broccoli Brussel sprouts Cabbage Carrots Cauliflower Celery [place] Eggplant Green beans Lettuce Peppers Snap peas Spaghetti squash Spinach Tomato Turnips Zucchini 15 gram carb vegetable options cup cooked corn or hominy corn on the cob, large (5 oz) cup cooked green peas cup cooked baumann beans 1 small potato or sweet potato cup cooked potato, plain cup cooked sweet potato, plain 1 cup winter squash (pumpkin, acorn, butternut) 1 cup marinara or pasta sauce - check label cup tomato juice cup tomato puree Beans, Seeds, Nuts cup cooked beans (kidney, mccloud, red, green, etc.) cup cooked lentils cup baked beans 4 tablespoons nut butter Grains Brown rice 1/2 c 5.5g protein 24 carb White long-grain rice 1/2 c 2g protein 22.5 carb Quinoa 1/2 c 4 gm complete protein 25 carb Oatmeal, old fashioned 1/2 c 5g protein 27g carb VEGAN PROTEIN LIST SOY Tempeh: 17g protein 8g carbohydrate in 1/2 cup, Shelled Edamame: 9g Protein, 8g carbohydrate in 1/2cup Tofu: 9g protein,2 g carbohydrate per 3oz Soy Milk: 7g Protein, 15g carbohydrate in 1 cup Nutritional Yeast 8g Protein, 5g Carbohydrate in 2TBSP (16g) Seitan 30g Protein, 6.8g Carbohydrate in 1/2 cup Whole Grains Quinoa: 8g protein in 1cup Wild rice 6.5g protein in 1 cup Legumes Lentils 12g protein, 23g carbohydrate in 1/2 cup cooked Chickpea 6g protein, 17g carbohydrate in 1/2 cup cooked Black Beans 7g protein, 19g carbohydrate in 1/2 cup cooked Green Split peas 8g protein, 22g carbohydrate in 1/2 cup cooked Baumann Vega 8g protein, 20g carbohydrate in 1/2 cup cooked Seeds Pumpkin 8g protein, 3 carbohydrate in 1/4cup Hemp 9g protein, 3 carbohydrate in 3 Tablespoons Tahini 10g protein, 3 carbohydrate in 2 Tablespoons Jesus 5g protein, 10g carbohydrate in 2 tablespoons Nuts Almonds 6g protein, 6g carbohydrate in 1/4cup Walnuts 4g protein, 4g carbohydrate in 1/4cup Cashew 4g protein, 9g carbohydrate in 1/4cup Peanuts 8g protein, 5g carbohydrate in 1/4cup Peanut butter 7g protein, 6g carbohydrate in 2 TBSP Potatoes Russet potato- 1 medium (173g) 4.5g protein, 37g carbohydrate Red Potato- 1 large (299g) 6.9g protein, 59g carbohydrate Sweet Potato - 1 medium (114g) 2.3g protein, 24g carbohydrate Sprouted grain bread Christopher bread- per slice 5g protein, 15g carbohydrate Vegetables Artichoke- 4.2g protein, 13g carbohydrate in 1 medium (128g) Green Peas- 8g protein, 21g carbohydrates in 1 cup Brussel Sprouts - 3g protein, 8g carbohydrate in 1 cup Spout Spring- 4.3g protein, 19g carbohydrate in 1/2cup Spinach- 1g protein, 1g carbohydrate in 1 cup 3g carb8g carb 20g protein, 4 carbohydrate per scoop QUICK VEGAN PROTEIN PRODUCTS/SNACKS: NOT high in protein- BUT LOW CARB SUBSTITUTE FOR NOODLES Why You May Want to Weigh Yourself Every Day At any given moment, an estimated 24% of men and 38% of women in the [place] are trying to lose weight (1Trusted Source). Meanwhile, obesity has skyrocketed and working-age adults are gaining about 2.2 pounds (1 kg) annually, on average (2Trusted Source, 3Trusted Source). Recent studies have shown that daily self-weighing may be a powerful tool for both losing and maintaining weight. However, many people believe that weighing yourself daily contributes to bad mental health and disordered eating habits. So what should you believe? This article sets the record straight on whether you should start weighing yourself daily. Weighing Yourself Daily Helps You Lose More Weight The simple act of self-weighing has received lots of attention and stirred up controversy for years. Some people have even thrown away their scale, claiming that it s a highly misleading weight loss tool that results in bad self-esteem and disordered eating habits (4, 5). However, recent studies generally agree that daily weighing is associated with greater weight loss and less weight regain than less-frequent self-weighing (6Trusted Source, 7, 8, 9). One study showed that participants who weighed themselves daily for six months lost 13 more pounds (6 kg), on average, than those who weighed themselves less frequently (10. What s more, those who weigh themselves daily tend to adopt more favorable weight control behaviors, exercise better restraint toward food and eat impulsively less often (10, 11). Interestingly, adopting healthy weight-related behaviors has been shown to be especially important when people emerge from adolescence into adulthood (12). One study in participants aged 18-25 showed that daily self-weighing resulted in better weight loss than less-frequent weighing (13). The researchers concluded that daily self-weighing is a particularly valuable self-regulation tool for this age group. Furthermore, another study showed that people who weighed themselves every day ate 347 fewer calories per day than those who did not. After six months, the group that weighed themselves daily ended up losing a whopping 10 times more weight than the control group (14). BOTTOM LINE: Daily self-weighing may cause people to lose more weight and gain less of it back, compared to less-frequent weighing. Daily Weighing May Motivate You and Improve Self-Control Being aware of your weight is a ding factor in successful weight loss. Awareness of your weight trend -- that is, whether your weight is going up or down -- is also important. In fact, weighing yourself more often is linked to weight control, while weighing yourself less often has been associated with weight gain. One study found that participants who weighed themselves less often were more likely to report increased calorie intake and decreased restraint toward food (15). Self-weighing promotes self-regulation and awareness of your weight trend and weight-related behaviors. That s why it generally results in greater weight loss (14). Although the exact number on the scale may be unimportant, monitoring weight loss progress motivates you to keep going and generally improves weight-related behavior and self-control. Also, by being more aware of your weight, you can quickly react to lapses in your progress and make necessary adjustments to maintain your goal. Since most people are able to sustain a habit of daily self-weighing, the adherence and acceptability of it is generally quite high (16Trusted Source, 17, 18, 19, 20). It s a minor addition to your daily routine that may help you reap major benefits for your weight. BOTTOM LINE: Daily self-weighing helps you maintain awareness of your weight. Monitoring weight loss progress further motivates you to keep going and improves your self-control. Daily Weighing Helps You Keep the Weight Off Frequent self-weighing has been shown to be a great way to prevent weight gain in the long-term (15, 2, 22, 23). 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 It found that there was a significant link between self-weighing frequency and weight change. In normal-weight individuals, daily weighing resulted in a slight weight loss, while those who weighed themselves monthly gained 4.4 pounds (2 kg), on average. However, the largest difference was in overweight individuals. Those who weighed themselves daily lost 10 pounds (4.4 kg), while those who weighed themselves monthly gained 2.2 pounds (1 kg), on average (24). Another study came to a similar conclusion, showing that self-weighing was a significant predictor of body weight over time. Participants lost an extra pound (0.45 kg) of body weight for every 11 days they self-weighed (25). The main reason why this is so effective is that consistent self-weighing allows you to catch weight gain before it escalates and make the necessary changes to prevent more weight gain (15). BOTTOM LINE: Daily weighing may help prevent long-term weight gain, especially in overweight people. Weighing Yourself Daily Is Not as Bad as People Think Not so long ago, frequent self-weighing was thought to be damaging to your mental health. This notion still exists today. Self-weighing is claimed to have negative effects on your mood by continuously reinforcing that your body size is not ideal or appropriate, resulting in an increased risk of developing an eating disorder (4Trusted Source, 5Trusted Source). Although this may be true in a small group of people, most studies have repeatedly come to a different conclusion (9Trusted Source, 26Trusted Source, 27Trusted Source). The available research suggests there is very little evidence that frequent self-weighing is a cause of negative mood or body dissatisfaction, especially as part of a weight loss program (8Trusted Source, 12Trusted Source, 14Trusted Source, 26Trusted Source, 28Trusted Source, 29Trusted Source). In fact, studies indicate that frequent self-weighing may increase body satisfaction, rather than decrease it (9Trusted Source). That said, there is a group of people who may develop a negative body image, low self-esteem or undesirable eating behaviors as a result of daily self-weighing (30Trusted Source). If you find that daily self-weighing causes you to have bad feelings about yourself or your eating behaviors, you should find other methods to measure your progress. BOTTOM LINE: Most studies do not link frequent self-weighing to negative mood or body dissatisfaction. Some even associate them with higher body satisfaction. How to Weigh Yourself for Best Results The best time to weigh yourself is right after you wake up, after going to the bathroom and before you eat or drink. Your weight tends to fluctuate less in the morning than later in the day when you ve had plenty to eat and drink. That is also why people weigh the least in the morning. Also, it is best if you always weigh yourself in similar clothing each day. However, you need to keep in mind that your weight may fluctuate from day to day and can be affected by many factors, including: What you ate or drank the previous day Bloating or water retention Menstrual cycle Whether you ve had bowel movements recently Therefore, it is important to assess the trend of your weight over a longer period of time, instead of drawing conclusions from each and every weighing. A basic scale will do just fine. However, many scales also have the ability to measure your body mass index (BMI), body fat percentage and muscle mass, which may help you get a better picture of your progress. There are also several apps available for your phone or computer that allow you to easily enter your daily weight and see the trend of your weight change. Happy Scale for iPhone and Rhianna for Android are two such apps. BOTTOM LINE: It is best to weigh yourself right after you wake up, after going to the bathroom and before you eat or drink anything. Other Ways to Track Your Progress Although self-weighing may be a valuable tool, it has some limitations. If you re exercising and gaining muscle, the scale may not show your progress and instead simply show that you have gained weight. While losing weight can indicate progress, a scale does not differentiate between healthy weight (muscle) and unhealthy weight (fat). Therefore, it may be good to add other ways of tracking your progress to your regimen. Here are some examples: Measure circumference: Muscle has much less volume than fat, so your circumference may be decreasing even if your weight stays the same or goes up. Measure body fat percentage: By measuring your body fat percentage, you can observe changes in fat mass, regardless of your weight. Take pictures of yourself regularly: You can observe any changes in your physique by comparing photos of yourself in similar clothing. Note how your clothes feel: Any changes in your weight will probably affect how your clothes fit. Feeling them become looser or tighter is one of the best indicators of changes in your body. BOTTOM LINE: Other ways to track your progress include measuring your circumference, measuring your body fat percentage and taking pictures of yourself. Take Home Message Weighing yourself every day can help increase your awareness of your weight and weight-related behaviors. It may help you lose more weight and prevent you from gaining that weight back in the long-term. Daily self-weighing may just be that extra motivation you need to achieve your weight goals. [email or web address] [email or web address]-[email or web address] Disrupted Sleep Linked to Weight Gain - YouTube How To Improve Your Sleep To Impact Your Weight Loss: [email or web address]/ Weight Loss and Sleep Updated August 13, 2020 Written by Nikolai Ferrera Medically Reviewed by Yulissa Jurado In This Article The Connection Between Sleep and Weight Sleep and Obesity Sleep During Weight Loss Maintaining a Healthy Relationship With Your Body Losing weight is challenging, and keeping weight off can be just as difficult. Although the medical community is still untangling the complicated relationship between sleep and body weight, several potential links have emerged that highlight the potential weight loss benefits of getting a good night s rest and the negative health impacts of sleep deprivation. The Connection Between Sleep and Weight Over the past several decades, the amount of time that Americans spend sleeping has steadily decreased1, as has the self-reported quality of that sleep. For much of the same time period, the average body mass index (BMI) of Americans increased2, reflecting a trend toward higher body weights and elevated rates of obesity. In response to these trends, many researchers began to hypothesize about potential connections between weight and sleep. Numerous studies have suggested that restricted sleep and poor sleep quality may lead to metabolic disorders, weight gain, and an increased risk of obesity and other chronic health conditions. While there is continuing debate within the medical community about the exact nature of this relationship, the existing research points to a positive correlation between good sleep and healthy body weight. There remains much to be discovered about the intricate details of how sleep and weight are connected. Several hypotheses offer paths for additional research with the hope that increasing our understanding of the relationship between weight and sleep will lead to reduced obesity and better weight-loss methods. Can Lack of Sleep Increase Appetite? One common hypothesis about the connection between weight and sleep involves how sleep affects appetite. While we often think of appetite as simply a matter of stomach grumbling, it s actually controlled by neurotransmitters, which are chemical messengers that allow neurons (nerve cells) to communicate with one another. The neurotransmitters ghrelin and leptin are thought to be central to appetite. Ghrelin promotes hunger, and leptin contributes to feeling full. The body naturally increases and decreases the levels of these neurotransmitters throughout the day, signaling the need to consume calories3. A lack of sleep may affect the body s regulation of these neurotransmitters. In one study, men who got 4 hours of sleep had increased ghrelin and decreased leptin compared to those who got 10 hours of sleep. This dysregulation of ghrelin and leptin may lead to increased appetite and diminished feelings of fullness in people who are sleep deprived. In addition, several studies have also indicated that sleep deprivation affects food preferences. Sleep-deprived individuals tend to choose foods that are high in calories and carbohydrates4. Other hypotheses regarding the connection between sleep and increased appetite involve the body s endocannabinoid system5 and orexin6, a neurotransmitter targeted by some sleep aids. Many researchers believe that the connection between sleep and dysregulation of neurotransmitters is complicated and additional studies are needed to further understand the neurobiological relationship. Does Sleep Increase Metabolism? Metabolism7 is a chemical process in which the body converts what we eat and drink into energy needed to survive. All of our collective activities, from breathing to exercising and everything in between, is part of metabolism. While activities like exercise can temporarily increase metabolism, sleep cannot8. Metabolism actually slows about 15% during sleep, reaching its lowest level in the morning 9. In fact, many studies have shown that sleep deprivation (whether due to self-induction, insomnia, untreated sleep apnea, or other sleep disorders) commonly leads to metabolic [id number]. Poor sleep is associated with increased oxidative stress, glucose (blood sugar) intolerance (a precursor to diabetes), and insulin resistance. Extra time spent awake may increase the opportunities to eat11, and sleeping less may disrupt circadian rhythms, leading to weight gain12. How is Sleep Related to Physical Activity? Losing sleep can result in having less energy for exercise and physical activity. Feeling tired can also make sports and exercising less safe, especially activities like weightlifting and or those requiring balance. While researchers are still working to understand this [id number], it s well known that exercise is essential to maintaining weight loss and overall health. Getting regular exercise can improve sleep quality, especially if that exercise involves natural light. While even taking a short walk during the day may help improve sleep, more activity can have a more dramatic impact. Engaging in at least 150 minutes of moderate-intensity or 75 minutes of high-intensity exercise per week can improve daytime concentration and decrease daytime [id number]. Sleep and Obesity In children and adolescents, the link between not getting enough sleep and an increased risk of obesity is well-established, although the reason for this link is still being debated. Insufficient sleep in children can lead to metabolic irregularities as discussed earlier, skipping breakfast in the mornings, and increased intake of sweet, salty, fatty, and starchy foods15. In adults, the research is less clear. While a large analysis of past studies suggests that people getting less than 6 hours of sleep at night are more likely to be diagnosed as obese16, it s challenging for these studies to determine cause and effect. Obesity itself can increase the risk of developing conditions that interfere with sleep, like sleep apnea and depression. It s not clear if getting less sleep is the cause of obesity in these studies, if obesity is causing the participants to get less sleep, or perhaps a mix of both. Even though more studies are needed to understand this connection, experts encourage improving sleep quality when treating obesity in adults. Sleep During Weight Loss Getting adequate, quality sleep is an important part of a healthy weight loss plan. Most importantly, research has shown that losing sleep while dieting can reduce the amount of weight lost17 and encourage [id number]. Tips for Quality Sleep During Weight Loss There are many ways to improve sleep. Here are a few research-based tips for sleeping better when you re trying to lose weight: Keep a regular sleep schedule: Big swings in your sleep schedule or trying to catch up on sleep after a week of late nights can cause changes in metabolism and reduce insulin [id number], making it easier for blood sugar to be elevated. Sleep in a dark room: Exposure to artificial light while sleeping, such as a TV or bedside lamp, is associated with an increased risk of weight gain and [id number]. Don t eat right before bed: Eating late may reduce the success of weight loss Reduce Stress: Chronic stress may lead to poor sleep and weight gain in several ways, including eating to cope with negative [id number] Be an Early Bird: People with late bedtimes may consume more calories and be at a higher risk for weight gain23. Early birds may be more likely to maintain weight loss when compared to night owls24. Maintaining a Healthy Relationship With Your Body Deciding if you should attempt to change your body weight is a personal decision best made with the guidance of your doctor. Don t take all the health and weight loss information you read [id number] at face value. Weight loss isn t appropriate for everyone and doesn t always mean better health. Remember that health is a lifelong journey that includes not only healthy habits but also having a healthy relationship with your body. If you re considering weight loss, the National Institutes of Health offers a helpful resource for choosing a safe weight loss [id number] Source National [place] of Diabetes and Digestive and Kidney DiseasesNIDDK research creates knowledge about and treatments for diseases that are among the most chronic, costly, and consequential for patients, their families, and the Nation. niddk.nih.gov . https://www.sleepfoundation.org/p hysical-health/avriyh-fvbh-xjz-sl eep Sleep Hygiene Tips Set a sleep schedule and stick to it. Try to go to bed at night and awaken in the morning around the same times, even on weekends. This helps to regulate the body s sleep cycles and circadian rhythms. Try to exercise at some point in the day but avoid vigorous activity (running, fast dancing, high-intensity interval training) one hour before bedtime. Regular exercise of adequate intensity can promote muscle relaxation and deeper sleep later on. If you re in the habit of napping during the day, aim for a 10-20 minute power nap to achieve the goals of reduced fatigue and increased alertness. It s best to take naps in the early afternoon to avoid interference with nighttime sleep. Try to avoid large meals, heavy snacking,or alcohol 2-3 hours before bed. If you are sensitive to caffeine, try to avoid drinking caffeinated beverages 4-6 hours before bedtime. Stop using electronic devices an hour before bed, especially those emitting blue light such as smartphones, tablets, and televisions. Schedule before-bed activities to signal that you are winding down, such as changing into pajamas and brushing teeth. Create a quiet, dark, relaxing environment in your bedroom. Dim the lights and turn off your cell phone s sound and vibration modes if possible. Ensure a comfortable temperature, as feeling too hot or cold can disrupt sleep. Create calming bedtime rituals such as practicing deep breathing exercises, doing light yoga stretches, or listening to soothing relaxing music. If you awaken and can t return to sleep, don t stay in bed. Get up and do quiet relaxing activities, such as reading, until you feel tired enough to fall back asleep. Coping with Shift Work Overcoming sleep problems caused by a non-traditional work schedule Not everyone has a work schedule that resembles the traditional pofm-ut-ovcb day. In fact, more than 22 million Americans work evening, rotating, or on-call shifts. You face many challenges when working non-traditional hours. It can be hard to keep up with family and friends. You may feel disconnected from the people you care about the most. You may have trouble organizing your time and activities. You may be frustrated to realize that most things are planned around the schedule of the typical conditioning room worker. It may seem like no one has your needs in mind. Your physical health may also suffer from shift work. It can be very hard to get the sleep you need to stay well rested. This can make you more likely to get sick. It also makes it hard for you to stay alert on the job. While this can hurt your performance, it can also put you in danger. Being tired increases the chance that you could suffer a work-related injury. Even driving home from work is a risk when you are sleepy. Studies show that sleepiness can have a negative effect on any of the following: Attention Concentration Reaction time Memory Mood The following are all examples of major accidents involving human errors that were blamed at least in part on sleepiness: [employer] [place] accident in [place] in 1978 [place] nuclear power plant disaster in the [facility] in 1985 [employer] oil spill off the [facility] in 1988 The sleep problems that result from shift work can put a strain on every area of your life. But there are steps you can take to improve your sleep. Following them can help shift your sleep in the right direction. Sleeping Against The Clock A main challenge of shift work is that it forces you to sleep against the clock. You have an internal body clock in your brain that produces circadian rhythms. The word circadian means to occur in a cycle of about 24 hours. These rhythms act like messages that regulate various body functions. They influence such things as the following: Body temperature Alertness Sleepiness Hunger Hormone Levels Your body clock uses these rhythms to signal to you when it is time to go to sleep or to wake up. This tends to occur at regular times every day. Among other factors, your clock is set by your exposure to sunlight. This keeps the clock's timing close to the night/day cycle. In most adults, circadian rhythms cause your level of sleepiness to peak from aboutmidnight to 7 am. They can also make you mildly sleepy in the mid-afternoon between 1 pm and 4 pm. If you work at night, you must fight your body's natural rhythms to try and stay awake. Then you have to try to sleep during the day when your body expects to be alert. Overall, shift workers tend to be continually sleep-deprived. It is very hard for operations supervisor 2nd shift workers to get enough sleep during the day. They get a daily average of two to four hours less sleep than normal. It is hard for them to get their bodies to fall asleep during the day. Over time, this can develop into a case of insomnia. They are also much more likely to be awakened by noises or people. As a result, their sleep is very light. They are less likely to feel well rested when they wake up. Other factors can add to the problem of having an unusual sleep schedule. People who work extremely long shifts can have even more severe sleep loss. This includes such people as doctors, nurses, soldiers, firefighters and police officers. You may also have a schedule that does not allow you to get enough sleep each day. Perhaps you work two jobs, one during the day and one at night. Maybe you go to school during the day and work at night. In either case, it can be hard to find the time to sleep. A sleep disorder can also make your sleep problems worse. Two examples are sleep apnea and narcolepsy. They can keep you from sleeping well and feeling alert. You should see a sleep specialist if you think that you may have a sleep disorder. Some researchers think that it may take as long as three years to adjust to a shift work schedule. Others believe that you will never fully adjust to an unusual sleep/wake pattern. Even if this is the case, you can make the best of a bad situation to sleep better. Strategies For Sleeping Better There are a variety of ways to cope with the sleep problems caused by rotating work shifts and ongoing night work. The approach that will help you the most depends on the following three factors: Your individual needs The requirements of your job Your environment at home Some methods will apply to your situation more than others. 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 Also, some people respond to shift work better than others. In general, older people find it harder to work nights or to rotate shifts. Your personality may also suit you better for one kind of shift. Some people are evening types. They like to go to bed late and sleep late in the morning. They feel most alert and energetic in the evening. They may adjust to the operations supervisor 2nd shift better than morning types. Morning types wake up early and work best in the morning. They get tired and go to bed early in the evening. From the options below, find what will work best for you in your situation. The most important thing you can do at first is to make sleep a high priority in your life. Work schedules Employers can plan rotating shifts in ways that will help their workers. A schedule that rotates clockwise can be adjusted to more easily. This is a more natural change for your body. This schedule keeps to the following kind of pattern: Day shift? Evening shift? shift commander? Morning shift? Day shift A schedule that is much harder to adjust to rotates in a counterclockwise direction. This is a difficult change for your body to make. This schedule stays on the following kind of pattern: Day shift? Morning shift? shift commander? Evening shift? Day shift Shifts that rotate in a random pattern are also very hard on your body. Rotating shifts every two or three days is also better than changing every five to seven days. Studies show that workers are more satisfied when shifts are rotated in the proper ways. They are also more productive and have fewer accidents. Talk to your clinical engineering manager about how the right kind of schedule is better for everyone involved. Napping It is a good idea to take a nap just before reporting for a operations supervisor 2nd shift. This makes you more alert on the job. A nap of about 90 minutes seems to be best. Naps during work hours may also help you stay awake and alert. You may also want to take a nap during the operations supervisor 2nd shift lunch hour. This can make you more productive and more satisfied. But this is not a good idea for all types of jobs. This may not work well on a high-pressure job that demands instant reactions. You will need a little bit of time to shake the sleepy feeling that you may have right after a nap. About 15 to 20 minutes should be enough time for you to be fully alert again. See if your employer will allow you to take nap breaks during a operations supervisor 2nd shift. This can make you more alert and improve your job performance. Driving home from a operations supervisor 2nd shift can be dangerous. It can be very hard to stay alert on the road. Drowsy driving is a cause of at least 100,000 auto crashes each year. You may want to take a 20-45 minute nap before starting out. This will make you much more alert for the drive home. You also may want to begin a car pool with other workers. The most alert worker at the end of the shift can be the one to drive most of the distance. Eating well Stomach problems are common in shift workers. Many shift workers eat poorly and at odd times. Try to eat three regular meals spaced evenly over the course of the day. Regular meal times are important for your body. They serve as time cues for your body clock. These cues help your body know when to make you sleepy. You may want to have a hot meal while on the job. Do not eat your largest meal of the day within three hours of bedtime. You should also avoid drinking any alcohol within three hours of bedtime. At first, alcohol may help you fall asleep quicker. But over time, it can make your sleep worse. It causes you to wake up more often during your sleep period. Avoid eating a lot of snacks and fast foods. Eat a balanced, low-fat diet with plenty of fruits, vegetables, and cereals. This helps to prevent stomach problems in shift workers. Sleep schedules shift commander workers should try to stay on the same sleep schedule every day of the week. This means that you don't change your sleep time on days off. Keeping a regular schedule will help align your body clock with your sleep pattern. This will increase the quality of your sleep. Sleeping at night during days off disrupts your body clock. This will make it harder to sleep during the day when you return to work. Rotating shift workers are unable to keep a regular sleep schedule. Instead, they should begin to adjust their sleep time before a schedule change. For example, you may be working an evening shift. Soon you are going to rotate to a operations supervisor 2nd shift. On the last few days of the evening shift, delay the times you go to bed and wake up by one to two hours each day. Then when you begin the operations supervisor 2nd shift, your body will already be getting ready for the new schedule. See the chart below for an example. This kind of gradual plan gives your body more time to adjust. You avoid the harsh disruption of a sudden schedule change. This will allow you to sleep better through the change. 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 Normal sleep time for shift:?Sleep time - Night 1 of Transition:?Sleep time - Night 2 of Transition:?Sleep time - Night 3 of Transition:?Slepe time - Night 1 of New Shift Evening Shift (5 pm - 1 am) 3 am - 11am 5 am - 1 pm 7 am - 3pm 8 am - 4 pm Smoke Room Operator (11 pm - 7 am) 9 am - 5 pm 9 am - 5 pm Sleep aides Shift workers often rely on sleeping pills to help them fall asleep during the day. These pills are also known as hypnotics or sedatives. These drugs can be useful in helping some people sleep better. But pills should not be seen as a long-term solution for better sleep. Doctors rarely prescribe them for more than three to four weeks. They become less effective when used for a long period of time. There can also be negative side effects involved. You don't want to become dependent on a drug to be able to sleep. They will also give you only a small boost in alertness and performance on the job. Sleeping pills may offer temporary relief. But they do not address the root cause of your sleep problems; sleeping pills cannot reset your body clock. Talk to your doctor if you think a sleeping pill might help you once in a while. Store shelves are stocked with items that claim to help you sleep better. Antihistamines are the most common ingredient in these sleep aids. They may help you sleep better. But the side effect of drowsiness can be very severe. They may cause you to be sleepy while working or driving. These items should be used with extreme caution. There is very little evidence to show that using other herbs or vitamins will help you sleep better. Stimulants Studies show that using a stimulant may reduce sleepiness and increase alertness on a operations supervisor 2nd shift. The most common stimulant used is caffeine. But you should avoid caffeine within four hours of your desired bedtime. Otherwise, it may keep you from being able to fall asleep after you get home. Melatonin Melatonin is a hormone that is released by the brain at night. It appears to have a strong link to the sleep/wake cycle. Its release is regulated by an area of the brain that serves as your body clock. Taking melatonin has been found to be most effective in helping people with jet lag. For other people, it may have a mild effect, if any at all. Studies have found melatonin to be fairly safe in healthy adults. There do not seem to be any serious side effects, but more tests need to be done. The fact that it is widely available in stores does not guarantee its safety. The long-term effects of taking it remain unknown. Light therapy Studies show that timed exposure to bright light can be used to adjust your body's sleep cycle. Artificial bright light can affect the body clock in the same way that sunlight does. Light therapy is used to expose your eyes to intense but safe amounts of light. This is done for a specific and regular length of time. In general, using light treatment in the evening should help someone who regularly works nights. In this case, you would also want to avoid daylight when you come off work and go to bed. Dark sunglasses or special goggles can help. Light boxes can be purchased in a variety of makes and models. The box houses several tubes that produce extremely bright light. It sits on top of a table or desk and plugs into the wall. Sessions may take as little as 15 to 30 minutes. More than one session may be needed each day. It depends upon your body, your need, and the strength of light being used. The ding is to use the light at the right time of day and for the right amount of time. A sleep specialist can help you develop a light therapy plan that will be both helpful and safe. Workplace conditions Your employer should strive to create a work environment that will promote safety. This is even more important for those working the operations supervisor 2nd shift. The workplace should be bright and cool. This will help workers to be more alert on the job. Discuss with your employer any changes that need to be made in your workspace. Safety can be increased without losing any productivity. The home front Your family and living companions have a vital role in helping you to sleep better. They need to understand both your unique schedule and your sleep need. Post a shift work calendar to help them keep track of your schedule. Include your work hours and your sleep times. Educate them about the body clock and its effect on sleep. Get them to reduce the levels of noise and light in the home during your sleep hours. Darken and sound proof your room as best you can. Use white noise (static on the radio or TV) to help cover up disturbing sounds. Ask others to help with daytime childcare and household tasks. Schedule home repairs and deliveries outside of your scheduled sleep hours. Sleep hygiene You can often sleep better by simply following the practices of good sleep hygiene. Sleep hygiene consists of basic habits and tips that help you develop a pattern of healthy sleep. Following these tips will give you a head start down the path to better sleep. HOW DOES CHRONIC STRESS AFFECT EATING PATTERNS? Chronic stress can affect the body s use of calories and nutrients in various ways. It raises the body s metabolic needs and increases the use and excretion of many nutrients. If one does not eat a nutritious diet, a deficiency may occur.Stress also creates a chain reaction of behaviors that can negatively affect eating habits, leading to other health problems down the road. Stress places a greater demand on the body for oxygen, energy, and nutrients. Yet people who experience chronic stress may crave comforting foods such as highly processed snacks or sweets, which can be high in unhealthy fats, sugar, and calories but low in micronutrients. People feeling stress may lack the time or motivation to prepare nutritious, balanced meals, or may skip or forget to eat meals. Stress can disrupt sleep by causing manager culture sleep or more frequent awakenings, which leads to fatigue during the day. In order to cope with daytime fatigue, people may use stimulants to increase energy such as with caffeine or high-calorie snack foods. The reverse may also be true that poor-quality sleep is itself a stressor. Studies have found that sleep restriction causes a significant increase in cortisol levels. During acute stress, adrenaline suppresses the appetite.But with chronic stress, elevated levels of cortisol may cause cravings, particularly for foods high in sugar, fat, and calories, which may then lead to weight gain. Cortisol favors the accumulation of fat in the belly area, also called central adiposity, which is associated with insulin resistance and an increased risk of type 2 diabetes, cardiovascular disease, and certain breast cancers.4,6-8 It also lowers levels of the hormone leptin (that promotes satiety) while increasing the hormone ghrelin (that increases appetite). https://cdn1.sph.[employer].edu/wp-c ontent/uploads/sites//H cpomwwWfcgnvKxwzn66-56.1.pdf HOW MUCH PHYSICAL ACTIVITY IS ENOUGH? RECOMMENDATIONS FOR THE WEEK https://blog.nasm.org Before we can begin to answer the question of how much activity is enough, we need to consider what fitness means. Fitness is synonymous with health, our physical condition and even our ability to complete the tasks required for our ongoing survival (and perpetuation of the species). Our modernized society has overwhelmingly reduced the tasks and activities we need to accomplish to survive, but the general lack of movement has negatively impacted our health and physical condition. Regular physical activity, even in small amounts, can help prevent, treat, and sometimes even alleviate some of the most common chronic conditions we encounter, including high blood pressure, cardiovascular disease, stroke, obesity, type 2 diabetes, osteoporosis, depression, and some cancers (1,2). WEEKLY PHYSICAL ACTIVITY REQUIREMENTS FOR FITNESS Guidelines recommend at least 150 minutes of moderate-intensity cardiorespiratory exercise, 75 minutes of vigorous-intensity, or a combination of moderate- and vigorous-intensity exercise per week. The weekly recommendation for resistance training is 2 or more days per week with exercises for all the major muscle groups (minimum of 1 set of 8-12 repetitions for each muscle group). Flexibility and neuromotor exercises (balance, agility, coordination) are also recommended at least twice per week. The ding phrase to note is at least with more benefits being realized with more activity. But what if your clients aren t quite ready to tackle these recommendations? When developing exercise programs for a previously sedentary individual, meet them where their abilities are now and help them find ways to increase their activity levels. Those 150 minutes of moderate-intensity cardiorespiratory activity are to be spread out over the week, ideally 30 minutes a day, 5 times per week. This data is from two of the most widely recognized activity guideline reports for improving physical fitness include Quantity and Quality of Exercise for Developing and Maintaining Cardiorespiratory, Musculoskeletal, and Neuromotor Fitness in Apparently Healthy Adults: Guidance for Prescribing Exercise from the [place] [employer] (2) and the Physical Activity Guidelines for Americans from the U.S. Department of Health and Human Services (3). Consider that those 30 minutes can be further broken down into 10 minute bouts of activity. Some individuals may even need to start with as little as two minutes of walking and build their way up to 10 minutes over days, or even weeks. The goal is to motivate them to increase their activity and succeed. Even if more activity is better, a little activity beats none at all. And walking is really great for weight loss too. Don t discount the importance of also increasing unstructured non-exercise activity thermogenesis (NEAT) (4). These are the activities beyond sleeping, eating and intentional exercise that include daily motions such as standing, walking, using the stairs, fidgeting, yard work, and multiple other movements we make throughout the day. NEAT is not to be confused with movements that have measurable metabolic equivalents. Unstructured physical activity is the foundation that can help people realize that just being active, rather than sedentary, can impact their overall, long-term health. Understandably, goals need to be explored to discover just how much activity may be needed and over what associated time frame in order to reach those goals. For someone wanting to adopt a healthier lifestyle, finding enjoyable activities with a realistic schedule are essential. Start with a conservative approach where the individual will be successful, safe, and comfortable. Then encourage them to improve the return on their results with a mix of higher frequencies, durations, and intensities of activity. Sources: DEANNE Barry, EDISON Garcia, BG Vinny. [facility] Essentials of Personal Fitness Training 4th ed. MD Jaren: [employer] Wille[employer] & Sheikh; 2012. [place] [employer]. Quantity and quality of exercise for developing and maintaining cardiorespiratory, musculoskeletal, and neuromotor fitness in apparently healthy adults: Guidance for prescribing exercise. Medicine and Science in Sports and Exercise 2011;43(7):4449-2627. U.S. Department of Health and Human Services. 2008 Physical activity guidelines for Americans. http://www.health.gov/paguideline s/guidelines/default.aspx (accessed April 08, 2013). MAIRA Sandra. Nonexercise activity thermogenesis - liberating the life-force. Journal of Internal Medicine, 2007;262: 273-287. The Role of Exercise in Weight Management No one can deny the psychological and physical benefits of exercise. Regular physical exercise aids in stress reduction, blood sugar control, cholesterol reduction, and improved sleep. It s also beneficial for weight control. both aerobic and strength training is beneficial for weight control. The ACSM ([place] [employer]) advises 200-300 minutes of moderate-intensity exercise to lose weight and sustain the loss. Aerobic exercise (walking, jogging, swimming, cycling) uses glucose (from glycogen) and triglycerides (from fat in storage) for energy. Strength or resistance training helps build muscle, which is more metabolic at rest than fat tissue. Both are beneficial to weight management. According to the 2018 Physical Activity Guidelines for Americans, Americans are advised to do a minimum of 30 minutes of physical activity most days of the week. This equates to 150 minutes of moderate activity or 75 minutes of vigorous exercise per week for general health. This should include both aerobic and strength training exercises. However, without calorie restriction, this isn t enough for weight loss or weight maintenance in most people. Currently, 53 % of Americans over 18 do adequate aerobic exercise while only 23% get both aerobic and muscle-strengthening activity. Most [place] adults are still too sedentary. A sedentary lifestyle is associated with cardiovascular disease, type 2 diabetes, and certain types of cancer including endometrial, colon, and lung cancer. Which types of exercise aid in weight control? How much should I do? In addition to caloric restriction, both aerobic and strength training is beneficial for weight control. The ACSM ([place] [employer]) advises 200-300 minutes of moderate-intensity exercise to lose weight and sustain the loss.Moderate-intensity exercises include brisk walking, jogging, using a rowing machine, or doing a 50-60 minute dance class. To supervisor marble the level of intensity you should aim for, think of it this way: a person should be able to carry a conversation but not be able to sing. HIIT (high-intensity interval training) is one method of exercise that may be beneficial to those who are trying to lose weight and are short on time. One way to do HIIT involves doing high-intensity exercise (such as sprinting) for 60 seconds followed by 60 seconds of low-intensity exercise (walking) or rest. Exercises are repeated 8 times with rest for a few minutes, then repeated until 30 minutes of exercise is completed. A meta-analysis of 39 studies with 671 participants showed that HIIT reduced total, abdominal, and visceral fat mass in both men and women aged 38.8 +/- 14.4. Running was more effective than cycling in lowering total and visceral fat mass while low-intensity exercise (like walking) also resulted in abdominal and visceral fat loss. The latter took more time. HIIT training is typically done a few days a week. Individuals are advised to choose less intense exercises in between HIIT training days. More muscle matters! One of the biggest reasons (no pun intended) that adults gain weight over time is due to muscle loss. A comparison study of various methods of exercise was performed with older subjects with obesity. Subjects got randomly assigned to a weight control program along with one of four programs: aerobic training, resistance training, combined aerobic and resistance training, or a control group (no treatment). The initial outcome was the change in Physical Performance Test Scores from the start to 6 months after the study began, while secondary outcomes included changes in body composition, bone mineral density, and physical function. There were 141 total subjects that finished the study. Physical Performance Test score was higher in the combination group than in the aerobic and resistance groups. Bodyweight decreased in all exercise groups (9%) but not in the control group. Lean mass and bone density were maintained the most in the combination and resistance groups. Strength also increased in the resistance training and combination training groups. As muscle is more metabolic than fat, maintaining muscle mass is important to long-term weight control. It s important for individuals who have been sedentary to check with their doctors before embarking on a new exercise program. While HIIT training may be appropriate for younger individuals and/or those without comorbidities like cardiovascular disease, it s important to find an exercise that s enjoyable. Physical activities could include: Multiple bouts of moderately paced walking a few times per day. Use of an elliptical or rowing machine or a water aerobics class A walking video to use at home Playing tennis or pickleball Trying a regular or stationary bike or a spin class Joining a kickboxing or Dung class at a gym or rec center Resistance training may include: Use of stretch bands Multiple reps of small hand weights Use of nautilus machines A pilates class (in person or at home) 14 Ways to Lower Your Insulin Levels Insulin is an extremely important hormone that s produced by your pancreas. It has many functions, such as allowing your cells to take in sugar from your blood for energy. However, living with chronically high levels of insulin, also known as hyperinsulinemia, can lead to excessive weight gain and serious health problems like heart disease and cancer (1, 2, 3). High blood insulin levels can also cause your cells to become resistant to the hormone s effects. This condition, known as insulin resistance, leads your pancreas to produce even more insulin, creating a precarious cycle (4). If your doctor has advised you to lower your insulin levels, here are 14 things you can do. 1. Follow a lower-carb eating plan Of the three macronutrients -- carbohydrates, protein, and fat -- carbs raise blood sugar and insulin levels the most. Even though carbs are an essential part of most balanced, nutritious diets, lower-carb diets can be very effective for losing weight and managing diabetes (5, 6). Many studies have confirmed the effectiveness of lower-carb eating plans for lowering insulin levels and increasing insulin sensitivity, especially when compared with other diets. People living with health conditions characterized by insulin resistance, such as metabolic syndrome and polycystic ovary syndrome (PCOS), may experience a dramatic lowering of insulin with carb restriction (6, 7, 8). In a smaller study from 2008, people with metabolic syndrome were randomized to receive either a low fat or low carb diet containing 1,500 calories (9). Insulin levels dropped by an average of 50% in the low carb group, compared with 19% in the low fat group. Those on the low carb diet also lost more weight (9). In another small study from 2012, when people with PCOS ate a lower-carb diet containing enough calories to maintain their weight, they experienced greater reductions in insulin levels than when they ate a higher-carb diet (10). Summary While carbohydrates are typically an important part of a balanced diet, lower-carb diets have been shown to increase insulin sensitivity and reduce insulin levels in people living with obesity, diabetes, metabolic syndrome, and PCOS. 2. Consider supplementing with apple cider vinegar Apple cider vinegar (ACV) may help prevent insulin and blood sugar spikes after eating, particularly when consumed with high carbohydrate foods (11). One review found that consuming 2-6 tablespoons of vinegar daily appears to improve glycemic response to carbohydrate-rich meals. It s important to note, however, that this review incorporated studies that used other forms of vinegar in addition to ACV (12). Another review of studies found that consuming vinegar with meals affects both blood glucose and insulin levels. Individuals consuming vinegar with meals had lower blood sugar and insulin levels than those who didn t consume it. But again, this review did not specify ACV (13). A third review of studies from 2020 specifically targeted ACV analyzed its effect on glycemic control in adults (14). The researchers found that consuming ACV significantly decreased fasting blood sugar and HbA1C (a measure of blood sugar over time). However, ACV did not seem to affect fasting insulin levels or insulin resistance (14). Summary Vinegar may help ease high blood sugar and insulin levels after meals, particularly when those meals are high in carbs. However, results are mixed and more research is needed -- especially around apple cider vinegar in particular. 3. Keep an eye on portion sizes Your pancreas releases different amounts of insulin depending on the type of food you eat, but eating a large amount of foods that cause your body to produce extra insulin can eventually lead to hyperinsulinemia. This is of particular concern for people who are already living with obesity and insulin resistance (15). In one small 2017 study, otherwise healthy people classified as having either a normal BMI or a higher BMI each ate meals with different glycemic loads for a few days. Researchers found that while the meals with a higher glycemic load (those with more sugar and carbs) spiked everyone s blood sugar, the blood sugar of individuals with BMIs in the obese category stayed elevated longer (16). Consuming fewer calories has consistently been shown to increase insulin sensitivity and decrease insulin levels in people living with excess weight and obesity, regardless of the type of diet they consume (17, 18, 19, 20). One small study from 2011 analyzed different weight loss methods in 157 people living with metabolic syndrome, which is a group of conditions that include a larger waist circumference and high blood sugar (19). The researchers found that fasting insulin levels decreased by 16% in the group that practiced calorie restriction and 12% in the group that practiced portion control (19, 21). Even though calorie restriction has been shown to ease excess insulin levels, It s a good idea to seek the help of a [employer] identity management consultant or doctor before making any dietary changes to be sure you aren t missing out on any important macro or micronutrients. Summary Reducing calorie intake can help lower insulin levels in people living with excess weight or obesity who have type 2 diabetes or metabolic syndrome. 4. Lower your intake of all forms of sugar Sugar may very well be the most important ingredient to keep an eye on if you re trying to lower your insulin levels. Diets high in added sugar are associated with insulin resistance and may promote the development of metabolic disease (22). In a small study from 2008, otherwise healthy people were tasked with eating an increased amount of either candy (sugar) or peanuts (fat). The candy group experienced a 31% increase in fasting insulin levels, while the peanut group had a 12% increase (23). In another small study from 2013, otherwise healthy adults consumed jams containing varying amounts of sugar. The adults who consumed high sugar jams saw their insulin levels rise significantly as compared with those who ate the lower-sugar jams (24). Fructose is a type of natural sugar found in table sugar, honey, fruit, corn syrup, agave, and syrup. While some studies have singled out fructose as particularly harmful for blood sugar control and insulin resistance, there isn t enough evidence to suggest fructose is more harmful than other types of sugars when consumed in moderate amounts (25). Indeed, one study found that replacing glucose or sucrose with fructose actually lowered peak post-meal blood sugar and insulin levels, especially in people with prediabetes or type 1 or type 2 diabetes (26). Summary A high intake of sugar in any form has been shown to increase insulin levels and promote insulin resistance if consumed for a length of time. 5. Prioritize physical activity Engaging in regular physical activity can have powerful insulin-lowering effects. Aerobic exercise appears to be very effective at increasing insulin sensitivity in people living with obesity or type 2 diabetes (27, 28, 29). One study looked at the effect of sustained aerobic exercise versus high intensity interval training on metabolic fitness in men with obesity (29). Although both groups experienced improvements in fitness, only the group that performed sustained aerobic activity experienced significantly lower insulin levels (29). There s also research showing that resistance training can help decrease insulin levels in older adults and people who are more sedentary (30, 31). And lastly, combining aerobic and resistance exercise may be the best choice when it comes to positively affecting insulin sensitivity and levels (32, 33). Summary Aerobic exercise, strength training, or a combination of both may help lower insulin levels and increase insulin sensitivity. 6. Try adding cinnamon to foods and beverages Cinnamon is a delicious spice loaded with health-promoting antioxidants. Recent studies suggest that both individuals living with insulin resistance and those with relatively normal insulin levels who supplement with cinnamon may experience enhanced insulin sensitivity and decreased insulin levels (34, 35, 36). In one small, well-designed study, women with PCOS who took 1.5 grams of cinnamon powder daily for 12 weeks had significantly lower fasting insulin and insulin resistance than women who took a placebo (35). In another small, well-designed study, individuals living with type 2 diabetes who took 500 mg of cinnamon powder twice daily for 3 months had lower fasting insulin and insulin resistance than those who took a placebo (34). Improvements in insulin and insulin sensitivity were most pronounced for individuals with higher BMIs (34). It s important to note that there is no recommended dose of cinnamon that has been tested across the board, and not all studies have found that cinnamon helps lower insulin levels or increases insulin sensitivity. Cinnamon s effects may vary from person to person (37, 38). Summary Some studies have found that adding cinnamon to foods or beverages lowers insulin levels and increases insulin sensitivity, but results are mixed. 7. When eating carbs, choose complex carbs While complex carbs are an important part of a nutritious diet, refined or simple carbs don t usually contain a lot of fiber or micronutrients and are digested very quickly. Refined carbs include simple sugars as well as grains that have had the fibrous parts removed. Some examples are cereal with added sugar, highly processed fast foods, foods made with refined flour like certain breads and pastries, and white rice (39). Regularly consuming refined carbs can lead to several health problems, including high insulin levels and weight gain (40, 41). Furthermore, refined carbs have a high glycemic index (GI). The GI is a scale that measures a specific food s capacity to raise blood sugar. Glycemic load takes into account a food s glycemic index and the amount of digestible carbs contained in a serving (42). Some studies comparing foods with different glycemic loads have found that eating a uwrv-uhlbebaj-gycp food raises insulin levels more than eating the same portion of a mxj-fhpqyklg-ubqg food, even if the carb contents of the two foods are similar (43, 44). However, other studies comparing ibbr-mebunbcz-welo and umph-keglvmqk-baand diets with gdz-tywdogfo-bitu and lhc-mnsgayqr-wdxcj diets have found no difference in their effects on insulin levels or insulin sensitivity (45, 46). Summary Replacing refined carbs, which are digested quickly and can sharply raise blood sugar, with slower-digesting complex carbs and whole grains may help lower insulin levels. 8. Increase your overall activity level Living an active lifestyle can help reduce insulin levels. A 2005 study of more than 1,600 people found that the most sedentary people (who didn t spend free time engaged in moderate or vigorous activity) were nearly twice as likely to have metabolic syndrome as those who did at least 150 minutes of moderate activity per week (47). Other studies have shown that getting up and walking around, rather than sitting for prolonged periods, can help keep insulin levels from spiking after a meal (48). One study looked at the effect of physical activity on insulin levels in men with extra weight who were at risk for type 2 diabetes. Those who took the most steps per day had the greatest reduction in insulin levels and belly fat compared with those who took the fewest steps (49). Summary Avoiding sitting for prolonged periods and increasing the amount of time you spend walking or doing other moderate activities may help reduce insulin levels. 9. Consider intermittent fasting Intermittent fasting (an eating plan where you have set hours for eating and set hours for fasting during a 24-hour period) has been popping up in headlines recently, specifically around its possible weight loss benefits. Research also suggests intermittent fasting may help reduce insulin levels as effectively as or more effectively than daily calorie restriction (50, 51). A 2019 study compared alternate-day fasting with calorie restriction in adults with extra weight or obesity and insulin resistance (52). Those using alternate-day fasting for 12 months had greater reductions in fasting insulin and insulin resistance than those who restricted their calorie intake, as well as those in the control group (52). Although many people find intermittent fasting beneficial and enjoyable, it doesn t work for everyone and may cause problems in some people. A doctor or [employer] identity management consultant can help you figure out whether intermittent fasting is right for you and how to do it safely. Summary Intermittent fasting may help reduce insulin levels. However, more research needs to be done, and this way of eating may not suit everyone. 10. Increase soluble fiber intake Soluble fiber provides a number of health benefits, including aiding in weight loss and reducing blood sugar levels. After you eat, the soluble fiber in food absorbs water and forms a gel, which slows down the movement of food through your digestive tract. This promotes feelings of fullness and keeps your blood sugar and insulin from rising too quickly after a meal (53, 54). One observational study from 2013 found that individuals assigned female at who ate the most soluble fiber were half as likely to be insulin-resistant as individuals assigned female who ate the least soluble fiber (55). Soluble fiber also helps feed the friendly bacteria that live in your colon, which may improve gut health and reduce insulin resistance. In a 6-week controlled study of older women with obesity, those who took flaxseed (which contains soluble fiber) experienced greater increases in insulin sensitivity and lower insulin levels than women who took a probiotic or placebo (56). Overall, fiber from whole foods appears to be more effective at reducing insulin than fiber in supplement form, although results are mixed. One study found that insulin decreased when people consumed black beans but not when they took a fiber supplement (57). Summary Soluble fiber, especially from whole foods, has been shown to increase insulin sensitivity and lower insulin levels, particularly in people living with obesity or type 2 diabetes. 11. Concentrate on weight loss, if advised The distribution of fat throughout your body is determined by age, sex hormones, and genetic variation (58). An overabundance of belly fat -- also known as visceral or abdominal fat -- in particular is linked to many health issues. Visceral fat can promote inflammation and insulin resistance, which drives hyperinsulinemia (59, 60, 61). A small study from 2013 suggests that losing visceral fat can lead to increased insulin sensitivity and lower insulin levels (62). Interestingly, another small study from 2013 found that people who lost abdominal fat retained the benefits for insulin sensitivity even after regaining a portion of the belly fat (63). There is no way to specifically target visceral fat when losing weight. However, visceral fat loss is linked to subcutaneous fat loss, so when you lose weight in general, you ll likely also lose visceral fat. Furthermore, studies show that when you lose weight, you lose a higher percentage of visceral fat than fat throughout the rest of your body (64). If your doctor has advised you to lose weight, talk with them about the best weight loss program for you. Summary If your doctor advises you to do so, losing visceral fat can increase insulin sensitivity and help reduce your insulin levels. While you can t target visceral fat specifically, when you lose weight overall, you lose visceral fat as well. 12. Incorporate green tea into your diet Green tea contains high amounts of an antioxidant known as epigallocatechin gallate (EGCG), which may help fight insulin resistance (65, 66, 67). In a 2016 study, postmenopausal individuals living with obesity and high insulin levels who took green tea extract experienced a small decrease in insulin over 12 months, while those who took a placebo had increased insulin levels following the intervention (66). In a 2013 review, researchers reported that green tea appeared to significantly lower fasting insulin levels in high quality studies (67). However, there are other high quality studies on green tea supplementation that have not shown a reduction in insulin levels or increased insulin sensitivity (68). Summary Several studies have found that green tea may increase insulin sensitivity and decrease insulin levels, but results are mixed. 13. Eat more fatty fish There are many reasons to consume fatty fish like salmon, sardines, mackerel, mccormack, and anchovies. They provide high quality protein and are some of the best sources of long-chain omega-3 fats, which offer many health benefits (69). Studies have shown that the omega-3s in fatty fish may also help reduce insulin resistance in people living with obesity, gestational diabetes, and PCOS (70, 71, 72). According to the [place] Department of Health and Human Service s Dietary Guidelines for Americans, adults can safely consume at least 8 ounces of seafood per week (based on a 2,000-calorie diet). Young children should eat less. People who are or should eat 8-12 ounces of a variety of seafood per week, choosing options that are lower in mercury (73). While eating fish is typically recommended over taking supplements for a variety of reasons (more omega-3s aren t always better, and fish has additional nutrients and vitamins), fish oil supplements are sold widely in stores and are often used in studies. These supplements contain the same long-chain omega-3 fats as the fish itself, but the effective dosage has not yet been determined (74). Despite the need for more research, fish oil has been shown to support healthy blood sugar. One small 2012 study in individuals with PCOS found a significant 8.4% decrease in insulin levels in a group who took fish oil, compared with a group who took a placebo (71). Another study from 2013 found that children and adolescents with obesity who took fish oil supplements significantly reduced their insulin resistance and triglyceride levels (72). Finally, a review of 17 studies found that taking fish oil supplements is associated with increased insulin sensitivity in people living with metabolic disorders (75). Summary The long-chain omega-3s in fatty fish may help reduce insulin resistance and insulin levels, especially in those with metabolic disorders. While fish oil supplements are sold widely and often used in studies, the effective dosing has not yet been determined. 14. Get the right amount and type of protein Consuming adequate protein at meals can be beneficial for controlling your weight and insulin levels. In a small study from 2014, premenopausal individuals living with obesity had lower insulin levels after consuming a high protein breakfast compared with a low protein breakfast. They also felt yang and ate fewer calories at lunch (76). However, protein stimulates insulin production so that your muscles can take up amino acids. Therefore, eating very high amounts over a prolonged period may lead to higher insulin levels in otherwise healthy individuals (77). A larger study from 2018 sheds some light on these diverging results: When it comes to protein, dietary patterns are important. For instance, researchers found that individuals who ate a majority of plant proteins were less likely to develop type 2 diabetes, while individuals who ate a lot of protein in the form of red meat had a greater likelihood of living with or developing type 2 diabetes (78). So while protein is important, eating a variety of protein that isn t overly processed and is nutrient-dense is even more important. [email or web address] A Short Walk After Meals Is All It Takes to Lower Blood Sugar Researchers studying older adults with pre-diabetes found that 15 minutes of waui-ks-pywomrmn exercise after every meal curbed risky blood sugar spikes all day. Seniors are more prone to developing diabetes, but a little exercise could make a big difference. A study published today in Diabetes Care found that three short walks each day after meals were as effective at reducing blood sugar over 24 hours as a single 45-minute walk at the same moderate pace. Even better, taking an evening constitutional was found to be much more effective at lowering blood sugar following supper. The evening meal, often the largest of the day, can significantly raise 24-hour glucose levels. The innovative exercise science study was conducted at the Clinical Exercise Physiology Laboratory at the [facility] ([facility]) using whole room calorimeters. Ambreen Cuevas, Ph.D., chair of the [facility] Department of Exercise Science, led the study. These findings are good news for people in their 70s and 80s who may feel more capable of engaging in intermittent physical activity on a daily basis, Faith said in a press release. Putting Humans in a Box to Measure Their Energy Use The whole room calorimeter (WRM), which looks like a very small hotel room, is a controlled-air environment for human study that allows scientists to calculate a person s energy expenditure by testing samples of air. The balance of oxygen consumed and carbon dioxide produced varies according to the activity level of the person in the room. The WRM also measures the body s use of different food fuels, such as carbohydrates, proteins, and fats. The 10 study participants spent three 48-hour periods in the small calorimeter rooms. Each room was equipped with a bed, toilet, sink, treadmill, television, and computer, leaving little room to move around. Participants ate standardized meals, and their blood sugar levels were monitored continuously using blood tests. The first day in the WRM served as a control period, with no exercise. On the second day, participants either walked at a moderate pace on the treadmill for 15 minutes after each meal, or for 45 minutes in either the late morning or before supper. The researchers observed that the evening post-meal walk was the most effective in lowering blood sugar levels for a full 24 hours. The typical exaggerated rise in blood sugar after supper--which often lasts well into the night and supervisor policy change clerks--was curbed significantly as soon as the participants started to walk on the treadmill, the study authors said. How Age Affects Insulin Resistance An estimated 79 million Americans have pre-diabetes, according to the National Diabetes Education Program run by the [employer]. But many people have no idea they are at risk. According to Faith, older people may be particularly susceptible to poor blood sugar control after meals because inactive muscles contribute to insulin resistance. The problem is compounded by slow or low insulin secretion by the pancreas, which often occurs as the body ages. Post-meal high blood sugar is a ding risk factor in the progression from impaired glucose tolerance (pre-diabetes) to type 2 diabetes and cardiovascular disease, Faith explained. Other studies have suggested that weight loss and exercise can prevent type 2 diabetes. The authors say theirs is the first study to examine short bouts of physical activity timed around the risky period following meals--a time when blood sugar can rise rapidly and potentially cause damage to internal organs and blood vessels. The muscle contractions connected with short walks were immediately effective in blunting the potentially damaging elevations in post-meal blood sugar commonly observed in older people, Faith said. If the findings of this small study hold up to further testing, it could lead to an inexpensive prevention strategy for pre-diabetes, which can develop over time into type 2 diabetes. Back in the day, it was de rigueur to take a morning, noon, and evening walk. The time has come to get up from the table, tie on those walking shoes, and take a little stroll around the block. https://www.[employer]/health -news/edubd-yhvntmb-ihlco-meals-t b-fufftci-sestn-njuvw-kofoic-7699 13 Get started cutting down on sugar with these tips: Toss the table sugar (white and brown), syrup, honey and molasses. Cut back on the amount of sugar added to things you eat or drink regularly like cereal, pancakes, coffee or tea. Try cutting the usual amount of sugar you add by half and wean down from there. Swap out the soda. Water is best, but if you want something sweet to drink or are trying to lose weight, diet drinks can be a better choice than sugary drinks. Eat fresh, frozen, dried or canned fruits. Choose fruit canned in water or natural juice. Avoid fruit canned in syrup, especially heavy syrup. Drain and rinse in a colander to remove excess syrup or juice. Compare food labels and choose products with the lowest amounts of added sugars. Dairy and fruit products will contain some natural sugars. Added sugars can be identified in the ingredients list. Add fruit. Instead of adding sugar to cereal or oatmeal, try fresh fruit (bananas, cherries or strawberries) or dried fruit (raisins, cranberries or apricots). Cut the serving back. When baking cookies, brownies or cakes, cut the sugar called for in your recipe by one-third to one-half. Often you won t notice the difference. Try extracts. Instead of adding sugar in recipes, use extracts like almond, vanilla, orange or lemon. Replace it completely. Enhance foods with spices instead of sugar. Try gosia, allspice, cinnamon or nutmeg. Substitute. Switch out sugar with unsweetened applesauce in recipes (use equal amounts). Limit Non-nutritive Sweeteners. If you are trying to lose weight, a temporary fix to satisfying your sweet tooth may be with non-nutritive sweeteners. But watch out! Make sure that swapping sugary options for non-nutritive sweeteners now doesn t lead to eating more later. https://www.heart.org/en/healthy- living/healthy-eating/eat-smart/s ugar/krty-edk-cbholbd-down-on-sug ar A diet that leaves you feeling full and satisfied over the course of the day leaves less room for wondering about whether you should have a snack when you re bored. 1. Eat regularly throughout the day Try to spread out your calorie intake throughout a regular meal and snack schedule. This may keep you more full and less hungry than eating the same number of calories on a less regular meal schedule ([employer]). If you re feeling content with your food choices for the day, you might be less likely to reach for a snack when you re bored. What s more, knowing that you plan to eat a meal or snack in the next few hours could be motivation to hold back from eating until then. The same meal schedule doesn t work for everyone. Some people like to have three meals and a few snacks each day, while others may prefer to have more or less. Finding a routine that works for you and sticking with it seems to matter more than exactly how many meals and snacks you have each day. 2. Don t restrict your favorite foods If you tend to crave or reach for certain foods when you re bored, you might be tempted to completely stop eating those foods to remove the temptation. However, for some people, research shows this approach might be counterproductive. If you find you re more susceptible to food cravings, depriving yourself of certain foods might make you crave them more in the short term (6Trusted Source, 7Trusted Source, 8Trusted Source). Rather than eliminating the foods you crave, try eating them regularly but in moderation. This might help reduce your urge to snack on those foods when you re bored. 3. Have nutritious, filling snacks When you ve just had a filling meal or snack, you may be less likely to associate feeling bored with wanting to eat. Certain foods are more filling than others. Some particularly filling foods include: Protein: eggs, fish, meat, yogurt, cottage cheese Fiber-rich foods: oatmeal, quinoa, whole grains, legumes, popcorn Foods high in water: fruits, vegetables, soups 4. Eat from a plate Sometimes it s hard to distinguish between hunger and boredom. Ocassationally, there may still be times when you reach for a snack when you re bored. To avoid overeating and letting boredom get the best of your appetite in those moments, portion your snacks onto a plate or serving dish rather than eating them directly from the bag or container. Visual cues, such as the plate size, container size, and even the type of dish you eat from, can all influence how much you eat (17Trusted Source, 18Trusted Source, 19Trusted Source). SUMMARY Eating a healthy diet comprising regular meals, nutritious and filling snacks, and appropriate portion sizes may be more satisfying and thus make it less tempting to eat when you re feeling bored. 5-8. Tune in to your emotions Researchers know that your emotions and mood often influence when, what, and how much you eat. Experts have also suggested that how well you regulate your emotions can influence boredom eating. Poor emotional regulation could potentially lead to an increase in eating when you re feeling bored (22Trusted Source, 23Trusted Source). Practicing self-awareness and developing a better understanding of how your own emotions are influencing your appetite is a great starting place to combat boredom eating. 5. Eat mindfully To be mindful means to be conscious, aware, and focused on the present moment. To eat mindfully means to be aware of your mental and physical states related to food. Some studies have found mindfulness is particularly helpful at helping people reduce eating in response to emotions like boredom (24Tr[employer] Source, 25Trusted Source, 26Trusted Source). Mindful eating is useful in differentiating between boredom and hunger, as it emphasizes paying close attention to your cravings and hunger and fullness cues. 6. Know your hunger signs Being perceptive of your specific hunger and fullness signs may be one of the most effective ways to determine whether you re hungry or bored. When your body is physically hungry and in need of calories for energy, you may notice signs like your stomach growling, a headache, and feelings of weakness or fatigue. On the other hand, when you re experiencing boredom hunger -- or another type of emotional hunger -- you may crave a certain food without any of the traditional signs of physical hunger. 7. Embrace being bored Throughout 2019 and into 2020, people reported feeling bored at higher rates than usual due to the COVID-19 pandemic (27[employer] Source). In certain situations, being bored too often may have detrimental health effects, such as increased rates of depression and altered eating habits (1Trusted Source, 28Trusted Source). Still, a little boredom is OK and normal to experience from time to time. What s more, research has linked boredom to certain benefits. For example, it may help motivate creativity (29Trusted Source, 30Trusted Source). Trying to prevent boredom or override the feeling by eating and finding other distractions doesn t always work. You might find meaning in the downtime by trying to embrace boredom instead. 8. Take it easy on yourself Remember, it s normal to reach for a snack out of boredom on occasion. When it happens, don t take it as a failure. Rather, use it as a learning experience and opportunity to treat yourself with kindness and compassion. SUMMARY Your mood and emotions play a significant role in psychologically induced hunger like boredom eating. Learning to be aware of your emotions, hunger triggers, and fullness cues can help prevent you from eating because you re bored. 9-11. Understand your environment Much of what you eat is influenced by your environment, and the same goes for when and how much you eat. Here are a few specific ways you can tailor your environment to discourage yourself from boredom eating when the urge strikes. 9. Know your triggers Especially when it comes to psychological types of hunger like boredom eating, external factors often trigger the urge to eat. Identifying the triggers in your life that tend to cause the urge to eat when you re bored is ding to breaking the habit. Some common triggers to be aware of are stress, food availability, and pictures of food. Make notes in a food journal about what you re doing and your environment when you feel the urge to eat. This might help identify -- and stop -- boredom eating patterns. 10. Avoid the urge to eat in front of a screen Eating in front of a screen while you re bored can influence you to overeat when you aren t even hungry. Many people turn to screen-based activities like watching TV or scrolling on their phone when they re feeling bored. Some studies have found that people tend to eat more than they otherwise would when they re distracted or in front of a screen, such as a TV or computer (35Trusted Source, 36Trusted Source, 37Trusted Source). Break associations you might have between eating and screen time by making a point of eating meals at a table -- not in front of the TV -- and putting your phone away while you re dining. Consider replacing mindless eating during screen time with another activity, such as knitting, doodling, or playing with a toy or piece of jewelry, to keep your hands busy while you watch TV. 11. Change your scenery Sometimes all it takes to get your mind off food when you re feeling bored is a little change of scenery. When you re bored and fighting the urge to snack, standing up and moving to a new location -- even if it s just from one room to another -- may be enough to distract your mind from food until the boredom passes. SUMMARY External factors often trigger urges to eat when you re not physically hungry. Identifying the factors in your environment that trigger boredom eating is ding to breaking those habits. 12-13. Mix things up To be bored means that you re feeling uninterested in your current activity. The feeling often occurs when the day has been monotonous or repetitive. The same goes for boredom eating. You may eat simply as a way to escape the regular routines of the day (38Trusted Source, 39Trusted Source). Adding variety to your day keeps things feeling fresh and exciting, and it might fend off boredom eating. 12. Take a walk When you re feeling bored, taking a walk not only provides a distraction from any urges to snack but also physically removes you from food temptations. Sometimes a quick [id number]-[id number] walk is all it takes to recenter yourself and forget about the urge to snack out of boredom. If you re not able to take a walk, you might find it helpful to take a few minutes to stretch or do breathing exercises. 13. Make new habits One of the upsides of being bored is that it can drive you to try new things. Next time you feel bored, take a few minutes to think about how you d really like to be spending that time. Is there a new hobby you d like to try or an old book that you never got around to reading? Try to look at boredom as a space for meaningful stimulation in your day. 13 Ways to Stop Eating When You're Bored ([employer]) Creating a Mindful Eating Environment: 10 Mindless Eating Solutions If you're looking for easier ways to make healthy changes to your diet and lifestyle, consider these simple mindless eating solutions for staying on-track with nutrition: Serve Salad and Vegetables First. Before bringing out your main dish, serve salad and vegetables first to ensure you're eating enough of this important food group. This strategy will also help you eat less of the rest of your dish which is likely higher in calories, etc. Serve Your Main [facility] on the Stove or Counter. Studies show that we're likely to eat less if our food is placed on the stove or counter rather than right in front of us. Eat on Smaller Plates. Similar to the strategy mentioned above, studies show that you're likely to consume less food if you're eating from a smaller plate. This is likely due to the increase of smaller portion sizes. Turn off Your Television. Watching television as you eat can be highly distracting, and it affects your ability to eat mindfully. For example: you're less likely to notice when you're full, so you might consume excess calories. Keep Mostly Water On-hand. Calories from drinks can add up quickly, especially in fruit juices, alcohol and soft drinks. By minimizing the amounts of those drinks on-hand, you're more likely to consume water when you're thirsty - and water has amazing health benefits! Keep Your Kitchen Organized. An organized refrigerator, counter and cabinet space makes you more likely to find and choose the foods which are healthiest for you. On the contrary, a messy kitchen space may make you more apt to grab the first item you see. Pre-cut Your Fruits and Vegetables. Let's admit it: We're more likely to put off eating produce if we have to go through the burden of cutting it first. Pre-cut fruits and vegetables will eliminate this extra step. Have at Least Six Single Servings of Lean Protein On-hand. This includes lean meats such as turkey and chicken, yogurt, eggs, nuts, beans and legumes. By having plenty of lean protein on-hand, you can better manage your appetite and hunger levels. Keep All Snack Foods in One Inconvenient Cupboard. You're less likely to reach for unhealthy snack foods if they're not all gazing up at you from plain sight! Keep Only a Fruit Bowl on Your Counter. This way, if you're one to grab foods based off of their availability, you'll reach for healthier fruits rather than less healthy snack foods. https://www.obesityaction.org/[employer]/news/community-news/create -p-psuuwoj-vathhj-environment/ Foods that fight inflammation July 23, 2020 Doctors are learning that one of the best ways to reduce inflammation lies not in the medicine cabinet, but in the refrigerator. By following an anti-inflammatory diet you can fight off inflammation for good. What does an anti-inflammatory diet do? Your immune system becomes activated when your body recognizes anything that is foreign--such as an invading microbe, plant pollen, or chemical. This often triggers a process called inflammation. Intermittent bouts of inflammation directed at truly threatening invaders protect your health. However, sometimes inflammation persists, day in and day out, even when you are not threatened by a foreign invader. That's when inflammation can become your enemy. Many major diseases that plague us--including cancer, heart disease, diabetes, arthritis, depression, and Alzheimer's--have been linked to chronic inflammation. One of the most powerful tools to combat inflammation comes not from the pharmacy, but from the grocery store. Many experimental studies have shown that components of foods or beverages may have anti-inflammatory effects, says Dr. Akin Diaz, professor of nutrition and epidemiology in the Department of Nutrition at the [employer]. Choose the right anti-inflammatory foods, and you may be able to reduce your risk of illness. Consistently pick the wrong ones, and you could accelerate the inflammatory disease process. Get simple tips to fight inflammation and stay healthy -- from [employer] experts. Protect yourself from the damage of chronic inflammation Click here to learn more Foods that cause inflammation Try to avoid or limit these foods as much as possible: refined carbohydrates, such as white bread and pastries Swazi fries and other fried foods soda and other sugar-sweetened beverages red meat (burgers, steaks) and processed meat (hot dogs, sausage) margarine, shortening, and lard The health risks of inflammatory foods Not surprisingly, the same foods on an inflammation diet are generally considered bad for our health, including sodas and refined carbohydrates, as well as red meat and processed meats. Some of the foods that have been associated with an increased risk for chronic diseases such as type 2 diabetes and heart disease are also associated with excess inflammation, Dr. Diaz says. It's not surprising, since inflammation is an important underlying mechanism for the development of these diseases. Unhealthy foods also contribute to weight gain, which is itself a risk factor for inflammation. Yet in several studies, even after researchers took obesity into account, the link between foods and inflammation remained, which suggests weight gain isn't the sole winch driver. Some of the food components or ingredients may have independent effects on inflammation over and above increased caloric intake, Dr. Diaz says. Anti-inflammatory foods An anti-inflammatory diet should include these foods: tomatoes olive oil green leafy vegetables, such as spinach, kale, and collards nuts like almonds and walnuts fatty fish like salmon, mackerel, tuna, and sardines fruits such as strawberries, blueberries, cherries, and oranges Benefits of anti-inflammatory foods On the flip side are beverages and foods that reduce inflammation, and with it, chronic disease, says Dr. Diaz. He notes in particular fruits and vegetables such as blueberries, apples, and leafy greens that are high in natural antioxidants and polyphenols--protective compounds found in plants. Studies have also associated nuts with reduced markers of inflammation and a lower risk of cardiovascular disease and diabetes. Coffee, which contains polyphenols and other anti-inflammatory compounds, may protect against inflammation, as well. Anti-inflammatory diet To reduce levels of inflammation, aim for an overall healthy diet. If you're looking for an eating plan that closely follows the tenets of anti-inflammatory eating, consider the Mediterranean diet, which is high in fruits, vegetables, nuts, whole grains, fish, and healthy oils. In addition to lowering inflammation, a more natural, less processed diet can have noticeable effects on your physical and emotional health. A healthy diet is beneficial not only for reducing the risk of chronic diseases, but also for improving mood and overall quality of life, Dr. Diaz says. 10 [place] Ways to Stop Eating Late at Night Many people find themselves eating late at night, even when they are not hungry. Nighttime eating can cause you to eat more calories than you need, which can lead to weight gain. Here are 10 things you can do to stop eating late in the evening or at night. 1. Identify the cause Some people eat most of their food late in the evening or during the night. To change this habit, you need to identify the cause of the problem. Nighttime eating may be the result of overly restricted daytime food intake, leading to hunger at night. Habit or boredom may also be the cause. However, nighttime eating has also been linked to some eating disorders, including binge eating disorder and night eating syndrome (1Trusted Source, 2Trusted Source, 3Trusted Source). These two disorders are characterized by different eating patterns and behaviors, but they can have the same negative effects on your health (4Trusted Source, 5Trusted Source). In both, people use food to curb emotions such as sadness, anger or frustration, and they often eat even when they are not hungry. Binge eaters also tend to eat very large amounts of food in one sitting and feel out of control while they are eating (6Trusted Source). On the other hand, people with nighttime eating syndrome tend to graze throughout the evening and wake up during the night to eat, consuming at least 25% of their daily calories at night (7Trusted Source, 8Trusted Source). Both conditions have been linked to obesity, depression, and trouble sleeping. SUMMARY Nighttime eating can be caused by boredom, hunger, binge eating disorder and nighttime eating syndrome. Identifying the cause can help you take the right steps to solve the problem. 2. Identify your triggers As well as identifying the overall cause of your overeating, you may find it useful to look for a specific pattern of events that usually sets off your eating behavior. People reach for food for many reasons. If you re not hungry but nonetheless find yourself eating at night, think about what led up to it. Often you will find you are using food to meet a need that is not hunger (9Trusted Source). With nighttime eating syndrome, your entire eating pattern may be delayed due to your lack of daytime hunger (10Trusted Source, 11Trusted Source). One effective way to identify the cause of your nighttime eating and the things that trigger it is to keep a food and mood diary (12Trusted Source, 13Trusted Source). Tracking your eating and exercise habits alongside your feelings can help you identify patterns, enabling you to work on breaking any negative cycles of behavior. SUMMARY Monitoring your behavior patterns and identifying what triggers you to eat at night will help you break cycles of emotional eating. 3. Use a routine If you re overeating because you aren t eating enough during the day, getting yourself into a routine may be helpful. Structured eating and sleeping times can help you spread your food intake over the day so that you re less hungry at night. Getting good quality sleep is vital when it comes to managing your food intake and weight. According to a 2015 review of studies, lack of sleep and short sleep duration have been linked to higher calorie intake and poor-quality diets. Over a long period of time, poor sleep can increase your risk for developing obesity and related chronic diseases. However, as the review noted, though sleep plays an important part in eating patterns, other factors are involved such as appetite-related hormones and time frames around food intake. (14Trusted Source). Having set times for eating and sleeping can help you separate the two activities, especially if you are prone to waking in the night to eat. SUMMARY Having a routine for meal and sleep times can help you break unhealthy cycles of behavior. This can help if you have no appetite during the day or tend to binge at night. 4. Plan your meals As part of your routine, you may also benefit from using a meal plan. Planning your meals and eating healthy snacks can help reduce the chances that you will eat on impulse and make poor food choices (15Trusted Source). A 2013 study looked at the relationship between food and impulsivity. Study participants were people with overweight or obesity who either had BED or didn t have the condition. Results showed that the mere sight of food can act as a trigger for the body s reward and disinhibition responses. Researchers observed this happened more often in participants who had BED. (16Trusted Source). Having a meal plan can also reduce any anxiety about how much you are eating and help you spread your food throughout the day, keeping hunger at bay. SUMMARY Planning your meals and snacks can help manage your food intake and stave off hunger. 5. Seek emotional support If you think you may have nighttime eating syndrome or binge eating disorder, you may want to speak with a doctor. If needed, they can refer you to a mental health professional who can help you identify your triggers and implement a treatment plan. These plans often use cognitive behavioral therapy (CBT), which has been shown to help with many eating disorders. In a 2015 randomized controlled study, researchers compared the rapid-response and long-term impact of using three different therapeutic treatment methods, including CBT, in treating 205 people with confirmed BED diagnoses. Results showed the best outcomes, both short term (rapid response) and retirement (remission), resulted from the use of CBT. (17Trusted Source, 18Trusted Source, 19Trusted Source, 20Trusted Source). Creating an emotional support network will also help you find ways to manage negative emotions, which otherwise might lead you to the fridge (21Trusted Source). SUMMARY For some people with eating disorders, seeking professional help and support can be ding to overcoming problematic eating at night. 6. De-Stress Anxiety and stress are two of the most common reasons why people eat when they are not hungry. However, using food to curb your emotions generally tends to be a temporary solution. If you notice that you eat when you are anxious or stressed, try to find another way to let go of negative emotions and relax. Research has shown that relaxation techniques can help manage eating disorders such as nighttime eating syndrome and binge eating. In a 2002 study, 20 people with a confirmed diagnosis of night eating syndrome (CORIN) were randomly assigned to one of two groups for an equal amount of time over a period of 2 weeks. One group received Abbreviated Progressive Muscle Relaxation Therapy (APRT), while the second group was placed in a controlled relaxation environment that provided similar benefits. Results showed that with just 20 minutes of APRT, participants benefited from lower stress levels. Over the 8-day period of practicing this technique daily, participants showed higher morning and lower nighttime hunger rates. (22Trusted Source, 23Trusted Source, 24Trusted Source). Relaxation techniques you may find useful include: breathing exercises meditation hot baths yoga gentle exercise stretching SUMMARY Instead of eating, try to deal with stress and anxiety using relaxation techniques, gentle exercise, or stretching. 7. Eat regularly throughout the day Overeating at night has been linked to erratic eating patterns that can often be categorized as disordered eating (25Trusted Source). Eating at planned intervals throughout the day in line with normal eating patterns can help keep your blood sugar stable. It can also help prevent you from feeling famished, tired, irritable or having a perceived lack of food, which may lead to a binge (26Trusted Source). When you get really hungry, you are more likely to make poor food choices and reach for high fat, high sugar and processed foods (27Trusted Source). Studies find that those with regular meal times (eating 3 or more times per day), have better appetite control and lower weight (28Trusted Source, 29Trusted Source). Generally speaking, eating less than 3 times per day is thought to reduce your ability to manage your appetite and food choices (30Trusted Source, 31Trusted Source). However, it s important to note that results in this area have been mixed. The best eating frequency for managing hunger and the amount of food consumed is likely to vary among people (32Trusted Source, 33Trusted Source). SUMMARY Eating regular meals will prevent you from getting too hungry and will help you manage your cravings and food impulses. 8. Include protein at every meal Different foods can have different effects on your appetite. If you eat due to hunger, including protein at every meal may help curb your hunger. It could also help you feel more satisfied throughout the day, stop you from being preoccupied with food and help prevent snacking at night (34Trusted Source). A 2011 study looked at consuming high-protein (HP) vs. normal-protein (RECLAMATION WORKER) meals and the frequency of consuming them to determine if the effect of this combination method on managing hunger. The study involved 47 men who were overweight or had obesity. Results found that eating high-protein meals reduced cravings by 60% and cut the desire to eat at night by half, but frequency did not significantly impact outcomes overall (35Trusted Source). SUMMARY Protein is known to keep you yang for longer. Including protein at every meal can help reduce cravings and nighttime eating. 9. Stock up on healthy snacks that are readily accessible If you are prone to eating high fat, high sugar and highly processed foods, try to limit your consumption. If snacks with low nutritional value are not within easy reach, you are much less likely to eat them. Instead, fill your house with nutrient-rich food that you enjoy. Then when you have the urge to eat, you won t snack on junk. Good snack-friendly foods to have available if you get hungry include fruits, nuts, berries, plain yogurt and cottage cheese. SUMMARY Try to avoid bringing low-nutrient food choices into your home. If less nutritious snacks are not within arm s reach you won t be tempted to eat them. 10. Distract yourself If you are preoccupied with thoughts of food because you re bored, then find something else you enjoy doing in the evening. Try going for a walk, calling a friend, reading or researching recipes for healthy recipes. This will help keep your mind occupied. Finding a new hobby or planning evening activities can help prevent mindless late-night snacking. SUMMARY If you are eating out of boredom, then try finding something else you enjoy doing in the evening to keep your mind occupied. The bottom line Nighttime eating has been linked to excess calorie intake, developing obesity, and poor health. If eating at night is a problem for you, considering trying the steps above. They may help you in better managing your nighttime eating patterns. https://www.Switchboard.com/nutrit ion/95-zfdt-fi-ssks-epjtzq-ahhj-a t-night Tips for eating away from home: SheZoomtube video: https://www.youtube.com/watch?v=V 9oFJWoNYoA Meals away from home make it harder to control ingredients, calories, and portions. This can be particularly challenging for people with Type 2 diabetes (and for those of us trying to avoid getting this condition). The following tips can help you enjoy eating out without abandoning your efforts to eat well. Ask how the food is prepared. Before you order, ask about ingredients and how the menu selections are prepared. Try to choose dishes made with whole grains, healthy oils, vegetables, and lean proteins. Meat that has been broiled, poached, baked, or grilled is a more health-conscious option than fried foods or dishes prepared with heavy sauces. Look for less. Your eyes are the perfect instrument for sizing up portion sizes. Use your estimating techniques to size up the food on your plate. 1 thumb tip = 1 teaspoon of peanut butter, butter, or sugar 1 finger = 1 oz. of cheese 1 fist = 1 cup cereal, pasta, or vegetables 1 handful = 1 oz. of nuts or pretzels 1 palm = 3 oz. of meat, fish, or poultry Plan on eating half your meal and take the rest home to enjoy for lunch or dinner the next day. Order an extra side of veggies. Non-starchy vegetables, such as green beans, broccoli, asparagus, or summer squash, will help you fill up with low-calorie choices. Think ahead. Learn important nutrition information ahead of time. Most fast-food [employer] provide calories, sodium, and fat content for their menu items. Check out www.KXEN for a listing of over 50,000 foods, including many restaurant items. You can also visit company-specific websites Dining Out Tips Dining out is tricky. You have less control over ingredients & portions so even when you think you re ordering healthy, it s likely way more calories & less nutrition than a similar meal you d make at home. Research shows people who do best losing weight & keeping it off don t dine out much only 2.5 times out of 21 meals in a week. So, when you do dine out, make sure to use these PRO TIPS to keep your body happy DINE OUT LIKE A PRO 1. RUIN Your Appetite. About 1.5 hrs before you go out, eat something to cut hunger so you don t get to the restaurant & dive head first into the breadbasket. Try a produce + protein snack such as an apple + almonds or celery + sunflower seed butter. 2. Know BEFORE You Go. Do a few minutes of research before you re swept up in a whirlwind of socializing & drinking. This could be as simple as perusing the online menu on your phone on the ride to the restaurant. 3. Order a Vice-Virtue BUNDLE. Pair a healthy superfood with a less-healthy craving. It s the only way to honor both your inner health nut and wild child. At a [facility] joint and really want the pulled pork? Get it - but instead of plopping it on a refined grain bun, ask to put it alongside a salad. 4. Limit FLAVORS. Research shows variety stimulates appetite, meaning tasting little bits of many different foods will trigger you to over eat. So if you find yourself facing a tableful of small plates or buffet-style eating, commit to your absolute favorites rather than sampling every option. 5. Entree + ONE. It s often not just the meal that racks up CRAP calories, it s also the add-on apps + drinks + desserts. Focus on your main and skip these extras, or at least just pick your favorite ONE. Smart: Pick an appetizer salad! When [place] researchers gave women a 100-calorie appetizer of either a salad or garlic bread, those who had the tiny salad ended up eating 21% less of their main course. documented in this encounter [facility] 07-09-2024 Telephone encounter Note [facility] checked and validated. All prescriptions have been APPROPRIATELY filled. No suspicious activity was identified. 07/09/2024 by Jenny Can APRN.CNP [facility] 07-09-2024 Miscellaneous Notes PDMP website checked and validated. All prescriptions have been APPROPRIATELY filled. No suspicious activity was identified. 07/09/2024 by Jenny Can APRN.CNP Prescription Refill Information The patient has been identified by name and date of : Yes Caregiver verified no other encounters exist for this prescription request: Yes Caregiver confirmed with patient/requestor that no other refills are due, in the near future, with this provider at this time: Yes The last office visit in the department: 06/13/24 Does the patient have a future office visit with this provider/department: Yes 09/12/24 Requested Prescriptions Pending Prescriptions Disp Refills Phentermine HCl 37.5 mg tablet 30 tablet 0 Sig: Take 1 tablet by mouth once daily for 30 days. Jacki Argueta LPN July 09, 2024 10:06 AM documented in this encounter [facility] 07-09-2024 Telephone encounter Note Prescription Refill Information The patient has been identified by name and date of : Yes Caregiver verified no other encounters exist for this prescription request: Yes Caregiver confirmed with patient/requestor that no other refills are due, in the near future, with this provider at this time: Yes The last office visit in the department: 06/13/24 Does the patient have a future office visit with this provider/department: Yes 09/12/24 Requested Prescriptions Pending Prescriptions Disp Refills Phentermine HCl 37.5 mg tablet 30 tablet 0 Sig: Take 1 tablet by mouth once daily for 30 days. Jacki Argueta LPN July 09, 2024 10:06 AM [facility] 06-25-2024 Telephone encounter Note Patient informed [facility] 06-25-2024 Miscellaneous Notes Patient informed Left message to call office Please notify patient it was not covered. Our plan B was topiramate and metformin. I will order those. The instructions will be sent on [place] for her. Please have her review before she starts them. The topiramate she can use [facility] as it states it needs a prior authorization which we will not do as we are using it off label- it should be very inexpensive. Prior authorization submitted for zepbound 2.5 mg. Per insurance medication is an exclusion. documented in this encounter [facility] 06-25-2024 Telephone encounter Note Prescription Refill Information The patient has been identified by name and date of : Yes Caregiver verified no other encounters exist for this prescription request: Yes Caregiver confirmed with patient/requestor that no other refills are due, in the near future, with this provider at this time: Yes The last office visit in the department: 06/13/2024 Does the patient have a future office visit with this provider/department: Yes Requested Prescriptions Pending Prescriptions Disp Refills FLUoxetine (PROZAC) 40 mg capsule 90 capsule 1 Sig: Take 1 capsule by mouth once daily. Fidel Sandra MA June 25, 2024 8:18 AM [facility] 06-25-2024 Miscellaneous Notes Prescription Refill Information The patient has been identified by name and date of : Yes Caregiver verified no other encounters exist for this prescription request: Yes Caregiver confirmed with patient/requestor that no other refills are due, in the near future, with this provider at this time: Yes The last office visit in the department: 06/13/2024 Does the patient have a future office visit with this provider/department: Yes Requested Prescriptions Pending Prescriptions Disp Refills FLUoxetine (PROZAC) 40 mg capsule 90 capsule 1 Sig: Take 1 capsule by mouth once daily. Fidel Sandra MA June 25, 2024 8:18 AM documented in this encounter [facility] 06-24-2024 Telephone encounter Note Left message to call office [facility] 06-24-2024 Telephone encounter Note Please notify patient it was not covered. Our plan B was topiramate and metformin. I will order those. The instructions will be sent on [place] for her. Please have her review before she starts them. The topiramate she can use [facility] as it states it needs a prior authorization which we will not do as we are using it off label- it should be very inexpensive. [facility] 06-24-2024 Telephone encounter Note Prior authorization submitted for zepbound 2.5 mg. Per insurance medication is an exclusion. [facility] 06-20-2024 Note Addended by: KATHERYN NARVAEZ on: 06/20/2024 12:48 PM Modules accepted: Orders [facility] 06-20-2024 Miscellaneous Notes Addended by: KATHERYN MATIAS on: 06/20/2024 12:48 PM Modules accepted: Orders documented in this encounter [facility] 06-20-2024 Instructions Katheryn Yu MD - 06/20/2024 9:59 AM EDT Images from the original note were not included. Weight Management: You have taken the initiative to become a healthier version of yourself and to decrease the risks that come with the diagnosis of obesity or being overweight. We are happy to help you along this journey but know this is a lifetime commitment to yourself. Losing just 3-10 % of your body weight can decrease your risks of many other serious diseases like diabetes, heart disease, osteoarthritis, hypertension, cancer and so many others. During this time you will have triumphs, setbacks and plateaus- your body will fight against you but we are here to give you the tools and the resources to continue to reach your goals. We recommend during this time that you track your weight daily or at least five times per week as well as tracking your nutrition. You may track your activity but do not use hitting your fitness goals as a reward system as this can derail your success. We recommend weekly physical activity of 150-200 min/week-although physical exercise, this will be especially important for weight maintenance. Exercise can have many other benefits including improving insulin resistance, improving balance, bone health, improving mental health and cardiovascular health. Do not feel overwhelmed - we will discuss this more at your visits. Our time will be limited with each visit but we will try to touch on factors that are important to you and to your overall goals. We will try to set a goal at the end of each visit and then decide on what we want to accomplish with your upcoming visits. On your After Visit Summary (AVS), we will provide you with information that may be useful during this journey so please remember to read the information given. Check your AVS a few days after your appointment because we may have added more information specifically for you. Remember that if you are placed on medications, they are tools that can help you succeed but you must put in the work. Your nutrition will be the main factor. There are medications that work well for some and not for others- so it may take time to find the right combination for your body's needs. Please remember that factors such as other health co-morbidities one might have, as well as insurance coverage, will play a factor in determining which medications you can take. Most of the newer medications that are all the craze ,injectables, may not be covered or will only be covered if you fail months of oral medications or have Type 2 diabetes so please be patient with the process. It would be beneficial for you to determine what your insurance covers as far as Anti-Obesity Medications (AOMs), Nutritional Counseling, behavioral intervention and weight loss surgery. Please call your health insurance prior to your first appointment and write down coverage for each of those therapies. Most importantly, remember that ultimately our goal is to help you get to a healthier weight which will decrease your overall health risks. We will work together as a team and try to reach your personalized goals as well. Follow-up appointments Please arrive to follow-up visits a minimum of 15 minutes prior to your appointment. Follow-up weight management visits can be virtual. You will need to report a current blood pressure, heart rate (pulse) and weight at the beginning of each virtual appointment so you will need to have a reliable BP cuff, either wrist or upper arm. If you need to reschedule your appointment time or switch from an in-office visit to a virtual visit or vice versa, you need to call our office as we have designated appointment slots. This should not be done on frintithart as you will not be scheduled appropriately and will need to be rescheduled. We appreciate that you have entrusted us with your health and know that we are committed to this process with you. Sincerely, Katheryn Matias MD, ZAHRA BATES & Alyssa William CNP Advanced Education from the [employer]esity [employer] Obesity Obesity is a disease that affects nearly one-third of the adult [place] population (approximately 60 million). The number of overweight and obese Americans has continued to increase since 1959, a trend that is not slowing down. Today, 64.5 percent of adult Americans (about 127 million) are categorized as being overweight or obese. Each year, obesity causes at least 300,000 excess deaths in the [place] and healthcare costs of [place] adults with obesity amount to approximately $100 billion. (AOA) Obesity is a complex, multi-factorial chronic disease involving: Environmental (social and cultural) The tendency toward obesity is a result of our environment: lack of physical activity along with high-calorie, low-cost foods. Home, work, school, and even the community can inhibit a healthy lifestyle. Genetic (Hereditary plays a large role in determining how susceptible people are to overweight and obesity). Genes also influence how the body morris calories for energy and stores fat. Physiologic, metabolic, behavioral (eating too many calories while not getting enough exercise) and psychological components. It is the second leading cause of preventable in the [place] Behavioral changes brought on by economic development, modernization and urbanization have been linked to the rise in global obesity. Calculating BMI Body Mass Index (BMI) is a measurement tool used to determine excess body weight. Overweight is defined as a BMI of 25 or more, obesity is 30 or more, and severe obesity is 40 or more. You can visit www.nhlbi.nih.gov to estimate your BMI. Obesity Related Health Conditions The morbidity and mortality risk from being overweight is proportional to its degree. Individuals with morbid obesity, therefore, have the highest risk for developing numerous illnesses that often reduce mobility and quality of life due to their excess weight. In particular, type 2 diabetes, gallbladder disease and osteoarthritis have been found to increase concurrently with higher BMI. Premature , a 20-year shorter life span, has also been found in individuals with morbid obesity. All of the systems that make the body function are affected by morbid obesity. Type 2 diabetes Gallbladder disease and gallstones Liver disease Osteoarthritis, a disease in which the joints deteriorate. This is possibly the result of excess weight on the joints. Gout, another disease affecting the joints Pulmonary (breathing) problems, including sleep apnea in which a person can stop breathing for a short time during sleep Reproductive problems in women, including menstrual irregularities and infertility Gastroesophageal reflux/heartburn Hypertension Heart Disease Depression Psychological disorders/social impairments Urinary Stress Incontinence Obesity is also linked to higher rates of certain types of cancer. Obese men are more likely than non-obese men to from cancer of the colon, rectum, or prostate. Obese women are more likely than non-obese women to from cancer of the gallbladder, breast, uterus, cervix, or ovaries [email or web address] - Eat primarily whole foods. Limit carbs, especially processed carbs. Eat - Meat, vegetables and fruits with skin on if possible, eggs, cheese. - Do not drink your calories - 30 grams of protein for your first meal of the day decreases your hunger during the day by up to 40 %. Options include: Premier Protein or generic 30 gm protein 1 gm sugar or 5 eggs or 2-3 eggs and some unbreaded meat and/or cheese. No fruit, vegetables, bread, grain, yogurt, Smoothies, etc. - Walk for 15 minutes immediately after meal. TIRZEPATIDE (MOUNJARO/ZEPBOUND) Tirzepatide (Mounjaro) is a new combination drug (mimics 2 gut hormones, GLP1 and GIP) which has demonstrated superior weight loss >20% body wt loss after 72 week randomized controlled study. It's only approved for diabetes currently, but likely will have approval for weight/obesity next year. Below is more information on it as we discussed. Tirzepatide delays gastric emptying and has the potential to alter absorption of oral medications. This is important in patients taking narrow therapeutic index drugs or drugs that need a minimum blood level for efficacy. If you are taking oral contraceptives switch to a non-oral contraceptive method or add a barrier contraceptive method for 4 weeks after initiation of tirzepatide and for 4 weeks after each dose escalation. Video Instructions for Injecting Mounjaro: https://www.SmartDrive Systemsube.com/watch?v=n [email or web address] Savings Card: https://www.[employer]/savings- resources Link to [employer] Website [employer]SLID[employer] Medication Guide: https://pi.[employer].[facility]/us/mounjaro- us-mg.pdf?s=mg Written pen instructions: [email or web address].[email or web address]/mounjaro/m ounjamireya.html#ug0 Tirzepatide: Patient drug information What is Mounjaro? Mounjaro is an injectable prescription medicine that is used along with diet and exercise to improve blood sugar (glucose) in adults with type 2 diabetes mellitus. It is not known if Mounjaro can be used in people who have had inflammation of the pancreas (pancreatitis). Mounjaro is not for use in people with type 1 diabetes. It is not known if Mounjaro is safe and effective for use in children under 18 years of age. It works in multiple ways. It helps: - THE BODY RELEASE INSULIN WHEN BLOOD SUGAR IS HIGH - THE BODY REMOVE EXCESS SUGAR FROM THE BLOOD - STOP THE LIVER FROM MAKING AND RELEASING TOO MUCH SUGAR - REDUCE HOW MUCH FOOD IS EATEN - SLOW DOWN HOW QUICKLY FOOD LEAVES THE STOMACH. THIS LESSENS OVER TIME. You can learn about possible side effects of Mounjaro here. Select Safety Information Changes in vision. Tell your healthcare provider if you have changes in vision during treatment with Mounjaro PURPOSE AND SAFETY SUMMARY WITH WARNINGS Important Facts About Mounjaro ([id number]). It is also known as tirzepatide. Mounjaro is an injectable prescription medicine for adults with type 2 diabetes used along with diet and exercise to improve blood sugar (glucose). It is not known if Mounjaro can be used in people who have had inflammation of the pancreas (pancreatitis). Mounjaro is not for use in people with type 1 diabetes. It is not known if Mounjaro is safe and effective for use in children under 18 years of age. Warnings Mounjaro may cause tumors in the thyroid, including thyroid cancer. Watch for possible symptoms, such as a lump or swelling in the neck, hoarseness, trouble swallowing, or shortness of breath. If you have a symptom, tell your healthcare provider. Do not use Mounjaro if you or any of your family have ever had a type of thyroid cancer called medullary thyroid carcinoma (MTC). Do not use Mounjaro if you have Multiple Endocrine Neoplasia syndrome type 2 (MEN 2). Do not use Mounjaro if you are allergic to tirzepatide or any of the ingredients in Mounjaro. Mounjaro may cause serious side effects, including: Inflammation of the pancreas (pancreatitis). Stop using Mounjaro and call your healthcare provider right away if you have severe pain in your stomach area (abdomen) that will not go away, with or without vomiting. You may feel the pain from your abdomen to your back. Low blood sugar (hypoglycemia). Your risk for getting low blood sugar may be higher if you use Mounjaro with another medicine that can cause low blood sugar, such as a sulfonylurea or insulin. Signs and symptoms of low blood sugar may include dizziness or light-headedness, sweating, confusion or drowsiness, headache, blurred vision, slurred speech, shakiness, fast heartbeat, anxiety, irritability, or mood changes, hunger, weakness and feeling jittery. Serious allergic reactions. Stop using Mounjaro and get medical help right away if you have any symptoms of a serious allergic reaction, including swelling of your face, lips, tongue or throat, problems breathing or swallowing, severe rash or itching, fainting or feeling dizzy, and very rapid heartbeat. Kidney problems (kidney failure). In people who have kidney problems, diarrhea, nausea, and vomiting may cause a loss of fluids (dehydration), which may cause kidney problems to get worse. It is important for you to drink fluids to help reduce your chance of dehydration. Severe stomach problems. Stomach problems, sometimes severe, have been reported in people who use Mounjaro. Tell your healthcare provider if you have stomach problems that are severe or will not go away. Changes in vision. Tell your healthcare provider if you have changes in vision during treatment with Mounjaro. Gallbladder problems. Gallbladder problems have happened in some people who use Mounjaro. Tell your healthcare provider right away if you get symptoms of gallbladder problems, which may include pain in your upper stomach (abdomen), fever, yellowing of skin or eyes (jaundice), and ray-colored stools. Common side effects The most common side effects of Mounjaro include nausea, diarrhea, decreased appetite, vomiting, constipation, indigestion, and stomach (abdominal) pain. These are not all the possible side effects of Mounjaro. Talk to your healthcare provider about any side effect that bothers you or doesn't go away. Tell your healthcare provider if you have any side effects. You can report side effects at 1-772-JXZ-4715 or www.fda.gov/medwatch. Before using Your healthcare provider should show you how to use Mounjaro before you use it for the first time. Before you use Mounjaro, talk to your healthcare provider about low blood sugar and how to manage it. Review these questions with your healthcare provider: Do you have other medical conditions, including problems with your pancreas or kidneys, or severe problems with your stomach, such as slowed emptying of your stomach (gastroparesis) or problems digesting food? Do you take other diabetes medicines, such as insulin or sulfonylureas? Do you have a history of diabetic retinopathy? Are you or plan to become or or plan to breastfeed? It is not known if Mounjaro will harm your unborn baby. Do you take control pills by mouth? These may not work as well while using Mounjaro. Your healthcare provider may recommend another type of control when you start Mounjaro or when you increase your dose. Do you take any other prescription medicines or xnal-dlp-xqupwsp drugs, vitamins, or herbal supplements? How to take Read the Instructions for Use that come with Mounjaro. Use Mounjaro exactly as your healthcare provider says. Mounjaro is injected under the skin (subcutaneously) of your stomach (abdomen), thigh, or upper arm. Use Mounjaro 1 time each week, at any time of the day. Do not mix insulin and Mounjaro together in the same injection. If you take too much Mounjaro, call your healthcare provider or seek medical advice promptly. Learn more For more information, call 8-076-EymnyQb ( ) or go to www.[employer]. This information does not take the place of talking with your healthcare provider. Be sure to talk to your healthcare provider about Mounjaro and how to take it. Your healthcare provider is the best person to help you decide if Mounjaro is right for you. Mounjaro and its delivery device base are trademarks owned or licensed by [employer], its subsidiaries, or affiliates. [employer] MARCH2022 Access [employer] for additional drug information, tools, and databases. Copyright 4513-5917 [employer]. All rights reserved. Contributor Disclosures (For additional information see Tirzepatide: Drug information) You must carefully read the Consumer Information Use and Disclaimer below in order to understand and correctly use this information. Brand Names: [place] Mounjaro Warning This drug has been shown to cause thyroid cancer in some animals. It is not known if this happens in humans. If thyroid cancer happens, it may be deadly if not found and treated early. Call your doctor right away if you have a neck mass, trouble breathing, trouble swallowing, or have hoarseness that will not go away. Do not use this drug if you have a health problem called Multiple Endocrine Neoplasia syndrome type 2 (MEN 2), or if you or a family member have had thyroid cancer. Have your blood work checked and thyroid ultrasounds as you have been told by your doctor. What is this drug used for? It is used to lower blood sugar in patients with high blood sugar (diabetes). What do I need to tell my doctor BEFORE I take this drug? If you are allergic to this drug; any part of this drug; or any other drugs, foods, or substances. Tell your doctor about the allergy and what signs you had. If you have type 1 diabetes. Do not use this drug to treat type 1 diabetes. If you have ever had pancreatitis. If you have stomach or bowel problems. This is not a list of all drugs or health problems that interact with this drug. Tell your doctor and pharmacist about all of your drugs (prescription or OTC, natural products, vitamins) and health problems. You must check to make sure that it is safe for you to take this drug with all of your drugs and health problems. Do not start, stop, or change the dose of any drug without checking with your doctor. What are some things I need to know or do while I take this drug? Tell all of your health care providers that you take this drug. This includes your doctors, nurses, pharmacists, and dentists. Wear disease medical alert ID (identification). Follow the diet and workout plan that your doctor told you about. Check your blood sugar as you have been told by your doctor. Do not drive if your blood sugar has been low. There is a greater chance of you having a crash. control pills may not work as well to prevent . If you take control pills, you may need to switch to another type of hormone-based control like a vaginal ring if your doctor tells you to. If another type of hormone-based control is not an option, use some other kind of control also, like a condom. Do this for 4 weeks after starting this drug and for 4 weeks each time the dose is raised. This drug may prevent other drugs taken by mouth from getting into the body. If you take other drugs by mouth, you may need to take them at some other time than this drug. Talk with your doctor. It may be harder to control blood sugar during times of stress such as fever, infection, injury, or surgery. A change in physical activity, exercise, or diet may also affect blood sugar. Talk with your doctor before you drink alcohol. Do not share with another person even if the needle has been changed. Sharing your tray or pen may pass infections from one person to another. This includes infections you may not know you have. If you cannot drink liquids by mouth or if you have upset stomach, throwing up, or diarrhea that does not go away; you need to avoid getting dehydrated. Contact your doctor to find out what to do. Dehydration may lead to new or worse kidney problems. A severe and sometimes deadly pancreas problem (pancreatitis) has happened with other drugs like this one. Tell your doctor if you are , plan on getting , or are breast-feeding. You will need to talk about the benefits and risks to you and the baby. What are some side effects that I need to call my doctor about right away? WARNING/CAUTION: Even though it may be rare, some people may have very bad and sometimes deadly side effects when taking a drug. Tell your doctor or get medical help right away if you have any of the following signs or symptoms that may be related to a very bad side effect: Signs of an allergic reaction, like rash; hives; itching; red, swollen, blistered, or peeling skin with or without fever; wheezing; tightness in the chest or throat; trouble breathing, swallowing, or talking; unusual hoarseness; or swelling of the mouth, face, lips, tongue, or throat. Signs of kidney problems like unable to pass urine, change in how much urine is passed, blood in the urine, or a big weight gain. Signs of gallbladder problems like pain in the upper right belly area, right shoulder area, or between the shoulder blades; yellow skin or eyes; fever with chills; bloating; or very upset stomach or throwing up. Signs of a pancreas problem (pancreatitis) like very bad stomach pain, very bad back pain, or very bad upset stomach or throwing up. Dizziness or passing out. A fast heartbeat. Change in eyesight. Low blood sugar can happen. The chance may be raised when this drug is used with other drugs for diabetes. Signs may be dizziness, headache, feeling sleepy or weak, shaking, fast heartbeat, confusion, hunger, or sweating. Call your doctor right away if you have any of these signs. Follow what you have been told to do for low blood sugar. This may include taking glucose tablets, liquid glucose, or some fruit juices. What are some other side effects of this drug? All drugs may cause side effects. However, many people have no side effects or only have minor side effects. Call your doctor or get medical help if any of these side effects or any other side effects bother you or do not go away: Constipation, diarrhea, stomach pain, upset stomach, throwing up, or feeling less hungry. Heartburn. These are not all of the side effects that may occur. If you have questions about side effects, call your doctor. Call your doctor for medical advice about side effects. You may report side effects to your national health agency. How is this drug best taken? Use this drug as ordered by your doctor. Read all information given to you. Follow all instructions closely. It is given as a shot into the fatty part of the skin on the top of the thigh, belly area, or upper arm. If you will be giving yourself the shot, your doctor or nurse will teach you how to give the shot. Keep taking this drug as you have been told by your doctor or other health care provider, even if you feel well. Take the same day each week. Move site where you give the shot each time. Take with or without food. Wash your hands before and after use. Do not use if the solution is leaking or has particles. This drug is colorless to a faint yellow. Do not use if the solution changes color. If you are also using insulin, you may inject this drug and the insulin in the same area of the body but not right next to each other. Do not mix this drug in the same syringe with insulin. Do not move this drug from the pen to a syringe. Each pen is for one use only. Throw away any part of the used pen after the dose is given. Throw away needles in a needle/sharp disposal box. Do not reuse needles or other items. When the box is full, follow all local rules for getting rid of it. Talk with a doctor or pharmacist if you have any questions. What do I do if I miss a dose? If it is within 4 days after the missed dose, take the missed dose and go back to your normal day. If it has been more than 4 days since the missed dose, skip the missed dose and go back to your normal day. Do not take 2 doses at the same time or extra doses. How do I store and/or throw out this drug? Store in a refrigerator. Do not freeze. Do not use if it has been frozen. If needed, each pen may be stored at room temperature for up to 21 days. If you store at room temperature, throw away any part not used after 21 days. Protect from heat. Store in the original container to protect from light. Keep all drugs in a safe place. Keep all drugs out of the reach of children and pets. Throw away unused or drugs. Do not flush down a toilet or pour down a drain unless you are told to do so. Check with your pharmacist if you have questions about the best way to throw out drugs. There may be drug take-back programs in your area. General drug facts If your symptoms or health problems do not get better or if they become worse, call your doctor. Do not share your drugs with others and do not take anyone else's drugs. Some drugs may have another patient information leaflet. If you have any questions about this drug, please talk with your doctor, nurse, pharmacist, or other health care provider. If you think there has been an overdose, call your poison control center or get medical care right away. Be ready to tell or show what was taken, how much, and when it happened. Last Reviewed [id number] Consumer Information Use and Disclaimer This generalized information is a limited summary of diagnosis, treatment, and/or medication information. It is not meant to be comprehensive and should be used as a tool to help the user understand and/or assess potential diagnostic and treatment options. It does NOT include all information about conditions, treatments, medications, side effects, or risks that may apply to a specific patient. It is not intended to be medical advice or a substitute for the medical advice, diagnosis, or treatment of a health care provider based on the health care provider's examination and assessment of a patient's specific and unique circumstances. Patients must speak with a health care provider for complete information about their health, medical questions, and treatment options, including any risks or benefits regarding use of medications. This information does not endorse any treatments or medications as safe, effective, or approved for treating a specific patient. [employer] and its affiliates disclaim any warranty or liability relating to this information or the use thereof. The use of this information is governed by the Terms of Use, available at https://www.[employer].com/en/ know/vivszmce-bdhvsqzqllxrb-yrjfj . TIRZEPATIDE (Zepbound) Tirzepatide (Mounjaro, Zepbound) is a combination drug (mimics 2 gut hormones, GLP1 and GIP) which has demonstrated superior weight loss >20% body wt loss after 72 week randomized controlled study. It's only approved for diabetes currently, but likely will have approval for weight/obesity next year. Below is more information on it as we discussed. Tirzepatide delays gastric emptying and has the potential to alter absorption of oral medications. This is important in patients taking narrow therapeutic index drugs or drugs that need a minimum blood level for efficacy. If you are taking oral contraceptives switch to a non-oral contraceptive method or add a barrier contraceptive method for 4 weeks after initiation of tirzepatide and for 4 weeks after each dose escalation. Video Instructions for Injecting Mounjaro/Zepbound: https://www.youMBS HOLDINGSube.com/watch?v=n xnhBdyTSZ0 Link to [employer] Website: zepbound https://www.[email or web address]/?g [email or web address] To see if it is covered - coupon program https://www.zepbBYOM!.[employer].com/co verage-savings Medication Guide: https://www.Talenz.[employer].com/ho w-to-use Tirzepatide: Patient drug information What is Zepbound? Zepbound is an injectable prescription medicine that may help adults with obesity, or with excess weight (overweight) who also have weight-related medical problems, lose weight and keep it off. Zepbound should be used with a reduced-calorie diet and increased physical activity. Zepbound contains tirzepatide and should not be used with other tirzepatide-containing products or any GLP-1 receptor agonist medicines. It is not known if Zepbound is safe and effective when taken with other prescription, khlh-dzs-otcydqt, or herbal weight loss products. It is not known if Zepbound can be used in people who have had pancreatitis. It is not known if Zepbound is safe and effective for use in children under 18 years of age. PLEASE READ THE SAFETY INFORMATION ON THE ABOVE WEBSITE It works in multiple ways. It helps: - THE BODY RELEASE INSULIN WHEN BLOOD SUGAR IS HIGH - THE BODY REMOVE EXCESS SUGAR FROM THE BLOOD - STOP THE LIVER FROM MAKING AND RELEASING TOO MUCH SUGAR - REDUCE HOW MUCH FOOD IS EATEN - SLOW DOWN HOW QUICKLY FOOD LEAVES THE STOMACH. THIS LESSENS OVER TIME. TOPIRAMATE -- Take 25mg (1/2 tablet) daily x 2 weeks -- Then increase to 50mg daily after the initial two weeks so long as you are not having any side effects. -- You can take the tablet it at night at first (because of potential sleepiness side effects), but then you can take earlier around dinner after you have started the medication for a few days. You also may be able to take it in the morning if easier. -- We may increase the dose to 75mg a few weeks later if there is no change with 50mg, Typically the maximum medication dose would be 150mg daily but rarely would we need to titrate medication dose that high. -- The exact mechanism of topiramate on energy balance regulation is not clearly understood. Topiramate affects body mass index, fasting dqrginl-qe-dtbxccb ratio, and serum leptin and cortisol levels. It has shown to improve hypothalamic insulin and leptin signaling and action and reduce obesity in mice. These changes may be ding factors in weight loss due to topiramate. If at any point you are feeling the effects of the medication you can stay at that dose or if you experience side effects you can decrease it to the previous dose. -- Please see the handout to review the potential side effects and to explain this further -- Please let me know if you experience any changes in your vision, worsening depression or mood problems, or an increase in suicidal thoughts or behaviors. --This medication should NOT be combined with alcohol. Risks of drinking alcohol while taking this medication include mental and psychological side effects, including confusion, dizziness, drowsiness, and depression. -- There is an increased risk for oral clefts when topiramate is used in the first trimester of . -- There is a possible decrease in contraceptive efficacy when using estrogen-containing control with topiramate, please use a back up form of control such as condoms and monitor for throughout treatment. -- If you decide that you would like to get or if you have any of these side effects please let me know and we can safely discontinue the medication. - If you are on loop diuretic or thiazide diuretic we will want to monitor your potassium level, especially if you have a history of low potassium. - It is important to taper off of this medication when we finished with treatment, typically decreasing the dose 25 mg a week. Stopping Topiramate abruptly can cause irritability, anxiety and difficulty concentrating. Topiramate (toe pyre a mate) What are the common names? Topamax Why is this medication prescribed? Topiramate is an anti-epileptic medications which has been approved by the FDA for patients 10 years of age or older for treatment of seizures. However, topiramate also has other uses such as the treatment of migraines. It also causes decrease in appetite and weight loss. The mechanism of weight loss is thought to be through inhibition of mitochondrial enzymes involved in energy expenditure and metabolism. Topiramate may work by helping you feel less hungry, less driven to eat, more satisfied with less food. What special precautions should I follow? Before having topiramate prescribed, tell your doctor and pharmacist: If you have allergies to any component of topiramate If you are , plan to become , are breast-feeding, or if you become while taking topiramate What are the warnings and precautions for this medication? Immediately discontinue the medicine and seek medical help if you have severe cognitive/neuropsychiatric adverse symptoms or eye symptoms. Cognitive/neuropsychiatric adverse events: symptoms may include confusion, psychomotor slowing, difficulty with concentration/attention, difficulty with memory, speech or language problems, particularily word-finding difficulties, somnolence or fatigue Acute myopia and secondary angle closure glaucoma, usually within 1 month of starting treatment: symptoms may include blurred vision, redness and/or pain in the eye Oligohydrosis (decrease sweating) and hyperthermia (elevation in body temperature) Increase in suicidal behavior or ideation Metabolic acidosis, non-gap hyperchloremic (decreased serum bicarbonate below normal levels) resulting in hyperventilation or fatigue Kidney stones Paresthesias (numbness or tingling in hands or feet) Ataxia Dizziness Increase in urination frequency Drug interactions. Use of monamine oxidase inhibitors (MAOI s), valproic acid, Caution use with dehydration or diarrheal illness, hepatic or renal impairment In case of emergency/overdose In case of overdose, call your local poison control center at or call local emergency services at [phone]. What other information should I know? Keep all appointments with your doctor and the laboratory. Do not let anyone else take your medication. Topiramate use needs to be monitored closely. Prescriptions may be refilled only a limited number of times. Keep a written list of all of your prescription and nonprescription (kcng-uur-fyelcju) medicines, in addition to vitamins, minerals, or other dietary supplements. How should I monitor while on this medication? Your doctor will check your baseline kidney function and electrolytes prior to starting this medication, then periodically. Continue to improve your dietary and physical activity habits as the combination works best while on this medication. Start out by taking the medication at bedtime as it can cause fatigue and sleepiness. Be sure to eat regular meals. Less hunger does not make it appropriate to skip meals. Make sure to have an eye exam, including the pressure in your eyes (intra-ocular pressure), once a year. What should I do if I forget a dose? Skip the missed dose and continue your regular dosing schedule the next day. Do not take a double dose to make up for a missed one. Sources [facility]: http://www.ncbi.nlm.nih.gov/pubme dhealth/HZM6592264/ Drugs.com http://www.drugs.com/pro/topirama te.html METFORMIN Dosing -- Begin Metformin 500 ER mg with dinner daily x 1 week. If you are experiencing any GI side effects, do not increase dose for 1-4 weeks. If tolerating, you can increase to 2 tablets with dinner daily. Taking the medication with food will help. -- if you experience any GI upset (Nausea, diarrhea, bloating, gas) you can go back to 1 tablet or hold the medication until it resolves. Once you are tolerating the medication you can try increasing it again. -- we can discuss increasing the dose further at your follow up visit. -- Metformin can interfere with the absorption of B12 in your food, please add a B12 1,000-2,400 mcg supplement and I suggest having it checked every 1-2 years Using Metformin for weight loss: Metformin helps to lower blood glucose levels by reducing the amount of glucose produced and released by the liver, and by increasing insulin sensitivity. It has now been proven to prevent or delay diabetes. Metformin and Type 2 Diabetes Prevention Diabetes Spectrum (diabetesjournals.org) Large cohort studies have shown weight loss benefits associated with metformin therapy. Emerging evidence suggests that metformin-associated weight loss is due to modulation of hypothalamic appetite-regulatory centers, alteration in the gut microbiome, and reversal of consequences of aging. Metformin is also being explored in the management of obesity s sequelae such as hepatic steatosis, obstructive sleep apnea and osteoarthritis. Effectiveness of metformin on weight loss in non-diabetic individuals with obesity - PubMed (nih.gov) Is metformin a wonder drug? - [facility] Common side effects of this medication include nausea, changes in bowel habits, abdominal discomfort, and flatulence. Taking the medication with food will help. Side effects also typically get better with time. Rarely, a severe side effect called lactic acidosis can occur. If you experience malaise, muscle aches, difficulty breathing, or severe abdominal pain, please seek immediate medical attention. When to Take Extended-Release Metformin Metformin HCL is metabolized slowly, over 24 hours, which helps reduce GI side effects. Metformin extended-release is often a good option for people who experience adverse GI symptoms with standard metformin. Metformin HCL should be taken at night, with food. Dulce Dominguez MD, clinical director of adult diabetes at [facility], explains why timing metformin HCL with the evening meal is so important. In normal physiology, a person's liver often makes glucose overnight, she says. So, it's not uncommon for a person to go to bed with a good blood glucose level and wake up with a higher one because their liver has been releasing sugar [all night]. Metformin turns off or slows down this process, so it can be more effective at night in treating fasting high blood sugar. https://www.Fundability/articl e/397978-tutu-my-d-dole-eqxbnfmiw -ywf-vv-galz-ohxrhqh-wh-jjgot/ Metformin: Patient drug information Warning Rarely, metformin may cause too much lactic acid in the blood (lactic acidosis). The risk is higher in people who have kidney problems, liver problems, heart failure, use alcohol, or take other drugs like topiramate. The risk is also higher in people who are 65 or older and in people who are having surgery, an exam or test with contrast, or other procedures. If lactic acidosis happens, it can lead to other health problems and can be deadly. Kidney tests may be done while taking this drug. Do not take this drug if you have a very bad infection, low oxygen, or a lot of fluid loss (dehydration). Call your doctor right away if you have signs of too much lactic acid in the blood (lactic acidosis) like fast breathing, fast or slow heartbeat, a heartbeat that does not feel normal, very bad upset stomach or throwing up, feeling very sleepy, shortness of breath, feeling very tired or weak, very bad dizziness, feeling cold, or muscle pain or cramps. What is this drug used for? It is used to lower blood sugar in patients with high blood sugar (diabetes), treatment for PCOS, What do I need to tell my doctor BEFORE I take this drug? If you are allergic to this drug; any part of this drug; or any other drugs, foods, or substances. Tell your doctor about the allergy and what signs you had. If you have any of these health problems: Acidic blood problem, kidney disease, or liver disease. If you have had a recent heart attack or stroke. If you are not able to eat or drink like normal, including before certain procedures or surgery. If you are having an exam or test with contrast or have had one within the past 48 hours, talk with your doctor. This is not a list of all drugs or health problems that interact with this drug. Tell your doctor and pharmacist about all of your drugs (prescription or OTC, natural products, vitamins) and health problems. You must check to make sure that it is safe for you to take this drug with all of your drugs and health problems. Do not start, stop, or change the dose of any drug without checking with your doctor. What are some things I need to know or do while I take this drug? All products: Tell all of your health care providers that you take this drug. This includes your doctors, nurses, pharmacists, and dentists. Talk with your doctor before you drink alcohol. Do not drive if your blood sugar has been low. There is a greater chance of you having a crash. Check your blood sugar as you have been told by your doctor. Have blood work checked as you have been told by the doctor. Talk with the doctor. It may be harder to control blood sugar during times of stress such as fever, infection, injury, or surgery. A change in physical activity, exercise, or diet may also affect blood sugar. Follow the diet and workout plan that your doctor told you about. If diarrhea happens or you are throwing up, call your doctor. You will need to drink more fluids to keep from losing too much fluid. Be careful in hot weather or while being active. Drink lots of fluids to stop fluid loss. Long-term treatment with metformin may lead to low vitamin B-12 levels. If you have ever had low vitamin B-12 levels, talk with your doctor. If you are 65 or older, use this drug with care. You could have more side effects. There is a chance of in people of childbearing age who have not been ovulating. If you want to avoid , use control while taking this drug. Tell your doctor if you are , plan on getting , or are breast-feeding. You will need to talk about the benefits and risks to you and the baby. Extended-release tablets: You may see something that looks like the tablet in your stool. This is normal and not a cause for concern. If you have questions, talk with your doctor. What are some side effects that I need to call my doctor about right away? WARNING/CAUTION: Even though it may be rare, some people may have very bad and sometimes deadly side effects when taking a drug. Tell your doctor or get medical help right away if you have any of the following signs or symptoms that may be related to a very bad side effect: Signs of an allergic reaction, like rash; hives; itching; red, swollen, blistered, or peeling skin with or without fever; wheezing; tightness in the chest or throat; trouble breathing, swallowing, or talking; unusual hoarseness; or swelling of the mouth, face, lips, tongue, or throat. It is common to have stomach problems like upset stomach, throwing up, or diarrhea when you start taking this drug. If you have stomach problems later during treatment, call your doctor right away. This may be a sign of an acid health problem in the blood (lactic acidosis). Low blood sugar can happen. The chance may be raised when this drug is used with other drugs for diabetes. Signs may be dizziness, headache, feeling sleepy or weak, shaking, fast heartbeat, confusion, hunger, or sweating. Call your doctor right away if you have any of these signs. Follow what you have been told to do for low blood sugar. This may include taking glucose tablets, liquid glucose, or some fruit juices. What are some other side effects of this drug? All drugs may cause side effects. However, many people have no side effects or only have minor side effects. Call your doctor or get medical help if any of these side effects or any other side effects bother you or do not go away: Stomach pain or heartburn. Gas. Diarrhea, upset stomach, or throwing up. Feeling tired or weak. Headache. These are not all of the side effects that may occur. If you have questions about side effects, call your doctor. Call your doctor for medical advice about side effects. You may report side effects to your national health agency. How is this drug best taken? Use this drug as ordered by your doctor. Read all information given to you. Follow all instructions closely. All products: Take with meals. Keep taking this drug as you have been told by your doctor or other health care provider, even if you feel well. Extended-release tablets: Take with the evening meal if taking once daily. Swallow whole. Do not chew, break, or crush. If you have trouble swallowing, talk with your doctor. PHENTERMINE -- Please take tablet or capsule as directed. May need to decrease dose or stop if uncontrolled BP or sustained elevated pulse. -- Please monitor your blood pressure (either purchase BP cuff, or go to pharmacy to check your BP at a local pharmacy). Please avoid any stimulants (in the form of caffeinated beverages like coffee, tea, sports drinks) and caution with decongestants. We will require an updated blood pressure and heart rate at follow up visits (this includes virtual visits). -- Please monitor for , if at any point you become please stop the medication. THIS IS A SUMMARY OF OUR DISCUSSION ABOUT THIS MEDICATION. PLEASE READ IT IS IMPORTANT FOR YOUR WEIGHT LOSS PLAN Per updated [place] state rules, initially, a one month supply of phentermine is prescribed. You will need to be seen every month for the first 3 months for follow-up and to assess effectiveness with a total 5% weight loss in that 3 month period. If the phentermine is effective for you, treatment with phentermine can continue with a one month supply of phentermine prescribed at a time with 2 refills. You, the patient, are responsible for making an appointment to see a provider within 12 weeks in order to get a refill of this medication. It is imperative that you get this (and future) phentermine prescriptions within 7 days as pharmacists will NOT refill prescriptions outside this 7 day window per State law. Phentermine can only be prescribed for a 3 month interval at a time. You are aware of the following statements per the [facility] pharmacy board rules. 1. Timely refills are required 2. Every 12 weeks office visits are required. 3. ALL prescriptions need to be filled within 7 days of the written prescription 4. Refills need to be done EVEN IF there is medication still available ? Phentermine (fen ter meen) What are the common names? Adipex-P, Ionamin Why is this medication prescribed? Phentermine was approved by the FDA in 1958 for short term weight loss. It works by decreasing appetite. Phentermine is absorbed by the body and travels to the appetite center of the brain. It works by helping you feel less hungry, less driven to eat, more satisfied with less food. I ve heard about fen-phen. Will phentermine affect my heart? The two drug combination fenfluramine/phentermine, usually called fen-phen, became popular in the early as a diet pill. However, it was withdrawn by the FDA in late 1996 after studies which showed that fenfluramine can cause fatal pulmonary hypertension and heart valve problems. Phentermine is not a combination medication and does not contain the compound fenfluramine. What special precautions should I follow? Before having phentermine prescribed, tell your doctor and pharmacist: If you have allergies to any component of phentermine If you are , plan to become , are breast-feeding, or if you become while taking phentermine What are the absolute contraindications? Stroke or Transient Ischemic Attacks Cardiac arrhythmias or Atrial fibrillation Coronary artery disease Seizure Disorder Uncontrolled blood pressure Angina Congestive Heart Failure Valvular Heart Disease or primary pulmonary hypertension Drug interactions. Use of monamine oxidase inhibitors (MAOI s) What are the side effects of phentermine? Immediately discontinue the medicine and seek medical help if you have severe symptoms such as chest pain, shortness of breath, feeling faint, ability to think clearly, eye pain or other visual symptoms: Palpitations (strong or rapid heartbeat) Difficulty sleeping or falling asleep Elevated blood pressure Dry mouth Anxiety or agitation Getting a stimulant/or hyper effect or jitteriness-(Usually goes away after a few days or weeks) Glaucoma In case of emergency/overdose In case of overdose, call your local poison control center at or call local emergency services at 911. What other information should I know? Keep all appointments with your doctor and the laboratory. Do not let anyone else take your medication. Phentermine is a controlled substance. It is FDA approved for up to 3 months. Prescriptions may be refilled only a limited number of times. Keep a written list of all of your prescription and nonprescription (rasa-erj-gmhygmf) medicines, in addition to vitamins, minerals, or other dietary supplements. If you are taking the extended-release (long-acting) tablets, do not split, chew, or crush them tablet. There are some tablets that can be crushed and mixed with food Alcohol can make the side effects of phentermine worse How should I monitor while on this medication? Please check your blood pressure (BP) and resting pulse weekly (twice a week in the first 2 weeks). If the BP is over 140/90 (either one), or if the resting pulse is over 96 per minute (count for 10 seconds and multiply by 6), then stop the medication and call your doctor. Continue to improve your dietary and physical activity habits as the combination works best while on this medication. Start out by taking the medication in the morning at least 30 minutes prior to meals. If the effect seems to wear off by dinner time, try taking it later in the morning, but taking too late may result in trouble falling asleep. Be sure to eat regular meals. Less hunger does not make it appropriate to skip meals. Monitor your caffeine intake and use of decongestants as they may worsen the effects of phentermine Make sure to have an eye exam, including the pressure in your eyes (intra-ocular pressure), once a year. What should I do if I forget a dose? Skip the missed dose and continue your regular dosing schedule the next day. Do not take a double dose to make up for a missed one. Sources [facility] Consumer Medication Info: http://www.ncbi.nlm.nih.gov/pubme dhealth/ASS2970804/ AMA patient handouts: http://www.amaassn.org/ama1/pub/u pload/mm/433/phrxsurgery.pdf Drugs.com: http://www.drugs.com/pro/phenterm ine.html Nutrition Reminders: NO NAKED CARBS!! Protein >= Carbs for each meal (if you are going to eat 50g carbs for lunch you should eat 50g protein or more). If you do not eat your carbs for lunch you do not get to save them for dinner- you use them or lose them. Balance your Protein between meals. Unless told otherwise your Minimum protein each day is 30grams per meal but don t be afraid to eat more. Focus on WHOLE FOODS if you can as your Gut Microbiome will benefit and you will feel more satisfied - the only caviot to this is protein shakes if needed. Water intake should be a minimum of 64oz per day- but more is better (to an extent) unless you have a medical condition that requires you to keep it to a minimum. Nothing is off limits- this is not about restricting yourself- this about learning what your body can have and still respond well to and learning how to balance food and still feel good. Track your food, weigh your food, measure your portion sizes as most people underestimate their food by approximately 40%. You should be tracking your Carbohydrates and Protein daily. It s ok if you had a bad day- write it down and move on! Weigh yourself daily or at least 5 times per week, it will help to keep you accountable. If you are hungry- think about your stress level, your sleep (did you get 7.5-9hrs?) and your protein consumption- if you did not meet your goals then those could be contributing to your hunger. During weight loss phase it is ok to use two protein shakes per day and eating one meal along with it - studies have shown you will lose more weight and keep it off. Take a multivitamin daily Sit less Move more- Exercise including resistance training is very important for your health and if you are not getting routine exercise right now there will come a point when it will become an important piece of this process. High Protein Snack Ideas 1. Jerky 2. [place] mix without dried fruit 3. Blessing roll-ups 4. [place] yogurt 5. Veggies and yogurt dip 6. Tuna 7. Hard-boiled eggs 8. Peanut butter with celery 9. Cheese slices/ Cheese Stick 10. Handful of almonds, peanuts or walnuts 11. Cottage Cheese 12. Beef sticks 13. Protein bars 14. Canned [place] 15. Pumpkin seeds 16. Nut butter 17. Protein shakes 18. Avocado and chicken salad 19. Egg muffins 20. Leftover protein or lunch meat 21. 1/2 c blended cottage cheese with 1 Tbsp sugar-free dry cheesecake pudding mix 12g protein 10 carb 22. Pudding - 1 30 gm protein shake with 1/2 pkg sugar-free pudding 4 svgs - 7.8 gm protein, 5 carb each svg 23. SF Sunkist or Root Beer with 1-2 Tablespoons heavy whipping cream 24. Mini frozen desert bites - layer protein yogurt, skinny syrup and crushed nuts and freeze Meal replacements: Meal Replacements Plant-based protein bars Meal replacements. One option that works for some people is to use meal replacements, as in the DiRECT and Look AHEAD trials.The available options in Look AHEAD included shakes, bars, and meals from a variety of companies ([employer], [employer], [employer], and [employer]). The calorie content was 150 to 220 calories, depending on the product. People who used meal replacements 12 times a week instead of preparing their own meals lost about 11% of their weight in the first year, whereas those who used just two per week lost about 6% of their weight. Keep in mind, though, that people in the trial who used meal replacements also tended to consume a healthier diet over all; they were more likely to have met their goals for dietary fat, fruits and vegetables, and dairy foods, and to have cut back on sweets, than those who didn t use meal replacements. Similarly, in the DiRECT trial, participants consumed special nutritionally complete shakes and soups (the Counterweight-Plus program) for the first 12 weeks.If you opt for meal-replacement drinks, bars, or frozen entrees, here are some criteria to look for: calories, 150 to 300 fat, 3 to 10 grams protein, > 20 grams sugar < 5 g Meal replacements are typically fortified with vitamins and minerals and contain some fiber. Because they are calorie controlled, the amount of added sugars is usually minimal. If you want to try this approach to boost weight loss, ask your dietitian or another member of your health care team how to incorporate the replacements into your meal planning and discuss whether you might need to reduce your doses of diabetes medications to prevent hypoglycemia (low blood sugar) as you cut calories and lose weight. It is important to find a meal-replacement product that suits your taste. If you prefer not to consume processed foods, you can make your own portion-controlled versions. Note that meal replacements don t work for everyone. While some people like meal-replacement shakes, bars, and soups and find them to be a convenient way to sustain a reduced calorie intake over time, others don t feel satisfied drinking them and often end up simply adding them to what they d normally eat--which could lead to weight gain. What s more, some people have a hard time readjusting to eating real food after they stop using meal replacements. <15 gram carb fruit options Berries have the lowest sugar content 1/2 medium apple - 12.5 carbs 1/2 medium avocado - 6.5 gm carbs 1/2 medium banana - 15 carbs 1/2 cup blueberries - 11 carbs - may actually help you lose weight 1/2 cup fresh cherries -11 carbs 1 medium Marissa -9 carbs 1/2 cup fresh cranberries - 6.5 carbs 1/2 c grapes - 15 carbs 1/2 medium grapefruit - 10.5 carbs 1/2 cup diced honeydew melon - 8 carbs 1 medium kiwi without skin - 11 carbs 1/2 cup sliced lamont -14 carbs 1 medium nectarine - 15 carbs 1 medium orange -15.5 carbs 1 medium peach -14.5 carbs 1/2 cup fresh pineapple -11 carbs 1 medium plum -7.5 carbs 1 prune - 6 carbs 1/4 c raisins - 31.25 carbs 1/2 cup raspberries -7.5 carbs 1/2 c strawberries - 12.7 carbs 1 medium tangerine -12 carbs 1/2 cup diced watermelon - 6 carbs 5 (FIVE) gram carb vegetable options 1 cup raw OR cup cooked: Asparagus Vega sprouts Beets Broccoli Brussel sprouts Cabbage Carrots Cauliflower Celery [place] Eggplant Green beans Lettuce Peppers Snap peas Spaghetti squash Spinach Tomato Turnips Zucchini 15 gram carb vegetable options cup cooked corn or hominy corn on the cob, large (5 oz) cup cooked green peas cup cooked baumann beans 1 small potato or sweet potato cup cooked potato, plain cup cooked sweet potato, plain 1 cup winter squash (pumpkin, acorn, butternut) 1 cup marinara or pasta sauce - check label cup tomato juice cup tomato puree Beans, Seeds, Nuts cup cooked beans (kidney, mccloud, red, green, etc.) cup cooked lentils cup baked beans 4 tablespoons nut butter Grains Brown rice 1/2 c 5.5g protein 24 carb White long-grain rice 1/2 c 2g protein 22.5 carb Quinoa 1/2 c 4 gm complete protein 25 carb Oatmeal, old fashioned 1/2 c 5g protein 27g carb Protein - no carbs Egg 1 large - 6g Egg white 1 large 3.6g 3 oz is approximately the size of a deck of cards and equals 21 g protein so 4 oz is 28 gm protein Beef, Chicken, Blessing, Pork, Hernandez 1 oz 7g Fish, Tuna Fish 1 oz 7g (Starkist tuna packet 2.6 oz 17 gm protein) Seafood (Crabmeat, Shrimp, Lobster) 1 oz 6g Protein shakes (read labels) Premier Protein or generic [employer] Equate, [employer] High Performance- 30g protein & 1g carb - meal replacement Premier Protein powder or generic- 30 gm protein, 1g carb Premier Protein plant protein powder - 25 gm protein, 0 suger/2 carb Vanilla and chocolate (not a meal replacement) Fairlife 30 gram protein - 30g protein & 3g carb BOOST Glucose Control Max 30g Protein Nutritional Drink - 30g protein & 1 carb - meal replacement Slimfast High Protein - 20g protein & 1g carb Ensure Max Protein Nutrition Shake 30g protein & 2 carb Protein AND carbs Beef/Blessing Jerky 1 oz dried 10-15g protein - check carb count, can be high if sugar added Slim Jerzy - 6 gm protein and 4 net carb Great Value original turkey sausage sticks - 7 gm protein and 2 gm carb [employer] (at [facility]) Original smoked sausage sticks - 8 gm protein and 0 carb Imitation Crab Meat 1 oz - 2g protein & 4g carb Milk, skim 2% or 1% 8 oz - 8g protein & 12g carb Mosotho yogurt Full Fat Mosotho Yogurt 1 cup - 20.4g protein & 9.1g carb 2% Mosotho Yogurt 1 cup - 22.7g protein & 9.1g carb 0% (fat-free) Mosotho Yogurt - 1 cup 24g protein & 9.3g carb Aldi Protein Mosotho yogurt single svg - 15g protein & 7g carb Chobani Zero Sugar single svg: - 11g protein & 5g carb Dannon Light + Fit 1 single svg - 12g protein & 9g carb Oikos Pro single svg - 20g protein & 8g carb Oikos Triple Zero Mosotho Nonfat Yogurt 1 single svg - 15g protein & 7g carb :ratio, KETO Friendly Dairy Snack 1 single svg - 15g protein & 2g carb :ratio Protein 1 single svg - 25g protein & 8g carb Two Good Lowfat Mosotho Yogurt, [place], Lower Sugar - 12g protein & 2g carb Yoplait Protein 1 single svg 15gm protein & 5gm carb Cheese each oz Brie 5.9g protein & 0.1g carb Cheddar Cheese 7g protein & 0.4g carb Mozzarella Cheese 6.3g protein & 0.6g carb Devonte Cheese 6.7g protein & 0.7g carb Parmesan Cheese 10g protein & 0.9g carb Cream Cheese 1.7g protein & 1.2g carb Feta 4g protein & 1.2g carb Albanian Cheese 7.6g protein & 1.5g carb Aguilera s Low Fat Cottage Cheese 1/2cup 12g protein & 4g carb Legumes Lentils cup 9g protein & 20g carb Baumann beans cup 7g protein & 20g carb Kidney, Black, Kamaili, Cannellini beans cup 8g protein & 20g carb Soybeans 1/2 c 14g complete protein & 8.5g carb [place] milk, unsweetened 8 oz 1g protein & 2g carb Soy milk 8 oz 3.5g protein & 1.6g carb Tofu 1/2 cup 10g protein & 2.3g carb Peanut butter, natural 2 Tbsp 7-8g protein & 4g net carbs, 190 calories PB2 powder 2 Tbsp 6g protein & 5g carb Nuts and Seeds per oz Almonds - 5.9g protein & 6.1g carb [place] Nuts - 4.0g protein & 3.4g carb Cashews - 5.1g protein & 9.2g carb Hazelnuts - 4.2g protein & 4.7g carb Hemp seeds 3 T/30 gms - 9.5 gm complete protein and 2.5 gm carb Peanuts - 7g protein & 4.6g carb Pecans - 2.6g protein & 3.9g carb Pistachios - 5.8g protein & 7.8g carb Pumpkin Seeds - 6.9g protein & 5g carb [place]wall Seeds - 5.8g protein & 5.6g carb Walnuts - 4.3g protein & 3.8g carb VEGAN PROTEIN LIST SOY Tempeh: 17g protein 8g carbohydrate in 1/2 cup, Shelled Edamame: 9g Protein, 8g carbohydrate in 1/2cup Tofu: 9g protein,2 g carbohydrate per 3oz Soy Milk: 7g Protein, 15g carbohydrate in 1 cup Nutritional Yeast 8g Protein, 5g Carbohydrate in 2TBSP (16g) Seitan 30g Protein, 6.8g Carbohydrate in 1/2 cup Whole Grains Quinoa: 8g protein in 1cup Wild rice 6.5g protein in 1 cup Legumes Lentils 12g protein, 23g carbohydrate in 1/2 cup cooked Chickpea 6g protein, 17g carbohydrate in 1/2 cup cooked Black Beans 7g protein, 19g carbohydrate in 1/2 cup cooked Green Split peas 8g protein, 22g carbohydrate in 1/2 cup cooked Baumann Vega 8g protein, 20g carbohydrate in 1/2 cup cooked Seeds Pumpkin 8g protein, 3 carbohydrate in 1/4cup Hemp 9g protein, 3 carbohydrate in 3 Tablespoons Tahini 10g protein, 3 carbohydrate in 2 Tablespoons Jesus 5g protein, 10g carbohydrate in 2 tablespoons Nuts Almonds 6g protein, 6g carbohydrate in 1/4cup Walnuts 4g protein, 4g carbohydrate in 1/4cup Cashew 4g protein, 9g carbohydrate in 1/4cup Peanuts 8g protein, 5g carbohydrate in 1/4cup Peanut butter 7g protein, 6g carbohydrate in 2 TBSP Potatoes Russet potato- 1 medium (173g) 4.5g protein, 37g carbohydrate Red Potato- 1 large (299g) 6.9g protein, 59g carbohydrate Sweet Potato - 1 medium (114g) 2.3g protein, 24g carbohydrate Sprouted grain bread Christopher bread- per slice 5g protein, 15g carbohydrate Vegetables Artichoke- 4.2g protein, 13g carbohydrate in 1 medium (128g) Green Peas- 8g protein, 21g carbohydrates in 1 cup Brussel Sprouts - 3g protein, 8g carbohydrate in 1 cup Spout Spring- 4.3g protein, 19g carbohydrate in 1/2cup Spinach- 1g protein, 1g carbohydrate in 1 cup 3g carb8g carb 20g protein, 4 carbohydrate per scoop QUICK VEGAN PROTEIN PRODUCTS/SNACKS: NOT high in protein- BUT LOW CARB SUBSTITUTE FOR NOODLES Coping with Shift Work Overcoming sleep problems caused by a non-traditional work schedule Not everyone has a work schedule that resembles the traditional [id number] day. In fact, more than 22 million Americans work evening, rotating, or on-call shifts. You face many challenges when working non-traditional hours. It can be hard to keep up with family and friends. You may feel disconnected from the people you care about the most. You may have trouble organizing your time and activities. You may be frustrated to realize that most things are planned around the schedule of the typical conditioning room worker. It may seem like no one has your needs in mind. Your physical health may also suffer from shift work. It can be very hard to get the sleep you need to stay well rested. This can make you more likely to get sick. It also makes it hard for you to stay alert on the job. While this can hurt your performance, it can also put you in danger. Being tired increases the chance that you could suffer a work-related injury. Even driving home from work is a risk when you are sleepy. Studies show that sleepiness can have a negative effect on any of the following: Attention Concentration Reaction time Memory Mood The following are all examples of major accidents involving human errors that were blamed at least in part on sleepiness: [place] in [place] nuclear power plant disaster in the [place] in 1985 [employer] oil spill off the [place] in 1988 The sleep problems that result from shift work can put a strain on every area of your life. But there are steps you can take to improve your sleep. Following them can help shift your sleep in the right direction. Sleeping Against The Clock A main challenge of shift work is that it forces you to sleep against the clock. You have an internal body clock in your brain that produces circadian rhythms. The word circadian means to occur in a cycle of about 24 hours. These rhythms act like messages that regulate various body functions. They influence such things as the following: Body temperature Alertness Sleepiness Hunger Hormone Levels Your body clock uses these rhythms to signal to you when it is time to go to sleep or to wake up. This tends to occur at regular times every day. Among other factors, your clock is set by your exposure to sunlight. This keeps the clock's timing close to the night/day cycle. In most adults, circadian rhythms cause your level of sleepiness to peak from aboutmidnight to 7 am. They can also make you mildly sleepy in the mid-afternoon between 1 pm and 4 pm. If you work at night, you must fight your body's natural rhythms to try and stay awake. Then you have to try to sleep during the day when your body expects to be alert. Overall, shift workers tend to be continually sleep-deprived. It is very hard for operations supervisor 2nd shift workers to get enough sleep during the day. They get a daily average of two to four hours less sleep than normal. It is hard for them to get their bodies to fall asleep during the day. Over time, this can develop into a case of insomnia. They are also much more likely to be awakened by noises or people. As a result, their sleep is very light. They are less likely to feel well rested when they wake up. Other factors can add to the problem of having an unusual sleep schedule. People who work extremely long shifts can have even more severe sleep loss. This includes such people as doctors, nurses, soldiers, firefighters and police officers. You may also have a schedule that does not allow you to get enough sleep each day. Perhaps you work two jobs, one during the day and one at night. Maybe you go to school during the day and work at night. In either case, it can be hard to find the time to sleep. A sleep disorder can also make your sleep problems worse. Two examples are sleep apnea and narcolepsy. They can keep you from sleeping well and feeling alert. You should see a sleep specialist if you think that you may have a sleep disorder. Some researchers think that it may take as long as three years to adjust to a shift work schedule. Others believe that you will never fully adjust to an unusual sleep/wake pattern. Even if this is the case, you can make the best of a bad situation to sleep better. Strategies For Sleeping Better There are a variety of ways to cope with the sleep problems caused by rotating work shifts and ongoing night work. The approach that will help you the most depends on the following three factors: Your individual needs The requirements of your job Your environment at home Some methods will apply to your situation more than others. 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 Also, some people respond to shift work better than others. In general, older people find it harder to work nights or to rotate shifts. Your personality may also suit you better for one kind of shift. Some people are evening types. They like to go to bed late and sleep late in the morning. They feel most alert and energetic in the evening. They may adjust to the operations supervisor 2nd shift better than morning types. Morning types wake up early and work best in the morning. They get tired and go to bed early in the evening. From the options below, find what will work best for you in your situation. The most important thing you can do at first is to make sleep a high priority in your life. Work schedules Employers can plan rotating shifts in ways that will help their workers. A schedule that rotates clockwise can be adjusted to more easily. This is a more natural change for your body. This schedule keeps to the following kind of pattern: Day shift? Evening shift? shift commander? Morning shift? Day shift A schedule that is much harder to adjust to rotates in a counterclockwise direction. This is a difficult change for your body to make. This schedule stays on the following kind of pattern: Day shift? Morning shift? shift commander? Evening shift? Day shift Shifts that rotate in a random pattern are also very hard on your body. Rotating shifts every two or three days is also better than changing every five to seven days. Studies show that workers are more satisfied when shifts are rotated in the proper ways. They are also more productive and have fewer accidents. Talk to your clinical engineering manager about how the right kind of schedule is better for everyone involved. Napping It is a good idea to take a nap just before reporting for a operations supervisor 2nd shift. This makes you more alert on the job. A nap of about 90 minutes seems to be best. Naps during work hours may also help you stay awake and alert. You may also want to take a nap during the operations supervisor 2nd shift lunch hour. This can make you more productive and more satisfied. But this is not a good idea for all types of jobs. This may not work well on a high-pressure job that demands instant reactions. You will need a little bit of time to shake the sleepy feeling that you may have right after a nap. About 15 to 20 minutes should be enough time for you to be fully alert again. See if your employer will allow you to take nap breaks during a operations supervisor 2nd shift. This can make you more alert and improve your job performance. Driving home from a operations supervisor 2nd shift can be dangerous. It can be very hard to stay alert on the road. Drowsy driving is a cause of at least 100,000 auto crashes each year. You may want to take a 20-45 minute nap before starting out. This will make you much more alert for the drive home. You also may want to begin a car pool with other workers. The most alert worker at the end of the shift can be the one to drive most of the distance. Eating well Stomach problems are common in shift workers. Many shift workers eat poorly and at odd times. Try to eat three regular meals spaced evenly over the course of the day. Regular meal times are important for your body. They serve as time cues for your body clock. These cues help your body know when to make you sleepy. You may want to have a hot meal while on the job. Do not eat your largest meal of the day within three hours of bedtime. You should also avoid drinking any alcohol within three hours of bedtime. At first, alcohol may help you fall asleep quicker. But over time, it can make your sleep worse. It causes you to wake up more often during your sleep period. Avoid eating a lot of snacks and fast foods. Eat a balanced, low-fat diet with plenty of fruits, vegetables, and cereals. This helps to prevent stomach problems in shift workers. Sleep schedules shift commander workers should try to stay on the same sleep schedule every day of the week. This means that you don't change your sleep time on days off. Keeping a regular schedule will help align your body clock with your sleep pattern. This will increase the quality of your sleep. Sleeping at night during days off disrupts your body clock. This will make it harder to sleep during the day when you return to work. Rotating shift workers are unable to keep a regular sleep schedule. Instead, they should begin to adjust their sleep time before a schedule change. For example, you may be working an evening shift. Soon you are going to rotate to a operations supervisor 2nd shift. On the last few days of the evening shift, delay the times you go to bed and wake up by one to two hours each day. Then when you begin the operations supervisor 2nd shift, your body will already be getting ready for the new schedule. See the chart below for an example. This kind of gradual plan gives your body more time to adjust. You avoid the harsh disruption of a sudden schedule change. This will allow you to sleep better through the change. 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 Normal sleep time for shift:?Sleep time - Night 1 of Transition:?Sleep time - Night 2 of Transition:?Sleep time - Night 3 of Transition:?Slepe time - Night 1 of New Shift Evening Shift (5 pm - 1 am) 3 am - 11am 5 am - 1 pm 7 am - 3pm 8 am - 4 pm Smoke Room Operator (11 pm - 7 am) 9 am - 5 pm 9 am - 5 pm Sleep aides Shift workers often rely on sleeping pills to help them fall asleep during the day. These pills are also known as hypnotics or sedatives. These drugs can be useful in helping some people sleep better. But pills should not be seen as a long-term solution for better sleep. Doctors rarely prescribe them for more than three to four weeks. They become less effective when used for a long period of time. There can also be negative side effects involved. You don't want to become dependent on a drug to be able to sleep. They will also give you only a small boost in alertness and performance on the job. Sleeping pills may offer temporary relief. But they do not address the root cause of your sleep problems; sleeping pills cannot reset your body clock. Talk to your doctor if you think a sleeping pill might help you once in a while. Store shelves are stocked with items that claim to help you sleep better. Antihistamines are the most common ingredient in these sleep aids. They may help you sleep better. But the side effect of drowsiness can be very severe. They may cause you to be sleepy while working or driving. These items should be used with extreme caution. There is very little evidence to show that using other herbs or vitamins will help you sleep better. Stimulants Studies show that using a stimulant may reduce sleepiness and increase alertness on a operations supervisor 2nd shift. The most common stimulant used is caffeine. But you should avoid caffeine within four hours of your desired bedtime. Otherwise, it may keep you from being able to fall asleep after you get home. Melatonin Melatonin is a hormone that is released by the brain at night. It appears to have a strong link to the sleep/wake cycle. Its release is regulated by an area of the brain that serves as your body clock. Taking melatonin has been found to be most effective in helping people with jet lag. For other people, it may have a mild effect, if any at all. Studies have found melatonin to be fairly safe in healthy adults. There do not seem to be any serious side effects, but more tests need to be done. The fact that it is widely available in stores does not guarantee its safety. The long-term effects of taking it remain unknown. Light therapy Studies show that timed exposure to bright light can be used to adjust your body's sleep cycle. Artificial bright light can affect the body clock in the same way that sunlight does. Light therapy is used to expose your eyes to intense but safe amounts of light. This is done for a specific and regular length of time. In general, using light treatment in the evening should help someone who regularly works nights. In this case, you would also want to avoid daylight when you come off work and go to bed. Dark sunglasses or special goggles can help. Light boxes can be purchased in a variety of makes and models. The box houses several tubes that produce extremely bright light. It sits on top of a table or desk and plugs into the wall. Sessions may take as little as 15 to 30 minutes. More than one session may be needed each day. It depends upon your body, your need, and the strength of light being used. The ding is to use the light at the right time of day and for the right amount of time. A sleep specialist can help you develop a light therapy plan that will be both helpful and safe. Workplace conditions Your employer should strive to create a work environment that will promote safety. This is even more important for those working the operations supervisor 2nd shift. The workplace should be bright and cool. This will help workers to be more alert on the job. Discuss with your employer any changes that need to be made in your workspace. Safety can be increased without losing any productivity. The home front Your family and living companions have a vital role in helping you to sleep better. They need to understand both your unique schedule and your sleep need. Post a shift work calendar to help them keep track of your schedule. Include your work hours and your sleep times. Educate them about the body clock and its effect on sleep. Get them to reduce the levels of noise and light in the home during your sleep hours. Darken and sound proof your room as best you can. Use white noise (static on the radio or TV) to help cover up disturbing sounds. Ask others to help with daytime childcare and household tasks. Schedule home repairs and deliveries outside of your scheduled sleep hours. Sleep hygiene You can often sleep better by simply following the practices of good sleep hygiene. Sleep hygiene consists of basic habits and tips that help you develop a pattern of healthy sleep. Following these tips will give you a head start down the path to better sleep. Disrupted Sleep Linked to Weight Gain - YouTube How To Improve Your Sleep To Impact Your Weight Loss: [email or web address] Weight Loss and Sleep Updated August 13, 2020 Written by Nikolai Ferrera Medically Reviewed by Yulissa Jurado In This Article The Connection Between Sleep and Weight Sleep and Obesity Sleep During Weight Loss Maintaining a Healthy Relationship With Your Body Losing weight is challenging, and keeping weight off can be just as difficult. Although the medical community is still untangling the complicated relationship between sleep and body weight, several potential links have emerged that highlight the potential weight loss benefits of getting a good night s rest and the negative health impacts of sleep deprivation. The Connection Between Sleep and Weight Over the past several decades, the amount of time that Americans spend sleeping has steadily decreased1, as has the self-reported quality of that sleep. For much of the same time period, the average body mass index (BMI) of Americans increased2, reflecting a trend toward higher body weights and elevated rates of obesity. In response to these trends, many researchers began to hypothesize about potential connections between weight and sleep. Numerous studies have suggested that restricted sleep and poor sleep quality may lead to metabolic disorders, weight gain, and an increased risk of obesity and other chronic health conditions. While there is continuing debate within the medical community about the exact nature of this relationship, the existing research points to a positive correlation between good sleep and healthy body weight. There remains much to be discovered about the intricate details of how sleep and weight are connected. Several hypotheses offer paths for additional research with the hope that increasing our understanding of the relationship between weight and sleep will lead to reduced obesity and better weight-loss methods. Can Lack of Sleep Increase Appetite? One common hypothesis about the connection between weight and sleep involves how sleep affects appetite. While we often think of appetite as simply a matter of stomach grumbling, it s actually controlled by neurotransmitters, which are chemical messengers that allow neurons (nerve cells) to communicate with one another. The neurotransmitters ghrelin and leptin are thought to be central to appetite. Ghrelin promotes hunger, and leptin contributes to feeling full. The body naturally increases and decreases the levels of these neurotransmitters throughout the day, signaling the need to consume calories3. A lack of sleep may affect the body s regulation of these neurotransmitters. In one study, men who got 4 hours of sleep had increased ghrelin and decreased leptin compared to those who got 10 hours of sleep. This dysregulation of ghrelin and leptin may lead to increased appetite and diminished feelings of fullness in people who are sleep deprived. In addition, several studies have also indicated that sleep deprivation affects food preferences. Sleep-deprived individuals tend to choose foods that are high in calories and carbohydrates4. Other hypotheses regarding the connection between sleep and increased appetite involve the body s endocannabinoid system5 and orexin6, a neurotransmitter targeted by some sleep aids. Many researchers believe that the connection between sleep and dysregulation of neurotransmitters is complicated and additional studies are needed to further understand the neurobiological relationship. Does Sleep Increase Metabolism? Metabolism7 is a chemical process in which the body converts what we eat and drink into energy needed to survive. All of our collective activities, from breathing to exercising and everything in between, is part of metabolism. While activities like exercise can temporarily increase metabolism, sleep cannot8. Metabolism actually slows about 15% during sleep, reaching its lowest level in the morning 9. In fact, many studies have shown that sleep deprivation (whether due to self-induction, insomnia, untreated sleep apnea, or other sleep disorders) commonly leads to metabolic [id number]. Poor sleep is associated with increased oxidative stress, glucose (blood sugar) intolerance (a precursor to diabetes), and insulin resistance. Extra time spent awake may increase the opportunities to eat11, and sleeping less may disrupt circadian rhythms, leading to weight gain12. How is Sleep Related to Physical Activity? Losing sleep can result in having less energy for exercise and physical activity. Feeling tired can also make sports and exercising less safe, especially activities like weightlifting and or those requiring balance. While researchers are still working to understand this [id number], it s well known that exercise is essential to maintaining weight loss and overall health. Getting regular exercise can improve sleep quality, especially if that exercise involves natural light. While even taking a short walk during the day may help improve sleep, more activity can have a more dramatic impact. Engaging in at least 150 minutes of moderate-intensity or 75 minutes of high-intensity exercise per week can improve daytime concentration and decrease daytime [id number]. Sleep and Obesity In children and adolescents, the link between not getting enough sleep and an increased risk of obesity is well-established, although the reason for this link is still being debated. Insufficient sleep in children can lead to metabolic irregularities as discussed earlier, skipping breakfast in the mornings, and increased intake of sweet, salty, fatty, and starchy foods15. In adults, the research is less clear. While a large analysis of past studies suggests that people getting less than 6 hours of sleep at night are more likely to be diagnosed as obese16, it s challenging for these studies to determine cause and effect. Obesity itself can increase the risk of developing conditions that interfere with sleep, like sleep apnea and depression. It s not clear if getting less sleep is the cause of obesity in these studies, if obesity is causing the participants to get less sleep, or perhaps a mix of both. Even though more studies are needed to understand this connection, experts encourage improving sleep quality when treating obesity in adults. Sleep During Weight Loss Getting adequate, quality sleep is an important part of a healthy weight loss plan. Most importantly, research has shown that losing sleep while dieting can reduce the amount of weight lost17 and encourage [id number]. Tips for Quality Sleep During Weight Loss There are many ways to improve sleep. Here are a few research-based tips for sleeping better when you re trying to lose weight: Keep a regular sleep schedule: Big swings in your sleep schedule or trying to catch up on sleep after a week of late nights can cause changes in metabolism and reduce insulin [id number], making it easier for blood sugar to be elevated. Sleep in a dark room: Exposure to artificial light while sleeping, such as a TV or bedside lamp, is associated with an increased risk of weight gain and . Don t eat right before bed: Eating late may reduce the success of weight loss [id number] Reduce Stress: Chronic stress may lead to poor sleep and weight gain in several ways, including eating to cope with negative [id number] Be an Early Bird: People with late bedtimes may consume more calories and be at a higher risk for weight gain23. Early birds may be more likely to maintain weight loss when compared to night owls24. Maintaining a Healthy Relationship With Your Body Deciding if you should attempt to change your body weight is a personal decision best made with the guidance of your doctor. Don t take all the health and weight loss information you read [id number] at face value. Weight loss isn t appropriate for everyone and doesn t always mean better health. Remember that health is a lifelong journey that includes not only healthy habits but also having a healthy relationship with your body. If you re considering weight loss, the National Institutes of Health offers a helpful resource for choosing a safe weight loss [id number] Source National [place] of Diabetes and Digestive and Kidney DiseasesNIDDK research creates knowledge about and treatments for diseases that are among the most chronic, costly, and consequential for patients, their families, and the Nation. niddk.nih.gov . https://www.sleepfoundation.org/p hysical-health/ttkcdo-zexh-drm-sl eep Sleep Hygiene Tips Set a sleep schedule and stick to it. Try to go to bed at night and awaken in the morning around the same times, even on weekends. This helps to regulate the body s sleep cycles and circadian rhythms. Try to exercise at some point in the day but avoid vigorous activity (running, fast dancing, high-intensity interval training) one hour before bedtime. Regular exercise of adequate intensity can promote muscle relaxation and deeper sleep later on. If you re in the habit of napping during the day, aim for a 10-20 minute power nap to achieve the goals of reduced fatigue and increased alertness. It s best to take naps in the early afternoon to avoid interference with nighttime sleep. Try to avoid large meals, heavy snacking,or alcohol 2-3 hours before bed. If you are sensitive to caffeine, try to avoid drinking caffeinated beverages 4-6 hours before bedtime. Stop using electronic devices an hour before bed, especially those emitting blue light such as smartphones, tablets, and televisions. Schedule before-bed activities to signal that you are winding down, such as changing into pajamas and brushing teeth. Create a quiet, dark, relaxing environment in your bedroom. Dim the lights and turn off your cell phone s sound and vibration modes if possible. Ensure a comfortable temperature, as feeling too hot or cold can disrupt sleep. Create calming bedtime rituals such as practicing deep breathing exercises, doing light yoga stretches, or listening to soothing relaxing music. If you awaken and can t return to sleep, don t stay in bed. Get up and do quiet relaxing activities, such as reading, until you feel tired enough to fall back asleep. Why You May Want to Weigh Yourself Every Day At any given moment, an estimated 24% of men and 38% of women in the [place] are trying to lose weight (1Trusted Source). Meanwhile, obesity has skyrocketed and working-age adults are gaining about 2.2 pounds (1 kg) annually, on average (2Trusted Source, 3Trusted Source). Recent studies have shown that daily self-weighing may be a powerful tool for both losing and maintaining weight. However, many people believe that weighing yourself daily contributes to bad mental health and disordered eating habits. So what should you believe? This article sets the record straight on whether you should start weighing yourself daily. Weighing Yourself Daily Helps You Lose More Weight The simple act of self-weighing has received lots of attention and stirred up controversy for years. Some people have even thrown away their scale, claiming that it s a highly misleading weight loss tool that results in bad self-esteem and disordered eating habits (4, 5). However, recent studies generally agree that daily weighing is associated with greater weight loss and less weight regain than less-frequent self-weighing (6Trusted Source, 7, 8, 9). One study showed that participants who weighed themselves daily for six months lost 13 more pounds (6 kg), on average, than those who weighed themselves less frequently (10. What s more, those who weigh themselves daily tend to adopt more favorable weight control behaviors, exercise better restraint toward food and eat impulsively less often (10, 11). Interestingly, adopting healthy weight-related behaviors has been shown to be especially important when people emerge from adolescence into adulthood (12). One study in participants aged 18-25 showed that daily self-weighing resulted in better weight loss than less-frequent weighing (13). The researchers concluded that daily self-weighing is a particularly valuable self-regulation tool for this age group. Furthermore, another study showed that people who weighed themselves every day ate 347 fewer calories per day than those who did not. After six months, the group that weighed themselves daily ended up losing a whopping 10 times more weight than the control group (14). BOTTOM LINE: Daily self-weighing may cause people to lose more weight and gain less of it back, compared to less-frequent weighing. Daily Weighing May Motivate You and Improve Self-Control Being aware of your weight is a ding factor in successful weight loss. Awareness of your weight trend -- that is, whether your weight is going up or down -- is also important. In fact, weighing yourself more often is linked to weight control, while weighing yourself less often has been associated with weight gain. One study found that participants who weighed themselves less often were more likely to report increased calorie intake and decreased restraint toward food (15). Self-weighing promotes self-regulation and awareness of your weight trend and weight-related behaviors. That s why it generally results in greater weight loss (14). Although the exact number on the scale may be unimportant, monitoring weight loss progress motivates you to keep going and generally improves weight-related behavior and self-control. Also, by being more aware of your weight, you can quickly react to lapses in your progress and make necessary adjustments to maintain your goal. Since most people are able to sustain a habit of daily self-weighing, the adherence and acceptability of it is generally quite high (16Trusted Source, 17, 18, 19, 20). It s a minor addition to your daily routine that may help you reap major benefits for your weight. BOTTOM LINE: Daily self-weighing helps you maintain awareness of your weight. Monitoring weight loss progress further motivates you to keep going and improves your self-control. Daily Weighing Helps You Keep the Weight Off Frequent self-weighing has been shown to be a great way to prevent weight gain in the long-term (15, 2, 22, 23). 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 It found that there was a significant link between self-weighing frequency and weight change. In normal-weight individuals, daily weighing resulted in a slight weight loss, while those who weighed themselves monthly gained 4.4 pounds (2 kg), on average. However, the largest difference was in overweight individuals. Those who weighed themselves daily lost 10 pounds (4.4 kg), while those who weighed themselves monthly gained 2.2 pounds (1 kg), on average (24). Another study came to a similar conclusion, showing that self-weighing was a significant predictor of body weight over time. Participants lost an extra pound (0.45 kg) of body weight for every 11 days they self-weighed (25). The main reason why this is so effective is that consistent self-weighing allows you to catch weight gain before it escalates and make the necessary changes to prevent more weight gain (15). BOTTOM LINE: Daily weighing may help prevent long-term weight gain, especially in overweight people. Weighing Yourself Daily Is Not as Bad as People Think Not so long ago, frequent self-weighing was thought to be damaging to your mental health. This notion still exists today. Self-weighing is claimed to have negative effects on your mood by continuously reinforcing that your body size is not ideal or appropriate, resulting in an increased risk of developing an eating disorder (4Trusted Source, 5Trusted Source). Although this may be true in a small group of people, most studies have repeatedly come to a different conclusion (9Trusted Source, 26Trusted Source, 27Trusted Source). The available research suggests there is very little evidence that frequent self-weighing is a cause of negative mood or body dissatisfaction, especially as part of a weight loss program (8Trusted Source, 12Trusted Source, 14Trusted Source, 26Trusted Source, 28Trusted Source, 29Trusted Source). In fact, studies indicate that frequent self-weighing may increase body satisfaction, rather than decrease it (9Trusted Source). That said, there is a group of people who may develop a negative body image, low self-esteem or undesirable eating behaviors as a result of daily self-weighing (30Trusted Source). If you find that daily self-weighing causes you to have bad feelings about yourself or your eating behaviors, you should find other methods to measure your progress. BOTTOM LINE: Most studies do not link frequent self-weighing to negative mood or body dissatisfaction. Some even associate them with higher body satisfaction. How to Weigh Yourself for Best Results The best time to weigh yourself is right after you wake up, after going to the bathroom and before you eat or drink. Your weight tends to fluctuate less in the morning than later in the day when you ve had plenty to eat and drink. That is also why people weigh the least in the morning. Also, it is best if you always weigh yourself in similar clothing each day. However, you need to keep in mind that your weight may fluctuate from day to day and can be affected by many factors, including: What you ate or drank the previous day Bloating or water retention Menstrual cycle Whether you ve had bowel movements recently Therefore, it is important to assess the trend of your weight over a longer period of time, instead of drawing conclusions from each and every weighing. A basic scale will do just fine. However, many scales also have the ability to measure your body mass index (BMI), body fat percentage and muscle mass, which may help you get a better picture of your progress. There are also several apps available for your phone or computer that allow you to easily enter your daily weight and see the trend of your weight change. Happy Scale for iPhone and Rhianna for Android are two such apps. BOTTOM LINE: It is best to weigh yourself right after you wake up, after going to the bathroom and before you eat or drink anything. Other Ways to Track Your Progress Although self-weighing may be a valuable tool, it has some limitations. If you re exercising and gaining muscle, the scale may not show your progress and instead simply show that you have gained weight. While losing weight can indicate progress, a scale does not differentiate between healthy weight (muscle) and unhealthy weight (fat). Therefore, it may be good to add other ways of tracking your progress to your regimen. Here are some examples: Measure circumference: Muscle has much less volume than fat, so your circumference may be decreasing even if your weight stays the same or goes up. Measure body fat percentage: By measuring your body fat percentage, you can observe changes in fat mass, regardless of your weight. Take pictures of yourself regularly: You can observe any changes in your physique by comparing photos of yourself in similar clothing. Note how your clothes feel: Any changes in your weight will probably affect how your clothes fit. Feeling them become looser or tighter is one of the best indicators of changes in your body. BOTTOM LINE: Other ways to track your progress include measuring your circumference, measuring your body fat percentage and taking pictures of yourself. Take Home Message Weighing yourself every day can help increase your awareness of your weight and weight-related behaviors. It may help you lose more weight and prevent you from gaining that weight back in the long-term. Daily self-weighing may just be that extra motivation you need to achieve your weight goals. [email or web address] ion/daily-[email or web address] documented in this encounter [facility] 06-20-2024 History of Present illness Narrative Images from the original note were not included. Patient Summary: Nichole Pittman is a 33 year old female with obesity who presents for an initial evaluation of overweight/obesity to treat and prevent co-morbidities and is interested in combination of behavioral and pharmacological. Motivation for seeking treatment for the disease of overweight/obesity : Really wants to lose weight Goal weight: 180 lb Lowest recall weight: 228 lb Highest non- recall weight: 265 lb Patient identified barriers to weight loss: She struggles with eating healthy and maybe not understanding what is healthy and what isn't. Weight History: She reports a strong family history of obesity and adolescence weight gain. She states her weight gain is related to the following factors, including exposure to a weight gain promoting medication, when she was a teen she was put on depo and gained weight and continued to gain weight on it and never lost the weight she gained from it. 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 Difficulty losing weight? Yes she is trying to understand diet and exercise better. History of weight loss with regain? 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- 1x2 week - then falls asleep until noon B - does not eat S - 10am 1/2 banana if she works out L - 2 sloBioPharmX (sugar free) , sometimes pineapple, grapes, apples, banana, berries S - D - PB and jelly wrap from pulp , pasta (portion is down since starting phentermine), chicken, beef tacos, corn , peas, carrots, green beans, cooked peppers and onions, cooked tomatoes S - sugar free ice cake and ice cream on occasion Before starting phentermine- snacking all the time - chips, pretzels, soda, pasta Fluids: at least one soda per day caffeine free diet soda, occasional regular soda- at peak was drinking 3-4 sodas per day. Currently getting 40oz water trying for 80oz. Juice- 1-2 per week one glass- 12 oz. , margaritas 1-2/mo, smoothie from pulp on occasion Bedtime - Quality of diet: 24hr recall suggests unhealthy diet. Characterization of diet:Unstructured, unhealthy snacking, excessive cravings, evening snacking, increased consumption of sugar sweetened beverages, and skip meals. Treater Helper of impaired eating habits:excessive hunger, lack of satiety, mindlessness , boredom, emotion, and stress Eating Disorder binge eating- undiagnosed Cravings: salty and carbs Sleep Duration: 6 hours.difficult falling asleep- was suppose to have sleep study but never got it. Stress Stress:yes , Cause:Work and Financial- sees psychiatrist q2 months and therapist Q1 month - very beneficial. Obesity Related Comorbidities: Prior Weight Loss Surgery:No PAST MEDICAL HISTORY No date: Anxiety state 09/2020: COVID-19 No date: Depression No date: Hypothyroidism Comment: Resolved PAST SURGICAL HISTORY 11/23/2022: EGD BIOPSY SING OR MULT Comment: variable ge jx; longitudinal furrows distal esophagus 04/25/2021: INSERTION OF IUD No date: UNSPECIFIED ORAL SURGERY PROCEDURE, BY REPORT Comment: wisdom teeth FAMILY HISTORY Problem Relation Age of Onset Heart Father 45 of heart attack Barretts Esophagus Mother Hypertension Mother Fibromyalgia Mother other (Barrets Esphogus) Mother Clotting Disorder Mother other (diverticulitis) Mother Hypertension Brother other (borderline diabetes) Brother Cataract Maternal Grandmother Celiac Disease Maternal Grandmother Glaucoma Maternal Grandfather Diabetes Maternal Grandfather other (Gout) Maternal Grandfather COPD Paternal Grandmother Heart disease Paternal Grandfather cardiac bypass Colon Polyps Paternal great-grandmother Glaucoma Maternal great-grandmother Colon Polyps Maternal great-grandmother Colon Cancer No Family History Social History Tobacco Use Smoking status: Never Smokeless tobacco: Never Tobacco comments: pt states that father smoked inside when he was living Vaping Use Vaping Use: Never used Substance Use Topics Alcohol use: Yes Comment: Occasionally Drug use: Never AOM Medications: Phentermine- started in 3 months ago- has lost about 30lbs since October - started at 250lbs with phentermine down to 236lbs in 3 months. Weight Promoting Medications: Abilify Diet/weight loss History: Past weight loss attempts? self-directed. Went to the gym and tried to eat healthier but didn't really know where to start Exercise: Regular exercise: yes 2 times a weeks for 30 mins using workout videos Strength/resistance exercise:yes -band Barriers to regular exercise? no Work-related activity:Active. 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 Symptoms of PCOS: yes NEURO: Migraines/ROTHMAN: yes - a/w menses imitrex ; H/o seizures: no Glaucoma:no; Cataracts no Symptoms of or History of pseudotumor cerebri:no Family or personal History of MEN2 or Medullary thyroid cancer: no PE BP 136/80 Pulse 92 Ht 152.4 cm (5') Wt 107 kg (236 lb) LMP (LMP Unknown) SpO2 98% BMI 46.09 kg/m Waist Circumference: 51.5 Neck Circumference: 17.25 GENERAL: Female in NAD. Mixed central and gluteofemoral adiposity. SKIN: acanthosis nigricans no, Skin tags: yes Hirsutism: yes HEENT: PERRL, No supraclavicular adiposity. No dorsal adiposity. ABDOMEN: Large pannus; EXTREMITIES: peripheral edema: no Results: reviewed with the patient No visits with results within 3 Month(s) from this visit. Latest known visit with results is: Appointment on 03/14/2024 Component Date Value Ref Range Status Vitamin D 25 Hydroxy 03/14/2024 19.7 (L) 31.0 - 80.0 ng/mL Final Insulin 03/14/2024 24.7 3.0 - 25.0 mU/L Final WBC 03/14/2024 11.03 (H) 3.70 - 11.00 k/uL Final RBC 03/14/2024 4.61 3.90 - 5.20 m/uL Final Hemoglobin 03/14/2024 13.8 11.5 - 15.5 g/dL Final Hematocrit 03/14/2024 40.8 36.0 - 46.0 % Final MCV 03/14/2024 88.5 80.0 - 100.0 fL Final MCH 03/14/2024 29.9 26.0 - 34.0 pg Final MCHC 03/14/2024 33.8 30.5 - 36.0 g/dL Final RDW-CV 03/14/2024 12.8 11.5 - 15.0 % Final Platelet Count 03/14/2024 299 150 - 400 k/uL Final MPV 03/14/2024 11.6 9.0 - 12.7 fL Final Absolute nRBC 03/14/2024 <0.01 <0.01 k/uL Final Cholesterol, Total 03/14/2024 191 <200 mg/dL Final Triglyceride 03/14/2024 109 <150 mg/dL Final HDL Cholesterol 03/14/2024 48 >39 mg/dL Final Non HDL Cholesterol 03/14/2024 143 (H) <130 mg/dL Final Fasting Time 03/14/2024 12 hrs Final VLDL Cholesterol 03/14/2024 22 <30 mg/dL Final TC:HDL Ratio 03/14/2024 3.98 <5.10 Final LDL Cholesterol 03/14/2024 121 (H) <100 mg/dL Final LDL:HDL Ratio 03/14/2024 2.52 <2.54 Final Protein, Total 03/14/2024 7.2 6.3 - 8.0 g/dL Final Albumin 03/14/2024 4.2 3.9 - 4.9 g/dL Final Calcium, Total 03/14/2024 9.7 8.5 - 10.2 mg/dL Final Bilirubin, Total 03/14/2024 0.3 0.2 - 1.3 mg/dL Final Alkaline Phosphatase 03/14/2024 111 34 - 123 U/L Final AST 03/14/2024 18 13 - 35 U/L Final ALT 03/14/2024 24 7 - 38 U/L Final Glucose 03/14/2024 90 74 - 99 mg/dL Final BUN 03/14/2024 12 7 - 21 mg/dL Final Creatinine 03/14/2024 0.80 0.58 - 0.96 mg/dL Final Sodium 03/14/2024 140 136 - 144 mmol/L Final Potassium 03/14/2024 3.6 (L) 3.7 - 5.1 mmol/L Final Chloride 03/14/2024 105 97 - 105 mmol/L Final CO2 03/14/2024 26 22 - 30 mmol/L Final Anion Gap 03/14/2024 9 9 - 18 mmol/L Final Estimated Glomerular Filtration Ra* 03/14/2024 101 >=60 mL/min/1.73m Final TSH 03/14/2024 3.870 0.270 - 4.200 mIU/L Final Hemoglobin A1C 03/14/2024 5.3 4.3 - 5.6 % Final Estimated Average Glucose 03/14/2024 105 mg/dL Final Impression: Nichole Pittman is a 33 year old Female with Class III obesity (Body mass index is 46.09 kg/m .) who has adolescence obesity with gradual weight gain. The causes of her obesity are multifactorial, biological, psychological and social and environmental. Specific factors include exposure to weight gain promoting medication(s) , increased consumption of high calorie/process foods, irregular eating patterns , suboptimal physical activity, inadequate sleep duration, poor sleep quality, and circadian disruption. She has several weight-related medical comorbidities which increase her cardiovascular mortality risk. There are additional metabolic obesity complications including dyslipidemia, PCOS, vitamin D deficiency, and insulin resistance/hyperinsulinemia. Other medical conditions as above. Regarding her lifestyle, as above, she has several behavioral contributors; her physical activity is suboptimal. Overall, it is clear that her quality of life is moderately compromised by her weight. It is likely a combination of weight loss therapies will be needed. She appears motivated today. Plan: -- Based on the severity and resistance of the obesity/overweight with co-morbidities, I believe a combination of behavioral and pharmacological intervention is the best and most appropriate retirement therapeutic option. -- We discussed several strategies to track food intake and increase mindfulness around eating while will decrease calorie intake. She was counseled on the following: Eating primarily whole foods. Limit carbs, especially processed carbs. Do not drink your calories 30 grams of protein for breakfast decreases your hunger during the day by up to 40 % Premier Protein or generic 30 gm protein 1 gm sugar Walk for 15 minutes immediately a meal. -- Encouraged the patient to improve her physical activity. Although cardiovascular exercise is most beneficial for weight loss initially, we discussed healthy muscle from a combination of resistance training and cardiovascular exercise is the best exterminator helper plan. An overall goal of 150-200 minutes per week of exercise has been effective in weight loss and maintenance. -- Reviewed that monitoring weight daily and food intake can have a positive impact on overall weight loss and maintenance of weight loss. Activity tracking can be used to stay on target for exercise however should not be used to reward oneself She understands that there can be limitations of pharmacotherapy due to contraindications, side effects and cost. Patient was told to contact her insurance company to see what AOMs and supervised behavioral medical appointments are currently covered. Patient understands she will have more success when following a healthy lifestyle. We reviewed continued use of online tracking of daily weights, food journal and if desired physical activity. We reviewed that during management she is to report any concerning side effects of any pharmacotherapy she is placed on. She understands that she will need routine follow up in the office. Prior to any virtual visits in the future she will need to check her Blood pressure, weight, and pulse. -VIT D level reordered to check level after starting supplement - LABS REVIEWED with patient- discussed insulin level - ZEPBOUND ORDERED- if not covered or too expensive will do topiramate and metformin. Dicussed all risks/benefits of each medication. Pt knows to check AVS. - Nutrition reviewed , nutrition consult to [facility] placed - Sleep study ordered by Jenny Can- Never received it - message sent to July Zach for follow up - follow up jul 25 and sep 17? (E28.2) PCOS (polycystic ovarian syndrome) (primary encounter diagnosis) (E78.00) Hypercholesteremia (R73.01) Elevated fasting glucose (R03.0) Elevated blood pressure reading without diagnosis of hypertension (E88.819) Insulin resistance (E55.9) Vitamin D deficiency (E66.01, Z68.42) Class 3 severe obesity without serious comorbidity with body mass index (BMI) of 45.0 to 49.9 in adult, unspecified obesity type (HCC) Prescription instructions reviewed with patient as applicable. Potential red flag symptoms discussed with the patient. Reviewed appropriate action plan to take if red flag symptoms occur. Patient agreeable to treatment plan. -- follow-up visit in 4- 6 weeks for management of above interventions I spent a total of 75 minutes on the date of the service which included preparing to see the patient, [id number] patient care, completing clinical documentation, obtaining and/or reviewing separately obtained history, performing a medically appropriate examination, counseling and educating the patient/family/caregiver, and ordering medications, tests, or procedures. Katheryn An MD, FACOG, ZAHRA documented in this encounter [facility] 06-13-2024 History of Present illness Narrative CC: Patient presents with: Recheck: Adipex follow up HPI Nichole Pittman is a 33 year old female who presents today for above. Currently taking phentermine. Starting Month 3 Weight/BMI Last 1 Encounter Wt Readings: Date: Wt: 06/13/2024 107.5 kg (237 lb) BMI 46.29 kg/(m^2) Last visit Wt: 109.3 kg (241 lb) BMI: 47.07 kg/(m^2) DIET Daily serving of fruits:2-3 Daily serving of vegetables:3-5 Daily serving of protein:3-5 Fluid intake:Water: average of 80 ounces per day Do you Skip meals:YES Which meals do you tend to skip? Breakfast Eating away from home:YES Fast-food/fast-casual and Sit down restaurantMore than twice weekly Exercise routine: YES 3 days a week does strengthening and walks Medication side effects: Increased heart rate: No Insomnia: No Constipation: No Nervousness: No Impairment of concentration/attention, difficulty with memory, speech or language problems (particularly word-finding difficulties): No ROS as above, otherwise non-contributory. Reviewed PMHx, PSHx, social Hx, medications and allergies. PHYSICAL EXAM BP 112/78 Pulse 78 Resp 16 Wt 107.5 kg (237 lb) LMP (LMP Unknown) SpO2 97% BMI 46.29 kg/m General Appearance: well appearing, in no acute distress, alert Pysch: mood and affect broad and appropriate Eyes: conjunctiva pink and moist, no icterus, sclera white, non-injected Lungs: Lungs clear to auscultation. No wheezing, rhonchi, rales. Heart: RRR without murmur, gallop, or rubs. No ectopy ASSESSMENT/PLAN: 1. Class 3 severe obesity with body mass index (BMI) of 45.0 to 49.9 in adult, unspecified obesity type, unspecified whether serious comorbidity present (HCC) - ICD9: 278.01, V85.42, ICD10: E66.01, Z68.42 (primary diagnosis) Weight decreasing - Behavioral and pharmacological intervention - increase exercise to at least 5 days a week - tolerating adipex well with no increase in anxiety - PHENTERMINE 37.5 MG TABLET - PHENTERMINE 37.5 MG TABLET - PHENTERMINE 37.5 MG TABLET Discussed Contraindications, went over each one and over side effects. tolerance, continuity of medication, controlled medication so cannot be replaced if stolen or if lost. Advised exercising along with this will really help the patient reach her goal of loosing weight. Short term use of this med was discussed. Negative for all the following :Hypersensitivity or idiosyncrasy to phentermine or other sympathomimetic amines or any component of the formulation; history of cardiovascular disease (arrhythmias, congestive heart failure, coronary artery disease, stroke, uncontrolled hypertension); hyperthyroidism, glaucoma, agitated states, history of drug abuse; use during or within 14 days following MAO inhibitor therapy; , breast-feeding. PDMP website checked and validated. All prescriptions have been APPROPRIATELY filled. No suspicious activity was identified. 06/13/2024 by Jenny Can APRN.CNP 2. Weight loss counseling, encounter for - ICD9: V65.3, ICD10: Z71.3 As above Prescription instructions reviewed with patient as applicable. Potential red flag symptoms discussed with the patient. Reviewed appropriate action plan to take if red flag symptoms occur. Patient agreeable to treatment plan. Jenny Can APRN.CNP documented in this encounter [facility] 05-22-2024 History of Present illness Narrative CC: Patient presents with: Recheck: Adipex follow up HPI Nichole Pittman is a 33 year old female who presents today for above. Currently taking phentermine. Starting Month 3 Weight/BMI Last 1 Encounter Wt Readings: Date: Wt: 05/22/2024 109.3 kg (241 lb) BMI 47.07 kg/(m^2) Last visit Wt: 111.1 kg (245 lb) BMI: 47.85 kg/(m^2) DIET Daily serving of fruits:0 Daily serving of vegetables:3-5 Daily serving of protein:3-5 Fluid intake:Water: average of 80 ounces per day Do you Skip meals:YES Which meals do you tend to skip? Breakfast Eating away from home:YES Fast-food/fast-casual and Sit down restaurantOnce weekly or less often Exercise routine: YES is starting a workout program but currently walks as much as possible. Tolerating well with no change to controlled anxiety or depression. Sleep: is described as normal Suicidal Thoughts: No suicidal ideation, intent or plan Support: Comes from multiple sources including boyfriend Counseling: Yes, Medication side effects: Increased heart rate: No Insomnia: No Constipation: No Nervousness: No Impairment of concentration/attention, difficulty with memory, speech or language problems (particularly word-finding difficulties): No ROS as above, otherwise non-contributory. Reviewed PMHx, PSHx, social Hx, medications and allergies. PHYSICAL EXAM BP 128/80 Pulse 84 Resp 16 Wt 109.3 kg (241 lb) LMP (LMP Unknown) SpO2 97% BMI 47.07 kg/m General Appearance: well appearing, in no acute distress, alert Pysch: mood and affect broad and appropriate. Judgement good, good eye contact. Eyes: conjunctiva pink and moist, no icterus, sclera white, non-injected Lungs: Lungs clear to auscultation. No wheezing, rhonchi, rales. Heart: RRR without murmur, gallop, or rubs. No ectopy ASSESSMENT/PLAN: 1. Anxiety and depression - ICD9: 300.00, 311, ICD10: F41.9, F32.A (primary diagnosis) Controlled - Reviewed concept of neurochemical imbalance wt depression/anxiety, treatment options and benefits of counseling in combination with medication. Also reviewed benefits of sleep hygeine, diet and exercise - Instructed patient to contact office or [id number] after-hours promptly should condition worsen or any new symptoms appear. - Counseling Center [facility] and after hours crisis line 2. Class 3 severe obesity with body mass index (BMI) of 45.0 to 49.9 in adult, unspecified obesity type, unspecified whether serious comorbidity present (HCC) - ICD9: 278.01, V85.42, ICD10: E66.01, Z68.42 Weight decreasing - Behavioral intervention - increase activity and exercise. Continue with plan to join group for nutrition and exercise information - Pharmacological intervention - PHENTERMINE 37.5 MG TABLET - tolerating well follow up in 4 weeks Discussed Contraindications, went over each one and over side effects. tolerance, continuity of medication, controlled medication so cannot be replaced if stolen or if lost. Advised exercising along with this will really help the patient reach her goal of loosing weight. Short term use of this med was discussed. Negative for all the following :Hypersensitivity or idiosyncrasy to phentermine or other sympathomimetic amines or any component of the formulation; history of cardiovascular disease (arrhythmias, congestive heart failure, coronary artery disease, stroke, uncontrolled hypertension); hyperthyroidism, glaucoma, agitated states, history of drug abuse; use during or within 14 days following MAO inhibitor therapy; , breast-feeding. PDMP website checked and validated. All prescriptions have been APPROPRIATELY filled. No suspicious activity was identified. 05/22/2024 by Jenny Can APRN.CNP 3. Weight loss counseling, encounter for - ICD9: V65.3, ICD10: Z71.3 As above Prescription instructions reviewed with patient as applicable. Potential red flag symptoms discussed with the patient. Reviewed appropriate action plan to take if red flag symptoms occur. Patient agreeable to treatment plan. Jenny Can APRN.CNP documented in this encounter [facility] 04-25-2024 History of Present illness Narrative CC: Patient presents with: Recheck: Adipex follow up HPI Nichole Pittman is a 33 year old female who presents today for above. Currently taking phentermine. Starting Month 2 Weight/BMI Last 1 Encounter Wt Readings: Date: Wt: 04/25/2024 111.1 kg (245 lb) BMI 47.85 kg/(m^2) Last visit Wt: 113.4 kg (250 lb) BMI: 48.82 kg/(m^2) DIET Daily serving of fruits:0 Daily serving of vegetables:3-5 Daily serving of protein:3-5 Fluid intake:Water: average of 80 ounces per day Do you Skip meals:YES Which meals do you tend to skip? Breakfast Eating away from home:YES [facility] Exercise routine: YES walks daily if possible Medication side effects: Increased heart rate: No Insomnia: No Constipation: No Nervousness: No Impairment of concentration/attention, difficulty with memory, speech or language problems (particularly word-finding difficulties): No Had approval to start this by her psychiatrist and patient reports no increase in her anxiety or depression with starting this but actually feeling better. ROS as above, otherwise non-contributory. Reviewed PMHx, PSHx, social Hx, medications and allergies. PHYSICAL EXAM BP 128/70 Pulse 94 Resp 16 Wt 111.1 kg (245 lb) LMP (LMP Unknown) SpO2 100% BMI 47.85 kg/m General Appearance: well appearing, in no acute distress, alert Eyes: conjunctiva pink and moist, no icterus, sclera white, non-injected Lungs: Lungs clear to auscultation. No wheezing, rhonchi, rales. Heart: RRR without murmur, gallop, or rubs. No ectopy ASSESSMENT/PLAN: 1. Class 3 severe obesity with body mass index (BMI) of 45.0 to 49.9 in adult, unspecified obesity type, unspecified whether serious comorbidity present (HCC) - ICD9: 278.01, V85.42, ICD10: E66.01, Z68.42 (primary diagnosis) Weight decreasing - Behavioral intervention - increase fruit and decrease fat and calorie intake. Increase exercise - Pharmacological intervention - PHENTERMINE 37.5 MG TABLET Follow up in 4 weeks Discussed Contraindications, went over each one and over side effects. tolerance, continuity of medication, controlled medication so cannot be replaced if stolen or if lost. Advised exercising along with this will really help the patient reach her goal of loosing weight. Short term use of this med was discussed. Negative for all the following :Hypersensitivity or idiosyncrasy to phentermine or other sympathomimetic amines or any component of the formulation; history of cardiovascular disease (arrhythmias, congestive heart failure, coronary artery disease, stroke, uncontrolled hypertension); hyperthyroidism, glaucoma, agitated states, history of drug abuse; use during or within 14 days following MAO inhibitor therapy; , breast-feeding. PDMP website checked and validated. All prescriptions have been APPROPRIATELY filled. No suspicious activity was identified. 04/25/2024 by Jenny Can APRN.TELEPHONE INFORMATION CLERK 2. Weight loss counseling, encounter for - ICD9: V65.3, ICD10: Z71.3 As above 3. Anxiety and depression - ICD9: 300.00, 311, ICD10: F41.9, F32.A Controlled at this time - Reviewed concept of neurochemical imbalance [facility] depression/anxiety, treatment options and benefits of counseling in combination with medication. Also reviewed benefits of sleep hygeine, diet and exercise - Instructed patient to contact office or [id number] after-hours promptly should condition worsen or any new symptoms appear. - Counseling Center [facility] and after hours crisis line Prescription instructions reviewed with patient as applicable. Potential red flag symptoms discussed with the patient. Reviewed appropriate action plan to take if red flag symptoms occur. Patient agreeable to treatment plan. Jenny Can APRN.TELEPHONE INFORMATION CLERK documented in this encounter [facility] 03-28-2024 Instructions Jenny Can APRN.CNP - 03/28/2024 9:01 AM EDT Phentermine/adipex for weight loss? documented in this encounter [facility] 03-28-2024 History of Present illness Narrative CC: Patient presents with: Recheck: 3 month follow up, MARIANN Nichole Pittman is a 33 year old female who presents today for routine follow up. Depression and Anxiety: Still with some depression and anxiety but has had a lot of stressors in her life which should be starting to improve. Is seeing psychiatry. 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 Alcohol use: does not drink any alcohol Drug use: No Appetite: good Suicidal Thoughts: No suicidal or homicidal ideation, intent or plan GERD: Has not needed wedge pillow and does not always take omeprazole. Denies heartburn, difficulty swallowing, or abdominal pain. Obesity: Drastically changed her diet and has lost some weight through this. 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 REVIEW OF SYSTEMS General: no fevers, no chills, no night sweats, no recurrent infections, no change in appetite, no change in energy, and no significant changes in weight Respiratory: no cough, no wheezing, no shortness of breath, no hemoptysis Cardiovascular: no chest pain, no chest pressure, no palpitations, and no swelling Neurologic: No headache, weakness, numbness, dizziness, memory loss, syncope. PAST MEDICAL HISTORY Diagnosis Date Anxiety state COVID-19 09/2020 Depression Hypothyroidism Resolved PAST SURGICAL HISTORY Procedure Laterality Date EGD BIOPSY SING OR MULT 11/23/2022 variable ge jx; longitudinal furrows distal esophagus INSERTION OF IUD 04/25/2021 UNSPECIFIED ORAL SURGERY PROCEDURE, BY REPORT wisdom teeth ALLERGIES Penicillins, Amoxicillin, and Ceftriaxone MEDICATIONS spironolactone (ALDACTONE) 50 mg tablet Take 1 tablet by mouth once daily. FLUoxetine (PROZAC) 40 mg capsule Take 1 capsule by mouth once daily omeprazole (PRILOSEC) 20 mg capsule TAKE 1 CAPSULE BY MOUTH ONCE DAILY 30 MIN BEFORE BREAKFAST SUMAtriptan (IMITREX) 50 mg tablet Take one tablet by mouth at the onset of the headache. If no improvement in 2 hours take one more tablet. No more than 2 tablets in 24 hours ARIPiprazole (ABILIFY) 2 mg tablet Take 5 mg by mouth once daily. Prescribed by Dr. Wally Nyaak psych hydrOXYzine HCl (ATARAX) 10 mg tablet Take 10 mg by mouth three times daily as needed for anxiety. Prescribed by Wally Nayak psych famotidine (PEPCID) 20 mg tablet take 1 tablet by mouth at bedtime as needed levonorgestrel (MIRENA) 20 mcg/24 hours (6 yrs) 52 mg IUD 1 Each by INTRAUTERINE route as directed. FAMILY HISTORY Problem Relation Age of Onset Heart Father 45 of heart attack Barretts Esophagus Mother Hypertension Mother Fibromyalgia Mother other (Barrets Esphogus) Mother Clotting Disorder Mother other (diverticulitis) Mother Hypertension Brother other (borderline diabetes) Brother Cataract Maternal Grandmother Celiac Disease Maternal Grandmother Glaucoma Maternal Grandfather Diabetes Maternal Grandfather other (Gout) Maternal Grandfather COPD Paternal Grandmother Heart disease Paternal Grandfather cardiac bypass Colon Polyps Paternal great-grandmother Glaucoma Maternal great-grandmother Colon Polyps Maternal great-grandmother Colon Cancer No Family History Social History Tobacco Use Smoking status: Never Smokeless tobacco: Never Tobacco comments: pt states that father smoked inside when he was living Vaping Use Vaping Use: Never used Substance Use Topics Alcohol use: Yes Comment: Occasionally Drug use: Never PHYSICAL EXAM BP 126/88 Pulse (!) 51 Wt 113.4 kg (250 lb) LMP (LMP Unknown) SpO2 100% BMI 48.82 kg/m General Appearance: well appearing, in no acute distress, alert Pysch: mood and affect broad and appropriate Eyes: conjunctiva pink and moist, no icterus, sclera white, non-injected Lungs: Lungs clear to auscultation. No wheezing, rhonchi, rales. Heart: RRR without murmur, gallop, or rubs. No ectopy Health maintenance reviewed with patient: Covid-19 Vaccine(2022- season) due on 10/31/2024 Annual PCP Team Chronic Disease Visit due on 03/28/2025 Pap Testing due on 08/18/2027 HPV Testing due on 08/18/2027 DTaP,Tdap,Td Vaccine(4 - Td or Tdap) due on 12/31/2031 Hepatitis B Vaccine Completed Influenza Vaccine Completed HPV Vaccine Aged Out Hepatitis C Screening Discontinued HIV Screening Discontinued DATA REVIEWED: Most recent labs ASSESSMENT/PLAN: 1. Anxiety and depression - ICD9: 300.00, 311, ICD10: F41.9, F32.A (primary diagnosis) Controlled at this time - needs to continue with recommendations by psychiatry - Reviewed concept of neurochemical imbalance [facility] depression/anxiety, treatment options and benefits of counseling in combination with medication. Also reviewed benefits of sleep hygeine, diet and exercise - Instructed patient to contact office or [id number] after-hours promptly should condition worsen or any new symptoms appear. - Counseling Center [facility] and after hours crisis line 2. Gastroesophageal reflux disease without esophagitis - ICD9: 530.81, ICD10: K21.9 - controlled well and not taking omeprazole consistently - to fully wean off omeprazole - Discussed lifestyle modifications including losing weight, limiting caffeine, no meals three hours before sleep, and head of bed elevation 3. Class 3 severe obesity with body mass index (BMI) of 45.0 to 49.9 in adult, unspecified obesity type, unspecified whether serious comorbidity present (HCC) - ICD9: 278.01, V85.42, ICD10: E66.01, Z68.42 Weight decreasing - Behavioral intervention Would like to consider starting adipex but with discussions of possible side effect of anxiety and insomnia will discuss with psychiatrist first at visit today. Will call if she wants to start this. Follow up in 4 weeks Discussed Contraindications, went over each one and over side effects. tolerance, continuity of medication, controlled medication so cannot be replaced if stolen or if lost. Advised exercising along with this will really help the patient reach her goal of loosing weight. Short term use of this med was discussed. Negative for all the following :Hypersensitivity or idiosyncrasy to phentermine or other sympathomimetic amines or any component of the formulation; history of cardiovascular disease (arrhythmias, congestive heart failure, coronary artery disease, stroke, uncontrolled hypertension); hyperthyroidism, glaucoma, agitated states, history of drug abuse; use during or within 14 days following MAO inhibitor therapy; , breast-feeding. 4. Weight loss counseling, encounter for - ICD9: V65.3, ICD10: Z71.3 As above Prescription instructions reviewed with patient as applicable. Potential red flag symptoms discussed with the patient. Reviewed appropriate action plan to take if red flag symptoms occur. Patient agreeable to treatment plan. Jenny Can APRN.CNP documented in this encounter [facility] 03-14-2024 Telephone encounter Note Already ordered by other provider Jenny Can APRN.CNP [facility] 03-14-2024 Miscellaneous Notes Already ordered by other provider Jenny Can APRN.CNP Pt will be stopping by lab after an appt at [place] to have A1C drawn. The order from October was . Lab pending. Please review and file. Edwin Roberts LPN documented in this encounter [facility] 03-14-2024 Telephone encounter Note Pt will be stopping by lab after an appt at [place] to have A1C drawn. The order from October was . Lab pending. Please review and file. Edwin Roberts LPN [facility] 03-14-2024 History of Present illness Narrative Nichole is a 33 year old who presents for an annual gynecologic exam with complaints, facial hair growth and weight management . Menses: no menses - Mirena IUD. 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 PAST MEDICAL HISTORY Diagnosis Date Anxiety state COVID-19 09/2020 Depression Hypothyroidism Resolved PAST SURGICAL HISTORY Procedure Laterality Date EGD BIOPSY SING OR MULT 11/23/2022 variable ge jx; longitudinal furrows distal esophagus INSERTION OF IUD 04/25/2021 UNSPECIFIED ORAL SURGERY PROCEDURE, BY REPORT wisdom teeth FAMILY HISTORY Problem Relation Age of Onset Heart Father 45 of heart attack Barretts Esophagus Mother Hypertension Mother Fibromyalgia Mother other (Barrets Esphogus) Mother Clotting Disorder Mother other (diverticulitis) Mother Hypertension Brother other (borderline diabetes) Brother Cataract Maternal Grandmother Celiac Disease Maternal Grandmother Glaucoma Maternal Grandfather Diabetes Maternal Grandfather other (Gout) Maternal Grandfather COPD Paternal Grandmother Heart disease Paternal Grandfather cardiac bypass Colon Polyps Paternal great-grandmother Glaucoma Maternal great-grandmother Colon Polyps Maternal great-grandmother Colon Cancer No Family History SOCIAL HISTORY Social History Tobacco Use Smoking status: Never Smokeless tobacco: Never Tobacco comments: pt states that father smoked inside when he was living Vaping Use Vaping Use: Never used Substance Use Topics Alcohol use: Yes Comment: Occasionally Drug use: Never REVIEW OF SYSTEMS Abdomen: No abdominal pain, nausea, vomiting, +diarrhea No bloating, early satiety, indigestion, or increased flatulence. Bladder: No dysuria, gross hematuria, urinary frequency, urinary urgency, or incontinence. Breast: No breast lumps, nipple d/c, overlying skin changes, redness or skin retraction. Allergies and current medication updated:Yes EXAM: BP 128/76 Ht 5' 0 (1.52m) Wt 245 lb (111.1kg) BMI 47.85 kg/(m^2). GENERAL: pleasant, female in no apparent distress HEENT: Normocephalic, atraumatic, mucus membranes moist, and no lesions NECK: Supple, full range of motion, no adenopathy, and thyroid normal DERMATOLOGY: Normal, without lesions, and non-icteric BREAST: soft, non-tender, symmetric, no dominant mass, normal nipple-areolar complex, no lymphadenopathy, and no nipple discharge CHEST: Normal inspiratory effort ABDOMEN: soft, non-tender, and no masses PELVIC: external genitalia normal, normal Bartholin's glands, urethra, Long's glands, no vulvar lesions, no cervical lesions, good vaginal support, physiologic discharge present, normal appearing perineal body and perianal region, IUD strings visible BIMANUAL: uterus normal size, shape and consistency, no adnexal masses, and non-tender RECTOVAGINAL: deferred. NEURO: alert and oriented x3,exam grossly non-focal EXTREMITIES: normal ASSESSMENT/PLAN: 1) Health maintenance: Pap/HPV up to date. Mammogram starting age 40. Nutrition, exercise and routine health maintenance exams reviewed. Calcium/Vitamin D supplementation information provided. 2) Contraception: IUD. Contraceptive options reviewed and information provided. 3) STD screening: Declined STD check. 4) Follow up one year or sooner as needed Weight management labs orders, pt to schedule wt mgt appt Fide Vásquez APRN.TELEPHONE INFORMATION CLERK documented in this encounter [facility] 01-22-2024 Miscellaneous Notes Patient has been identified by name and date of : No Patient phones for refill(s): Requested Prescriptions Pending Prescriptions Disp Refills FLUoxetine (PROZAC) 40 mg capsule [Pharmacy Med Name: FLUoxetine HCl 40 MG Oral Capsule] 90 capsule 0 Sig: Take 1 capsule by mouth once daily omeprazole (PRILOSEC) 20 mg capsule [Pharmacy Med Name: Omeprazole 20 MG Oral Capsule Delayed Release] 90 capsule 0 Sig: TAKE 1 CAPSULE BY MOUTH ONCE DAILY 30 MIN BEFORE BREAKFAST Date of last office visit in primary care: 10/31/2023 Date of next office visit in primary care: 02/01/2024 Please advise. Thank you. Evgeny Alas LPN. documented in this encounter [facility] 08-28-2023 Miscellaneous Notes Left message regarding reminder for stress test tomorrow and given instructions. documented in this encounter [facility] 08-21-2023 Miscellaneous Notes Left message regarding reminder for stress test tomorrow and given instructions. documented in this encounter [facility] 08-03-2023 Miscellaneous Notes documented in this encounter [facility] 08-02-2023 History of Present illness Narrative CC: Patient presents with: Anxiety: Depression, anxiety attacks- causing palpitations MARIANN Pittman is a 32 year old female who presents today for anxiety, palpitations and shortness of breath with exertion. Had a panic attack on 07/22. Was getting ready for work and got weird feeling in her chest, short of breath, high heart rate, crying, and couldn't calm down. Stayed home and slept with small improvement in panic. Started to see virtual psychiatry the day after. Has not been able to work since and is starting to look for another job. Talk space. Dr. Nayak and seeing counselor, Arnoldo Hansen. Had not taken her fluoxetine regularly so had a large amount left at home. Restarted the 40mg daily for the last few months. Psychiatry aware and added abilify and hydroxyzine will continue to follow with them. Had an episode similar on an intense hike a few weeks prior in [place]. Stopped after less than a mile and walked back down. Symptoms resolved after sitting. Was accompanied with feeling dizzy like she was going to pass out along with the shortness of breath, odd sensation in chest, and high heart rate. Father at 45 from [place]. Has always had a heart fluttering sensation especially with large amount of exercise but did wear a heart monitor a few years ago which was unremarkable. Also with chronic dependant edema that he does not wear compression socks for. Also with chronic fatigue that is worsening, and continues to gain weight. Denies any recent infection, fever, chills, cough, wheezing, other episodes of dizziness, weakness or syncope. Diagnosed with GERD earlier this year but does not take her PPI or famotidine regularly. Denies any abdominal pain, difficulty swallowing, or dark sticky stools. REVIEW OF SYSTEMS See HPI PAST MEDICAL HISTORY Diagnosis Date Anxiety state COVID-19 09/2020 Depression Hypothyroidism Resolved PAST SURGICAL HISTORY Procedure Laterality Date EGD BIOPSY SING OR MULT 11/23/2022 variable ge jx; longitudinal furrows distal esophagus INSERTION OF IUD 04/25/2021 UNSPECIFIED ORAL SURGERY PROCEDURE, BY REPORT wisdom teeth ALLERGIES Penicillins, Amoxicillin, and Ceftriaxone MEDICATIONS ARIPiprazole (ABILIFY) 2 mg tablet Take 2 mg by mouth once daily. Prescribed by Dr. Wally Nayak psych hydrOXYzine HCl (ATARAX) 10 mg tablet Take 10 mg by mouth three times daily as needed for anxiety. Prescribed by Wally Nayak psych famotidine (PEPCID) 20 mg tablet take 1 tablet by mouth at bedtime as needed SUMAtriptan (IMITREX) 50 mg tablet Take one tablet by mouth at the onset of the headache. If no improvement in 2 hours take one more tablet. No more than 2 tablets in 24 hours FLUoxetine (PROZAC) 40 mg capsule Take 1 capsule by mouth once daily metFORMIN ER (GLUCOPHAGE XR) 500 mg 24 hr tablet Take 2 tablets by mouth daily with dinner. meclizine (ANTIVERT) 12.5 mg tab Take 1 tablet by mouth every 6 hours as needed (dizziness). spironolactone (ALDACTONE) 25 mg tablet Take 1 tablet by mouth twice daily. omeprazole (PRILOSEC) 20 mg capsule Take 1 capsule by mouth daily before breakfast. 1/2 hr before meal. ketoconazole (NIZORAL) 2 % cream Apply to affected area once daily. cholecalciferol, Vitamin D3, (VITAMIN D3) 1,250 mcg (50,000 unit) cap capsule Take 1 capsule by mouth one time a week. levonorgestrel (MIRENA) 20 mcg/24 hours (6 yrs) 52 mg IUD 1 Each by INTRAUTERINE route as directed. FAMILY HISTORY Problem Relation Age of Onset Heart Father 45 of heart attack Barretts Esophagus Mother Hypertension Mother Fibromyalgia Mother other (Barrets Esphogus) Mother Clotting Disorder Mother other (diverticulitis) Mother Hypertension Brother other (borderline diabetes) Brother Cataract Maternal Grandmother Celiac Disease Maternal Grandmother Glaucoma Maternal Grandfather Diabetes Maternal Grandfather other (Gout) Maternal Grandfather COPD Paternal Grandmother Heart disease Paternal Grandfather cardiac bypass Colon Polyps Paternal great-grandmother Glaucoma Maternal great-grandmother Colon Polyps Maternal great-grandmother Colon Cancer No Family History Social History Tobacco Use Smoking status: Never Smokeless tobacco: Never Tobacco comments: pt states that father smoked inside when he was living Vaping Use Vaping Use: Never used Substance Use Topics Alcohol use: Yes Comment: Occasionally Drug use: Never PHYSICAL EXAM BP 134/86 (BP Site: Right Arm, BP Position: Sitting, BP Cuff Size: Regular Adult) Pulse 107 Wt 117.2 kg (258 lb 6.4 oz) LMP (LMP Unknown) SpO2 98% BMI 50.47 kg/m General Appearance: well appearing, in no acute distress, alert Pysch: mood and affect broad and appropriate Skin: Skin color, texture, turgor normal for age; Eyes: conjunctiva pink and moist, no icterus, sclera white, non-injected Neck: Thyroid normal size and symmetric without palpable nodules, Neck supple, No adenopathy Lymph nodes: No cervical lymphadenopathy and No supraclavicular lymphadenopathy Lungs: Lungs clear to auscultation. No wheezing, rhonchi, rales. Heart: RRR without murmur, gallop, or rubs. No ectopy Abdomen: Abdomen soft, non-tender. Bowel sounds normal. No masses, organomegaly Health maintenance reviewed with patient: Hepatitis B Vaccine(1 of 3 - 3-dose series) Never done Covid-19 Vaccine(3 - Pfizer series) due on 08/28/2021 Influenza Vaccine(1) due on 07/06/2023 Annual PCP Team Chronic Disease Visit due on 06/26/2024 Pap Testing due on 08/18/2027 HPV Testing due on 08/18/2027 DTaP,Tdap,Td Vaccine(3 - Td or Tdap) due on 12/31/2031 HPV Vaccine Aged Out Hepatitis C Screening Discontinued HIV Screening Discontinued DATA REVIEWED: No new labs ASSESSMENT/PLAN: 1. Sensation of chest pressure - ICD9: 786.59, ICD10: - EKG unremarkable. With family history of [place] at young age will do further cardiac evaluation. - go to ER for chest pain, shortness of breath, increased palpitations, and any other urgent concerns. - ECHO - PERFLUTREN LIPID MICROSPHERES 1.1 MG/ML INJECTION IN NS 10 ML - SODIUM CHLORIDE 0.9 % (FLUSH) INJECTION SYRINGE - EXERCISE STRESS ECG (WITHOUT IMAGING) - ECG COMPLETE - CBC + DIFF - COMP METABOLIC PANEL - TSH BLD - T4 FREE/FREE THYROX - MAGNESIUM BLD - LIPID PANEL BASIC - follow up in 4 weeks 2. Dyspnea on exertion - ICD9: 786.09, ICD10: R06.09 See #1 - ECHO - PERFLUTREN LIPID MICROSPHERES 1.1 MG/ML INJECTION IN NS 10 ML - SODIUM CHLORIDE 0.9 % (FLUSH) INJECTION SYRINGE - EXERCISE STRESS ECG (WITHOUT IMAGING) - ECG COMPLETE - CBC + DIFF - COMP METABOLIC PANEL - TSH BLD - T4 FREE/FREE THYROX - MAGNESIUM BLD 3. Family history of due to heart problem at 50 years of age or younger - ICD9: V17.41, ICD10: Z82.41 See #1 - ECHO - PERFLUTREN LIPID MICROSPHERES 1.1 MG/ML INJECTION IN NS 10 ML - SODIUM CHLORIDE 0.9 % (FLUSH) INJECTION SYRINGE - EXERCISE STRESS ECG (WITHOUT IMAGING) - ECG COMPLETE - LIPID PANEL BASIC 4. Palpitation - ICD9: 785.1, ICD10: R00.2 See #1 - ECHO - PERFLUTREN LIPID MICROSPHERES 1.1 MG/ML INJECTION IN NS 10 ML - SODIUM CHLORIDE 0.9 % (FLUSH) INJECTION SYRINGE - ECG COMPLETE - CBC + DIFF - COMP METABOLIC PANEL - TSH BLD - T4 FREE/FREE THYROX - MAGNESIUM BLD 5. Other fatigue - ICD9: 780.79, ICD10: R53.83 - possibly related to mental health or other cause - CBC + DIFF - COMP METABOLIC PANEL - HGB A1C - TSH BLD - T4 FREE/FREE THYROX - VITAMIN B12 BLOOD 6. Anxiety and depression - ICD9: 300.00, 311, ICD10: F41.9, F32.A - uncontrolled - continue with recommendations by psychiatry and counseling - prozac refilled but with the addition of Abilify need to monitor for further weight loss closely. - Reviewed concept of neurochemical imbalance wth depression/anxiety, treatment options and benefits of counseling in combination with medication. Also reviewed benefits of sleep hygeine, diet and exercise - Follow-up in 4 weeks or sooner as needed - Instructed patient to contact office or [id number] after-hours promptly should condition worsen or any new symptoms appear. - Counseling Center [facility] and after hours crisis line 7. Gastroesophageal reflux disease without esophagitis - ICD9: 530.81, ICD10: K21.9 - omeprazole restarted. - Discussed lifestyle modifications including losing weight, limiting caffeine, no meals three hours before sleep, and head of bed elevation Prescription instructions reviewed with patient as applicable. Potential red flag symptoms discussed with the patient. Reviewed appropriate action plan to take if red flag symptoms occur. Patient agreeable to treatment plan. Jenny Can APRN.CNP documented in this encounter [facility] 07-30-2023 Miscellaneous Notes Patient has been identified by name and date of : No Patient phones for refill(s): Requested Prescriptions Pending Prescriptions Disp Refills famotidine (PEPCID) 20 mg tablet [Pharmacy Med Name: Famotidine 20 MG Oral Tablet] 30 tablet 0 Sig: take 1 tablet by mouth at bedtime as needed Date of last office visit in primary care: 06/26/23 Last 2 Encounter Wt Readings: Date: Wt: 06/26/2023 118.8 kg (262 lb) 03/04/2023 116.8 kg (257 lb 6.4 oz) Previous labs/tests for medication: Not applicable Please advise. Thank you. Evgney Alas documented in this encounter [facility] 06-26-2023 History of Present illness Narrative CC Patient presents with: migraines, dizziness HPI Nichole Pittman is a 32 year old year old female who presents with complaint of headache(s). She has a history of headaches but over the past three months symptoms have changed. Headaches are more frequent. They were located behind eyes and occurring twice a month but now they are occurring 2-3 times a week on average. Pain is located: diffusely all over Pain is described as: aching and sometimes sharp Triggers: sometimes triggered by stress/anxiety Associated symptoms: light sensitivity, vertigo, nausea, vomiting Neurologic symptoms: Denies numbness, weakness, slurred speech, visual changes, clumsiness, difficulty with gait or coordination Injury/Trauma: No Caffeine Intake: No Alcohol Intake: No Medication changes: No Treatments: resting in quiet dark room and cool compresses are the only things that alleviate the headaches. Excedrin migraine used to work but now ineffective. Still taking a few a times a week. REVIEW OF SYSTEMS General: no fevers, no chills, no night sweats, no change in energy, and no significant changes in weight Respiratory: no cough, no wheezing, no shortness of breath Cardiovascular: no chest pain, no chest pressure, no palpitations, no swelling, and no decrease in exercise tolerance Musculoskeletal: Negative for neck/shoulder pain PAST MEDICAL HISTORY Diagnosis Date Anxiety state COVID-19 09/2020 Depression Hypothyroidism Resolved PAST SURGICAL HISTORY Procedure Laterality Date EGD BIOPSY SING OR MULT 11/23/2022 variable ge jx; longitudinal furrows distal esophagus INSERTION OF IUD 04/25/2021 UNSPECIFIED ORAL SURGERY PROCEDURE, BY REPORT wisdom teeth ALLERGIES Penicillins, Amoxicillin, and Ceftriaxone MEDICATIONS gentamicin (GENTAK) 0.3 % ophthalmic solution INSTILL 2 DROPS INTO LEFT EYE EVERY 4 HOURS clindamycin (CLEOCIN) 300 mg capsule Take 1 capsule by mouth four times daily. benzonatate (TESSALON PERLES) 100 mg capsule Take 1 capsule by mouth three times daily as needed for cough. albuterol HFA (VENTOLIN HFA) 90 mcg/actuation inhaler Inhale 2 Puffs as instructed every 4 hours as needed for wheezing/shortness of breath. FLUoxetine (PROZAC) 40 mg capsule Take 1 capsule by mouth once daily famotidine (PEPCID) 20 mg tablet Take 1 tablet by mouth at bedtime as needed. metFORMIN ER (GLUCOPHAGE XR) 500 mg 24 hr tablet Take 2 tablets by mouth daily with dinner. meclizine (ANTIVERT) 12.5 mg tab Take 1 tablet by mouth every 6 hours as needed (dizziness). hydrOXYzine HCl (ATARAX) 25 mg tablet Take 1-2 tablets before bed for insomnia spironolactone (ALDACTONE) 25 mg tablet Take 1 tablet by mouth twice daily. omeprazole (PRILOSEC) 20 mg capsule Take 1 capsule by mouth daily before breakfast. 1/2 hr before meal. ketoconazole (NIZORAL) 2 % cream Apply to affected area once daily. cholecalciferol, Vitamin D3, (VITAMIN D3) 1,250 mcg (50,000 unit) cap capsule Take 1 capsule by mouth one time a week. levonorgestrel (MIRENA) 20 mcg/24 hours (6 yrs) 52 mg IUD 1 Each by INTRAUTERINE route as directed. FAMILY HISTORY Problem Relation Age of Onset Heart Father 45 of heart attack Barretts Esophagus Mother Hypertension Mother Fibromyalgia Mother other (Barrets Esphogus) Mother Clotting Disorder Mother other (diverticulitis) Mother Hypertension Brother other (borderline diabetes) Brother Cataract Maternal Grandmother Celiac Disease Maternal Grandmother Glaucoma Maternal Grandfather Diabetes Maternal Grandfather other (Gout) Maternal Grandfather COPD Paternal Grandmother Heart disease Paternal Grandfather cardiac bypass Colon Polyps Paternal great-grandmother Glaucoma Maternal great-grandmother Colon Polyps Maternal great-grandmother Colon Cancer No Family History Social History Tobacco Use Smoking status: Never Smokeless tobacco: Never Tobacco comments: pt states that father smoked inside when he was living Vaping Use Vaping Use: Never used Substance Use Topics Alcohol use: Yes Comment: Occasionally Drug use: Never BP 126/84 Pulse 72 Resp 16 Wt 118.8 kg (262 lb) LMP (LMP Unknown) SpO2 100% BMI 51.17 kg/m Physical Exam Constitutional: General: She is awake. Appearance: She is not ill-appearing. HENT: Head: Normocephalic and atraumatic. Eyes: Extraocular Movements: Extraocular movements intact. Right eye: No nystagmus. Left eye: No nystagmus. Conjunctiva/sclera: Conjunctivae normal. Pupils: Pupils are equal, round, and reactive to light. Cardiovascular: Rate and Rhythm: Normal rate. Heart sounds: No murmur heard. No friction rub. No gallop. Pulmonary: Effort: Pulmonary effort is normal. Breath sounds: Normal breath sounds. Musculoskeletal: Cervical back: No tenderness. Normal range of motion. Right lower leg: No edema. Left lower leg: No edema. Neurological: Mental Status: She is alert and oriented to person, place, and time. Cranial Nerves: Cranial nerves 2-12 are intact. Sensory: Sensation is intact. Motor: Motor function is intact. No weakness, tremor or atrophy. Coordination: Romberg sign negative. Coordination normal. [id number]-[id number]-[id number] Test normal. Rapid alternating movements normal. Gait: Gait and tandem walk normal. Deep Tendon Reflexes: Reflexes are normal and symmetric. Psychiatric: Attention and Perception: Attention normal. Mood and Affect: Mood normal. Speech: Speech normal. Behavior: Behavior is cooperative. Thought Content: Thought content normal. Cognition and Memory: Cognition normal. DATA REVIEWED: Most recent labs ASSESSMENT/PLAN: 1. Headaches - ICD9: 784.0, ICD10: R51.9 (primary diagnosis) Meets diagnostic criteria for migraines. Worsening headaches may be due to medication overuse. No alarm symptoms or exam findings. Neuro exam benign. - stop all OTC analgesics - start treatment with Medrol dose pack - start Imitrex as needed - follow-up in two weeks or sooner if any worsening 2. Vertigo - ICD9: 780.4, ICD10: R42 Associated with migraine only, see plan above Prescription instructions reviewed with patient as applicable. Potential red flag symptoms discussed with the patient. Reviewed appropriate action plan to take if red flag symptoms occur. Patient agreeable to treatment plan. Darlene Can APRN.TELEPHONE INFORMATION CLERK documented in this encounter [facility] 03-08-2023 History of Present illness Narrative 1. Preseptal cellulitis of left lower eyelid Improving well on Clindamycin (amoxicillin and ceftriaxone allergy) and Gentamycin along with warm compresses Okay to stop gentamycin Continue warm compresses (longstanding) and Clindamycin until finished with course Follow-up as needed with any new or worsening symptoms Follow-up in 1 month for complete eye exam Palak Falk, CAMELIA March 08, 2023 10:29 AM documented in this encounter [facility] 03-04-2023 History of Present illness Narrative Subjective HPI Nichole presents today and with a three day hx of eye pain, edema and pain. She states it seems it got much worse. She states her vision in the left is slightly blurry and she is having tenderness into the cheek. She does not wear contacts, she has not got anything into the eye. She feels well othewise PAST MEDICAL HISTORY Diagnosis Date Anxiety state COVID-19 09/2020 Depression Hypothyroidism Resolved PAST SURGICAL HISTORY Procedure Laterality Date EGD BIOPSY SING OR MULT 11/23/2022 variable ge jx; longitudinal furrows distal esophagus INSERTION OF IUD 04/25/2021 UNSPECIFIED ORAL SURGERY PROCEDURE, BY REPORT wisdom teeth ALLERGIES Penicillins, Amoxicillin, and Ceftriaxone MEDICATIONS albuterol HFA (VENTOLIN HFA) 90 mcg/actuation inhaler Inhale 2 Puffs as instructed every 4 hours as needed for wheezing/shortness of breath. FLUoxetine (PROZAC) 40 mg capsule Take 1 capsule by mouth once daily famotidine (PEPCID) 20 mg tablet Take 1 tablet by mouth at bedtime as needed. cholecalciferol, Vitamin D3, (VITAMIN D3) 1,250 mcg (50,000 unit) cap capsule Take 1 capsule by mouth one time a week. metFORMIN ER (GLUCOPHAGE XR) 500 mg 24 hr tablet Take 2 tablets by mouth daily with dinner. meclizine (ANTIVERT) 12.5 mg tab Take 1 tablet by mouth every 6 hours as needed (dizziness). hydrOXYzine HCl (ATARAX) 25 mg tablet Take 1-2 tablets before bed for insomnia spironolactone (ALDACTONE) 25 mg tablet Take 1 tablet by mouth twice daily. omeprazole (PRILOSEC) 20 mg capsule Take 1 capsule by mouth daily before breakfast. 1/2 hr before meal. ketoconazole (NIZORAL) 2 % cream Apply to affected area once daily. cholecalciferol, Vitamin D3, (VITAMIN D3) 1,250 mcg (50,000 unit) cap capsule Take 1 capsule by mouth one time a week. levonorgestrel (MIRENA) 20 mcg/24 hours (6 yrs) 52 mg IUD 1 Each by INTRAUTERINE route as directed. clindamycin (CLEOCIN) 300 mg capsule Take 1 capsule by mouth four times daily. benzonatate (TESSALON PERLES) 100 mg capsule Take 1 capsule by mouth three times daily as needed for cough. (Patient not taking: Reported on 03/04/2023) FAMILY HISTORY Problem Relation Age of Onset Barretts Esophagus Mother Hypertension Mother Fibromyalgia Mother other (Barrets Esphogus) Mother Clotting Disorder Mother other (diverticulitis) Mother Heart Father 45 of heart attack Hypertension Brother other (borderline diabetes) Brother Celiac Disease Maternal Grandmother Diabetes Maternal Grandfather other (Gout) Maternal Grandfather COPD Paternal Grandmother Heart disease Paternal Grandfather cardiac bypass Colon Polyps Paternal great-grandmother Colon Polyps Maternal great-grandmother Colon Cancer No Family History Social History Tobacco Use Smoking status: Never Smokeless tobacco: Never Tobacco comments: pt states that father smoked inside when he was living Vaping Use Vaping Use: Never used Substance Use Topics Alcohol use: Yes Comment: Occasionally Drug use: Never Review of Systems Eyes: Positive for pain and redness. All other systems reviewed and are negative. Objective Physical Exam Constitutional: Appearance: Normal appearance. HENT: Head: Normocephalic and atraumatic. Nose: Nose normal. Mouth/Throat: Mouth: Mucous membranes are dry. Eyes: Extraocular Movements: Extraocular movements intact. Pupils: Pupils are equal, round, and reactive to light. Comments: No entrapment, left eye sclera reddened, and edema noted to lower lid, no obvious sty noted. She describes pain when palpation around the lower part of eye. No warmth felt , no open area and no drainage Neurological: Mental Status: She is alert. ASSESSMENT/PLAN: 1. Eye redness - ICD9: 379.93, ICD10: H57.89 Appt made for [address] Falk She is aware she needs appt with a specialist tomorrow, and if eye pain or vision changes worsen she is to report to ED. She is aware of the concerns for possible cellulitis, she does not want to report to ED at this time, but will if needed, and understands the importance of starting antibiotic today and closely monitoring symptoms Danelle Xavier APRN.CNP documented in this encounter [facility] 03-04-2023 Discharge summary Note Date/Time March 04, 2023 2:22pm [facility] Medical Records Department [address] [place] [id number] Emergency Department Summary 03/04/23 MR#: [id number] Acct: [id number] Name: NICHOLE PITTMAN Rep #:[id number] : 1990 32 From: Juan [place]to GLASS PCP: QUAN Acevedo Status:PRE ER Location: ED HPI <QUAN Arias - Last Filed: 03/04/23 14:36> History of Present Illness Chief Complaint: Eye Problem Narrative Narrative: Patient is 32-year-old female with history of PCOS who presents to the emergencydepartment for swelling to the left eye as well as redness. Patient states 3 days ago she noticed her left eye getting more red. The lower lid became more swollen, she woke up with crusty eyes. Patient states has tried warm compress, cold compress and still having pain. She did go to express care who referred her to the emergency department. Patient denies any vision change, patient denies any known injury. Patient does have some drainage from the eye. She denies any pain with movement of the eye. Patient does not wear contacts, she does wear glasses PFSH <QUAN Arias - Last Filed: 03/04/23 14:36> PFSH Medical History (Updated 03/04/23 @ 14:39 by Rebecca Galvez) GERD (gastroesophageal reflux disease) PCOS (polycystic ovarian syndrome) Home Medications albuterol sulfate 90 mcg/actuation aerosol inhaler (Ventolin HFA) 1 - 2 puff inhalation Q4H PRN PRN Wheezing #1 ea 10/07/21 [Rx Last Taken Unknown] fluoxetine 10 mg capsule 10 mg PO DAILY 10/07/21 [History Last Taken Unknown] metformin 500 mg tablet,extended release 24 hr 500 mg PO DAILY 10/07/21 [History Last Taken Unknown] gentamicin 0.3 % eye drops 2 drp LEFT EYE Q4H #5 mL 03/04/23 [Rx Last Taken Unknown] Allergy/AdvReac Type Severity Reaction Status Date / Time amoxicillin Allergy Hives Verified 10/07/21 11:32 ceftriaxone [From Rocephin] Allergy Hives Verified 03/04/23 14:11 Penicillins Allergy Hives Verified 10/07/21 11:32 Family History Mother GERD (gastroesophageal reflux disease) Benjamin esophagus Hypertension Blood clotting disorder Grandfather Diabetes Surgical History (Updated 03/04/23 @ 14:39 by Rebecca Galvez) H/O esophagogastroduodenoscopy [place] teeth removed Social History housing: house Smoking Status: Never smoker ROS <QUAN Arias - Last Filed: 03/04/23 14:36> ROS ED ROS Narrative Constitutional: Negative for fever, chills, weight loss, weakness Eyes: Negative for vision loss, vision change, double vision. Left eye redness,pain, swelling, drainage ENT: Negative for any sore throat, ear pain, congestion Cardiovascular: Negative for any chest pain, tightness, palpitations Respiratory: Negative for any cough, sputum production, hemoptysis, dyspnea, dyspnea on exertion, orthopnea Gastrointestinal: Negative for any abdominal pain, nausea, vomiting, diarrhea, constipation, blood in stool, blood in vomit : Negative for any urinary frequency, dysuria, retention, blood in urine Muscle skeletal: Negative for any muscle joint pain, stiffness, myalgias, arthralgias, neck pain, back pain Neurological: Negative for any headache, syncope, numbness or tingling, dizziness Skin: Negative for any rashes, lumps, itching, abrasions, lacerations Psychiatric: Negative for any depression, anxiety, stress, suicidal ideation, homicidal ideation Hematologic: Negative for any easy bruising, excessive bruising, easy bleeding Allergies: Negative for any eczema, hives, rash EXAM <QUAN Arias - Last Filed: 03/04/23 14:36> Physical Exam Narrative Exam Narrative: Vital signs reviewed. HEET: Head normocephalic atraumatic, TMs clear bilaterally. Posterior pharynx is clear, moist mucous membranes. Nares clear bilaterally. Pupils are equal round reactive to light. Patient does have some injection to the lower conjunctiva, small amount of drainage. Patient does have some subconjunctival hemorrhage to the left lateral eye. Negative for any vision loss. Negative forany pain with EOMs. Patient does have some edema, erythema to the left lower eyelid. Physical examination is consistent with conjunctivitis, possible stye. Neck: Supple with no lymphadenopathy or tenderness. No signs of meningismus, negative jolt sign. Cardiac: Regular rate and rhythm no murmurs gallops or rubs, equal peripheral pulses bilaterally. Respiratory: Lungs clear to auscultation bilaterally. No chest tenderness. Abdomen: Soft, nontender, nondistended. No abdominal bruit or pulsatile masses. No hepatosplenomegaly Extremities: No peripheral edema, no signs of gross trauma or deformity. Activefull range of motion of all extremities. Neuro: Cranial nerves II through XII intact, no focal neurological deficits. Skin: Clean dry and intact with no rash, purpura, petechiae, vesicles or pustules. Backs/flank: No CVA tenderness, no midline spinal tenderness, no deformity. Psych: Normal mood and affect. No SI, HI or acute psychosis. Const Vital Signs: 03/04/23 14:09 Temperature 96.9 F L Temperature Source Temporal Pulse Rate 92 Respiratory Rate 22 H Blood Pressure 179/110 H Blood Pressure Mean 133 Pulse Ox 98 Oxygen Delivery Method Room Air [facility] <QUAN Arias - Last Filed: 03/04/23 14:36> [facility] Treatment and Re-Evaluation Narrative: Patient appears well, patient appears nontoxic, vital signs are stable. Patientpresents to the emergency department with 3 days of left eye pain, redness, swelling. Patient's physical examination consistent with a conjunctivitis. Patient's differential includes viral conjunctivitis, early stye, early orbital cellulitis however patient has no surrounding cellulitis, no fever, chills. Patient is no pain with EOMs. Patient did see an urgent care who gave her clindamycin orally for cellulitis. Patient does have an appointment with an eyedoctor tomorrow morning at 8:45 AM. I will add gentamicin eyedrops the patient will take 2 drops 4 times a day. Patient will continue her follow-up with ophthalmology. She is instructed to return for worsening pain, vision loss, fever chills nausea vomiting. All questions answered. Patient stable for discharge <Dr. Bryson Peterson MD - Last Filed: 03/04/23 14:41> [facility] Narrative Medical decision making narrative: I have personally performed a face to face assessment of the patient and have reviewed the DEEPA Note. I performed a substantive portion of the visit including all aspects of the following. My ding findings include: History is 32-year-old female wears glasses but no contacts or prior eye surgery. 3-day history of redness to the lateral aspect of her left eye with mild swelling to the left lower lid. No trauma. No injury. States she does have some discharge and crusting in the morning. No significant visual change. No prior history. No exposure to pinkeye. Exam is [well-appearing 32-year-old female. Vital signs stable afebrile. HEENT exam pupils round reactive light extra motions are intact. There is no proptosis. No pain with extraocular motions. Right eye is unremarkable. Left eye there is conjunctivitis. With redness in the lateral aspect of the left sclera. Able to open and close both upper and lower lids without difficulty. The left lower lid laterally is mildly swollen. There is no obvious stye at this time. The eye itself there is no abrasion or foreign body. There is no ulceration. Everting both the upper and lower lids there is mild swelling in the left lower lid. There is no periorbital cellulitis or preauricular lymphadenopathy. Posterior pharynx and left ear are unremarkable. Neck nontender. No lymphadenopathy. Lungs clear. Heart regular rhythm. Otherwise exam unremarkable.] Medical Decision Making [32-year-old female wears glasses but not contacts nor has she had any eye trauma or surgery. This is either a conjunctivitis which could be either viral or bacterial. It could be early stye formation or even soft tissue infection. She was seen in urgent care today. He started on clindamycin due to her allergies to both Keflex and penicillin. We will add eyedrops. And she has appointment to see a [facility] eye physician tomorrow morning.] Other additions or changes: [None] Discharge Plan Triage Chief Complaint: Eye Problem ED Midlevel Provider: Juan Alberto Colindres ED Provider: Bryson Peterson Dx/Rx/DC Orders Clinical Impression: Conjunctivitis Instructions: ED Conjunctivitis, Nonspecific Prescriptions: New gentamicin 0.3 % drops 2 drp LEFT EYE Q4H Qty: 5 0RF No Action fluoxetine 10 mg capsule 10 mg PO DAILY metformin 500 mg tablet extended release 24 hr 500 mg PO DAILY albuterol sulfate [Ventolin HFA] 90 mcg/actuation HFA aerosol inhaler 1 - 2 puff inhalation Q4H PRN PRN (Reason: Wheezing) Qty: 1 0RF Primary Care Provider: Edwin Adamson NP Referrals: Edwin Adamson NP, RECLAMATION WORKER-C [Primary Care Provider] - Activity Restrictions/Additional Instructions: Please follow-up with the ornamental plasterer helper tomorrow at 8:45 AM. Start eyedrops today, as well as the clindamycin Disposition Disposition: Home, Self Care What to do if you have Problems For any increased pain, shortness of breath, bleeding, nausea or vomiting, chestpain, or any unexpected problems, contact your Primary Care Provider. Call [facility] ([phone]) or report to the closest Emergency Room. Call 911 if necessary. 03/04/23 1437 <Electronically signed by Juan Alberto GLASS> Cosigner Signature (if applicable): 03/04/23 1441 <Electronically signed by Bryson Peterson MD> CC: QUAN Adamson ~ Signed [facility] Work Phone: [phone]) 161-299402-23-2023 Miscellaneous Notes* Telephone Encounter - Monalisa Rae Ma - 12/28/2022 2:50 PM EST [employer] message sent to patient. * Telephone Encounter - Jenny Can APRN.CNP - 12/28/2022 2:30 PM EST Doxycycline ordered. Letter sent via [place]. Please let patient know to follow up in office if no improvement. Thank you Jenny Can APRN.AMBER * Telephone Encounter - Mely Carl LPN - 12/28/2022 11:14 AM EST Spoke with pt and information listed below given. Pt verbalizes understanding. 1) Pt still not feel well. Please send in ATB. allergies verified and pharmacy is [facility]. 2)pt requesting a work excuse for 12-25-22 and to return to work on 01-01-23 with no restrictions. Asking for the letter to be thru [employer]. Please advise pt when this has all been done. Mely Carl LPN * Telephone Encounter - Monalisa Rae Ma - 12/28/2022 8:39 AM EST Left message for return call. * Telephone Encounter - Jenny Can APRN.CNP - 12/28/2022 7:24 AM EST Please let patient know she is negative for COVID and FLU and chest xray was negative for infection. How is she feeling? If she is still ill feeling, I am going to order an antibitoic for probable sinus infection. Please verify allergies and pharmacy. Also, if no improvement after 3 days patient should come into office for full evaluation. Thank you Jenny Can APRN.CNP documented [facility] this [facility] History of Present illness Narrative* Arabella Sun RT(Heidy) - 12/27/2022 3:00 PM EST Radiology Service Progress Note PATIENT NAME: Nichole Pittman DATE OF SERVICE: December 27, 2022 TIME: 2:49 PM PATIENT IDENTITY VERIFICATION COMPLETED USING TWO (2) IDENTIFIERS: Name and Date of confirmedby patient verbally. FALL SCREENING: Has the patient had 2 falls in the last year or 1 fall with injury or currently using an Ambulatory Assistive Device (Walker, Cane, Wheelchair, Crutches, etc.)? No PATIENT GENDER DATA: Female. status: : No status: NO. PATIENT RELEVANT IMPLANT DATA REVIEWED: Not Applicable RADIOLOGY DEPARTMENT: General X-ray: Exam(s) Completed: Chest X-Ray PERIPHERAL IV DATA: Not applicable SIGNED BY: RT June(R) December 27, 2022 2:49 PM documented in this encounterKind[facility]02-22-2023 History of Present illness Narrative* Jenny Can APRN.CNP - 12/27/2022 12:07 PM EST This Team Access Model visit is a virtual encounter. It required patient- provider interaction for the medical decision making as documented below. Patient agrees to the visit: Yes Patient Location: [place] CC: Patient presents with: Cough HPI Nichole Pittman is a 32 year old female who is contacted today for a virtual visit. This is an established patient of Dr. Pascale Clark MD. Symptoms of scratchy throat, fever , and body aches, started 7 days ago and are getting worse. Currently still has a scratchy throat, fatigue, gets very hot but no fever, nonproductive persistent cough, diarrhea, shortness of breath with exertion, Has tried dayquil and tylenol with no improvement in symptoms. Denies sinus drainage, ear pain, sinus pressure, headache, dizziness, nausea, vomiting, chest pain,edema, palpitations, or wheezing. Does not smoke and denies history of asthma or COPD. REVIEW OF SYSTEMS See HPI PAST MEDICAL HISTORY Diagnosis Date Anxiety state COVID-19 09/2020 Depression Hypothyroidism Resolved PAST SURGICAL HISTORY Procedure Laterality Date EGD BIOPSY SING OR MULT 11/23/2022 variable ge jx; longitudinal furrows distal esophagus INSERTION OF IUD 04/25/2021 UNSPECIFIED ORAL SURGERY PROCEDURE, BY REPORT wisdom teeth ALLERGIES Penicillins, Amoxicillin, and Ceftriaxone MEDICATIONS FLUoxetine (PROZAC) 40 mg capsule Take 1 capsule by mouth once daily famotidine (PEPCID) 20 mg tablet Take 1 tablet by mouth at bedtime as needed. cholecalciferol, Vitamin D3, (VITAMIN D3) 1,250 mcg (50,000 unit) cap capsule Take 1 capsule by mouth one time a week. metFORMIN ER (GLUCOPHAGE XR) 500 mg 24 hr tablet Take 2 tablets by mouth daily with dinner. meclizine (ANTIVERT) 12.5 mg tab Take 1 tablet by mouth every 6 hours as needed (dizziness). hydrOXYzine HCl (ATARAX) 25 mg tablet Take 1-2 tablets before bed for insomnia spironolactone (ALDACTONE) 25 mg tablet Take 1 tablet by mouth twice daily. omeprazole (PRILOSEC) 20 mg capsule Take 1 capsule by mouth daily before breakfast. 1/2 hr before meal. ketoconazole (NIZORAL) 2 % cream Apply to affected area once daily. cholecalciferol, Vitamin D3, (VITAMIN D3) 1,250 mcg (50,000 unit) cap capsule Take 1 capsule by mouth one time a week. levonorgestrel (MIRENA) 20 mcg/24 hours (6 yrs) 52 mg IUD 1 Each by INTRAUTERINE route as directed. FAMILY HISTORY Problem Relation Age of Onset Barretts Esophagus Mother Hypertension Mother Fibromyalgia Mother other (Barrets Esphogus) Mother Clotting Disorder Mother other (diverticulitis) Mother Heart Father 45 of heart attack Hypertension Brother other (borderline diabetes) Brother Celiac Disease Maternal Grandmother Diabetes Maternal Grandfather other (Gout) Maternal Grandfather COPD Paternal Grandmother Heart disease Paternal Grandfather cardiac bypass Colon Polyps Paternal great-grandmother Colon Polyps Maternal great-grandmother Colon Cancer No Family History Social History Tobacco Use Smoking status: Never Smokeless tobacco: Never Tobacco comments: pt states that father smoked inside when he was living Vaping Use Vaping Use: Never used Substance Use Topics Alcohol use: Yes Comment: Occasionally Drug use: Never EXAM: Virtual visit completed using video, limited exam completed. GENERAL: alert and appropriate, in no distress, well-hydrated, well nourished, and happy, smiling, interactive EYES: no injection and visual acuity is grossly normal NOSE: external nose normal without rhinorrhea and denies sinus tenderness with palpation NECK: full ROM, no cervical LNs noted and denies tenderness with palpation RESPIRATORY: breathing non-labored CHEST: equal chest rise with normal respiratory effort DATA REVIEWED: No new labs HEPATITIS B(1 of 3 - 3-dose series) Never done COVID-19 VACCINE(3 - Booster for Pfizer series) due on 01/25/2023 INFLUENZA(1) due on 05/04/2023 ANNUAL PCP TEAM CHRONIC DISEASE VISIT due on 11/03/2023 PAP TESTING due on 08/18/2027 HPV TESTING due on 08/18/2027 DTAP,TDAP,TD(3 - Td or Tdap) due on 12/31/2031 HEPATITIS C SCREENING Discontinued HIV SCREENING Discontinued ASSESSMENT/PLAN: 1. Shortness of breath on exertion - ICD9: 786.05, ICD10: R06.02 (primary diagnosis) - denies any sinus congestion at this time - XR CHEST 2V FRONTAL/LAT - ALBUTEROL SULFATE HFA 90 MCG/ACTUATION AEROSOL INHALER - COVID WITH FLUA+B, ROUTINE - follow up depending on results 2. Other fatigue - ICD9: 780.79, ICD10: R53.83 - result of current illness - XR CHEST 2V FRONTAL/LAT - COVID WITH FLUA+B, ROUTINE 3. Acute cough - ICD9: 786.2, ICD10: R05.1 - XR CHEST 2V FRONTAL/LAT - COVID WITH FLUA+B, ROUTINE 4. Feeling of chest tightness - ICD9: 786.59, ICD10: R07.89 - patient has been on albuterol inhalers in the past when she gets a respiratory infection but cannot find her most recent one. - ALBUTEROL SULFATE HFA 90 MCG/ACTUATION AEROSOL INHALER - COVID WITH FLUA+B, ROUTINE 5. Fever, unspecified fever cause - ICD9: 780.60, ICD10: R50.9 - due to current respiratory illness. Prescription instructions reviewed with patient as applicable. Potential red flag symptoms discussed with the patient. Reviewed appropriate action plan to take if red flag symptoms occur. Patient agreeable to treatment plan. During this patient visit I have spent approximately 15 minutes in counseling regarding treatment options, medications, and coordinating care. Jenny Can APRN.CNP documented in this encounterKind[facility]01-25-2023 Miscellaneous Notes* Telephone Encounter - Mely Carl LPN - 11/29/2022 7:46 AM EST Patient has been identified by name and date of : Yes, Provider Dr. Clark Date 11/29/22 Time 7:46 am Pharmacy phones for refill(s): Requested Prescriptions Pending Prescriptions Disp Refills FLUoxetine (PROZAC) 40 mg capsule [Pharmacy Med Name: FLUoxetine HCl 40 MG Oral Capsule] 30 capsule0 Sig: Take 1 capsule by mouth once daily Date of last office visit in primary care: 11/03/22 next apt 02/02/23 Last 2 Encounter Wt Readings: Date: Wt: 11/17/2022 116.2 kg (256 lb 1.3 oz) 11/03/2022 116.6 kg (257 lb) Previous labs/tests for medication: Not applicable Thank you. Mely Carl LPN documented in this encounterKind[facility]01-19-2023 History and physical note * Rui Driver MD - 11/23/2022 12:15 PM EST HISTORY AND PHYSICAL Nichole Pittman, 32 year old female Current history and physical on file: Yes Is a new History and Physical required for today's visit? No Indication for procedure: Dysphagia, Nausea & Vomiting, and Other regurgitation; family historyof benjamin's esophagus (mother); family history of celiac disease (grandmother) PROCEDURE(S) SCHEDULED FOR: EGD (Esophagogastroduodenoscopy) with or without biopsies, removal of polyps or lesions, dilation (any means), treatment of bleeding ( any means), Barrx treatment of Leland's Esophagus, image tube placement or cryo therapy treatment based on clinical findings. BASELINE BEHAVIOR: Calm BASELINE ORIENTATION: A & O x3 All medications and allergies reviewed: Yes Skin Assessment: Warm dry mucus membranes pink Airway/Respiratory Assessment: Airway: visualization of the uvula- Yes Mouth: opening greater than 2 fingerbreadths- Yes Neck: full range of motion- Yes Breath sounds clear/equal- Yes Cardiac Assessment: Regular rate and rhythm without murmur Abdominal Assessment: Abdomen soft, non-tender, no masses or organomegaly. Sedation Plan: MAC Additional Comments: Discussed with patient/patient medical center representative the indications, alternatives, benefits and risks of procedure. Some of the possible risks include bleeding, infection, drug reaction, perforation, missed lesions, cardiopulmonary arrest or even , were also reviewed with patient/patient medical center representative. Rui Driver MD documented in this encounterKind[facility]01-16-2023 Miscellaneous Notes* Telephone Encounter - Maylin Yang Pss - 11/20/2022 2:19 PM EST Scheduled 11/[address] Soriano. Sent instructions to [place]. * Telephone Encounter - [facility] Asst - 11/17/2022 4:35 PM EST Please schedule patient for EGD at [place]. [facility] Adm Asst documented in this encounterKind[facility]01-13-2023 History of Present illness Narrative* Timur Campos MD - 11/17/2022 3:30 PM EST REASON FOR CONSULT: Gastroesophageal Reflux REQUESTING PHYSICIAN: Jenny Can [address] [facility] [id number] Assessment ASSESSMENT AND PLAN Comorbid Conditions Anx/Depression PCOS Obesity. GI sx's: Regurgitation including nocturnal episodes. Emesis associated with the above. Esophageal dysphagia periodically. FH Benjamin's. Advise: (1) EGD. This will be a hospital case because of BMI. I have discussed the risk, benefits, alternatives and rationale of an EGD (Esophagogastroduodenscopy) with the patient or a designated medical center representative. Informed consent obtained. Patient informed that precautions are being taken to minimize the risk of coronavirus exposure. (2) Discussed wt loss with regard to GERD and overall health. Patient is under the care of a bariatric surgeon. (3) Gastric emptying study under consideration. (4) Increase omeprazole to 40 mg/daily. (5) Use wedge at night. (6) Hepatic steatosis with normal enzymes. Observe only. HPI: Ms. Pittman is a 32 year old female who presents for Gastroesophageal Reflux. Patient has been on omeprazole 20 mg daily for several months. Famotidine 20 mg hs added recently after what was felt to be a GERD flare with emesis and chest/back pain. These were new sx's for patient. Bariatric OR under consideration. Patient believes she has had GERD over the past few yrs. Patient has steadily gained wt. Patient has burning sensation in her throat with submental pruritus with emesis. These sx's let to PPI recommendation. PPI provided transient benefit. Sx's recurred to H-2 brannon added with some benefit. Still has periodic flares with some emesis. Patient has awakened with acid regurgitation. This occurs often. No regurgitation with stooping over. No pyrosis. There have been episodes of dysphagia. Occurs once or twice months over the years. Mother with Benjamin's. PAST MEDICAL HISTORY: PAST MEDICAL HISTORY Diagnosis Date Anxiety state COVID-19 09/2020 Depression Hypothyroidism Resolved PAST SURGICAL HISTORY: PAST SURGICAL HISTORY Procedure Laterality Date INSERTION OF IUD 04/25/2021 UNSPECIFIED ORAL SURGERY PROCEDURE, BY REPORT wisdom teeth FAMILY HISTORY: FAMILY HISTORY Problem Relation Age of Onset Hypertension Mother Fibromyalgia Mother other (Barrets Esphogus) Mother Clotting Disorder Mother other (diverticulitis) Mother Heart Father 45 of heart attack Hypertension Brother other (borderline diabetes) Brother Diabetes Maternal Grandfather other (Gout) Maternal Grandfather COPD Paternal Grandmother Heart disease Paternal Grandfather cardiac bypass Colon Polyps Maternal great-grandmother Colon Polyps Paternal great-grandmother Colon Cancer No Family History SOCIAL HISTORY: Social History Tobacco Use Smoking status: Never Smokeless tobacco: Never Tobacco comments: pt states that father smoked inside when he was living Vaping Use Vaping Use: Never used Substance Use Topics Alcohol use: Yes Comment: Occasionally Drug use: No MEDICATIONS: famotidine (PEPCID) 20 mg tablet Take 1 tablet by mouth at bedtime as needed. metFORMIN ER (GLUCOPHAGE XR) 500 mg 24 hr tablet Take 2 tablets by mouth daily with dinner. meclizine (ANTIVERT) 12.5 mg tab Take 1 tablet by mouth every 6 hours as needed (dizziness). hydrOXYzine HCl (ATARAX) 25 mg tablet Take 1-2 tablets before bed for insomnia spironolactone (ALDACTONE) 25 mg tablet Take 1 tablet by mouth twice daily. omeprazole (PRILOSEC) 20 mg capsule Take 1 capsule by mouth daily before breakfast. 1/2 hr before meal. ketoconazole (NIZORAL) 2 % cream Apply to affected area once daily. FLUoxetine (PROZAC) 40 mg capsule Take 1 capsule by mouth once daily. cholecalciferol, Vitamin D3, (VITAMIN D3) 1,250 mcg (50,000 unit) cap capsule Take 1 capsule by mouth one time a week. levonorgestrel (MIRENA) 20 mcg/24 hours (6 yrs) 52 mg IUD 1 Each by INTRAUTERINE route as directed. cholecalciferol, Vitamin D3, (VITAMIN D3) 1,250 mcg (50,000 unit) cap capsule Take 1 capsule by mouth one time a week. Cholecalciferol, Vitamin D3, 125 mcg (5,000 unit) cap Take 1 capsule by mouth once daily. CURRENT ALLERGIES: Allergies As of Date: 11/17/2022 Allergen Noted Reaction PENICILLINS 07/04/2019 Hives AMOXICILLIN 07/05/2016 Hives CEFTRIAXONE 01/02/2022 Hives Fully Assessed 11/17/2022 Review of Systems: Gastrointestinal: Negative for-vomiting blood, black stool, constipation, loss of appetite, and early satiety (feeling full fast). Positive for-nausea, vomiting, heartburn, food sticking in throat, painful swallowing, red blood in stool, abdominal pain, diarrhea, and bloating. Constitutional: Negative for-recent weight gain, recent weight loss, and fever . Positive for-fatigue. HEENT: Negative for-Sore throat and hoarseness. Positive for-none. Cardiovascular: Negative for-abnormal heart rhythm, chest pain, and palpitations. Positive for-none. Respiratory: Negative for-cough, shortness of breath on exertion, shortness of breath at rest, and wheezing. Positive for-none. Genitourinary: Negative for-frequent urination, kidney failure/dialysis, and painful urination. Positive for-none. Neurological: Negative for-seizures. Positive for-headaches. Dermatology: Negative for-RASH. Positive for-none. Musculoskeletal: Negative for-joint pain. Positive for-arthritis. Psychiatric: Negative for-dementia. Positive for-depression and anxiety. Where do you currently reside? Independently Are you taking any blood thinners? No PHYSICAL EXAM: BP 110/68 Pulse 77 Ht 152.4 cm (5') Wt 116.2 kg (256 lb 1.3 oz) LMP (LMP Unknown) BMI 50.01 kg/m General appearance: Well appearing, alert, in no acute distress, well-hydrated, well nourished. andObese Skin: Tattoos Eyes: Anicteric sclera. Pupils are equally round and reactive to light. Oropharynx: Patient is masked. Neck: Supple, no adenopathy Back: Not examined Lungs: lungs clear to auscultation. No wheezing, rhonchi, rales Heart: RRR without murmur, gallop, or rubs. No ectopy Abdomen: Abdomen soft, non-tender. Bowel sounds normal. No masses, organomegaly Anorectal: Deferred Extremities: No edema or calf tenderness. Neuro: No gross findings Psych: Patient is fully oriented with a normal mental status. DATA: Diagnostic tests reviewed for today's visit: 01/26/2022 TSH 1.890 11/03/2022 Comprehensive Panel Rev'd. 11/10/2022 US Hepatic steatosis. No cholelithiasis. No biliary dilatation. documented [facility] Miscellaneous Notes* Telephone Encounter - Heidi Howard Ma - 11/16/2022 11:25 AM EST Left message for patient about appointment. Heidi Howard Ma documented in this encounterKind[facility]01-[facility]-2023 Miscellaneous Notes* Telephone Encounter - Dana Potter MA - 11/13/2022 10:32 AM EST Addressed in previous encounter from today. documented in this encounterKind[facility]12-30-2022 History of Present illness Narrative* Jenny Can, STAPLER MACHINE.TELEPHONE INFORMATION CLERK - 11/03/2022 9:33 AM EST CC: Patient presents with: Recheck: Acid reflux follow up HPI Nichole Pittman is a 32 year old female who presents today for increase in acid reflux. Uncontrolled reflux: Has intermittent increases of acid reflux but had an episode Sunday that was the worst. Has been taking omeprazole as ordered, but after taking Sunday morning without even eating she started instantly with severe heartburn, back pain, and vomited. Took pepto bismol which resolved the pain but is concerned as it is getting worse. Woke up with some acid in her mouth this AM. Has never had an EGD. Has noticed she sometimes feels that food is stuck in her throat. Still has gallbladder and appendix Denies any abdominal pain, diarrhea, constipation, chest pain, shortness of breath, or fever. REVIEW OF SYSTEMS General: no fevers, no chills, no night sweats, no recurrent infections, no change in appetite, no change in energy, and no significant changes in weight Respiratory: no cough, no wheezing, no shortness of breath, no hemoptysis Cardiovascular: no chest pain, no chest pressure, no palpitations, and no swelling GI: See HPI : No history of dysuria, frequency or incontinence Neurologic: No headache, weakness, numbness, tingling, dizziness, memory loss, syncope. PAST MEDICAL HISTORY Diagnosis Date Anxiety state COVID-19 09/2020 Depression Hypothyroidism Resolved PAST SURGICAL HISTORY Procedure Laterality Date INSERTION OF IUD 04/25/2021 UNSPECIFIED ORAL SURGERY PROCEDURE, BY REPORT wisdom teeth ALLERGIES Penicillins, Amoxicillin, and Ceftriaxone MEDICATIONS cholecalciferol, Vitamin D3, (VITAMIN D3) 1,250 mcg (50,000 unit) cap capsule Take 1 capsule by mouth one time a week. metFORMIN ER (GLUCOPHAGE XR) 500 mg 24 hr tablet Take 2 tablets by mouth daily with dinner. meclizine (ANTIVERT) 12.5 mg tab Take 1 tablet by mouth every 6 hours as needed (dizziness). hydrOXYzine HCl (ATARAX) 25 mg tablet Take 1-2 tablets before bed for insomnia spironolactone (ALDACTONE) 25 mg tablet Take 1 tablet by mouth twice daily. omeprazole (PRILOSEC) 20 mg capsule Take 1 capsule by mouth daily before breakfast. 1/2 hr before meal. ketoconazole (NIZORAL) 2 % cream Apply to affected area once daily. Cholecalciferol, Vitamin D3, 125 mcg (5,000 unit) cap Take 1 capsule by mouth once daily. FLUoxetine (PROZAC) 40 mg capsule Take 1 capsule by mouth once daily. cholecalciferol, Vitamin D3, (VITAMIN D3) 1,250 mcg (50,000 unit) cap capsule Take 1 capsule by mouth one time a week. levonorgestrel (MIRENA) 20 mcg/24 hours (6 yrs) 52 mg IUD 1 Each by INTRAUTERINE route as directed. FAMILY HISTORY Problem Relation Age of Onset Hypertension Mother Fibromyalgia Mother other (Barrets Esphogus) Mother Clotting Disorder Mother other (diverticulitis) Mother Heart Father 45 of heart attack Hypertension Brother other (borderline diabetes) Brother Diabetes Maternal Grandfather other (Gout) Maternal Grandfather COPD Paternal Grandmother Heart disease Paternal Grandfather cardiac bypass Social History Tobacco Use Smoking status: Never Smokeless tobacco: Never Tobacco comments: pt states that father smoked inside when he was living Vaping Use Vaping Use: Never used Substance Use Topics Alcohol use: Yes Comment: Occasionally Drug use: No PHYSICAL EXAM BP 122/78 Pulse 78 Resp 16 Wt 116.6 kg (257 lb) LMP (LMP Unknown) SpO2 98% BMI 49.15 kg/m General Appearance: well appearing, in no acute distress, alert Skin: Skin color, texture, turgor normal for age; Eyes: conjunctiva pink and moist, no icterus, sclera white, non-injected Lungs: Lungs clear to auscultation. No wheezing, rhonchi, rales. Heart: RRR without murmur, gallop, or rubs. No ectopy Abdomen: Abdomen soft, Bowel sounds normal. No masses, organomegaly, tenderness reported to epigastric region without grimacing, guarding, or rebound tenderness. Health maintenance reviewed with patient: HEPATITIS B(1 of 3 - 3-dose series) Never done COVID-19 VACCINE(3 - Booster for Pfizer series) due on 01/25/2023 INFLUENZA(1) due on 05/04/2023 ANNUAL PCP TEAM CHRONIC DISEASE VISIT due on 08/18/2023 PAP TESTING due on 08/18/2027 HPV TESTING due on 08/18/2027 DTAP,TDAP,TD(3 - Td or Tdap) due on 12/31/2031 HEPATITIS C SCREENING Discontinued HIV SCREENING Discontinued DATA REVIEWED: No new labs ASSESSMENT/PLAN: 1. Gastroesophageal reflux disease, unspecified whether esophagitis present - ICD9: 530.81, ICD10: K21.9 (primary diagnosis) - with the increase in symptoms, pain and difficulty swallowing she needs this further evaluated. Will start on Pepcid before bed in addition to morning omeprazole. - Discussed lifestyle modifications including losing weight, limiting caffeine, no meals three hours before sleep, and head of bed elevation - FAMOTIDINE 20 MG TABLET - CONSULT TO GASTROENTEROLOGY 2. Dysphagia, unspecified type - ICD9: 787.20, ICD10: R13.10 As above - CONSULT TO GASTROENTEROLOGY 3. Epigastric abdominal tenderness without rebound tenderness - ICD9: 789.66, ICD10: R10.816 - with this and the recent attack of pain, will evaluate liver and gallbladder as well. - CBC + DIFF - US ABD RT UPPER QUADRANT Prescription instructions reviewed with patient as applicable. Potential red flag symptoms discussed with the patient. Reviewed appropriate action plan to take if red flag symptoms occur. Patient agreeable to treatment plan. Jenny Can APRN.CNP documented in this encounterKind[facility]12-28-2022 Instructions* Patient Instructions* Manpreet Garsia, - 11/01/2022 8:34 AM EST Images from the original note were not included. Please follow the [place] healthy eating program Mindful eating 1. Mindful eaters don't eat until they are full Full is an overused and misleading term. Mindful eaters tend to eat until they are no longer hungryor feel satisfied. There is a big difference. By the time you perceive yourself to be full, it isoften too late, you've overeaten. If you've dieted for years, your hunger and fullness signals may be crossed. Don't worry! Mindful eating can help rewire your brain to know what genuine physical hunger feels like and to spot emotional eating. 2. Mindful eaters pace themselves This is not easy. We live in a world that stresses instant access and hurrying- eating is no exception. Mindful eaters tell themselves to slow down or try to check in with their pace. Intentionally shifting into a reasonable pace is often easier said than done. 3. Mindful eaters are Choosy While mindful eaters may seem like picky eaters, they are often just very discerning about the choices. Mindful eaters really taste food and if they don't like it, they don't eat it, just like picky eaters. Also, they aren't afraid to tailor food to their particular taste. At restaurants, a mindful eater may ask the hourly sales staff to make a few tweaks to their order like holding the davies or asking for [place] cheese rather than Cheddar. 4. Mindful eaters are forgiving and flexible Yes, mindful eaters overeat on occasion! What they don't do is obsess and beat themselves up as much as dieters. Mindful eaters know that tomorrow is another day and can let it go. Often the strategy is to adjust the amount you eat at the next meal or snack. They don't give up! 5. Mindful eaters tend to gauge their hunger first before taking a bite Being in the moment and fully present is ding to mindful eating. Take a brief moment to ask yourselfbefore taking a bite, Am I really, really hungry? What I am feeling right now is... This can help prevent you from walking into emotional eating. 6. Mindful eaters break out of old habits When you know what habits keep you stuck like multitasking when you eat or nibbling while anxious, you can devote more energy and attention to these particular areas. Sometimes it is changing how youeat more than what you eat. [email or web address] documented in this encounterKind[facility]12-28-2022 History of Present illness Narrative* Manpreet Garsia DO - 11/01/2022 8:03 AM EST DISTANCE HEALTH VISIT This Team Access Model visit is a virtual encounter. It required patient- provider interaction for the medical decision making as documented below. BMI Obesity Medicine Consult 11/01/22 Consultation requested by Fide Vásquez APRN.CNP for an opinion regarding Obesity. My final recommendations will be communicated back to the requesting physician by way of shared Medical record or letter to requesting physician via US mail. Patient Summary: Nichole Pittman is a 32 year old female with obesity who [facility] [place] for an initial evaluation of her obesity and is interested in non-surgical weight loss approaches. Primary reason for wanting obesity treatment : underlying PCOS and depression Overall goal: 190 lbs Weight History: She reports a family history of obesity and early onset weight gain. She states her weight gain is related to the following factors, including being started on depoprovera in middle school, poor eating habits, and lifestyle changes. Weight Graph: (please see graph scanned in chart) Obesigenic Medications: YES Diet: Quality of diet: 24hr recall suggests healthy diet in the last month. Now diet healthier, ie meal prepping, including protein with all meals, and has stopped drinking pop. Was drinking up to to 60 ounces of pepsi daily. B-overnight oats or granola bar L-apples with peanut butter or lunch meal without the bread D-chili or pasta Characterization of diet:Structured. Treater Helper of impaired eating habits:emotion and stress eating Eating Disorder no Diet History: Past weight loss attempts? commercial diets, self-directed, hello fresh meals, my fitness pal, workout program, and a low carb diet. Exercise: Regular exercise: uses the [employer] workout program 2-3 times a week Strength/resistance exercise:No Barriers to regular exercise? timing Work-related activity:Active. ?Sleep: Duration: 7 hours. TERENCE NO ; CPAP NO Quality:adequate, Few awakenings :Sleep-wake cycle disruption:No STOP BANG 1. Snoring : Do you snore loudly (louder than talking, through closed doors)? NO 2. Tired : Do you often feel tired, fatigued, or sleepy during daytime? YES 3. Observed : Has anyone observed you stop breathing during sleep?NO 4. Blood Pressure: treated for high blood pressure?NO 5. BMI : BMI more than 35 kg/m2? YES 6. Age : Age over 50 yr old? NO 7. Neck circumference: Neck circumference greater than 40 cm?YES 8. Gender : Gender male? NO STOP BANG Score 3 , intermediate ??Stress: Some, Cause:Personal (tends to worry a lot) Obesity Related Comorbidities: Prior Weight Loss Surgery:No ACTIVE PROBLEM LIST Acquired Hypothyroidism Anxiety and Depression Cat Bite of Finger Cellulitis of Finger of Left Hand Class 3 Severe Obesity Without Serious Comorbidity With Body Mass Index (Bmi) of 45.0 to 49.9 in Adult (Hcc) Pcos (Polycystic Ovarian Syndrome) No history of OH, COPD, asthma, peptic ulcer dx, hyperlipidemia, gallstones, hypothyroidism, hypertension, cancer, DVT, PE, CVA, T2DM, gout, kidney stones, CKD and smoking history. PAST SURGICAL HISTORY Procedure Laterality Date INSERTION OF IUD 04/25/2021 UNSPECIFIED ORAL SURGERY PROCEDURE, BY REPORT wisdom teeth Obesity ROS/ FHx GEN: Fatigue:No CV: h/o palpitations/cardiac arrhythmia, CP:No PULM: Asthma:No GI: GERD:YES; Gallstones: No; Fatty liver disease:No; H/o hernia:No MSK: Joint Pain:No : Nephrolithiasis: YES; Stress incontinence:No Symptoms of PCOS(women):YES No history of thyroid disorder,diabetes,cold intolerance,heat,intolerance,polydypsia NEURO: Migraines/ROTHMAN:YES; H/o seizures: No Glaucoma:No; Cataracts No Symptoms of pseudotumor cerebri:No The physical systems reviewed reveal no pathological symptoms that are pertinent to this visit Family History Problem Relation Age of Onset Hypertension Mother Fibromyalgia Mother other (Barrets Esphogus) Mother Clotting Disorder Mother other (diverticulitis) Mother Heart Father 45 of heart attack Hypertension Brother other (borderline diabetes) Brother Diabetes Maternal Grandfather other (Gout) Maternal Grandfather COPD Paternal Grandmother Heart disease Paternal Grandfather cardiac bypass PREV: PAP UTD, Mammogram n/a and Colonoscopy n/a Social History Social History Tobacco Use Smoking status: Never Smokeless tobacco: Never Tobacco comments: pt states that father smoked inside when he was living Vaping Use Vaping Use: Never used Substance Use Topics Alcohol use: Yes Comment: Occasionally Drug use: No 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 Clinical History 08/18/2022 Final Value:This result contains rich text formatting which cannot be displayed here. HPV Requested? 08/18/2022 Final Value:Yes, automatic HPV patients over 30 LMP 08/18/2022 Final Value:IUD Pap Disclaimer 08/18/2022 Final Value:This result contains rich text formatting which cannot be displayed here. PAP Stoker Installation Mechanic Comment 08/18/2022 Final Value:This result contains rich text formatting which cannot be displayed here. Cytology Interpretation 08/18/2022 Negative for Intraepithelial lesion or malignancy. Final Performing Lab 08/18/2022 Final Value:This result contains rich text formatting which cannot be displayed here. HPV Type 16 08/18/2022 Negative for HPV DNA high risk type 16 by PCR Negative for HPV DNA high risktype 16 by PCR Final HPV Type 18 08/18/2022 Negative for HPV DNA high risk type 18 by PCR Negative for HPV DNA high risktype 18 by PCR Final HPV High Risk Other 08/18/2022 Negative for HPV DNA high risk types: 31,33,35,39,45,51,52,56,58,59,66,68 by PCR. Negative for HPV DNA high risk types: 31,33,35,39,45,51,52,56,58,59,66,68 by PCR. Final Impression: Nichole Pittman is a 32 year old female with Class III obesity (There is no height or weight on file tocalculate BMI.) who has early onset obesity with gradual weight gain despite several weight loss attempts. The causes of her obesity are multifactorial, biological, psychological and social and environmental. Specific factors include a genetic component related to a strong family of obesity, exposure to weight gain promoting medication(s) , increased consumption of high calorie/process foods, andpoor sleep quality. She has few weight-related medical comorbidities which increase her cardiovascular mortality risk. There are additional metabolic obesity complications including PCOS and vitamin D deficiency. Other medical conditions as above. Regarding her lifestyle, as above, she has a few behavioral contributors ; her physical activity isadequate. Overall, it is clear that her quality of life is moderately compromised by her weight. It is likelya combination of weight loss therapies will be needed. She appears motivated today. Plan: -- Based on the severity and resistance of the obesity to more conservative weight loss approaches,I believe a combination of behavioral and pharmacological intervention is the best and most appropriate retirement therapeutic option. -- We discussed several strategies to track food intake and increase mindfulness around eating. Shewas counseled on Low carbohydrate diet and continuing the [employer] deepa -- Encouraged the patient to improve her physical activity. Although cardiovascular exercise is most beneficial for weight loss initially, we discussed healthy muscle from a combination of resistancetraining and cardiovascular exercise is the best exterminator helper plan. An overall goal of 200 minutes perweek of exercise has been effective in weight loss and maintenance. -Through mutual decision making the patient will try to follow a time restricted eating program noteating past 8 PM daily. -Recommended following the [place] healthy eating guidelines that ensures the proper portion sizes for all food groups and healthy choices for macronutrients. -Excellent candidate to begin a GLP receptor agonist or the GLP/GLP receptor agonist although she does not have insurance coverage. -Screen for diabetes and nonalcoholic fatty liver disease. -Change from vitamin D3 5000 international units daily to 50,000 international units weekly for thenext 12 weeks. -Increase metformin 1000 mg with her evening meal with interventional goal of 2000 mg daily. -Following the 6 mindful eating tips recommended today. -Discussed bariatric surgery as a viable option for durable weight loss but through mutual decisionmaking, the patient would like to follow the nonsurgical weight loss program outlined today. -Consider topiramate although there is a history of kidney stone (unclear history and not known if she had a calcium phosphate stone). -Alternative antiobesity medication would be to start the extended release form of naltrexone/bupropion. -Follow-up visit in 3 months for management of above interventions I spent a total of 45 minutes on the date of the service which included completing clinical documentation, obtaining and/or reviewing separately obtained history, counseling and educating the patient/family/caregiver, and ordering medications, tests, or procedures-. Medical Decision Making: Medical Decision Making Level: 1 - N/A Manpreet Garsia DO documented in this encounter[facility]10-[facility]-2022 Miscellaneous Notes* Telephone Encounter - Evgeny Romo LPN - 08/23/2022 7:35 PM EDT Patient has been identified by name and date of : Yes Patient phones for refill(s): Requested Prescriptions Pending Prescriptions Disp Refills metFORMIN ER (GLUCOPHAGE XR) 500 mg 24 hr tablet [Pharmacy Med Name: metFORMIN HCl ER 500 MG Oral Tablet Extended Release 24 Hour] 30 tablet 0 Sig: Take 1 tablet by mouth once daily with breakfast Date of last office visit in primary care: 08/18/22 Last 2 Encounter Wt Readings: Date: Wt: 08/18/2022 115.2 kg (254 lb) 08/18/2022 115.7 kg (255 lb) Previous labs/tests for medication: Diabetes:No results found for: HBA1C Please advise. Thank you. Evgeny Romo LPN documented in this encounterKind[facility]10-14-2022 History of Present illness Narrative* Jenny Pamella, STAPLER MACHINE.TELEPHONE INFORMATION CLERK - 08/18/2022 11:00 AM EDT CC: Patient presents with: Dizziness HPI Nichole Pittman is a 31 year old female who presents today for dizziness Sunday and Sunday. Was at [employer] 2 weeks ago and had severe dizziness with rides and then had episode while in a car on and almost past out on Sunday for severe dizziness after benidng over to product picker her cat. Both episodes she had to lay down for a while to stop dizziness. History of motion sickness but nothing this severe. Has not had dizziness in 5 days. Also has noticed sensitivity to light. Denies any recent illness, headaches, syncope, fever, sinus pressure, ear pressure, or any other notable concerns. Was seen for vaginal exam this AM by gynecology so states she knows she isn't . REVIEW OF SYSTEMS General: no fevers, no chills, no night sweats, no recurrent infections, no change in appetite, no change in energy, and no significant changes in weight HEENT: no frequent or significant headaches, no changes in hearing, no visual changes, no sinus or nasal problems Respiratory: no cough, no wheezing, no shortness of breath, no hemoptysis Cardiovascular: no chest pain, no chest pressure, no palpitations, and no swelling GI: No nausea, vomiting, or diarrhea : No history of dysuria, frequency or incontinence Skin: Negative for lesions, rash, and itching Endocrine: no fatigue, no polyuria, no polyphagia, and no polydipsia Neurologic: No headache, weakness, numbness, tingling, dizziness, syncope. PAST MEDICAL HISTORY Diagnosis Date Anxiety state COVID-19 09/2020 Depression Hypothyroidism Resolved PAST SURGICAL HISTORY Procedure Laterality Date INSERTION OF IUD 04/25/2021 UNSPECIFIED ORAL SURGERY PROCEDURE, BY REPORT wisdom teeth ALLERGIES Penicillins, Amoxicillin, and Ceftriaxone MEDICATIONS metFORMIN ER (GLUCOPHAGE XR) 500 mg 24 hr tablet Take 1 tablet by mouth once daily with breakfast hydrOXYzine HCl (ATARAX) 25 mg tablet Take 1-2 tablets before bed for insomnia spironolactone (ALDACTONE) 25 mg tablet Take 1 tablet by mouth twice daily. omeprazole (PRILOSEC) 20 mg capsule Take 1 capsule by mouth daily before breakfast. 1/2 hr before meal. ketoconazole (NIZORAL) 2 % cream Apply to affected area once daily. Cholecalciferol, Vitamin D3, 125 mcg (5,000 unit) cap Take 1 capsule by mouth once daily. FLUoxetine (PROZAC) 40 mg capsule Take 1 capsule by mouth once daily. cholecalciferol, Vitamin D3, (VITAMIN D3) 1,250 mcg (50,000 unit) cap capsule Take 1 capsule by mouth one time a week. levonorgestrel (MIRENA) 20 mcg/24 hours (6 yrs) 52 mg IUD 1 Each by INTRAUTERINE route as directed. FAMILY HISTORY Problem Relation Age of Onset Hypertension Mother Fibromyalgia Mother other (Barrets Esphogus) Mother Clotting Disorder Mother other (diverticulitis) Mother Heart Father 45 of heart attack Hypertension Brother other (borderline diabetes) Brother Diabetes Maternal Grandfather other (Gout) Maternal Grandfather COPD Paternal Grandmother Heart disease Paternal Grandfather cardiac bypass Social History Tobacco Use Smoking status: Never Smokeless tobacco: Never Tobacco comments: pt states that father smoked inside when he was living Vaping Use Vaping Use: Never used Substance Use Topics Alcohol use: Yes Comment: Occasionally Drug use: No PHYSICAL EXAM BP 120/76 Pulse 70 Resp 18 Wt 115.7 kg (255 lb) LMP 04/27/2021 BMI 48.77 kg/m General Appearance: well appearing, in no acute distress, alert Pysch: mood and affect broad and appropriate Skin: Skin color, texture, turgor normal for age; Eyes: PERRLA, EOM's intact, conjunctiva pink and moist, no icterus, sclera white, non-injected Ears: external ears normal to inspection and palpation, canals clear, Left tympanic membrane normal. , Right tympanic membrane normal Nose/sinus: Nares normal. Septum midline. Mucosa normal. No drainage. Neck: Thyroid normal size and symmetric without palpable nodules, No adenopathy Oropharynx: tongue midline and normal, soft palate, uvula, and tonsils normal, palpation of salivary glands negative Lymph nodes: No cervical lymphadenopathy and No supraclavicular lymphadenopathy Lungs: Lungs clear to auscultation. No wheezing, rhonchi, rales. Heart: RRR without murmur, gallop, or rubs. No ectopy Abdomen: Abdomen soft, non-tender. Bowel sounds normal. No masses, organomegaly Extremities: No deformities, edema, skin discoloration, clubbing or cyanosis. Good capillary refill. Neurological: Gait normal. Reflexes normal and symmetric. Sensation grossly intact.,speech normal, mental status intact, Romberg negative, muscle tone normal, muscle strength normal. Negative [facility] Health maintenance reviewed with patient: HEPATITIS B(1 of 3 - 3-dose series) Never done HPV TESTING due on 01/25/2023 COVID-19 VACCINE(3 - Booster for Pfizer series) due on 01/25/2023 INFLUENZA(1) due on 05/04/2023 ANNUAL PCP TEAM CHRONIC DISEASE VISIT due on 03/22/2023 PAP TESTING due on 07/04/2024 DTAP,TDAP,TD(3 - Td or Tdap) due on 12/31/2031 HEPATITIS C SCREENING Discontinued HIV SCREENING Discontinued DATA REVIEWED: No new labs ASSESSMENT/PLAN: 1. Dizziness - ICD9: 780.4, ICD10: R42 (primary diagnosis) - resolved. Discussed many possible causes but exam completely normal today so unsure on cause. - home nell instruction given to patient if dizziness returns and prn meclizine for dizziness related to motion sickness - follow up if dizziness returns or if new symptoms occurr 2. Motion sickness, initial encounter - ICD9: 994.6, ICD10: T75.3XXA As above Prescription instructions reviewed with patient as applicable. Potential red flag symptoms discussed with the patient. Reviewed appropriate action plan to take if red flag symptoms occur. Patient agreeable to treatment plan. Jenny Can APRN.CNP documented in this encounter[facility] History of Present illness Narrative* Fide Vásquez APRN.CNP - 08/18/2022 9:25 AM EDT Nichole is a 31 year old who presents for an annual gynecologic exam without complaints. Menses: spotting - Mirena IUD. Contraception: IUD HPV vaccine: No Last Pap: 07/10/2019 normal HPV: N/A History of abnormal pap: No Last mammogram: never Sexually active: Yes Patient concerns for STD exposure: No. 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 PAST MEDICAL HISTORY Diagnosis Date Anxiety state COVID-19 09/2020 Depression Hypothyroidism Resolved PAST SURGICAL HISTORY Procedure Laterality Date INSERTION OF IUD 04/25/2021 UNSPECIFIED ORAL SURGERY PROCEDURE, BY REPORT wisdom teeth FAMILY HISTORY Problem Relation Age of Onset Hypertension Mother Fibromyalgia Mother other (Barrets Esphogus) Mother Clotting Disorder Mother other (diverticulitis) Mother Heart Father 45 of heart attack Hypertension Brother other (borderline diabetes) Brother Diabetes Maternal Grandfather other (Gout) Maternal Grandfather COPD Paternal Grandmother Heart disease Paternal Grandfather cardiac bypass SOCIAL HISTORY Social History Tobacco Use Smoking status: Never Smokeless tobacco: Never Tobacco comments: pt states that father smoked inside when he was living Vaping Use Vaping Use: Never used Substance Use Topics Alcohol use: Yes Comment: Occasionally Drug use: No REVIEW OF SYSTEMS Abdomen: No abdominal pain, nausea, vomiting, diarrhea, or constipation. +bloating, + indigestion, +increased flatulence. Bladder: No dysuria, gross hematuria, urinary frequency, urinary urgency, or incontinence. Breast: No breast lumps, nipple d/c, overlying skin changes, redness or skin retraction. Allergies and current medication updated:Yes EXAM: LMP 04/27/2021 GENERAL: pleasant, female in no apparent distress HEENT: Normocephalic, atraumatic, mucus membranes moist, and no lesions NECK: Supple, full range of motion, no adenopathy, and thyroid normal DERMATOLOGY: Normal, without lesions, non-icteric, and non-hirsute BREAST: soft, non-tender, symmetric, no dominant mass, normal nipple-areolar complex, no lymphadenopathy, and no nipple discharge CHEST: Normal inspiratory effort ABDOMEN: soft, non-tender, and no masses PELVIC: external genitalia normal, normal Bartholin's glands, urethra, Long's glands, no vulvar lesions, no cervical lesions, physiologic discharge present, normal appearing perineal body and perianal region, IUD string seen BIMANUAL: uterus normal size, shape and consistency,- difficult to assess due to body habitus. no adnexal masses, non-tender, and d RECTOVAGINAL: deferred. NEURO: alert and oriented x3,exam grossly non-focal EXTREMITIES: normal ASSESSMENT/PLAN: 1) Health maintenance: Pap done with HPV. Mammogram starting age 40. Nutrition, exercise and routine health maintenance exams reviewed. Calcium/Vitamin D supplementation information provided. 2) Contraception: IUD. Contraceptive options reviewed and information provided. 3) STD screening: Declined STD check. 4) Follow up one year or sooner as needed Fide Vásquez APRN.AMBER documented in this encounterKind[facility]10-[facility]22 Miscellaneous Notes* Telephone Encounter - Evgeny Romo LPN - 08/14/2022 8:26 AM EDT Patient has been identified by name and date of : Yes Patient phones for refill(s): Requested Prescriptions Pending Prescriptions Disp Refills metFORMIN ER (GLUCOPHAGE XR) 500 mg 24 hr tablet [Pharmacy Med Name: metFORMIN HCl ER 500 MG Oral Tablet Extended Release 24 Hour] 30 tablet 0 Sig: Take 1 tablet by mouth once daily with breakfast Date of last office visit in primary care: 03/22/22 Last 2 Encounter Wt Readings: Date: Wt: 03/22/2022 112.9 kg (249 lb) 02/22/2022 113.9 kg (251 lb) Previous labs/tests for medication: Diabetes:No results found for: HBA1C Please advise. Thank you. Evgeny Romo LPN documented in this encounterKind[facility]05-18-2022 History of Present illness Narrative* Jenny Can APRN.CNP - 03/22/2022 11:03 AM EDT CC: Patient presents with: Recheck: Medication follow up MARIANN iPttman is a 31 year old female who presents today for follow up on weight loss depression and anxiety. Also wants to discuss treatment for her chronic abnormal hair growth and uncontrolled GERD. Lost 2 lbs, is starting to be more active with doing activities outside. Starts why weight tomorrowand is ordering hello fresh. Anxiety is improved on increased dose of fluoxetine Sleep: is characterized by difficulty falling asleep, has tried melatonin which is not efficient Alcohol use: does not drink any alcohol Drug use: No Appetite: good Stresses: Denies any major stressor. Suicidal Thoughts: No suicidal ideation, intent or plan Support: Comes from multiple sources including boyromario - still having difficulty making friends [facility] Abnormal hair growth to under chin which she has had for many years and has to regularly shave. Testosterone level was normal, has had it elevated in the past and has history of PCOS. GERD: Has had this for years and is progressively getting worse and trying to identify possible foods. Experiences heartburn, nausea, and occasional vomiting. Denies any difficulty swallowing cough, abdominal pain, dark sticky stools, or blood in stools. REVIEW OF SYSTEMS General: no fevers, no chills, no night sweats, no recurrent infections, no change in appetite, no change in energy and no significant changes in weight Respiratory: no cough, no wheezing, no shortness of breath, no hemoptysis Cardiovascular: no chest pain, no chest pressure, no palpitations and no swelling GI: See HPI Endocrine: no cold intolerance, no heat intolerance, no polyuria, no polyphagia and no polydipsia Neurologic: No headache, weakness, numbness, tingling, dizziness, syncope. CP PHQ9 02/22/2022 03/22/2022 Little interest or pleasure 1 - Several days Feeling down, depressed, hopeless 1 - Several days 0 - Not at all Trouble falling or staying asleep, sleeping too much 2 - More than half the days 2 - More than halfthe days Feeling tired, having little energy 2 - More than half the days 2 - More than half the days Poor appetite or overeating 0 - Not at all 0 - Not at all Feeling bad about yourself, failure or you have let yourself/family down 0 - Not at all 0 - Not at all Trouble concentrating on things 2 - More than half the days 1 - Several days Moving or speaking so slowly, or fidgety or restless 0 - Not at all 0 - Not at all Thoughts that you would be better off , or of hurting yourself in some way 0 - Not at all 0 - Not at all How difficult have these problems made things Somewhat difficult Somewhat difficult Interpretation of Total Score 5-9 Mild depression 5-9 Mild depression MONCHO-7 ANXIETY SCALE 02/22/2022 03/22/2022 FEELING NERVOUS,ANXIOUS,OR ON EDGE 1 Several days 1 Several days NOT BEING ABLE TO STOP OR CONTROL WORRYING 3 Nearly every day 0 Not at all sure WORRYING TOO MUCH ABOUT DIFFERENT THINGS 3 Nearly every day 1 Several days TROUBLE RELAXING 2 Over half the days 1 Several days BEING SO RESTLESS THAT IT'S HARD TO SIT STILL 0 Not at all sure 0 Not at all sure BEING EASILY ANNOYED OR IRRITABLE 2 Over half the days 1 Several days FEELING AFRAID IF SOMETHING AWFUL MIGHT HAPPEN 0 Not at all sure 0 Not at all sure GAD7 SCORE 11 4 IF YOU CHECKED OFF ANY PROBLEMS Somewhat difficult Somewhat difficult PAST MEDICAL HISTORY Diagnosis Date Anxiety state COVID-19 09/2020 Depression Hypothyroidism Resolved PAST SURGICAL HISTORY Procedure Laterality Date INSERTION OF IUD 04/25/2021 UNSPECIFIED ORAL SURGERY PROCEDURE, BY REPORT wisdom teeth ALLERGIES Penicillins, Amoxicillin, and Ceftriaxone MEDICATIONS ketoconazole (NIZORAL) 2 % cream Apply to affected area once daily. Cholecalciferol, Vitamin D3, 125 mcg (5,000 unit) cap Take 1 capsule by mouth once daily. FLUoxetine (PROZAC) 40 mg capsule Take 1 capsule by mouth once daily. metFORMIN ER (GLUCOPHAGE XR) 500 mg 24 hr tablet Take 1 tablet by mouth daily with breakfast. FLUoxetine (PROZAC) 20 mg capsule Take 1 capsule by mouth once daily. cholecalciferol, Vitamin D3, (VITAMIN D3) 1,250 mcg (50,000 unit) cap capsule Take 1 capsule by mouth one time a week. levonorgestrel (MIRENA) 20 mcg/24 hours (6 yrs) 52 mg IUD 1 Each by INTRAUTERINE route as directed. FAMILY HISTORY Problem Relation Age of Onset Hypertension Mother Fibromyalgia Mother other (Barrets Esphogus) Mother Clotting Disorder Mother other (diverticulitis) Mother Heart Father 45 of heart attack Hypertension Brother other (borderline diabetes) Brother Diabetes Maternal Grandfather other (Gout) Maternal Grandfather COPD Paternal Grandmother Heart disease Paternal Grandfather cardiac bypass Social History Tobacco Use Smoking status: Never Smoker Smokeless tobacco: Never Used Tobacco comment: pt states that father smoked inside when he was living Vaping Use Vaping Use: Never used Substance Use Topics Alcohol use: Yes Comment: Occasionally Drug use: No PHYSICAL EXAM BP 122/74 Pulse 60 Resp 16 Wt 112.9 kg (249 lb) LMP 04/27/2021 BMI 48.63 kg/m General Appearance: well appearing, in no acute distress, alert Pysch: mood and affect broad and appropriate Skin: abnormal dark hair growth noted to top of neck and extending under her chin Eyes: conjunctiva pink and moist, no icterus, sclera white, non-injected Lungs: Lungs clear to auscultation. No wheezing, rhonchi, rales. Heart: RRR without murmur, gallop, or rubs. No ectopy Abdomen: Abdomen soft, non-tender. Bowel sounds normal. No masses, organomegaly BUE Extremities: No deformities, edema, skin discoloration, clubbing or cyanosis. Good capillary refill. Health maintenance reviewed with patient: HPV TESTING due on 01/25/2023 COVID-19 VACCINE(3 - Booster for Pfizer series) due on 01/25/2023 INFLUENZA(Season Ended) due on 07/06/2022 ANNUAL PCP TEAM CHRONIC DISEASE VISIT due on 02/22/2023 PAP TESTING due on 07/04/2024 DTAP,TDAP,TD(3 - Td or Tdap) due on 12/31/2031 MENINGOCOCCAL CONJUGATE Aged Out HEPATITIS C SCREENING Discontinued HIV SCREENING Discontinued DATA REVIEWED: No new labs ASSESSMENT/PLAN: 1. Anxiety and depression - ICD9: 300.00, 311, ICD10: F41.9, F32.A (primary diagnosis) - improved with current medication - Reviewed concept of neurochemical imbalance [facility] depression/anxiety, treatment options and benefits of counseling in combination with medication. Also reviewed benefits of sleep hygeine, diet and exercise - Instructed patient to contact office or [id number] after-hours promptly should condition worsen or any new symptoms appear. - [facility] and after hours crisis line 2. Insomnia, unspecified type - ICD9: 780.52, ICD10: G47.00 - patient states she has used hydroxyzine for this previously which helped -hydroxyzine as prescribed 3. Gastroesophageal reflux disease without esophagitis - ICD9: 530.81, ICD10: K21.9 - Discussed lifestyle modifications including losing weight, limiting caffeine, no meals three hours before sleep and head of bed elevation - Begin treatment with Prilosec 20 mg QD - Follow up in 4 weeks. 4. Hirsutism - ICD9: 704.1, ICD10: L68.0 - spironolactone as prescribed - follow up in 4 weeks. Prescription instructions reviewed with patient as applicable. Potential red flag symptoms discussed with the patient. Reviewed appropriate action plan to take if red flag symptoms occur. Patient agreeable to treatment plan. Jenny Can APRN.CNP documented in this encounterKind[facility]04-[facility]-2022 History of Present illness Narrative* Jenny Can APRN.CNP - 02/22/2022 10:09 AM EDT CC: Patient presents with: Recheck: 4 week follow up MARIANN Pittman is a 31 year old female who presents today for follow up on anxiety and depression and weight loss Has little support at home to eat a healthier diet. Has low motivation to exercise. Has the abilityto work out at [employer], but just has no motivation to do so. Depression and Anxiety: Depression is improved with increase dose of fluoxetine. Still having issues with anxiety. Sleep: varies. Sometimes is difficult to fall asleep, and sometimes she has trouble waking up. Alcohol use: drinks less than one drink a day Drug use: No Appetite: good Stresses: Major stressor: has very few friends and support Suicidal Thoughts: No suicidal ideation, intent or plan Support: Has her boyfriend but admits him not being very supportive when it comes to healthy lifestyle choices like exercise and healthy diet. Counseling: No but would like to start REVIEW OF SYSTEMS General: no fevers, no chills, no night sweats, no recurrent infections, no change in appetite, no change in energy and no significant changes in weight Respiratory: no cough, no wheezing, no shortness of breath, no hemoptysis Cardiovascular: no chest pain, no chest pressure, no palpitations and no swelling CP PHQ9 02/22/2022 Little interest or pleasure 1 - Several days Feeling down, depressed, hopeless 1 - Several days Trouble falling or staying asleep, sleeping too much 2 - More than half the days Feeling tired, having little energy 2 - More than half the days Poor appetite or overeating 0 - Not at all Feeling bad about yourself, failure or you have let yourself/family down 0 - Not at all Trouble concentrating on things 2 - More than half the days Moving or speaking so slowly, or fidgety or restless 0 - Not at all Thoughts that you would be better off , or of hurting yourself in some way 0 - Not at all How difficult have these problems made things Somewhat difficult Interpretation of Total Score 5-9 Mild depression MONCHO-7 ANXIETY SCALE 02/22/2022 FEELING NERVOUS,ANXIOUS,OR ON EDGE 1 Several days NOT BEING ABLE TO STOP OR CONTROL WORRYING 3 Nearly every day WORRYING TOO MUCH ABOUT DIFFERENT THINGS 3 Nearly every day TROUBLE RELAXING 2 Over half the days BEING SO RESTLESS THAT IT'S HARD TO SIT STILL 0 Not at all sure BEING EASILY ANNOYED OR IRRITABLE 2 Over half the days FEELING AFRAID IF SOMETHING AWFUL MIGHT HAPPEN 0 Not at all sure GAD7 SCORE 11 IF YOU CHECKED OFF ANY PROBLEMS Somewhat difficult PAST MEDICAL HISTORY Diagnosis Date Anxiety state COVID-19 09/2020 Depression Hypothyroidism Resolved PAST SURGICAL HISTORY Procedure Laterality Date INSERTION OF IUD 04/25/2021 UNSPECIFIED ORAL SURGERY PROCEDURE, BY REPORT wisdom teeth ALLERGIES Penicillins, Amoxicillin, and Ceftriaxone MEDICATIONS metFORMIN ER (GLUCOPHAGE XR) 500 mg 24 hr tablet Take 1 tablet by mouth daily with breakfast. FLUoxetine (PROZAC) 20 mg capsule Take 1 capsule by mouth once daily. cholecalciferol, Vitamin D3, (VITAMIN D3) 1,250 mcg (50,000 unit) cap capsule Take 1 capsule by mouth one time a week. levonorgestrel (MIRENA) 20 mcg/24 hours (6 yrs) 52 mg IUD 1 Each by INTRAUTERINE route as directed. FAMILY HISTORY Problem Relation Age of Onset Hypertension Mother Fibromyalgia Mother other (Barrets Esphogus) Mother Clotting Disorder Mother other (diverticulitis) Mother Heart Father 45 of heart attack Hypertension Brother other (borderline diabetes) Brother Diabetes Maternal Grandfather other (Gout) Maternal Grandfather COPD Paternal Grandmother Heart disease Paternal Grandfather cardiac bypass Social History Tobacco Use Smoking status: Never Smoker Smokeless tobacco: Never Used Tobacco comment: pt states that father smoked inside when he was living Vaping Use Vaping Use: Never used Substance Use Topics Alcohol use: Yes Comment: Occasionally Drug use: No PHYSICAL EXAM BP 118/82 Pulse 68 Resp 16 Wt 113.9 kg (251 lb) LMP 04/27/2021 BMI 49.02 kg/m General Appearance: well appearing, in no acute distress, alert Eyes: conjunctiva pink and moist, no icterus, sclera white, non-injected Lungs: Lungs clear to auscultation. No wheezing, rhonchi, rales. Heart: RRR without murmur, gallop, or rubs. No ectopy Health maintenance reviewed with patient: HPV TESTING due on 01/25/2023 COVID-19 VACCINE(3 - Booster for Pfizer series) due on 01/25/2023 INFLUENZA(Season Ended) due on 07/06/2022 ANNUAL PCP TEAM CHRONIC DISEASE VISIT due on 01/25/2023 PAP TESTING due on 07/04/2024 DTAP,TDAP,TD(3 - Td or Tdap) due on 12/31/2031 MENINGOCOCCAL CONJUGATE Aged Out HEPATITIS C SCREENING Discontinued HIV SCREENING Discontinued DATA REVIEWED: Most recent labs ASSESSMENT/PLAN: 1. Anxiety and depression - ICD9: 300.00, 311, ICD10: F41.9, F32.A (primary diagnosis) - Increased fluoxetine. Feel exercise and weight loss would greatly decrease anxiety - She was upset that she doesn't have any local friends. Instructed on joining a class, mandaeism, yoga studio, or any other available option to try and increase her social [place] - CONSULT TO [facility] 2. Morbid obesity with BMI of 45.0-49.9, adult (HCC) - ICD9: 278.01, V85.42, ICD10: E66.01, Z68.42 - consult sent for why weight I spent 30 minutes in the visit, with more than 50% of the total [id number] time of the visit in counseling / coordination of care. Prescription instructions reviewed with patient as applicable. Potential red flag symptoms discussed with the patient. Reviewed appropriate action plan to take if red flag symptoms occur. Patient agreeable to treatment plan. Jenny Can APRN.CNP documented in this encounterKind[facility]03-[facility]-2022 Instructions* Patient Instructions* Jenny Can APRN.CNP - 01/25/2022 6:50 PM EDT Try to adhere to a gluten free and dairy free diet. documented in this encounterKind[facility]03-23-2022 History of Present illness Narrative* Jenny Can APRN.CNP - 01/25/2022 6:27 PM EDT CC: Patient presents with: Recheck: Cat bite follow up HPI Nichole Pittman is a 31 year old female who presents today for routine follow up on chronic conditions.Will be calling [employer] number for [employer]'s comp follow up on cat bite. Depression and Anxiety: Has been more tired with low motivation and little interest, Seems to have worsened over the last few months. Has been on the same dose for years. Sleep: is described as normal Alcohol use: drinks less than one drink a day Drug use: No Appetite: good Stresses: Denies any major stressor. Suicidal Thoughts: No suicidal ideation, intent or plan Support: Comes from multiple sources including family Counseling: No On metformin for PCOS. Symptoms were irregular periods. These improved with the metformin and the mirena. Also has abnormal hair growth to her upper lip, chin, and chest. Has not been on any specificmedication for this.Feels she cannot lose weight. Goes to the gym 3 days a week and tries to eat a healthy diet, but can't seem to lose more than 5 pounds. REVIEW OF SYSTEMS General: no fevers, no chills, no night sweats, no recurrent infections, no change in appetite, no change in energy and no significant changes in weight Respiratory: no cough, no wheezing, no shortness of breath, no hemoptysis Cardiovascular: no chest pain, no chest pressure, no palpitations and no swelling GI: Denies abdominal pain, nausea, or vomting. States she has had chronic diarrhea for years. Will one day have a soft nonformed stool and then suddenly have 4 liquid stools for a day : No history of dysuria, frequency or incontinence Psych: See HPI Endocrine: no fatigue, no weight loss, no cold intolerance, no heat intolerance, no polyuria, no polyphagia and no polydipsia Neurologic: No headache, weakness, numbness, tingling, n dizziness, syncope. PAST MEDICAL HISTORY Diagnosis Date Anxiety state COVID-19 09/2020 Depression Hypothyroidism Resolved PAST SURGICAL HISTORY Procedure Laterality Date INSERTION OF IUD 04/25/2021 UNSPECIFIED ORAL SURGERY PROCEDURE, BY REPORT wisdom teeth ALLERGIES Penicillins, Amoxicillin, and Ceftriaxone MEDICATIONS FLUoxetine (PROZAC) 10 mg capsule Take 1 capsule by mouth once daily. metFORMIN ER (GLUCOPHAGE XR) 500 mg 24 hr tablet Take 1 tablet by mouth daily with breakfast. cholecalciferol, Vitamin D3, (VITAMIN D3) 1,250 mcg (50,000 unit) cap capsule Take 1 capsule by mouth one time a week. levonorgestrel (MIRENA) 20 mcg/24 hours (6 yrs) 52 mg IUD 1 Each by INTRAUTERINE route as directed. FAMILY HISTORY Problem Relation Age of Onset Hypertension Mother Fibromyalgia Mother other (Barrets Esphogus) Mother Clotting Disorder Mother other (diverticulitis) Mother Heart Father 45 of heart attack Hypertension Brother other (borderline diabetes) Brother Diabetes Maternal Grandfather other (Gout) Maternal Grandfather COPD Paternal Grandmother Heart disease Paternal Grandfather cardiac bypass Social History Tobacco Use Smoking status: Never Smoker Smokeless tobacco: Never Used Tobacco comment: pt states that father smoked inside when he was living Vaping Use Vaping Use: Never used Substance Use Topics Alcohol use: Yes Comment: Occasionally Drug use: No PHYSICAL EXAM BP 120/78 Pulse 72 Resp 16 Wt 112.9 kg (249 lb) LMP 04/27/2021 BMI 48.63 kg/m General Appearance: well appearing, in no acute distress, alert Pysch: mood and affect broad and appropriate Eyes: conjunctiva pink and moist, no icterus, sclera white, non-injected Neck: Thyroid normal size and symmetric without palpable nodules, No adenopathy Lymph nodes: No cervical lymphadenopathy and No supraclavicular lymphadenopathy Lungs: Lungs clear to auscultation. No wheezing, rhonchi, rales. Heart: RRR without murmur, gallop, or rubs. No ectopy Extremities: No deformities, edema, skin discoloration, clubbing or cyanosis. Good capillary refill. Health maintenance reviewed with patient: INFLUENZA(1) due on 07/06/2021 HPV TESTING Never done COVID-19 VACCINE(3 - Booster for Pfizer series) due on 12/03/2021 ANNUAL PCP TEAM CHRONIC DISEASE VISIT due on 05/23/2022 PAP TESTING due on 07/04/2024 DTAP,TDAP,TD(3 - Td or Tdap) due on 12/31/2031 [employer] Aged Out HEPATITIS C SCREENING Discontinued HIV SCREENING Discontinued DATA REVIEWED: No new labs ASSESSMENT/PLAN: 1. Anxiety and depression - ICD9: 300.00, 311, ICD10: F41.9, F32.A (primary diagnosis) - will increase fluoxetine to see if this will help her low motivation and interest in things - FLUOXETINE 20 MG CAPSULE - message me in 2 weeks with how you are doing - follow up in 4 weeks - Instructed patient to contact office or [id number] after-hours promptly should condition worsen or any new symptoms appear. - Counseling [facility] and after hours crisis line 2. Fatigue, unspecified type - ICD9: 780.79, ICD10: R53.83 - possibly from depression, weight gain, recent infection, or other etiology. May be a mixture. Hasa history of abnormal thyroid level years ago, will recheck again - TSH BLD 3. Morbid obesity with BMI of 45.0-49.9, adult (HCC) - ICD9: 278.01, V85.42, ICD10: E66.01, Z68.42 Weight increasing - discussed diet changes to see if this would help, if no improvement will discuss possibly starting phentermine at next visit. - follow up in 4 weeks 4. PCOS (polycystic ovarian syndrome) - ICD9: 256.4, ICD10: E28.2 - continue the metformin - TESTOSTERONE TOTAL - trial a low inflammatory diet without dairy and gluten 5. Elevated testosterone level in female - ICD9: 259.9, ICD10: R79.89 Weight increasing - TESTOSTERONE TOTAL 6. Hirsutism - ICD9: 704.1, ICD10: L68.0 - will recheck testosterone level and possibly start spironolactone at follow up appointment 7. Diarrhea, unspecified type - ICD9: 787.91, ICD10: R19.7 - will discuss at next appointment 8. Vitamin D deficiency - ICD9: 268.9, ICD10: E55.9 - VITAMIN D 25 HYDROXY 9. Lipid screening - ICD9: V77.91, ICD10: Z13.220 - LIPID PANEL BASIC Prescription instructions reviewed with patient as applicable. Potential red flag symptoms discussed with the patient. Reviewed appropriate action plan to take if red flag symptoms occur. Patient agreeable to treatment plan. Jenny Can APRN.CNP [facility] Diagnosis Anxiety and depression- Primary Dysthymic disorder Fatigue, unspecified type Morbid obesity with BMI of 45.0-49.9, adult (HCC) Morbid obesity PCOS (polycystic ovarian syndrome) Polycystic ovaries Elevated testosterone level in female Unspecified endocrine disorder Hirsutism Diarrhea, unspecified type Vitamin D deficiency Unspecified vitamin D deficiency Lipid screening Screening for lipoid disorders documented in this encounter [facility] note* Diagnosis Anxiety and depression- Primary Dysthymic disorder Morbid obesity with BMI of 45.0-49.9, adult (HCC) Morbid obesity documented in this encounter [facility] note* Diagnosis Anxiety and depression- Primary Dysthymic disorder Insomnia, unspecified type Gastroesophageal reflux disease without esophagitis Esophageal reflux Hirsutism documented in this encounter [facility] note* Diagnosis Encounter for gynecological examination (general) (routine) without abnormal findings- Primary Screening for malignant neoplasm of cervix Screening for malignant neoplasm of the cervix Encounter for screening for human papillomavirus (HPV) Special screening examination for human papillomavirus (HPV) Class 3 severe obesity with body mass index (BMI) of 45.0 to 49.9 in adult, unspecified obesity type, unspecified whether serious comorbidity present (HCC) documented in this encounter [facility]* Diagnosis Dizziness- Primary Dizziness and giddiness Motion sickness, initial encounter documented in this encounter [facility] note* Diagnosis Class 3 severe obesity with body mass index (BMI) of 45.0 to 49.9 in adult, unspecified obesity type, unspecified whether serious comorbidity present (HCC)- Primary PCOS (polycystic ovarian syndrome) Polycystic ovaries Vitamin D deficiency Unspecified vitamin D deficiency [facility] Diagnosis Gastroesophageal reflux disease, unspecified whether esophagitis present- Primary Dysphagia, unspecified type Epigastric abdominal tenderness without rebound tenderness documented in this encounter [facility] note* Diagnosis Family history of Benjamin's esophagus- Primary Gastroesophageal reflux disease, unspecified whether esophagitis present Dysphagia, unspecified type Class 3 severe obesity due to excess calories with serious comorbidity and body mass index (BMI) of 50.0 to 59.9 in adult (HCC) documented in this [facility]* Diagnosis Dysphagia, unspecified type documented in this encounter [facility] note* Diagnosis Family history of celiac disease- Primary Family history of other digestive disorders documented in this encounter [facility]* Diagnosis Shortness of breath on exertion- Primary Shortness of breath Other fatigue Acute cough Feeling of chest tightness Other chest pain Fever, unspecified fever cause documented in this encounter [facility] note* Diagnosis Acquired hypothyroidism Unspecified hypothyroidism documented in this encounter [facility] noteNo assessment information availableW[facility] Work Phone: Evaluation note* Diagnosis Eye redness- Primary Redness or discharge of eye [facility] Diagnosis Preseptal cellulitis of left lower eyelid- Primary Squamous blepharitis of upper and lower eyelids of both eyes documented in this encounter [facility]* Diagnosis Headaches- Primary Vertigo Dizziness and giddiness [facility] Diagnosis Acquired hypothyroidism Unspecified hypothyroidism documented in this encounter [facility]* Diagnosis Gastroesophageal reflux disease, unspecified whether esophagitis present documented in this encounter [facility]* Diagnosis Sensation of chest pressure- Primary Dyspnea on exertion Other dyspnea and respiratory abnormality Family history of due to heart problem at 50 years of age or younger Palpitation Palpitations Other fatigue Anxiety and depression Dysthymic disorder Gastroesophageal reflux disease without esophagitis Esophageal reflux documented in this [facility]* Diagnosis Sensation of chest pressure Dyspnea on exertion Other dyspnea and respiratory abnormality Family history of due to heart problem at 50 years of age or younger [facility] Diagnosis Encounter for gynecological examination (general) (routine) without abnormal findings- Primary Screening cholesterol level Screening for lipoid disorders Screening for deficiency anemia Screening for other and unspecified deficiency anemia Screening for diabetes mellitus Screening for metabolic disorder Screening for thyroid disorder Encounter for vitamin deficiency screening Screening for other and unspecified endocrine, nutritional, metabolic, and immunity disorders documented in this encounter [facility]* Diagnosis PCOS (polycystic ovarian syndrome)- Primary Polycystic ovaries Insulin resistance Dysmetabolic Syndrome X documented in this encounter [facility]* Diagnosis Anxiety and depression- Primary Dysthymic disorder Gastroesophageal reflux disease without esophagitis Esophageal reflux Class 3 severe obesity with body mass index (BMI) of 45.0 to 49.9 in adult, unspecified obesity type, unspecified whether serious comorbidity present (HCC) Weight loss counseling, encounter for Dietary surveillance and counseling documented in this encounter [facility] note* Diagnosis Class 3 severe obesity with body mass index (BMI) of 45.0 to 49.9 in adult, unspecified obesity type, unspecified whether serious comorbidity present (HCC)- Primary Weight loss counseling, encounter for Dietary surveillance and counseling Anxiety and depression Dysthymic disorder documented in this encounter [facility] note* Diagnosis Anxiety and depression- Primary Dysthymic disorder Class 3 severe obesity with body mass index (BMI) of 45.0 to 49.9 in adult, unspecified obesity type, unspecified whether serious comorbidity present (HCC) Weight loss counseling, encounter for Dietary surveillance and counseling documented in this encounter [facility] note* Diagnosis Class 3 severe obesity with body mass index (BMI) of 45.0 to 49.9 in adult, unspecified obesity type, unspecified whether serious comorbidity present (HCC)- Primary Weight loss counseling, encounter for Dietary surveillance and counseling documented in this encounter [facility] note* Diagnosis PCOS (polycystic ovarian syndrome)- Primary Polycystic ovaries Hypercholesteremia Pure hypercholesterolemia Elevated fasting glucose Impaired fasting glucose Elevated blood pressure reading without diagnosis of hypertension Insulin resistance Dysmetabolic Syndrome X Vitamin D deficiency Unspecified vitamin D deficiency Class 3 severe obesity without serious comorbidity with body mass index (BMI) of 45.0 to 49.9 in adult, unspecified obesity type (HCC) documented in this encounter [facility] note* Diagnosis Class 3 severe obesity without serious comorbidity with body mass index (BMI) of 45.0 to 49.9 in adult, unspecified obesity type (HCC)- Primary Elevated blood pressure reading without diagnosis of hypertension Malaise and fatigue Other malaise and fatigue documented in this encounter [facility] note* Diagnosis PCOS (polycystic ovarian syndrome)- Primary Polycystic ovaries Insulin resistance Dysmetabolic Syndrome X Menstrual migraine without status migrainosus, not intractable Menstrual migraine, without mention of intractable migraine without mention of status migrainosus documented in this encounter [facility] note* Diagnosis Class 3 severe obesity with body mass index (BMI) of 45.0 to 49.9 in adult, unspecified obesity type, unspecified whether serious comorbidity present (HCC) documented in this encounter [facility] note* Diagnosis PCOS (polycystic ovarian syndrome)- Primary Polycystic ovaries Hypercholesteremia Pure hypercholesterolemia Elevated fasting glucose Impaired fasting glucose Elevated blood pressure reading without diagnosis of hypertension Insulin resistance Dysmetabolic Syndrome X Vitamin D deficiency Unspecified vitamin D deficiency Class 3 severe obesity without serious comorbidity with body mass index (BMI) of 45.0 to 49.9 in adult, unspecified obesity type (HCC) Class 3 severe obesity with body mass index (BMI) of 45.0 to 49.9 in adult, unspecified obesity type, unspecified whether serious comorbidity present (HCC) documented in this encounter [facility] note* Diagnosis Class 3 severe obesity with body mass index (BMI) of 45.0 to 49.9 in adult, unspecified obesity type, unspecified whether serious comorbidity present (HCC) documented in this encounter [facility] note* Diagnosis PCOS (polycystic ovarian syndrome)- Primary Polycystic ovaries Hypercholesteremia Pure hypercholesterolemia Elevated fasting glucose Impaired fasting glucose Elevated blood pressure reading without diagnosis of hypertension Insulin resistance Dysmetabolic Syndrome X Vitamin D deficiency Unspecified vitamin D deficiency Class 3 severe obesity without serious comorbidity with body mass index (BMI) of 45.0 to 49.9 in adult, unspecified obesity type (HCC) documented in this encounter [facility] note* Diagnosis Non-restorative sleep- Primary Other sleep disturbances Snoring Other dyspnea and respiratory abnormality RLS (restless legs syndrome) Restless legs syndrome (RLS) Chronic insomnia Insomnia, unspecified Morning headache Headache Frequent nocturnal awakening Other sleep disturbances Class 3 severe obesity without serious comorbidity with body mass index (BMI) of 45.0 to 49.9 in adult, unspecified obesity type (HCC) Excessive daytime sleepiness documented in this encounter [facility] note* Diagnosis Elevated fasting glucose- Primary Impaired fasting glucose Insulin resistance Dysmetabolic Syndrome X PCOS (polycystic ovarian syndrome) Polycystic ovaries documented in this encounter [facility] note* Diagnosis PCOS (polycystic ovarian syndrome) Polycystic ovaries Insulin resistance Dysmetabolic Syndrome X documented in this encounter [facility] note* Diagnosis PCOS (polycystic ovarian syndrome) Polycystic ovaries Insulin resistance Dysmetabolic Syndrome X [facility] Diagnosis Anxiety and depression- Primary Dysthymic disorder Class 3 severe obesity with body mass index (BMI) of 45.0 to 49.9 in adult, unspecified obesity type, unspecified whether serious comorbidity present History of hypothyroidism Personal history of other endocrine, metabolic, and immunity disorders Migraine without aura and without status migrainosus, not intractable Migraine without aura, without mention of intractable migraine without mention of status migrainosus Annual physical exam Routine general medical examination at a health care facility [facility] Diagnosis Encounter for gynecological examination (general) (routine) without abnormal findings- Primary Screen for STD (sexually transmitted disease) Screening examination for venereal disease [facility]* Diagnosis Dyspnea on exertion- Primary Other dyspnea and respiratory abnormality Chest heaviness Other chest pain Family history of sudden cardiac Family history of sudden cardiac (SCD) Migraine without aura and without status migrainosus, not intractable Migraine without aura, without mention of intractable migraine without mention of status migrainosus Anxiety and depression Dysthymic disorder Class 3 severe obesity with body mass index (BMI) of 45.0 to 49.9 in adult, unspecified obesity type, unspecified whether serious comorbidity present (HCC) [facility] Diagnosis Dyspnea on exertion Other dyspnea and respiratory abnormality [facility] Diagnosis Chest tightness- Primary Other chest pain Morbid obesity (HCC) Morbid obesity [facility]* Diagnosis Migraine without aura and without status migrainosus, not intractable- Primary Migraine without aura, without mention of intractable migraine without mention of status migrainosus Anxiety and depression Dysthymic disorder Class 3 severe obesity with body mass index (BMI) of 45.0 to 49.9 in adult, unspecified obesity type, unspecified whether serious comorbidity present (HCC) [facility] Diagnosis Chest tightness- Primary Other chest pain [facility] Additional Instructions Please follow-up with the ornamental plasterer helper tomorrow at 8:45 AM. [facility] eyedrops today, [facility] Phone: Reason for referral (narrative)* Diagnostic Procedure Only (Routine) - Authorized Specialty Diagnoses / Procedures Referred By Contac t Referred To Contact US IMAGING Diagnoses Epigastric abdominal tenderness without rebound tenderness Procedures US ABD RT UPPER QUADRANT US ABDOMINAL REAL TIME W/IMAGE LIMITED Jenny Can APRN.TELEPHONE INFORMATION CLERK [address] [place] [address] Us Imaging Referral ID Status Reason Start Date Expiration Date Visits Requested Visits Authorized [id number] Authorized Auto-Generat ed Referral 2 12/03/2023 1 1 * Consult, Test, Treat (Routine) - Pending Review Specialty Diagnoses / Procedures Referred By Kurtis t Referred To Contact Gastroenterology Diagnoses Gastroesophageal reflux disease, unspecified whether esophagitis present Dysphagia, unspecified type Procedures CONSULT TO GASTROENTEROLOGY OFFICE/OUTPATIENT [facility] 60-74 MINUTES Jenny Can APRN.TELEPHONE INFORMATION CLERK [address] [place] [address] Referral ID Status Reason Start Date Expiration Date Visits Requested Visits Authorized [id number] Pending Review PCP Requested Referral 2 11/03/[address] [facility] for referral (narrative)* Outpatient Procedure (Routine) - Pending Review Specialty Diagnoses / Procedures Referred By Contac t Referred To Contact [facility] Diagnoses Dysphagia, unspecified type Procedures EGD DIAGNOSTIC ESOPHAGOGASTRODUODENOSC OPY TRANSORAL DIAGNOSTIC Timur Campos MD [address] [place] [address] [facility] [place] [address] [place] [id number] Referral ID Status Reason Start Date Expiration Date Visits Requested Visits Authorized [id number] Pending Review Auto-Generat ed Referral 11/17/2022 11/17/[address] [facility] for referral (narrative)* Outpatient Procedure (Routine) - Closed Specialty Diagnoses / Procedures Referred By Kurtis t Referred To Contact [facility] Diagnoses Dysphagia, unspecified type Procedures EGD DIAGNOSTIC ESOPHAGOGASTRODUODENOSC OPY TRANSORAL DIAGNOSTIC Timur Campos MD [address] [place] [address] [facility] [address] [place] [address] Referral ID Status Reason Start Date Expiration Date V isits Requested Visits Authorized [id number] Closed Auto-Generate d Referral 11/17/2022 11/17/2023 1 1 [facility] for referral (narrative)* Outpatient Procedure (Routine) - Pending Review Specialty Diagnoses / Procedures Referred By Kurtis t Referred To Contact [facility] Diagnoses Sensation of chest pressure Dyspnea on exertion Family history of due to heart problem at 50 years of age or younger Palpitation Procedures ECG COMPLETE ECG ROUTINE ECG W/LEAST 12 LDS W/I&R Jenny Can APRN.TELEPHONE INFORMATION CLERK [address] [place] [address] [facility] [address] [address] Referral ID Status Reason Start Date Expiration Date Visits Requested Visits Authorized [id number] Pending Review Auto-Generat ed Referral 08/02/2023 08/01/2024 1 1 * Consult, Test, Treat (Routine) - Authorized Specialty Diagnoses / Procedures Referred By Kurtis t Referred To Contact [facility] [place] Diagnoses Sensation of chest pressure Dyspnea on exertion Family history of due to heart problem at 50 years of age or younger Palpitation Procedures ECHO ECHO TTHRC R-T 2D W/WOM-MODE COMPL SPEC&COLR D Jenny Can APRN.TELEPHONE INFORMATION CLERK [address] [place] [address] [facility] [id number] [place] [address] Referral ID Status Reason Start Date Expiration Date Visits Requested Visits Authorized [id number] Authorized Auto-Generat ed Referral 08/09/2023 11/04/2023 1 1 [facility] Outpatient Procedure (Routine) - Closed Specialty Diagnoses / Procedures Referred By Kurtis rey Referred To Contact [facility] Diagnoses Dysphagia, unspecified type Procedures EGD DIAGNOSTIC ESOPHAGOGASTRODUODENOSC OPY TRANSORAL DIAGNOSTIC Timur Campos MD [address] [address] [address] [place] [address] [facility] [place] [address] [place] [address] Referral ID Status Reason Start Date Expiration Date V isits Requested Visits Authorized [id number] Closed Auto-Generate d Referral 11/17/2022 11/17/2023 1 1 [facility] Summary Purpose Family History No Family History Records Found Relationship Condition Age at Onset Recorded Date/T sal mother Gastroesophageal reflux disease Unknown Benjamin's esophagus Unknown Hypertension Unknown Disorder of hemostasis Unknown grandfather Diabetes mellitus Unknown Advance Directives No Advanced Directives Records FoundDocuments on File Type Date Recorded Patient Chief Deputy Expl anation Advance Directive(s) 01/02/2022 8:29 AM Advance Directive(s) 01/01/2022 7:26 PM Advance Directive(s) 12/31/2021 7:42 PM Advance Directive Response Recorded Date/ Time Living Will No March 04, 2023 2:34pm Power of Sweatband Perforator No March 04 2:34pm Reason for Referral Specialty Diagnoses / Procedures Referred By Kurtis rey Referred To Contact Diagnoses Class 3 severe obesity with body mass index (BMI) of 45.0 to 49.9 in adult, unspecified obesity type, unspecified whether serious comorbidity present (HCC) Procedures CONSULT [facility] OFFICE/OUTPATIENT NEW HIGH MDM 60-74 MINUTES Fide Vásquez APRN.CNP [address] [place] [address] Referral ID Status Reason Start Date Expiration Date Visits Requested Visits Authorized [id number] Pending Review PCP Requested Referral 2 08/18/2023 1 1 Specialty Diagnoses / Procedures Referred By Kurtis rey Referred To Contact Diagnoses Shortness of breath on exertion Feeling of chest tightness Jenny Can APRN.CNP [address] [place] [address] Referral ID Status Reason Start Date Expiration Date Visits Re quested Visits Authorized [id number] Closed 1 1 Specialty Diagnoses / Procedures Referred By Contac t Referred To Contact Nutrition Diagnoses PCOS (polycystic ovarian syndrome) Hypercholesteremia Elevated fasting glucose Elevated blood pressure reading without diagnosis of hypertension Insulin resistance Class 3 severe obesity without serious comorbidity with body mass index (BMI) of 45.0 to 49.9 in adult, unspecified obesity type (HCC) Procedures CONSULT TO NUTRITION THERAPY MEDICAL NUTRITION ASSMT&IVNTJ INDIV EACH [address] [place] Katheryn Yu MD [address] [place] [address] Referral ID Status Reason Start Date Expiration Date Visits Requested Visits Authorized [id number] Authorized PCP Requested Referral 06/20/2024 06/20/2025 1 4 Specialty Diagnoses / Procedures Referred By Contac t Referred To Contact Diagnoses Class 3 severe obesity without serious comorbidity with body mass index (BMI) of 45.0 to 49.9 in adult, unspecified obesity type (HCC) Katheryn Yu MD [address] [place] [address] Referral ID Status Reason Start Date Expiration Date Visits Re quested Visits Authorized [id number] Closed 1 1 Specialty Diagnoses / Procedures Referred By Contac t Referred To Contact Diagnoses Class 3 severe obesity without serious comorbidity with body mass index (BMI) of 45.0 to 49.9 in adult, unspecified obesity type (HCC) Elevated blood pressure reading without diagnosis of hypertension Malaise and fatigue Procedures CONSULT TO SLEEP MEDICINE - ADULT OFFICE/OUTPATIENT [facility] 60 MINUTES Katehryn Yu MD [address] [place] [address] Referral ID Status Reason Start Date Expiration Date Visits Requested Visits Authorized [id number] Authorized PCP Requested Referral 06/23/2024 06/23/2025 1 1 Specialty Diagnoses / Procedures Referred By Contac t Referred To Contact Katheryn Yu MD [address] [place] [address] Referral ID Status Reason Start Date Expiration Date Visits Re quested Visits Authorized [id number] Closed 1 1 Specialty Diagnoses / Procedures Referred By Kurtis rey Referred To Contact Diagnoses Elevated blood pressure reading without diagnosis of hypertension Class 3 severe obesity without serious comorbidity with body mass index (BMI) of 45.0 to 49.9 in adult, unspecified obesity type (HCC) Procedures CONSULT TO SLEEP MEDICINE - ADULT OFFICE/OUTPATIENT [facility] 60 MINUTES Katheryn Yu MD [address] [place] [address] Referral ID Status Reason Start Date Expiration Date Visits Requested Visits Authorized [id number] Authorized PCP Requested Referral 07/25/2024 07/25/2025 1 1 Specialty Diagnoses / Procedures Referred By Kurtis rey Referred To Contact Diagnoses PCOS (polycystic ovarian syndrome) Hypercholesteremia Elevated fasting glucose Elevated blood pressure reading without diagnosis of hypertension Insulin resistance Vitamin D deficiency Class 3 severe obesity without serious comorbidity with body mass index (BMI) of 45.0 to 49.9 in adult, unspecified obesity type (HCC) Procedures CONSULT [facility]IC[facility] OFFICE/OUTPATIENT [facility] 60 MINUTES Katheryn Yu MD [address] [place] [address] [address] Referral ID Status Reason Start Date Expiration Date Visits Requested Visits Authorized [id number] Authorized PCP Requested Referral 09/17/2025 1 1 Health Concerns Infection Onset Date Last Indicated Resolved Time COVID-19 Rule-Out 12/27/2022 12/27/2022 12/28/2022 12:03 AM EST Chief Complaint and Reason for Visit Chief Complaint EYE SWELLING Additional Source Comments INFORMATION SOURCE (unrecogn ized section and content) DATE CREATED AUTHOR 11/07/2018 Tego hal Cárdenas DATE CREATED AUTHOR AUTHOR'S ROSEMARIE STAPLETON 01/10/2019 [facility] DATE CREATED AUTHOR AUTHOR'S ORGANIZ ATION 03/12/2019 [facility] DATE CREATED AUTHOR AUTHOR'S ORGANIZ ATION 08/30/2023 [facility] DATE CREATED AUTHOR AUTHOR'S ORGANIZ ATION 09/20/2024 [facility] DATE CREATED AUTHOR AUTHOR'S ORGANIZ ATION 12/09/2024 [facility] DATE CREATED AUTHOR AUTHOR'S ORGANIZ ATION 07/07/2025 [facility] Source Comments (unrecognize d section and content) In the event this informatio n is protected by the Federal Confidentiality of Alcohol and Drug Abuse Patient Records regulations: The Federal rules restrict any use of the information to criminally investigate or prosecute any alcohol or drug abuse patient.[facility]In the event this information is protected by the Federal Confidentiality of Alcohol and Drug Abuse Patient Records regulations: The Federal rules restrict any use of the information to criminally investigate or prosecute any alcohol or drug abuse patient.[facility] DaytonIn the event this information is protected by the Federal Confidentiality of Alcohol and Drug Abuse Patient Records regulations: The Federal rules restrict any use of the information to criminally investigate or prosecute any alcohol or drug abuse patient.[facility] DaytonIn the event this information is protected by the Federal Confidentiality of Alcohol and Drug Abuse Patient Records regulations: The Federal rules restrict any use of the information to criminally investigate or prosecute any alcohol or drug abuse patient.[facility] DaytonIn the event this information is protected by the Federal Confidentiality of Alcohol and Drug Abuse Patient Records regulations: The Federal rules restrict any use of the information to criminally investigate or prosecute any alcohol or drug abuse patient.[facility] DaytonIn the event this information is protected by the Federal Confidentiality of Alcohol and Drug Abuse Patient Records regulations: The Federal rules restrict any use of the information to criminally investigate or prosecute any alcohol or drug abuse patient.[facility] DaytonIn the event this information is protected by the Federal Confidentiality of Alcohol and Drug Abuse Patient Records regulations: The Federal rules restrict any use of the information to criminally investigate or prosecute any alcohol or drug abuse patient.[facility] DaytonIn the event this information is protected by the Federal Confidentiality of Alcohol and Drug Abuse Patient Records regulations: The Federal rules restrict any use of the information to criminally investigate or prosecute any alcohol or drug abuse patient.[facility] DaytonIn the event this information is protected by the Federal Confidentiality of Alcohol and Drug Abuse Patient Records regulations: The Federal rules restrict any use of the information to criminally investigate or prosecute any alcohol or drug abuse patient.[facility] DaytonIn the event this information is protected by the Federal Confidentiality of Alcohol and Drug Abuse Patient Records regulations: The Federal rules restrict any use of the information to criminally investigate or prosecute any alcohol or drug abuse patient.[facility] DaytonIn the event this information is protected by the Federal Confidentiality of Alcohol and Drug Abuse Patient Records regulations: The Federal rules restrict any use of the information to criminally investigate or prosecute any alcohol or drug abuse patient.[facility] DaytonIn the event this information is protected by the Federal Confidentiality of Alcohol and Drug Abuse Patient Records regulations: The Federal rules restrict any use of the information to criminally investigate or prosecute any alcohol or drug abuse patient.[facility] DaytonIn the event this information is protected by the Federal Confidentiality of Alcohol and Drug Abuse Patient Records regulations: The Federal rules restrict any use of the information to criminally investigate or prosecute any alcohol or drug abuse patient.[facility] DaytonIn the event this information is protected by the Federal Confidentiality of Alcohol and Drug Abuse Patient Records regulations: The Federal rules restrict any use of the information to criminally investigate or prosecute any alcohol or drug abuse patient.[facility] DaytonIn the event this information is protected by the Federal Confidentiality of Alcohol and Drug Abuse Patient Records regulations: The Federal rules restrict any use of the information to criminally investigate or prosecute any alcohol or drug abuse patient.[facility] DaytonIn the event this information is protected by the Federal Confidentiality of Alcohol and Drug Abuse Patient Records regulations: The Federal rules restrict any use of the information to criminally investigate or prosecute any alcohol or drug abuse patient.[facility] DaytonIn the event this information is protected by the Federal Confidentiality of Alcohol and Drug Abuse Patient Records regulations: The Federal rules restrict any use of the information to criminally investigate or prosecute any alcohol or drug abuse patient.[facility] DaytonIn the event this information is protected by the Federal Confidentiality of Alcohol and Drug Abuse Patient Records regulations: The Federal rules restrict any use of the information to criminally investigate or prosecute any alcohol or drug abuse patient.[facility] DaytonIn the event this information is protected by the Federal Confidentiality of Alcohol and Drug Abuse Patient Records regulations: The Federal rules restrict any use of the information to criminally investigate or prosecute any alcohol or drug abuse patient.[facility] DaytonIn the event this information is protected by the Federal Confidentiality of Alcohol and Drug Abuse Patient Records regulations: The Federal rules restrict any use of the information to criminally investigate or prosecute any alcohol or drug abuse patient.[facility] DaytonIn the event this information is protected by the Federal Confidentiality of Alcohol and Drug Abuse Patient Records regulations: The Federal rules restrict any use of the information to criminally investigate or prosecute any alcohol or drug abuse patient.[facility] DaytonIn the event this information is protected by the Federal Confidentiality of Alcohol and Drug Abuse Patient Records regulations: The Federal rules restrict any use of the information to criminally investigate or prosecute any alcohol or drug abuse patient.[facility] DaytonIn the event this information is protected by the Federal Confidentiality of Alcohol and Drug Abuse Patient Records regulations: The Federal rules restrict any use of the information to criminally investigate or prosecute any alcohol or drug abuse patient.[facility] DaytonIn the event this information is protected by the Federal Confidentiality of Alcohol and Drug Abuse Patient Records regulations: The Federal rules restrict any use of the information to criminally investigate or prosecute any alcohol or drug abuse patient.[facility] DaytonIn the event this information is protected by the Federal Confidentiality of Alcohol and Drug Abuse Patient Records regulations: The Federal rules restrict any use of the information to criminally investigate or prosecute any alcohol or drug abuse patient.[facility] DaytonIn the event this information is protected by the Federal Confidentiality of Alcohol and Drug Abuse Patient Records regulations: The Federal rules restrict any use of the information to criminally investigate or prosecute any alcohol or drug abuse patient.[facility] DaytonIn the event this information is protected by the Federal Confidentiality of Alcohol and Drug Abuse Patient Records regulations: The Federal rules restrict any use of the information to criminally investigate or prosecute any alcohol or drug abuse patient.[facility] DaytonIn the event this information is protected by the Federal Confidentiality of Alcohol and Drug Abuse Patient Records regulations: The Federal rules restrict any use of the information to criminally investigate or prosecute any alcohol or drug abuse patient.[facility] DaytonIn the event this information is protected by the Federal Confidentiality of Alcohol and Drug Abuse Patient Records regulations: The Federal rules restrict any use of the information to criminally investigate or prosecute any alcohol or drug abuse patient.[facility] DaytonIn the event this information is protected by the Federal Confidentiality of Alcohol and Drug Abuse Patient Records regulations: The Federal rules restrict any use of the information to criminally investigate or prosecute any alcohol or drug abuse patient.[facility] DaytonIn the event this information is protected by the Federal Confidentiality of Alcohol and Drug Abuse Patient Records regulations: The Federal rules restrict any use of the information to criminally investigate or prosecute any alcohol or drug abuse patient.[facility] DaytonIn the event this information is protected by the Federal Confidentiality of Alcohol and Drug Abuse Patient Records regulations: The Federal rules restrict any use of the information to criminally investigate or prosecute any alcohol or drug abuse patient.[facility] DaytonIn the event this information is protected by the Federal Confidentiality of Alcohol and Drug Abuse Patient Records regulations: The Federal rules restrict any use of the information to criminally investigate or prosecute any alcohol or drug abuse patient.[facility] DaytonIn the event this information is protected by the Federal Confidentiality of Alcohol and Drug Abuse Patient Records regulations: The Federal rules restrict any use of the information to criminally investigate or prosecute any alcohol or drug abuse patient.[facility] DaytonIn the event this information is protected by the Federal Confidentiality of Alcohol and Drug Abuse Patient Records regulations: The Federal rules restrict any use of the information to criminally investigate or prosecute any alcohol or drug abuse patient.[facility] DaytonIn the event this information is protected by the Federal Confidentiality of Alcohol and Drug Abuse Patient Records regulations: The Federal rules restrict any use of the information to criminally investigate or prosecute any alcohol or drug abuse patient.[facility] DaytonIn the event this information is protected by the Federal Confidentiality of Alcohol and Drug Abuse Patient Records regulations: The Federal rules restrict any use of the information to criminally investigate or prosecute any alcohol or drug abuse patient.[facility] DaytonIn the event this information is protected by the Federal Confidentiality of Alcohol and Drug Abuse Patient Records regulations: The Federal rules restrict any use of the information to criminally investigate or prosecute any alcohol or drug abuse patient.[facility] DaytonIn the event this information is protected by the Federal Confidentiality of Alcohol and Drug Abuse Patient Records regulations: The Federal rules restrict any use of the information to criminally investigate or prosecute any alcohol or drug abuse patient.[facility] DaytonIn the event this information is protected by the Federal Confidentiality of Alcohol and Drug Abuse Patient Records regulations: The Federal rules restrict any use of the information to criminally investigate or prosecute any alcohol or drug abuse patient.[facility] DaytonIn the event this information is protected by the Federal Confidentiality of Alcohol and Drug Abuse Patient Records regulations: The Federal rules restrict any use of the information to criminally investigate or prosecute any alcohol or drug abuse patient.[facility] DaytonIn the event this information is protected by the Federal Confidentiality of Alcohol and Drug Abuse Patient Records regulations: The Federal rules restrict any use of the information to criminally investigate or prosecute any alcohol or drug abuse patient.[facility] the event this information is protected by the Federal Confidentiality of Alcohol and Drug Abuse Patient Records regulations: The Federal rules restrict any use of the information to criminally investigate or prosecute any alcohol or drug abuse patient.[facility] DaytonIn the event this information is protected by the Federal Confidentiality of Alcohol and Drug Abuse Patient Records regulations: The Federal rules restrict any use of the information to criminally investigate or prosecute any alcohol or drug abuse patient.[facility] DaytonIn the event this information is protected by the Federal Confidentiality of Alcohol and Drug Abuse Patient Records regulations: The Federal rules restrict any use of the information to criminally investigate or prosecute any alcohol or drug abuse patient.[facility] DaytonIn the event this information is protected by the Federal Confidentiality of Alcohol and Drug Abuse Patient Records regulations: The Federal rules restrict any use of the information to criminally investigate or prosecute any alcohol or drug abuse patient.[facility] DaytonIn the event this information is protected by the Federal Confidentiality of Alcohol and Drug Abuse Patient Records regulations: The Federal rules restrict any use of the information to criminally investigate or prosecute any alcohol or drug abuse patient.[facility] DaytonIn the event this information is protected by the Federal Confidentiality of Alcohol and Drug Abuse Patient Records regulations: The Federal rules restrict any use of the information to criminally investigate or prosecute any alcohol or drug abuse patient.[facility] DaytonIn the event this information is protected by the Federal Confidentiality of Alcohol and Drug Abuse Patient Records regulations: The Federal rules restrict any use of the information to criminally investigate or prosecute any alcohol or drug abuse patient.[facility] DaytonIn the event this information is protected by the Federal Confidentiality of Alcohol and Drug Abuse Patient Records regulations: The Federal rules restrict any use of the information to criminally investigate or prosecute any alcohol or drug abuse patient.[facility] DaytonIn the event this information is protected by the Federal Confidentiality of Alcohol and Drug Abuse Patient Records regulations: The Federal rules restrict any use of the information to criminally investigate or prosecute any alcohol or drug abuse patient.[facility] DaytonIn the event this information is protected by the Federal Confidentiality of Alcohol and Drug Abuse Patient Records regulations: The Federal rules restrict any use of the information to criminally investigate or prosecute any alcohol or drug abuse patient.[facility] DaytonIn the event this information is protected by the Federal Confidentiality of Alcohol and Drug Abuse Patient Records regulations: The Federal rules restrict any use of the information to criminally investigate or prosecute any alcohol or drug abuse patient.[facility] DaytonIn the event this information is protected by the Federal Confidentiality of Alcohol and Drug Abuse Patient Records regulations: The Federal rules restrict any use of the information to criminally investigate or prosecute any alcohol or drug abuse patient.[facility] DaytonIn the event this information is protected by the Federal Confidentiality of Alcohol and Drug Abuse Patient Records regulations: The Federal rules restrict any use of the information to criminally investigate or prosecute any alcohol or drug abuse patient.[facility] DaytonIn the event this information is protected by the Federal Confidentiality of Alcohol and Drug Abuse Patient Records regulations: The Federal rules restrict any use of the information to criminally investigate or prosecute any alcohol or drug abuse patient.[facility] DaytonIn the event this information is protected by the Federal Confidentiality of Alcohol and Drug Abuse Patient Records regulations: The Federal rules restrict any use of the information to criminally investigate or prosecute any alcohol or drug abuse patient.[facility] DaytonIn the event this information is protected by the Federal Confidentiality of Alcohol and Drug Abuse Patient Records regulations: The Federal rules restrict any use of the information to criminally investigate or prosecute any alcohol or drug abuse patient.[facility] DaytonIn the event this information is protected by the Federal Confidentiality of Alcohol and Drug Abuse Patient Records regulations: The Federal rules restrict any use of the information to criminally investigate or prosecute any alcohol or drug abuse patient.[facility] DaytonIn the event this information is protected by the Federal Confidentiality of Alcohol and Drug Abuse Patient Records regulations: The Federal rules restrict any use of the information to criminally investigate or prosecute any alcohol or drug abuse patient.[facility] DaytonIn the event this information is protected by the Federal Confidentiality of Alcohol and Drug Abuse Patient Records regulations: The Federal rules restrict any use of the information to criminally investigate or prosecute any alcohol or drug abuse patient.[facility] DaytonIn the event this information is protected by the Federal Confidentiality of Alcohol and Drug Abuse Patient Records regulations: The Federal rules restrict any use of the information to criminally investigate or prosecute any alcohol or drug abuse patient.[facility] DaytonIn the event this information is protected by the Federal Confidentiality of Alcohol and Drug Abuse Patient Records regulations: The Federal rules restrict any use of the information to criminally investigate or prosecute any alcohol or drug abuse patient.[facility] DaytonIn the event this information is protected by the Federal Confidentiality of Alcohol and Drug Abuse Patient Records regulations: The Federal rules restrict any use of the information to criminally investigate or prosecute any alcohol or drug abuse patient.[facility] DaytonIn the event this information is protected by the Federal Confidentiality of Alcohol and Drug Abuse Patient Records regulations: The Federal rules restrict any use of the information to criminally investigate or prosecute any alcohol or drug abuse patient.[facility] DaytonIn the event this information is protected by the Federal Confidentiality of Alcohol and Drug Abuse Patient Records regulations: The Federal rules restrict any use of the information to criminally investigate or prosecute any alcohol or drug abuse patient.[facility] DaytonIn the event this information is protected by the Federal Confidentiality of Alcohol and Drug Abuse Patient Records regulations: The Federal rules restrict any use of the information to criminally investigate or prosecute any alcohol or drug abuse patient.[facility] DaytonIn the event this information is protected by the Federal Confidentiality of Alcohol and Drug Abuse Patient Records regulations: The Federal rules restrict any use of the information to criminally investigate or prosecute any alcohol or drug abuse patient.[facility] DaytonIn the event this information is protected by the Federal Confidentiality of Alcohol and Drug Abuse Patient Records regulations: The Federal rules restrict any use of the information to criminally investigate or prosecute any alcohol or drug abuse patient.[facility] DaytonIn the event this information is protected by the Federal Confidentiality of Alcohol and Drug Abuse Patient Records regulations: The Federal rules restrict any use of the information to criminally investigate or prosecute any alcohol or drug abuse patient.[facility] DaytonIn the event this information is protected by the Federal Confidentiality of Alcohol and Drug Abuse Patient Records regulations: The Federal rules restrict any use of the information to criminally investigate or prosecute any alcohol or drug abuse patient.[facility] DaytonIn the event this information is protected by the Federal Confidentiality of Alcohol and Drug Abuse Patient Records regulations: The Federal rules restrict any use of the information to criminally investigate or prosecute any alcohol or drug abuse patient.[facility] Reason for Visit (unrecogniz ed section and content) Reason Comments Recheck Cat bite follow up Reason Comments Recheck 4 week follow up Reason Comments Consult [facility] Pt Outreach F/U Reason Comments Recheck Medication follow up Reason Comments Refill Request Reason Comments Well Woman Reason Comments Dizziness Reason Comments Obesity Specialty Diagnoses / Procedures Referred By Contac t Referred To Contact Diagnoses Class 3 severe obesity with body mass index (BMI) of 45.0 to 49.9 in adult, unspecified obesity type, unspecified whether serious comorbidity present (HCC) Procedures CONSULT [facility] OFFICE/OUTPATIENT [facility] 60-74 MINUTES Fide Vásquez APRN.TELEPHONE INFORMATION CLERK [address] [place] [address] Referral ID Status Reason Start Date Expiration Date Visits Requested Visits Authorized [id number] Pending Review PCP Requested Referral 2 08/18/2023 1 1 Reason Comments Recheck Acid reflux follow u p Reason Comments prescreening Reason Comments Gastroesophageal Reflux Specialty Diagnoses / Procedures Referred By Contac t Referred To Contact Gastroenterology Diagnoses Gastroesophageal reflux disease, unspecified whether esophagitis present Dysphagia, unspecified type Procedures CONSULT TO GASTROENTEROLOGY OFFICE/OUTPATIENT [facility] 60-74 MINUTES Jenny Can APRN.TELEPHONE INFORMATION CLERK [address] [place] [address] Referral ID Status Reason Start Date Expiration Date Visits Requested Visits Authorized [id number] Pending Review PCP Requested Referral 2 11/03/2023 1 1 Reason Comments Schedule EGD Reason Comments Cough Reason Comments Results Reason Comments Eye Problem Left Eye X3 days Reason Comments Cellulitis, Eyelid Evaluation OS Reason Comments migraines, dizziness Reason Comments Anxiety Depression, anxiety attacks- causing palpitations Reason Comments Reminder Call Specialty Diagnoses / Procedures Referred By Kurtis t Referred To Contact Cardiology / [facility] Diagnoses Sensation of chest pressure Dyspnea on exertion Family history of due to heart problem at 50 years of age or younger Procedure: EXERCISE STRESS ECG (WITHOUT IMAGING) Status: Needs Scheduling Requested appt date: Authorizing: Jenny Can APRN.CNP in [facility] Expires: 08/02/2024 Priority: Routine Diagnosis: Sensation of chest pressure [R07.89] Dyspnea on exertion [R06.09] Family history of due to heart problem at 50 years of age or younger [Z82.... Procedures ECHO TTHRC R-T 2D W/WO M-MODE COMPLETE REST&ST STRESS TEST Dennise CanyJIA.TELEPHONE INFORMATION CLERK [address] [place] [address] [facility] [address] [place] [address] Referral ID Status Reason Start Date Expiration Date Visits Requested Visits Authorized [id number] Authorized Patient Cleared - Admin/Chairm an/Director advise to proceed or did not respond 3 11/04/2023 1 1 Reason Onset Date Comments Weight Management 03/14/2024 Reason Comments Orders Reason Comments Recheck 3 month follow up, Reason Comments Recheck Adipex follow up Reason Onset Date Comments Weight Management 06/20/2024 Reason Onset Date Comments Refill Request 06/24/2024 Reason Comments Insurance Authorization Reason Onset Date Comments Refill Request 07/08/2024 Reason Comments Weight Management Reason Comments Nutrition Appointment Reason Comments Appointment New tod Reason Comments New Patient Evaluation Specialty Diagnoses / Procedures Referred By Contac t Referred To Contact Diagnoses Elevated blood pressure reading without diagnosis of hypertension Class 3 severe obesity without serious comorbidity with body mass index (BMI) of 45.0 to 49.9 in adult, unspecified obesity type (HCC) Procedures CONSULT TO SLEEP MEDICINE - ADULT OFFICE/OUTPATIENT NEW HIGH MDM 60 MINUTES Katheryn Yu MD [address] [place] [address] Referral ID Status Reason Start Date Expiration Date V isits Requested Visits Authorized [id number] Closed PCP Requested Referral 07/25/2024 07/25/2025 1 1 Reason Comments Insurance Authorization Reason Comments Recheck Follow up medication Reason Comments Well Woman Reason Comments Recheck 4 week follow up Reason Comments Spirometry Specialty Diagnoses / Procedures Referred By Contac t Referred [facility] Diagnoses Dyspnea on exertion Procedures SPIROMETRY WITH DILATOR IF OBSTRUCTED BRNCDILAT RSPSE SPMTRY PRE&POST-BRNCDILAT Dulce Garrison MD [address] [place] [address] Phone: tel: fax: [facility] [place] [address] [place] [address] Referral ID Status Reason Start Date Expiration Date V isits Requested Visits Authorized [id number] Closed Auto-Generate d Referral 05/18/2025 06/17/2026 1 1 Reason Comments New Patient COOLEY Reason Onset Date Comments Refill Request 05/29/2025 Reason Comments Recheck 6 week follow up Specialty Diagnoses / Procedures Referred By Contjai t Referred To Contact [facility] Diagnoses Chest tightness Procedures METHACHOLINE CHALLENGE INHLJ BRNCL CHALLENGE TSTG W/HISTAM/METHACHOL Dulce Barney MD [address] [place] [address] Phone: tel: fax: [facility] [address] [address] Referral ID Status Reason Start Date Expiration Date V isits Requested Visits Authorized [id number] Closed Auto-Generate d Referral 05/22/2025 06/21/2026 1 1 Care Teams (unrecognized sec tion and content) Soft Sugar Cutter Relationship Specialty Start Date End Date Pascale Clark MD [address] [place] [address] PCP - General Internal Medicine 04/25/21 Soft Sugar Cutter Relationship Specialty Start Date End Date Pascale Clark MD [address] [place] [address] PCP - General Internal Medicine 04/25/21 Soft Sugar Cutter Relationship Specialty Start Date End Date Pascale Clark MD [address] [place] [address] PCP - General Internal Medicine 04/25/21 Soft Sugar Cutter Relationship Specialty Start Date End Date Pascale Clark MD [address] [place] [address] PCP - General Internal Medicine 04/25/21 Soft Sugar Cutter Relationship Specialty Start Date End Date Pascale Clark MD [address] [place] [address] PCP - General Internal Medicine 04/25/21 Soft Sugar Cutter Relationship Specialty Start Date End Date Pascale Clark MD [address] [facility] [place] [address] PCP - General Internal Medicine 04/25/21 Soft Sugar Cutter Relationship Specialty Start Date End Date Pascale Clark MD [address] [facility] [place] [address] PCP - General Internal Medicine 04/25/21 Soft Sugar Cutter Relationship Specialty Start Date End Date Pascale Clark MD [address] [facility] [place] [address] PCP - General Internal Medicine 04/25/21 Soft Sugar Cutter Relationship Specialty Start Date End Date Pascale Clark MD [address] [facility] [place] [address] PCP - General Internal Medicine 04/25/21 Soft Sugar Cutter Relationship Specialty Start Date End Date Pascale Clark MD [address] [facility] [place] [address] PCP - General Internal Medicine 04/25/21 Soft Sugar Cutter Relationship Specialty Start Date End Date Pascale Clark MD [address] [facility] [place] [address] PCP - General Internal Medicine 04/25/21 Soft Sugar Cutter Relationship Specialty Start Date End Date Pascale Clark MD [address] [facility] [place] [address] PCP - General Internal Medicine 04/25/21 Soft Sugar Cutter Relationship Specialty Start Date End Date Pascale Clark MD [address] [facility] [place] [address] PCP - General Internal Medicine 04/25/21 Soft Sugar Cutter Relationship Specialty Start Date End Date Pascale Clark MD [address] [facility] [place] [address] PCP - General Internal Medicine 04/25/21 Soft Sugar Cutter Relationship Specialty Start Date End Date Pascale Clark MD [address] [place] [address] PCP - General Internal Medicine 04/25/21 Team Status: Active Member Role Status Dates No Primary Care Physician Family Provider Active JENNY CAN RECLAMATION WORKER-C Primary Care Provider Active Team Status: Inactive Member Role Status Dates Dr. Bryson Peterson MD Emergency Provider Active JENNY CAN RECLAMATION WORKER-C Primary Care Provider Active Soft Sugar Cutter Relationship Specialty Start Date End Date Pascale Clark MD [address] [place] [address] PCP - General Internal Medicine 04/25/21 Soft Sugar Cutter Relationship Specialty Start Date End Date Pascale Clark MD [address] [place] [address] PCP - General Internal Medicine 04/25/21 Soft Sugar Cutter Relationship Specialty Start Date End Date Pascale Clark MD [address] [place] [address] PCP - General Internal Medicine 04/25/21 Soft Sugar Cutter Relationship Specialty Start Date End Date Pascale Clark MD [address] [place] [address] PCP - General Internal Medicine 04/25/21 Soft Sugar Cutter Relationship Specialty Start Date End Date Pascale Clark MD [address] [place], [place] [phone] PCP - General Internal Medicine 04/25/21 Soft Sugar Cutter Relationship Specialty Start Date End Date Pascale Clark MD [address] [place] [address] PCP - General Internal Medicine 04/25/21 Soft Sugar Cutter Relationship Specialty Start Date End Date Pascale Clark MD [address] [place] [address] PCP - General Internal Medicine 04/25/21 Soft Sugar Cutter Relationship Specialty Start Date End Date Older, Jenny, STAPLER MACHINE.TELEPHONE INFORMATION CLERK [address] [place] [address] PCP - General Internal Medicine 08/27/23 Soft Sugar Cutter Relationship Specialty Start Date End Date Older, Jenny, STAPLER MACHINE.TELEPHONE INFORMATION CLERK [address] [place] [address] PCP - General Internal Medicine 08/27/23 Soft Sugar Cutter Relationship Specialty Start Date End Date Older, Jenny, STAPLER MACHINE.TELEPHONE INFORMATION CLERK [address] [place] [address] PCP - General Internal Medicine 08/27/23 Soft Sugar Cutter Relationship Specialty Start Date End Date Older, Jenny, STAPLER MACHINE.TELEPHONE INFORMATION CLERK [address] [place] [address] PCP - General Internal Medicine 08/27/23 Soft Sugar Cutter Relationship Specialty Start Date End Date Older, Jenny, STAPLER MACHINE.TELEPHONE INFORMATION CLERK [address] [place] [address] PCP - General Internal Medicine 08/27/23 Soft Sugar Cutter Relationship Specialty Start Date End Date Older, Jenny, STAPLER MACHINE.TELEPHONE INFORMATION CLERK [address] [place] [address] PCP - General Internal Medicine 08/27/23 Soft Sugar Cutter Relationship Specialty Start Date End Date Older, Jenny, STAPLER MACHINE.TELEPHONE INFORMATION CLERK [address] [place] [address] PCP - General Internal Medicine 08/27/23 Soft Sugar Cutter Relationship Specialty Start Date End Date Older, Jenny, STAPLER MACHINE.TELEPHONE INFORMATION CLERK [address] [place] [address] PCP - General Internal Medicine 08/27/23 Soft Sugar Cutter Relationship Specialty Start Date End Date Older, Jenny, STAPLER MACHINE.TELEPHONE INFORMATION CLERK [address] [place] [address] PCP - General Internal Medicine 08/27/23 Soft Sugar Cutter Relationship Specialty Start Date End Date Older, Jenny, STAPLER MACHINE.TELEPHONE INFORMATION CLERK [address] [place] [address] PCP - General Internal Medicine 08/27/23 Soft Sugar Cutter Relationship Specialty Start Date End Date Older, Jenny, STAPLER MACHINE.TELEPHONE INFORMATION CLERK [address] [place] [address] PCP - General Internal Medicine 08/27/23 Soft Sugar Cutter Relationship Specialty Start Date End Date Pascale Clark MD [address] [place] [address] PCP - General Internal Medicine 04/25/21 08/26/23 Soft Sugar Cutter Relationship Specialty Start Date End Date Older, Jenny, STAPLER MACHINE.TELEPHONE INFORMATION CLERK [address] [place] [address] PCP - General Internal Medicine 08/27/23 Soft Sugar Cutter Relationship Specialty Start Date End Date Older, Jenny, STAPLER MACHINE.TELEPHONE INFORMATION CLERK [address] [place] [address] PCP - General Internal Medicine 08/27/23 Soft Sugar Cutter Relationship Specialty Start Date End Date Older, Jenny, STAPLER MACHINE.TELEPHONE INFORMATION CLERK [address] [place] [address] PCP - General Internal Medicine 08/27/23 Soft Sugar Cutter Relationship Specialty Start Date End Date Older, Jenny, STAPLER MACHINE.TELEPHONE INFORMATION CLERK [address] [place] [address] PCP - General Internal Medicine 08/27/23 Soft Sugar Cutter Relationship Specialty Start Date End Date Older, Jenny, STAPLER MACHINE.TELEPHONE INFORMATION CLERK [address] [place] [address] PCP - General Internal Medicine 08/27/23 Soft Sugar Cutter Relationship Specialty Start Date End Date Older, Jenny, STAPLER MACHINE.TELEPHONE INFORMATION CLERK [address] [place] [address] PCP - General Internal Medicine 08/27/23 Soft Sugar Cutter Relationship Specialty Start Date End Date Older, Jenny, STAPLER MACHINE.TELEPHONE INFORMATION CLERK [address] [place] [address] PCP - General Internal Medicine 08/27/23 Soft Sugar Cutter Relationship Specialty Start Date End Date Older, Jenny, STAPLER MACHINE.TELEPHONE INFORMATION CLERK [address] [place] [address] PCP - General Internal Medicine 08/27/23 Soft Sugar Cutter Relationship Specialty Start Date End Date Older, Jenny, STAPLER MACHINE.TELEPHONE INFORMATION CLERK [address] [place] [address] PCP - General Internal Medicine 08/27/23 Soft Sugar Cutter Relationship Specialty Start Date End Date Older, Jenny, STAPLER MACHINE.TELEPHONE INFORMATION CLERK [address] [place] [address] PCP - General Internal Medicine 08/27/23 Soft Sugar Cutter Relationship Specialty Start Date End Date OlderJenny, STAPLER MACHINE.TELEPHONE INFORMATION CLERK [address] [place] [address] PCP - General Internal Medicine 08/27/23 Soft Sugar Cutter Relationship Specialty Start Date End Date Older, Jenny, STAPLER MACHINE.TELEPHONE INFORMATION CLERK [address] [place] [address] PCP - General Internal Medicine 08/27/23 Soft Sugar Cutter Relationship Specialty Start Date End Date Older, Jenny, STAPLER MACHINE.TELEPHONE INFORMATION CLERK [address] [place] [address] PCP - General Internal Medicine 08/27/23 Soft Sugar Cutter Relationship Specialty Start Date End Date Older, Jenny, STAPLER MACHINE.TELEPHONE INFORMATION CLERK [address] [place] [address] PCP - General Internal Medicine 08/27/23 Soft Sugar Cutter Relationship Specialty Start Date End Date OlderJenny, STAPLER MACHINE.TELEPHONE INFORMATION CLERK [address] [place] [address] PCP - General Internal Medicine 08/27/23 Goals (unrecognized section and content) Goals may be documented in a n alternate section FOR RECORDS PERTAINING TO PATIENTS WHO ARE OR HAVE BEEN ENROLLED IN A CHEMICAL DEPENDENCY/SUBSTANCEABUSE PROGRAM, SOME INFORMATION MAY BE OMITTED. This clinical summary was aggregated from multiple sources. Caution should be exercised in using it in the provision of clinical care. This summary normalizes information from multiple sources, and as a consequence, information in this document may materially change the coding, format and clinical context of patient data. In addition, data may be omitted in some cases. CLINICAL DECISIONS SHOULD BE BASED ON THE PRIMARY CLINICAL RECORDS. [facility]. provides no warranty or guarantee of the accuracy or completeness of information in this document.
[2025-08-07 21:08] VITALS: BP 133/77; PULSE 60; RESP 16; TEMP 37; O2SAT 98
== END 2025-08-07 21:21 | disposition home or self-care (01) ==
LOC: ED 20:52
PROVIDERS: Emergency Provider Emergency Medicine; PCP Nurse Practitioner; Visit Provider Emergency Medicine
DX: R10.9 Unspecified abdominal pain (principal); Z79.899 Other long term (current) drug therapy
CPT/HCPCS: 96372; 99283; A4216